=== PATIENT | male | born 1975 | race Caucasian/White ===

== ENCOUNTER 2016-08-09 12:15 | Emergency (ER) | payer SELFPAY ==
[2016-08-09 14:28] LABS: Hematocrit 45 % (42-52); Hemoglobin 15.1 g/dl (14.0-18.0); Mean Corpuscular HGB Conc 34 g/dl (31-36); Mean Corpuscular Hemoglobin 30 pg (27-31); Mean Corpuscular Volume 89 fL (80-94); Mean Platelet Volume 10 um3 (7.4-10.4); Red Blood Count 5.06 10^6/ul (4.0-5.4); Red Cell Distribution Width 14 % (10.5-15); White Blood Count 7.6 10^3/ul (3.5-10.8)
[2016-08-09 14:44] LABS: Albumin 4.2 g/dL (3.2-5.2); BUN/Creatinine Ratio 16.5 (8-20); C Reactive Protein 5.88 mg/L (< 5.00); Calcium 9.2 mg/dL (8.6-10.3); EGFR African American 117.5 (>60); EGFR Non-African American 91.4 (>60); Globulin 2.7 g/dL (2-4); Total Bilirubin 0.6 mg/dL (0.2-1.0); Total Protein 6.9 g/dL (6.4-8.9)
[2016-08-09] MEDS ORDERED: Ondansetron INJ* 2 MG/ML VIAL IV ONE (14:53)
[2016-08-09] MEDS ORDERED: HYDROmorphone* 1 MG/ML 1 ML SYR IV ONE (14:53)
[2016-08-09] MEDS ORDERED: NS 0.9% 1000 ML* 1,000 ML IV ONE (14:53)
[2016-08-09] MEDS ORDERED: Ondansetron INJ* 2 MG/ML VIAL ONE (14:56)
--- NOTE | 2016-08-09 15:05 | RAD ---
INDICATION: Left flank pain COMPARISON: None TECHNIQUE: Noncontrast axial source images were acquired from the level hemidiaphragms to the symphysis pubis as part of CT imaging for renal stone. Lung bases: There is mild gravity dependent atelectasis in the lung bases. Liver: The liver is normal in size. Noncontrast imaging shows no evidence of a hepatic mass or ductal dilatation. Gallbladder: There are no calcified gallstones. There is no evidence of wall thickening or pericholecystic fluid.. Spleen: The spleen is normal in size. The noncontrast CT appearance is normal. Pancreas: Noncontrast imaging shows no pancreatic mass or ductal dilitation. Adrenal glands: No masses are identified. Kidneys/Bladder: There is no evidence of nephrolithiasis or CT evidence of hydronephrosis. Noncontrast imaging shows no evidence of a renal mass. The bladder is unremarkable.. Adenopathy: There is no evidence of intraperitoneal or retroperitoneal adenopathy. Evaluation is limited without oral contrast. Fluid collections: There are no free or localized fluid collections. Vessels: The aorta and iliac vessels are normal in caliber. There are no significant atherosclerotic changes. The IVC appears normal Pelvic organs: The prostate and seminal vesicles appear normal GI tract: Evaluation of the bowel is limited without oral contrast. The stomach, small bowel, and lower GI tract appear grossly normal. There are no obstructive findings. The appendix is visualized and appears normal. Soft tissues: No soft tissue abnormalities of the extraperitoneal abdomen or pelvis are identified. Osseous structures: There are no acute osseous findings. IMPRESSION: NO ACUTE CT FINDINGS. NO CT EVIDENCE OF UROLITHIASIS.
[2016-08-09 15:51] LABS: Urine Bilirubin Negative (Negative); Urine Glucose Negative (Negative); Urine Nitrite Negative (Negative)
[2016-08-09 16:40] VITALS: BP 126/87
--- NOTE | 2016-08-09 18:15 | ED ---
Angy King Alfonso, scribed for Ajay Enriquez MD on 08/09/16 at 1348 . Abdominal Pain/Male - HPI Summary HPI Summary: This patient is a 41 year old male presenting to [facility] c/o sharp left-sided abdominal pain since 1000 today. The pain radiates to his back. He reports abdominal discomfort since one week ago. He rates the pain 6/10 in severity. Symptoms aggravated by deep breaths and alleviated by position. He reports diarrhea (2 days ago), constipation (1 day ago), and increased urinary frequency. Pt denies nausea. Last BM was yesterday. - History of Current Complaint Chief Complaint: EDAbdPain Stated Complaint: LT FLANK /ABD PAIN Time Seen by Provider: 08/09/16 13:36 Hx Obtained From: Patient Onset/Duration: Sudden Onset, Lasting Hours - since 1000 today, Still Present Timing: Constant Severity Initially: Moderate Severity Currently: Moderate Pain Intensity: 6 Pain Scale Used: 0-10 Numeric Location: Discrete At: LUQ, Discrete At: LLQ, Flank - Left flank Radiates: Yes Radiates to: Back Character: Sharp Aggravating Factor(s): Deep Breaths Alleviating Factor(s): Position Associated Signs And Symptoms: Positive: Constipation - 1 day ago, Urinary Symptoms - Increased frequency, Diarrhea - 2 days ago. Negative: Nausea - Allergies/Home Medications Allergies/Adverse Reactions: Allergies Allergy/AdvReac Type Severity Reaction Status Date / Time Acetaminophen Allergy Anaphylatic Verified 03/05/13 13:02 Shock Amoxicillin Allergy ANAPHYLAXIS, Verified 03/05/13 13:02 HIVES Erythromycin Allergy SEVERE GI Verified 03/05/13 13:02 UPSET, HEAT RASH Penicillins Allergy ANAPHYLAXIS, Verified 03/05/13 13:02 HIVES PMH/Surg Hx/FS Hx/Imm Hx Cardiovascular History: Reports: Hx Coronary Artery Disease - CARDIAC CATHERIZATION WITH STENT PLACEMENT Respiratory History: Reports: Other Respiratory Problems/Disorders - SMOKING HISTORY UNTIL 01/29/2013 Musculoskeletal History: Reports: Other Musculoskeletal History - RIGHT KNEE PIGMENTED VILLONODULAR SYNOVITIS Sensory History: Reports: Hx Contacts or Glasses - glasses Denies: Hx Hearing Aid Opthamlomology History: Reports: Hx Contacts or Glasses - glasses - Surgical History Surgery Procedure, Year, and Place: 06/2011 CARDIAC CATHERIZATION WITH CARDIAC STENT PLACEMENT, [facility]. 2011 RIGHT KNEE ARTHROSCOPY WITH BIOPSY, [facility]. 2012 PILIDIONAL CYSTECTOMY, [facility] Hx Anesthesia Reactions: No Infectious Disease History: No Infectious Disease History: Denies: Traveled Outside the [place] in Last 30 Days - Family History Known Family History: Positive: Unknown - Adopted - Social History Alcohol Use: Rare Substance Use Type: Reports: None Hx Tobacco Use: Yes Smoking Status (MU): Light Every Day Tobacco Smoker Type: Cigarettes Amount Used/How Often: 1 PPD Length of Time of Smoking/Using Tobacco: 20 YEARS Have You Smoked in the Last Year: Yes Review of Systems Negative: Fever Positive: Abdominal Pain - Sharp left-sided abdominal pain since 1000 today which radiates to his back., Diarrhea - 2 days ago, Other - Positive constipation 1 day ago. Negative: Nausea Positive: frequency - Increased urinary frequency All Other Systems Reviewed And Are Negative: Yes Physical Exam Triage Information Reviewed: Yes Vital Signs On Initial Exam: Initial Vitals Temp Pulse Resp BP Pulse Ox 97.8 F 86 16 153/96 99 08/09/16 12:21 08/09/16 12:21 08/09/16 12:21 08/09/16 12:21 08/09/16 12:21 Vital Signs Reviewed: Yes Appearance: Positive: Well-Appearing, No Pain Distress, Obese Skin: Positive: Warm, Skin Color Reflects Adequate Perfusion, Dry Head/Face: Positive: Normal Head/Face Inspection Eyes: Positive: Normal ENT: Positive: Normal ENT inspection Neck: Positive: Supple, Nontender Respiratory/Lung Sounds: Positive: Clear to Auscultation, Breath Sounds Present Cardiovascular: Positive: RRR Abdomen Description: Positive: Other: - Tender in LUQ and LLQ. Most tender in LUQ. Bowel Sounds: Positive: Present Musculoskeletal: Positive: Normal Neurological: Positive: Normal, Sensory/Motor Intact, Alert, Oriented to Person Place, Time, CN Intact II-III Psychiatric: Positive: Affect/Mood Appropriate - [place] Coma Scale Coma Scale Total: 15 Diagnostics - Vital Signs Vital Signs Temp Pulse Resp BP Pulse Ox 08/09/16 12:23 97.8 F 85 17 153/96 100 08/09/16 12:21 97.8 F 86 16 153/96 99 - Laboratory Lab Results: Lab Results 08/09/16 08/09/16 08/09/16 Range/Units 14:20 14:20 14:20 WBC 7.6 (3.5-10.8) 10^3/ul RBC 5.06 (4.0-5.4) 10^6/ul Hgb 15.1 (14.0-18.0) g/dl Hct 45 (42-52) % MCV 89 (80-94) fL MCH 30 (27-31) pg MCHC 34 (31-36) g/dl RDW 14 (10.5-15) % Plt Count 207 (150-450) 10^3/ul MPV 10 (7.4-10.4) um3 Neut % (Auto) 65.2 (38-83) % Lymph % (Auto) 23.3 L (25-47) % [place] % (Auto) 7.0 (1-9) % Eos % (Auto) 4.1 (0-6) % Baso % (Auto) 0.4 (0-2) % Absolute Neuts (auto) 5.0 (1.5-7.7) 10^3/ul Absolute Lymphs (auto) 1.8 (1.0-4.8) 10^3/ul Absolute Monos (auto) 0.5 (0-0.8) 10^3/ul Absolute Eos (auto) 0.3 (0-0.6) 10^3/ul Absolute Basos (auto) 0 (0-0.2) 10^3/ul Absolute Nucleated RBC 0.01 10^3/ul Nucleated RBC % 0.1 Sodium 134 (133-145) mmol/L Potassium 4.0 (3.5-5.0) mmol/L Chloride 106 (101-111) mmol/L Carbon Dioxide 25 (22-32) mmol/L Anion Gap 3 (2-11) mmol/L BUN 15 (6-24) mg/dL Creatinine 0.91 (0.67-1.17) mg/dL Est GFR ( Amer) 117.5 (>60) Est GFR (Non-Af Amer) 91.4 (>60) BUN/Creatinine Ratio 16.5 (8-20) Glucose 100 (70-100) mg/dL Lactic Acid 0.7 (0.5-2.0) mmol/L Calcium 9.2 (8.6-10.3) mg/dL Total Bilirubin 0.60 (0.2-1.0) mg/dL AST 19 (13-39) U/L ALT 23 (7-52) U/L Alkaline Phosphatase 76 (34-104) U/L C-Reactive Protein 5.88 H (< 5.00) mg/L Total Protein 6.9 (6.4-8.9) g/dL Albumin 4.2 (3.2-5.2) g/dL Globulin 2.7 (2-4) g/dL Albumin/Globulin Ratio 1.6 (1-3) Lipase 20 (11.0-82.0) U/L Urine Color Urine Appearance Urine pH (5-9) Ur Specific [place] (1.010-1.030) Urine Protein (Negative) Urine Ketones (Negative) Urine Blood (Negative) Urine Nitrate (Negative) Urine Bilirubin (Negative) Urine Urobilinogen (Negative) Ur Leukocyte Esterase (Negative) Urine Glucose (Negative) 08/09/16 Range/Units 15:35 WBC (3.5-10.8) 10^3/ul RBC (4.0-5.4) 10^6/ul Hgb (14.0-18.0) g/dl Hct (42-52) % MCV (80-94) fL MCH (27-31) pg MCHC (31-36) g/dl RDW (10.5-15) % Plt Count (150-450) 10^3/ul MPV (7.4-10.4) um3 Neut % (Auto) (38-83) % Lymph % (Auto) (25-47) % [place] % (Auto) (1-9) % Eos % (Auto) (0-6) % Baso % (Auto) (0-2) % Absolute Neuts (auto) (1.5-7.7) 10^3/ul Absolute Lymphs (auto) (1.0-4.8) 10^3/ul Absolute Monos (auto) (0-0.8) 10^3/ul Absolute Eos (auto) (0-0.6) 10^3/ul Absolute Basos (auto) (0-0.2) 10^3/ul Absolute Nucleated RBC 10^3/ul Nucleated RBC % Sodium (133-145) mmol/L Potassium (3.5-5.0) mmol/L Chloride (101-111) mmol/L Carbon Dioxide (22-32) mmol/L Anion Gap (2-11) mmol/L BUN (6-24) mg/dL Creatinine (0.67-1.17) mg/dL Est GFR ( Amer) (>60) Est GFR (Non-Af Amer) (>60) BUN/Creatinine Ratio (8-20) Glucose (70-100) mg/dL Lactic Acid (0.5-2.0) mmol/L Calcium (8.6-10.3) mg/dL Total Bilirubin (0.2-1.0) mg/dL AST (13-39) U/L ALT (7-52) U/L Alkaline Phosphatase (34-104) U/L C-Reactive Protein (< 5.00) mg/L Total Protein (6.4-8.9) g/dL Albumin (3.2-5.2) g/dL Globulin (2-4) g/dL Albumin/Globulin Ratio (1-3) Lipase (11.0-82.0) U/L Urine Color Yellow Urine Appearance Clear Urine pH 5.0 (5-9) Ur Specific [place] 1.023 (1.010-1.030) Urine Protein Negative (Negative) Urine Ketones Negative (Negative) Urine Blood Negative (Negative) Urine Nitrate Negative (Negative) Urine Bilirubin Negative (Negative) Urine Urobilinogen Negative (Negative) Ur Leukocyte Esterase Negative (Negative) Urine Glucose Negative (Negative) Result Diagrams: 08/09/16 14:20 08/09/16 14:20 Lab Statement: Any lab studies that have been ordered have been reviewed, and results considered in the medical decision making process. - CT CT A/P w/o contrast CT Interpretation Completed By: Radiologist - NO ACUTE CT FINDINGS. NO CT EVIDENCE OF UROLITHIASIS. Abdominal Pain Fem Course/Dx - Course Course Of Treatment: Mr. Munoz presented with several hours of left abdominal pain in the left upper quadrant. He has had some discomfort in the left lower quadrant for a couple of days and some changes in his stools. He has also had some frequency of urination without dysuria. He was tender on the left side of his abdomen upper more than lower. Labs and CT were normal here and the etiology of his pain remains unclear. I recommended some pain meds and close F/ U. - Diagnoses Provider Diagnoses: Abdominal pain Discharge - Discharge Plan Condition: Stable Disposition: HOME Prescriptions: Oxycodone-Ibuprofen [Oxycodone/Ibuprofen 5-400 mg] 1 tab PO Q6HR #15 tab MDD 4 Patient Education Materials: Abdominal Pain (ED) Referrals: Abeba Gamez MD [Primary Care Provider] - 3 Days Additional Instructions: Follow up with your primary care provider if symptoms do not improve. The documentation as recorded by the Angy lucas Alfonso accurately reflects the service I personally performed and the decisions made by me, Ajay Enriquez MD.
== END 2016-08-09 16:47 | disposition home or self-care (01) ==
LOC: ED 12:15
DX: K59.00 Constipation, unspecified (principal); R10.9 Unspecified abdominal pain; F17.210 Nicotine dependence, cigarettes, uncomplicated
CPT/HCPCS: 36415; 74176; 80053; 81003; 83605; 83690; 85025; 86140; 86703; 99284; J1170; J2405

== ENCOUNTER 2016-09-18 12:49 | Emergency (ER) | payer SELFPAY ==
[2016-09-18] MEDS ORDERED: Albuterol/Ipratropium NEB.SOL* Albuterol 2.5 MG/Ipratropium 0.5 MG 3 ML INH ONE ×2 (14:02→16:28)
[2016-09-18] MEDS ORDERED: methylPREDNISolone 125 MG* 2 ML VIAL IV ONE (14:02)
[2016-09-18] MEDS ORDERED: Ketorolac INJ* 30 MG/ML 1 ML VIAL IV PUSH ONE (14:05)
[2016-09-18 14:28] LABS: Hematocrit 42 % (42-52); Hemoglobin 14.3 g/dl (14.0-18.0); Mean Corpuscular HGB Conc 34 g/dl (31-36); Mean Corpuscular Hemoglobin 30 pg (27-31); Mean Corpuscular Volume 87 fL (80-94); Mean Platelet Volume 9 um3 (7.4-10.4); Red Blood Count 4.85 10^6/ul (4.0-5.4); Red Cell Distribution Width 14 % (10.5-15); White Blood Count 5.9 10^3/ul (3.5-10.8)
[2016-09-18 14:44] LABS: Albumin 3.9 g/dL (3.2-5.2); BUN/Creatinine Ratio 22.7 (8-20); Calcium 9.2 mg/dL (8.6-10.3); EGFR African American 146.9 (>60); EGFR Non-African American 114.2 (>60); Globulin 2.9 g/dL (2-4); Potassium 3.9 mmol/L (3.5-5.0); Total Bilirubin 0.6 mg/dL (0.2-1.0); Total Protein 6.8 g/dL (6.4-8.9)
--- NOTE | 2016-09-18 14:56 | RAD ---
HISTORY: Chest pain, wheezing COMPARISONS: March 05, 2013 VIEWS:1: Single frontal portable view of the chest at 2:07 PM FINDINGS: LINES AND TUBES: None. CARDIOMEDIASTINAL SILHOUETTE: The cardiomediastinal silhouette is normal for portable technique. PLEURA: The costophrenic angles are sharp. No pleural abnormalities are noted. LUNG PARENCHYMA: The lungs are clear. ABDOMEN: The upper abdomen is clear. There is no subphrenic gas. BONES AND SOFT TISSUES: No bone or soft tissue abnormalities are noted. IMPRESSION: NO ACTIVE CARDIOPULMONARY DISEASE.
[2016-09-18 18:33] VITALS: BP 162/78
--- NOTE | 2016-10-05 15:26 | ED ---
Katerin King Edward, scribed for Jai Andrew MD on 09/18/16 at 1359 . Respiratory - HPI Summary HPI Summary: 41 y/o male presents to the ED c/o gradual onset, intermittent SOB for the past 48 hours. Associated sx: wheezing, chronic cough for around 2 months, intermittent CP, diaphoresis at night for the past 2 weeks, chronic pain in legs , itchy throat with cold. No rhinorrhea. Pt had a cold lasting a week prior to these symptoms. No PMHx COPD, asthma, emphysema. No PMHx DM, HLD, HTN. Patient is adopted. Former smoker, use marijuana, EtOH. SHx stents 3-4 years ago. - History of Current Complaint Chief Complaint: EDUpperRespComplaint Stated Complaint: DIFF BREATHING/CHEST CONGESTION Time Seen by Provider: 09/18/16 13:56 Hx Obtained From: Patient Onset/Duration: Gradual Onset, Still Present Pain Intensity: 0 Character: Wheezing, Cough (Nonproductive) Associated Signs and Symptoms: SOB, Chest Pain, Diaphoresis, Hoarseness - Allergy/Home Medications Allergies/Adverse Reactions: Allergies Allergy/AdvReac Type Severity Reaction Status Date / Time Acetaminophen Allergy Anaphylatic Verified 09/18/16 13:02 Shock Amoxicillin Allergy ANAPHYLAXIS, Verified 09/18/16 13:02 HIVES Erythromycin Allergy SEVERE GI Verified 09/18/16 13:02 UPSET, HEAT RASH Penicillins Allergy ANAPHYLAXIS, Verified 09/18/16 13:02 HIVES PMH/Surg Hx/FS Hx/Imm Hx Previously Healthy: No Cardiovascular History: Reports: Hx Coronary Artery Disease - CARDIAC CATHERIZATION WITH STENT PLACEMENT Respiratory History: Reports: Other Respiratory Problems/Disorders - SMOKING HISTORY UNTIL 01/29/2013 Musculoskeletal History: Reports: Other Musculoskeletal History - RIGHT KNEE PIGMENTED VILLONODULAR SYNOVITIS Sensory History: Reports: Hx Contacts or Glasses - glasses Denies: Hx Hearing Aid Opthamlomology History: Reports: Hx Contacts or Glasses - glasses - Surgical History Surgery Procedure, Year, and Place: 06/2011 CARDIAC C[place]ER[place] WITH [place] [facility]ROS[place] WITH [place]OPSY, [facility]. 2011 P[place]ID[place]AL [place], [facility] Hx Anesthesia Reactions: No Infectious Disease History: Yes Infectious Disease History: Denies: Traveled Outside the [place] in Last 30 Days - Family History Known Family History: Positive: Unknown - Adopted - Social History Alcohol Use: Rare Substance Use Type: Reports: Marijuana Hx Tobacco Use: Yes Smoking Status (MU): Light Every Day Tobacco Smoker Type: Cigarettes Amount Used/How Often: 1 PPD Length of Time of Smoking/Using Tobacco: 20 YEARS Have You Smoked in the Last Year: Yes Review of Systems Positive: Skin Diaphoresis - At night. Negative: Fever, Chills Negative: Erythema Positive: Sore Throat - With cold Positive: Chest Pain Positive: Shortness Of Breath, Cough, Other - Wheezing Negative: Abdominal Pain, Vomiting, Nausea Negative: dysuria, hematuria Musculoskeletal: Other - Chronic pain Negative: Edema Negative: Rash Neurological: Other - No dizziness All Other Systems Reviewed And Are Negative: Yes Physical Exam - Summary Physical Exam Summary: Constitutional: Well-developed, Well-nourished, Alert. (-) Distressed Skin: Warm, Dry HENT: Normocephalic; Atraumatic Eyes: Conjunctiva normal Neck: Musculoskeletal ROM normal neck. (-) JVD, (-) Stridor, (-) Tracheal deviation Cardio: Rhythm regular, rate normal, Heart sounds normal; Intact distal pulses; The pedal pulses are 2+ and symmetric. Radial pulses are 2+ and symmetric. (-) Murmur Pulmonary/Chest wall: Effort normal. (-) Respiratory distress, (+) Wheezes in L lower lung [place], (-) Rales Abd: Soft, (-) Tenderness, (-) Distension, (-) Guarding, (-) Rebound Musculoskeletal: (-) Edema Lymph: (-) Cervical adenopathy Neuro: Alert, Oriented x3 Psych: Mood and affect Normal Triage Information Reviewed: Yes Vital Signs On Initial Exam: Initial Vitals Temp Pulse Resp BP Pulse Ox 98 F 83 20 126/84 97 09/18/16 13:02 09/18/16 13:02 09/18/16 13:02 09/18/16 13:02 09/18/16 13:02 Vital Signs Reviewed: Yes - [place] Coma Scale Coma Scale Total: 15 Diagnostics - Vital Signs Vital Signs Temp Pulse Resp BP Pulse Ox 09/18/16 13:47 22 09/18/16 13:36 98 F 80 20 137/92 97 09/18/16 13:34 78 96 09/18/16 13:33 137/92 09/18/16 13:02 98 F 83 20 126/84 97 - Laboratory Lab Results: Lab Results 09/18/16 09/18/16 Range/Units 14:15 14:15 WBC 5.9 (3.5-10.8) 10^3/ul RBC 4.85 (4.0-5.4) 10^6/ul Hgb 14.3 (14.0-18.0) g/dl Hct 42 (42-52) % MCV 87 (80-94) fL MCH 30 (27-31) pg MCHC 34 (31-36) g/dl RDW 14 (10.5-15) % Plt Count 187 (150-450) 10^3/ul MPV 9 (7.4-10.4) um3 Sodium 137 (133-145) mmol/L Potassium 3.9 (3.5-5.0) mmol/L Chloride 106 (101-111) mmol/L Carbon Dioxide 24 (22-32) mmol/L Anion Gap 7 (2-11) mmol/L BUN 17 (6-24) mg/dL Creatinine 0.75 (0.67-1.17) mg/dL Est GFR ( Amer) 146.9 (>60) Est GFR (Non-Af Amer) 114.2 (>60) BUN/Creatinine Ratio 22.7 H (8-20) Glucose 115 H (70-100) mg/dL Calcium 9.2 (8.6-10.3) mg/dL Total Bilirubin 0.60 (0.2-1.0) mg/dL AST 25 (13-39) U/L ALT 37 (7-52) U/L Alkaline Phosphatase 75 (34-104) U/L Troponin I 0.00 (<0.04) ng/mL Total Protein 6.8 (6.4-8.9) g/dL Albumin 3.9 (3.2-5.2) g/dL Globulin 2.9 (2-4) g/dL Albumin/Globulin Ratio 1.3 (1-3) Result Diagrams: 09/18/16 14:15 09/18/16 14:15 Lab Statement: Any lab studies that have been ordered have been reviewed, and results considered in the medical decision making process. - Radiology CXR Xray Interpretation: No Acute Changes - NO ACTIVE CARDIOPULMONARY DISEASE Radiology Interpretation Completed By: Radiologist - EKG 1 EKG Rhythm: Sinus Rhythm - @ 74 bpm EKG Interpretation: 14:21 - No STEMI EKG Comparison: No Significant Change - 03/05/13 Disposition - Course Assessment/Plan: 41 y/o male presents to the ED c/o gradual onset, intermittent SOB for the past 48 hours. Associated sx: wheezing, chronic cough for around 2 months, intermittent CP, diaphoresis at night for the past 2 weeks, chronic pain in legs, itchy throat with cold. No rhinorrhea. Pt had a cold lasting a week prior to these symptoms. No PMHx COPD, asthma, emphysema. No PMHx DM, HLD, HTN. Patient is adopted. Former smoker, use marijuana, EtOH. SHx stents 3-4 years ago. EKG @ 14:21 shows No STEMI and no change from 03/05/13. Sinus rhythm @ 74 bpm. CXR SHOWS NO ACTIVE CARDIOPULMONARY DISEASE. On re-eval, pt states that all of patient's CP is w/ coughing. Pt will be d/c home with [place] [facility] [place]. - Diagnoses Provider Diagnoses: Asthma exacerbation, Strain of chest wall Discharge - Discharge Plan Condition: Stable Disposition: HOME Prescriptions: traMADol TAB* [Ultram*] 25 mg PO Q6HR PRN #12 tab MDD 4 PRN Reason: Pain - Severe Patient Education Materials: Chest Wall Pain (ED), Asthma (ED) Referrals: Abeba Gamez MD [Primary Care Provider] - 3 Days (Please f/u in 2-3 days) The documentation as recorded by the Katerin lucas Edward accurately reflects the service I personally performed and the decisions made by , Jai Andrew MD.
== END 2016-09-18 18:31 | disposition home or self-care (01) ==
LOC: ED 12:49
DX: S29.011A Strain of muscle and tendon of front wall of thorax, initial encounter (principal); R06.02 Shortness of breath; R07.9 Chest pain, unspecified; F17.210 Nicotine dependence, cigarettes, uncomplicated; J45.901 Unspecified asthma with (acute) exacerbation; X58.XXXA Exposure to other specified factors, initial encounter; Y93.9 Activity, unspecified; Y92.9 Unspecified place or not applicable
CPT/HCPCS: 36415; 71010; 80053; 84484; 85027; 93005; 94640; 96374; 96375; 99284; A9270-GY; J1885; J2930

== ENCOUNTER 2016-12-26 10:22 | Emergency (ER) | payer SELFPAY ==
--- NOTE | 2016-12-26 11:20 | RAD ---
HISTORY: Right knee pain COMPARISONS: April 28, 2013 VIEWS: 4, Frontal, lateral, axial, and oblique views of the right knee FINDINGS: BONE DENSITY: Normal. BONES: The patient is status post right knee arthroplasty. There is no hardware failure or osteolysis. JOINTS: The patient is status post right knee arthroplasty. ALIGNMENT: There is no dislocation. SOFT TISSUES: Unremarkable. OTHER FINDINGS: None. IMPRESSION: STATUS POST RIGHT KNEE ARTHROPLASTY
[2016-12-26] MEDS ORDERED: Ketorolac INJ* 30 MG/ML 1 ML VIAL IM ONE (11:37)
[2016-12-26] MEDS ORDERED: Ketorolac INJ* 30 MG/ML 1 ML VIAL ONE (11:39)
--- NOTE | 2016-12-26 11:44 | ED ---
Lower Extremity - HPI Summary HPI Summary: 41 male presents to ED with complaints of right knee pain that occurred around 9am after sustaining an injury. 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 Admits to swelling and bruising. Is able to bear weight however causes pain. Pain is mainly medial. 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 No other complaints at this time. No other injuries. No PMHx. - History of Current Complaint Chief Complaint: EDExtremityLower Stated Complaint: FALL/RT KNEE PAIN Time Seen by Provider: 12/26/16 10:44 Hx Obtained From: Patient Mechanism Of Injury: Twisted Onset of Pain: Immediate Onset/Duration: Still Present Severity Initially: Moderate Severity Currently: Moderate Pain Intensity: 8 Pain Scale Used: 0-10 Numeric Location: Is Discrete @ - medial/anterior right knee Character Of Pain: Aching Associated Signs And Symptoms: Positive: Swelling, Bruising Aggravating Factor(s): Standing, Ambulation, Weight Bearing Alleviating Factor(s): Rest Able to Bear Weight: Yes - however painful - Allergies/Home Medications Allergies/Adverse Reactions: Allergies Allergy/AdvReac Type Severity Reaction Status Date / Time Acetaminophen Allergy Anaphylatic Verified 09/18/16 13:02 Shock Amoxicillin Allergy ANAPHYLAXIS, Verified 09/18/16 13:02 HIVES Erythromycin Allergy SEVERE GI Verified 09/18/16 13:02 UPSET, HEAT RASH Penicillins Allergy ANAPHYLAXIS, Verified 09/18/16 13:02 HIVES PMH/Surg Hx/FS Hx/Imm Hx Endocrine/Hematology History: Denies: Hx Anticoagulant Therapy Cardiovascular History: Reports: Hx Coronary Artery Disease - CARDIAC CATHERIZATION WITH STENT PLACEMENT, Hx Hypertension Respiratory History: Reports: Other Respiratory Problems/Disorders - SMOKING HISTORY UNTIL 01/29/2013 Denies: Hx Asthma Musculoskeletal History: Reports: Other Musculoskeletal History - RIGHT KNEE PIGMENTED VILLONODULAR SYNOVITIS Sensory History: Reports: Hx Contacts or Glasses - glasses Denies: Hx Hearing Aid Opthamlomology History: Reports: Hx Contacts or Glasses - glasses - Surgical History Surgery Procedure, Year, and Place: 06/2011 [place]ARDI[place] [facility] [place] RIGHT KNEE ARTHROSCOPY WITH BIOPSY, and partial replacement [facility]. 2012 [place] [facility] [place] Anesthesia Reactions: No - Immunization History Immunizations Up to Date: Yes Infectious Disease History: No Infectious Disease History: Denies: Traveled Outside the [place] in Last 30 Days - Family History Known Family History: Positive: Unknown - Adopted - Social History Alcohol Use: Weekly Substance Use Type: Reports: Marijuana Hx Tobacco Use: Yes Smoking Status (MU): Light Every Day Tobacco Smoker Type: Cigarettes Amount Used/How Often: 1 PPD Length of Time of Smoking/Using Tobacco: 20 YEARS Have You Smoked in the Last Year: Yes Review of Systems Constitutional: Negative Respiratory: Negative Gastrointestinal: Negative Positive: Arthralgia, Myalgia, Decreased ROM, Edema - right knee All Other Systems Reviewed And Are Negative: Yes Physical Exam Triage Information Reviewed: Yes Vital Signs On Initial Exam: Initial Vitals Temp Pulse Resp BP Pulse Ox 98.0 F 74 18 156/111 99 12/26/16 10:25 12/26/16 10:25 12/26/16 10:25 12/26/16 10:25 12/26/16 10:25 elevated BP noted, improved at d/c, patient in pain Vital Signs Reviewed: Yes Appearance: Positive: Well-Appearing, Well-Nourished, Pain Distress - moderate Skin: Positive: Warm, Skin Color Reflects Adequate Perfusion, Dry, Other - some edema/ecchymosis of right anterior/medial knee noted when compared to left. Negative: Cold, Cyanosis @, Erythema @ Head/Face: Positive: Normal Head/Face Inspection Eyes: Positive: Conjunctiva Clear ENT: Positive: Hearing grossly normal Neck: Positive: Supple, Nontender Respiratory/Lung Sounds: Positive: Clear to Auscultation, Breath Sounds Present. Negative: Rales, Rhonchi, Wheezes Cardiovascular: Positive: Normal, RRR, Pulses are Symmetrical in both Upper and Lower Extremities - 2+ pedal b/l. Negative: Murmur, Rub Musculoskeletal: Positive: Strength/ROM Intact - some limitation to right knee with flexion, Limited @ - with flexion due to pain of right knee, able, Pain @ - right anterior/medial knee on palpation, Edema Right - with noteable scar from previous knee partial replacement ~5 years ago. Negative: Interruption @, Abnormal @ Neurological: Positive: Normal, Sensory/Motor Intact, Alert, Oriented to Person Place, Time, NV Bundle Intact Distally, Unable to Assess Gait - due to injury/ pain - Tuyet Coma Scale Coma Scale Total: 15 Diagnostics - Vital Signs Vital Signs Temp Pulse Resp BP Pulse Ox 12/26/16 10:25 98.0 F 74 18 156/111 99 - Laboratory Lab Statement: Any lab studies that have been ordered have been reviewed, and results considered in the medical decision making process. - Radiology right knee Xray Interpretation: No Acute Changes - STATUS POST RIGHT KNEE ARTHROPLASTY Radiology Interpretation Completed By: Radiologist Lower Extremity Course/Dx - Course Course Of Treatment: xray obtained and negative. appears to have suffered from injury, possible ligamentious/muscular. knee immobilizer and crutches given. RICE and pain management. Aware of worsening signs and symptoms. Follow up with ortho. refrain from weight bearing until symptoms improve. no concern for other etiology at this time. - Diagnoses Differential Diagnosis/HQI/PQRI: Positive: Contusion, Dislocation, Fracture ( Closed), Sprain, Strain Provider Diagnoses: Pain of right knee after injury, Contusion Discharge - Discharge Plan Condition: Stable Disposition: HOME Prescriptions: oxyCODONE TAB* [Roxycodone TAB 5 mg*] 5 mg PO Q8H PRN #10 tab MDD 2 PRN Reason: Pain Patient Education Materials: Knee Pain (ED) Forms: *Work Release Referrals: Navarro Richardson MD [Medical Doctor] - [facility] [place] [Outside] Additional Instructions: Wear knee immobilizer and use crutches to help with extra support and keeping off knee. continue ibuprofen with food, stronger pain medication as needed. Follow up with ortho, call and make an appointment. Rest, ice and elevate. Any new or worsening symptoms please seek medical attention promptly.
[2016-12-26] MEDS ORDERED: oxyCODONE TAB* 5 MG TAB PO ONE (12:28)
[2016-12-26 13:08] VITALS: BP 155/89
== END 2016-12-26 13:08 | disposition home or self-care (01) ==
LOC: ED 10:22
DX: S89.91XA Unspecified injury of right lower leg, initial encounter (principal); T14.8XXA Other injury of unspecified body region, initial encounter; M25.561 Pain in right knee; W01.0XXA Fall on same level from slipping, tripping and stumbling without subsequent striking against object, initial encounter; Y93.9 Activity, unspecified; Y92.9 Unspecified place or not applicable
CPT/HCPCS: 96372; 99282; J1885

== ENCOUNTER → 2017-02-06 12:46 | Emergency (ER) | payer SELFPAY ==
--- NOTE | 2017-02-06 13:51 | RAD ---
Indication: Left shoulder pain. 4 views of left shoulder demonstrates no fracture. No other bone or joint abnormality is noted. IMPRESSION: Unremarkable left shoulder.
--- NOTE | 2017-02-06 13:53 | ED ---
Upper Extremity Pain - HPI Summary HPI Summary: Pt to Ed states woke this am with "dislocated shoulder" left side. pt states he "popped it back in putting a shirt on" but now feels it is out again. Patient states he awoke with pain in his scapula worse today although has been present for 2-3 weeks. He is right hand dominant, but uses his left often at work. Denies slurred speech, facial droop or other symptoms. He was seen by a chiropractor without improvement. He states he feels pain in the scapula which radiates to the left anterior shoulder and radiates up the neck just inferior to the ear. Never had this before. Takes ibuprofen daily and it is without relief. Has not tried ice or heat. Pain is 8/10, intermittent and worse with abduction. Denies temperature, color changes or numbness or tingling. - History of Current Complaint Chief Complaint: EDExtremityUpper Stated Complaint: SHOULDER INJURY Time Seen by Provider: 02/06/17 13:07 Hx Obtained From: Patient Mechanism Of Injury: Unknown Onset/Duration: Started Hours Ago Timing: Intermittent Severity Initially: Moderate Severity Currently: Moderate Pain Location: Shoulder Character: Aching Aggravating Factor(s): Movement, Lifting, Flexion, Extension, Internal/External Rotation, Abduction Alleviating Factor(s): Rest Associated Signs & Symptoms: Negative: Swelling, Redness, Bruising, Numbness/ Tingling, Chest Pain, SOB, Diaphoresis, Nausea - Risk Factors Non-Orthopedic Risk Factor: Negative DVT Risk Factors: Negative Septic Arthritis Risk Factor: Negative - Allergies/Home Medications Allergies/Adverse Reactions: Allergies Allergy/AdvReac Type Severity Reaction Status Date / Time Acetaminophen Allergy Anaphylatic Verified 09/18/16 13:02 Shock Amoxicillin Allergy ANAPHYLAXIS, Verified 09/18/16 13:02 HIVES Erythromycin Allergy SEVERE GI Verified 09/18/16 13:02 UPSET, HEAT RASH Penicillins Allergy ANAPHYLAXIS, Verified 09/18/16 13:02 HIVES PMH/Surg Hx/FS Hx/Imm Hx Previously Healthy: Yes Endocrine/Hematology History: Denies: Hx Anticoagulant Therapy Cardiovascular History: Reports: Hx Coronary Artery Disease - CARDIAC CATHERIZATION WITH STENT PLACEMENT, Hx Hypertension Respiratory History: Reports: Other Respiratory Problems/Disorders - SMOKING HISTORY UNTIL 01/29/2013 Denies: Hx Asthma Musculoskeletal History: Reports: Other Musculoskeletal History - RIGHT KNEE PIGMENTED VILLONODULAR SYNOVITIS Sensory History: Reports: Hx Contacts or Glasses - glasses Denies: Hx Hearing Aid Opthamlomology History: Reports: Hx Contacts or Glasses - glasses - Surgical History Surgery Procedure, Year, and Place: 06/2011 CARDIAC CATHERIZATION WITH CARDIAC STENT PLACEMENT, [facility] [place]. 2011 RIGHT KNEE ARTHROSCOPY WITH BIOPSY, and partial replacement [facility]. 2011 PILIDIONAL CYSTECTOMY, [facility] Hx Anesthesia Reactions: No - Immunization History Hx Pertussis Vaccination: No Immunizations Up to Date: Unable to Obtain/Confirm Infectious Disease History: No Infectious Disease History: Denies: Traveled Outside the [place] in Last 30 Days - Family History Known Family History: Positive: Unknown - Adopted - Social History Occupation: Employed Full-time Lives: With Family Alcohol Use: Weekly Hx Substance Use: No Substance Use Type: Reports: Marijuana Hx Tobacco Use: Yes Smoking Status (MU): Heavy Every Day Tobacco Smoker Type: Cigarettes Amount Used/How Often: 1 PPD Length of Time of Smoking/Using Tobacco: 20 YEARS Have You Smoked in the Last Year: Yes Review of Systems Constitutional: Negative Negative: Fever, Chills, Fatigue Eyes: Negative Cardiovascular: Negative Respiratory: Negative Genitourinary: Negative Positive: no symptoms reported, see HPI Positive: Arthralgia - left shoulder pain Skin: Negative Neurological: Negative All Other Systems Reviewed And Are Negative: Yes Physical Exam Triage Information Reviewed: Yes Vital Signs On Initial Exam: Initial Vitals Temp Pulse Resp BP Pulse Ox 97.1 F 81 18 142/95 97 02/06/17 12:49 02/06/17 12:49 02/06/17 12:49 02/06/17 12:49 02/06/17 12:49 Vital Signs Reviewed: Yes Appearance: Positive: Well-Appearing, Well-Nourished Skin: Positive: Warm, Skin Color Reflects Adequate Perfusion Head/Face: Positive: Normal Head/Face Inspection Eyes: Positive: EOMI, REBECCA, Conjunctiva Clear Neck: Positive: Supple, No Lymphadenopathy Respiratory/Lung Sounds: Positive: Clear to Auscultation, Breath Sounds Present Cardiovascular: Positive: RRR, Pulses are Symmetrical in both Upper and Lower Extremities Musculoskeletal: Positive: Pain @ - left shoulder with movement - worse with abduction Neurological: Positive: Speech Normal Psychiatric: Positive: Normal, Affect/Mood Appropriate - Tuyet Coma Scale Coma Scale Total: 15 Diagnostics - Vital Signs Vital Signs Temp Pulse Resp BP Pulse Ox 12/26/17 12:49 97.1 F 81 18 142/95 97 - Laboratory Lab Statement: Any lab studies that have been ordered have been reviewed, and results considered in the medical decision making process. Course/Dx - Course Course Of Treatment: He states he feels pain in the scapula which radiates to the left anterior shoulder and radiates up the neck just inferior to the ear. Never had this before. Takes ibuprofen daily and it is without relief. Has not tried ice or heat. Pain is 8/10, intermittent and worse with abduction. Denies temperature, color changes or numbness or tingling. On physical exam, full ROM is noted. Pain is worse with movement, although no signs of impingement or RTC injury is evident. Neer test negative. Clarke bryon negative. He is encouarged ibuprofen as this is likely tendinitis or calcific tendinitis for overuse at work. He is OK with plan and discharge and will follow up with Debra for worsening symptoms. Ice and heat intermittently encouraged. - Diagnoses Provider Diagnoses: Tendinitis Discharge - Discharge Plan Condition: Stable Disposition: HOME Patient Education Materials: Calcific Tendinitis (ED) Forms: *Work Release Referrals: Navarro Richardson MD [Medical Doctor] - No Primary Care Phys,NOPCP [Primary Care Provider] - Additional Instructions: If you develop numbness or weakness in the shoulder or arm - please return to the ED Ibuprofen 600mg three times daily for pain and inflammation for at least 5 days Ice and heat intermittently to the shoulder try not to repetitively move the shoulder to prevent further damage or pain
[2017-02-06 14:45] VITALS: BP 149/92
== END | disposition home or self-care (01) ==
LOC: ED 12:46
DX: M75.92 Shoulder lesion, unspecified, left shoulder (principal); F17.210 Nicotine dependence, cigarettes, uncomplicated; Z88.0 Allergy status to penicillin
CPT/HCPCS: 93005; 99281

== ENCOUNTER 2017-02-23 20:10 | Emergency (ER) | payer SELFPAY ==
[2017-02-23 20:15] VITALS: BP 156/103
[2017-02-23] MEDS ORDERED: Cyclobenzaprine TAB* 10 MG PO ONE (21:32)
[2017-02-23] MEDS ORDERED: Ketorolac INJ* 60 MG/2 ML VIAL IM ONE (21:32)
[2017-02-23] MEDS ORDERED: Lidocaine PATCH 5%* 1 PATCH TRANSDERM ONE (22:31)
[2017-02-23] MEDS ORDERED: Dexamethasone TAB* 4 MG PO ONE (22:32)
--- NOTE | 2017-02-23 22:35 | ED ---
Back Pain - HPI Summary HPI Summary: 41M presents with back pain for past two weeks. He states that around T12 he has constant pain but at T1 he has intermittent pain. He denies any injury. He states pain feels like muscle spasms. He has been using ibuprofen without relief. He denies any fever or IV drug use. He denies any numbness or tingling. He denies any loss of bowel or bladder or saddle anaesthesia. He denies any pain into his arms. He denies any weakness into his arms. He states pain is making it difficulty to sleep. He does not have a primary. - History of Current Complaint Chief Complaint: EDBackInjuryPain Stated Complaint: BACK PAIN Time Seen by Provider: 02/23/17 20:58 Pain Intensity: 10 - Allergies/Home Medications Allergies/Adverse Reactions: Allergies Allergy/AdvReac Type Severity Reaction Status Date / Time Acetaminophen Allergy Anaphylatic Verified 09/18/16 13:02 Shock Amoxicillin Allergy ANAPHYLAXIS, Verified 09/18/16 13:02 HIVES Erythromycin Allergy SEVERE GI Verified 09/18/16 13:02 UPSET, HEAT RASH Penicillins Allergy ANAPHYLAXIS, Verified 09/18/16 13:02 HIVES PMH/Surg Hx/FS Hx/Imm Hx Endocrine/Hematology History: Denies: Hx Anticoagulant Therapy Cardiovascular History: Reports: Hx Coronary Artery Disease - CARDIAC CATHERIZATION WITH STENT PLACEMENT, Hx Hypertension Respiratory History: Reports: Other Respiratory Problems/Disorders - SMOKING HISTORY UNTIL 01/29/2013 Denies: Hx Asthma Musculoskeletal History: Reports: Other Musculoskeletal History - RIGHT KNEE PIGMENTED VILLONODULAR SYNOVITIS Sensory History: Reports: Hx Contacts or Glasses - glasses Denies: Hx Hearing Aid Opthamlomology History: Reports: Hx Contacts or Glasses - glasses - Surgical History Surgery Procedure, Year, and Place: 06/2011 CARDIAC CATHERIZATION WITH CARDIAC STENT PLACEMENT, [facility] [place]. 2011 RIGHT KNEE ARTHROSCOPY WITH BIOPSY, and partial replacement [facility] [place]. 2012 PILIDIONAL CYSTECTOMY, [facility] [place] Hx Anesthesia Reactions: No Infectious Disease History: No Infectious Disease History: Denies: Traveled Outside the [place] in Last 30 Days - Family History Known Family History: Positive: Unknown - Adopted - Social History Alcohol Use: Weekly Hx Substance Use: No Substance Use Type: Reports: Marijuana Hx Tobacco Use: Yes Smoking Status (MU): Heavy Every Day Tobacco Smoker Type: Cigarettes Amount Used/How Often: 1 PPD Length of Time of Smoking/Using Tobacco: 20 YEARS Have You Smoked in the Last Year: Yes Review of Systems Negative: Fever Negative: Chest Pain Negative: Shortness Of Breath Positive: Myalgia - back pain All Other Systems Reviewed And Are Negative: Yes Physical Exam Triage Information Reviewed: Yes Vital Signs On Initial Exam: Initial Vitals Temp Pulse Resp BP Pulse Ox 97.8 F 86 16 156/103 99 02/23/17 20:13 02/23/17 20:13 02/23/17 20:13 02/23/17 20:13 02/23/17 20:13 Vital Signs Reviewed: Yes Appearance: Positive: Well-Appearing Skin: Positive: Warm, Dry Head/Face: Positive: Normal Head/Face Inspection Eyes: Positive: Normal, Conjunctiva Clear Respiratory/Lung Sounds: Positive: Clear to Auscultation, Breath Sounds Present Cardiovascular: Positive: Normal, RRR Musculoskeletal: Positive: Strength/ROM Intact - back, Other - tenderness T1 and T12, good pulses, neg SLR Neurological: Positive: Sensory/Motor Intact - biceps Psychiatric: Positive: Normal Diagnostics - Vital Signs Vital Signs Temp Pulse Resp BP Pulse Ox 02/23/17 20:13 97.8 F 86 16 156/103 99 - Laboratory Lab Statement: Any lab studies that have been ordered have been reviewed, and results considered in the medical decision making process. - Radiology thoracic Xray Interpretation: No Acute Changes Radiology Interpretation Completed By: ED Physician Back Pain Course/Dx - Course Course Of Treatment: 41M presents with back pain for past two weeks. He states that around T12 he has constant pain but at T1 he has intermittent pain. He denies any injury. He states pain feels like muscle spasms. He has been using ibuprofen without relief. He denies any fever or IV drug use. He denies any numbness or tingling. He denies any loss of bowel or bladder or saddle anaesthesia. He denies any pain into his arms. He denies any weakness into his arms. He states pain is making it difficulty to sleep. He does not have a primary. on exam tenderness T1 and T12. neurovascular intact. full ROM. xray read as normal by me. will treat with steriod and muscle relaxer. patient understand and agrees with plan. - Diagnoses Differential Diagnosis/HQI/PQRI: Positive: Herniated Disc, Strain, Sprain Provider Diagnoses: Back pain Discharge - Discharge Plan Condition: Good Disposition: HOME Prescriptions: Cyclobenzaprine TAB* [Flexeril 10 MG TAB*] 10 mg PO TID PRN #21 tab PRN Reason: Pain Ibuprofen TAB* [Motrin TAB* 800 MG] 800 mg PO Q6H #20 tab Methylprednisolone [Medrol Dosepak 4 MG*] 4 mg PO .SEE KENIA INSTRUCTION #1 packet Patient Education Materials: Back Pain (ED) Referrals: [facility] [place] [facility] [Outside] Additional Instructions: Follow directions on package for Medrol pack Take muscle relaxers three times a day Use ibuprofen or Tylenol for pain every 6 hours ice/heat area, move as much as possible Establish care with primary Return to ED if develop any new or worsening symptoms
--- NOTE | 2017-02-24 08:03 | RAD ---
Indication: Back pain. 2 views of the thoracic spine are reviewed. The vertebral bodies appear normal in height. Mild dextroscoliosis centered at T5 is noted. Mild degenerative disc disease is noted. IMPRESSION: No definite compression fracture is noted. Pedicles appear intact. Degenerative disc disease is noted in the mid thoracic spine.
== END 2017-02-23 22:53 | disposition home or self-care (01) ==
LOC: ED 20:10
DX: M54.9 Dorsalgia, unspecified (principal); F17.210 Nicotine dependence, cigarettes, uncomplicated
CPT/HCPCS: 72070; 96372; 99282; A9270-GY; J1885; J8540

== ENCOUNTER 2017-08-11 06:45 | Emergency (ER) | payer SELFPAY ==
[2017-08-11] MEDS ORDERED: Ketorolac INJ* 60 MG/2 ML VIAL IM ONE (07:13)
--- NOTE | 2017-08-11 07:44 | ED ---
Back Pain - HPI Summary HPI Summary: Patient is a 42-year-old male who presents to the ED with chief complaint of left-sided rib pain which radiates to the left upper back. He states he was helping a friend move a couch the other day when the couch slipped and fell directly onto his left side of his chest pinning him against the wall and hurting his back as well. Denies any pain directly over the spine. He is requesting pain medications on discharge. Occurrence happened 2 days ago. Denies any numbness or tingling or bruising to the area. Also endorses a lump to the left side of his chest wall just left of the nipple. History of these in the past more to the medial side of the chest with biopsies completed. He states this has been new since the last 2 days. Denies any difficulty breathing. Symptoms are aggravated with shoulder abduction and alleviated with complete rest. States ibuprofen has not been improving his symptoms. - History of Current Complaint Chief Complaint: EDGeneral Stated Complaint: LEFT SIDE PAIN Time Seen by Provider: 08/11/17 06:55 Hx Obtained From: Patient Onset/Duration: Sudden Onset Onset/Duration: Started Hours Ago Timing: Constant Back Pain Location: Is Discrete @ - left sided ribs and left sided back pain Severity Initially: Moderate Severity Currently: Moderate Pain Intensity: 7 Character: Aching Alleviating Symptom(s): Rest Associated Signs And Symptoms: Positive: Negative - Risk Factors AAA Risk Factors: Negative TAD Risk Factors: Negative Cauda Equina Risk Factors: Negative Epidural Abscess Risk Factors: Negative - Allergies/Home Medications Allergies/Adverse Reactions: Allergies Allergy/AdvReac Type Severity Reaction Status Date / Time erythromycin base Allergy Severe GI Upset Verified 08/11/17 08:02 acetaminophen Allergy Anaphylatic Verified 08/11/17 08:02 Shock amoxicillin Allergy Anaphylatic Verified 08/11/17 08:02 Shock Penicillins Allergy Anaphylatic Verified 08/11/17 08:02 Shock Home Medications: Home Medications Ibuprofen TAB* [Motrin TAB* 800 MG] 800 mg PO SEE INSTRUCTIONS 08/11/17 [ History Confirmed 08/11/17] PMH/Surg Hx/FS Hx/Imm Hx Previously Healthy: Yes Endocrine/Hematology History: Denies: Hx Anticoagulant Therapy Cardiovascular History: Reports: Hx Coronary Artery Disease - CARDIAC CATHERIZATION WITH STENT PLACEMENT, Hx Hypertension Respiratory History: Reports: Other Respiratory Problems/Disorders - SMOKING HISTORY UNTIL 01/29/2013 Denies: Hx Asthma Musculoskeletal History: Reports: Other Musculoskeletal History - RIGHT KNEE PIGMENTED VILLONODULAR SYNOVITIS Sensory History: Reports: Hx Contacts or Glasses - glasses Denies: Hx Hearing Aid Opthamlomology History: Reports: Hx Contacts or Glasses - glasses - Surgical History Surgery Procedure, Year, and Place: 06/2011 CARDIAC CATHERIZATION WITH CARDIAC STENT PLACEMENT, [facility]. 2011 RIGHT KNEE ARTHROSCOPY WITH BIOPSY, and partial replacement [facility]. 2011 PILIDIONAL CYSTECTOMY, [facility] Hx Anesthesia Reactions: No - Immunization History Hx Pertussis Vaccination: No Immunizations Up to Date: Unable to Obtain/Confirm Infectious Disease History: No Infectious Disease History: Denies: Traveled Outside the [place] in Last 30 Days - Family History Known Family History: Positive: Unknown - Adopted - Social History Occupation: Employed Full-time Lives: Alone Alcohol Use: Rare Hx Substance Use: No Substance Use Type: Reports: Marijuana Hx Tobacco Use: Yes Smoking Status (MU): Heavy Every Day Tobacco Smoker Type: Cigarettes Amount Used/How Often: 1 PPD Length of Time of Smoking/Using Tobacco: 20 YEARS Have You Smoked in the Last Year: Yes Review of Systems Constitutional: Negative Negative: Fever, Chills, Fatigue, Skin Diaphoresis Cardiovascular: Negative Respiratory: Negative Genitourinary: Negative Positive: no symptoms reported, see HPI Positive: Arthralgia - left sided rib and back pain Neurological: Negative All Other Systems Reviewed And Are Negative: Yes Physical Exam Triage Information Reviewed: Yes Vital Signs On Initial Exam: Initial Vitals Temp Pulse Resp BP Pulse Ox 97.9 F 90 18 133/80 98 08/11/17 06:48 08/11/17 06:48 08/11/17 06:48 08/11/17 06:48 08/11/17 06:48 Vital Signs Reviewed: Yes Appearance: Positive: Well-Appearing, Well-Nourished Skin: Positive: Skin Color Reflects Adequate Perfusion, Other - lump to the left sided of his left nipple Neck: Positive: Supple Respiratory/Lung Sounds: Positive: Clear to Auscultation, Breath Sounds Present Cardiovascular: Positive: RRR, Pulses are Symmetrical in both Upper and Lower Extremities Musculoskeletal: Positive: Other - pain with abduction of the left arm Neurological: Positive: Speech Normal Psychiatric: Positive: Normal Diagnostics - Vital Signs Vital Signs Temp Pulse Resp BP Pulse Ox 08/11/17 06:48 97.9 F 90 18 133/80 98 - Laboratory Lab Statement: Any lab studies that have been ordered have been reviewed, and results considered in the medical decision making process. Back Pain Course/Dx - Course Course Of Treatment: Patient is evaluated for possible left-sided rib injury. X -ray obtained which shows no acute abnormalities. Denies any shortness of breath. Patient is in no acute distress. Small 2 cm lump underlying the skin to the left of the left nipple possibly representing a cyst or a lipoma. This is likely not a result of his recent injury as there is no discoloration to the area. He will follow up with surgery. During the course of treatment, the patient is given 60 mg Toradol for pain. Continues to c/o pain and given 50mg tramadol. Xray shows no acute findings. He is given follow up with surgery. Note given for work. - Diagnoses Provider Diagnoses: Rib contusion Discharge - Sign-Out/Discharge Documenting (check all that apply): Discharge/Admit/Transfer - Discharge Plan Condition: Stable Disposition: HOME Patient Education Materials: Rib Contusion (ED) Forms: *Work Release Referrals: Mayito Cote MD [Medical Doctor] - No Primary Care Phys,NOPCP [Primary Care Provider] - Additional Instructions: Ibuprofen 600mg three times daily as needed - do not exceed 3 days Please follow up with surgery for lump to the left side - Billing Disposition and Condition Condition: STABLE Disposition: Home
[2017-08-11] MEDS ORDERED: traMADol TAB* 50 MG PO ONE (08:19)
--- NOTE | 2017-08-11 08:37 | RAD ---
Indication: Left rib injury. 3 views of left ribs demonstrate no fracture. No other bone or joint abnormality is identified. No pneumothorax is noted. Lung lima are otherwise clear. IMPRESSION: No fracture of the left RIBS. No pneumothorax is noted.
[2017-08-11 09:13] VITALS: BP 136/100
== END 2017-08-11 09:12 | disposition home or self-care (01) ==
LOC: ED 06:45
DX: S20.20XA Contusion of thorax, unspecified, initial encounter (principal); W08.XXXA Fall from other furniture, initial encounter; Y92.9 Unspecified place or not applicable; R22.2 Localized swelling, mass and lump, trunk; F17.210 Nicotine dependence, cigarettes, uncomplicated; Z95.5 Presence of coronary angioplasty implant and graft; Z88.3 Allergy status to other anti-infective agents; Z88.0 Allergy status to penicillin; Z88.6 Allergy status to analgesic agent
CPT/HCPCS: 96372; 99282; A9270-GY; J1885

== ENCOUNTER 2017-09-24 10:22 | Inpatient (IN) | payer MEDICAID ==
[2017-09-24] MEDS ORDERED: NS 0.9% 1000 ML* 1,000 ML IV ONE (12:54)
[2017-09-24] MEDS ORDERED: Vancomycin(*) 1,000 MG in NS 0.9% 250 ML* 250 ML IVPB ONE (12:56)
--- NOTE | 2017-09-24 13:15 | ED ---
Lower Extremity - HPI Summary HPI Summary: This is scribe Chuck Coon documenting for attending Derek Silva MD, MD. This patient is a 42 year old M presenting to [facility] with a chief complaint of R knee pain since 09/22/2017. He reports the pain felt like someone had a flame on my knee. The pain radiates up to his groin. The patient rates the pain 10/ 10 in severity. Patient reports a fever. He had a knee replacement 6 years. It took him 6 months to recuperate. He had no issues with his knee until now, but he reports that it was never fully back to what it was before. I, Dr. Silva, personally performed the services described in this documentation as scribed in my presence, and it is both accurate and complete. - History of Current Complaint Chief Complaint: EDExtremityLower Stated Complaint: RT KNEE PAIN & SWELLING Time Seen by Provider: 09/24/17 12:36 Hx Obtained From: Patient Mechanism Of Injury: Unknown Onset of Pain: Immediate Onset/Duration: Still Present Severity Initially: Severe Severity Currently: Severe Pain Intensity: 10 Pain Scale Used: 0-10 Numeric Timing: Constant, Lasting Days Location: Radiates To - R groin Associated Signs And Symptoms: Positive: Other - "felt like someone had a flame on my knee" - Allergies/Home Medications Allergies/Adverse Reactions: Allergies Allergy/AdvReac Type Severity Reaction Status Date / Time erythromycin base Allergy Severe GI Upset Verified 09/24/17 12:37 acetaminophen Allergy Anaphylatic Verified 09/24/17 12:37 Shock amoxicillin Allergy Anaphylatic Verified 09/24/17 12:37 Shock Penicillins Allergy Anaphylatic Verified 09/24/17 12:37 Shock PMH/Surg Hx/FS Hx/Imm Hx Endocrine/Hematology History: Denies: Hx Anticoagulant Therapy Cardiovascular History: Reports: Hx Coronary Artery Disease - CARDIAC CATHERIZATION WITH STENT PLACEMENT, Hx Hypertension Respiratory History: Reports: Other Respiratory Problems/Disorders - SMOKING HISTORY UNTIL 01/29/2013 Denies: Hx Asthma Musculoskeletal History: Reports: Other Musculoskeletal History - RIGHT KNEE PIGMENTED VILLONODULAR SYNOVITIS Sensory History: Reports: Hx Contacts or Glasses - glasses Denies: Hx Hearing Aid Opthamlomology History: Reports: Hx Contacts or Glasses - glasses - Surgical History Surgery Procedure, Year, and Place: 06/2011 [place] [facility] [place] WITH BIOPSY, [place] [facility] [place], [facility] Hx Anesthesia Reactions: No - Immunization History Immunizations Up to Date: Yes Infectious Disease History: No Infectious Disease History: Denies: Traveled Outside the [place] in Last 30 Days - Family History Known Family History: Positive: Unknown - Adopted - Social History Lives: Dormitory/Roommates - with friends Alcohol Use: Rare Hx Substance Use: No Substance Use Type: Reports: Marijuana Hx Tobacco Use: Yes Smoking Status (MU): Heavy Every Day Tobacco Smoker Type: Cigarettes Amount Used/How Often: 1 PPD Length of Time of Smoking/Using Tobacco: 20 YEARS Have You Smoked in the Last Year: Yes Review of Systems Positive: Fever Positive: Other - R knee pain that "felt like someone had a flame on my knee" and radiates to his groin All Other Systems Reviewed And Are Negative: Yes Physical Exam - Summary Physical Exam Summary: VITAL SIGNS: Reviewed. GENERAL: Patient is a well-developed and nourished MALE who is lying comfortable in the stretcher. Patient is not in any acute respiratory distress. Increase in temperature. HEAD AND FACE: No signs of trauma. No ecchymosis, hematomas or skull depressions. No sinus tenderness. EYES: PERRLA, EOMI x 2, No injected conjunctiva, no nystagmus. EARS: Hearing grossly intact. Ear canals and tympanic membranes are within normal limits. MOUTH: Oropharynx within normal limits. NECK: Supple, trachea is midline, no adenopathy, no JVD, no carotid bruit, no c- spine tenderness, neck with full ROM. CHEST: Symmetric, no tenderness at palpation LUNGS: Clear to auscultation bilaterally. No wheezing or crackles. CVS: Regular rate and rhythm, S1 and S2 present, no murmurs or gallops appreciated. ABDOMEN: Soft, non-tender. No signs of distention. No rebound no guarding, and no masses palpated. Bowel sounds are normal. EXTREMITIES: No cyanosis or clubbing. Right knee is swollen, decreased ROM secondary to pain. Good pulses and good capillary feel in lower extremities. NEURO: Alert and oriented x 3. No acute neurological deficits. Speech is normal and follows commands. SKIN: Dry and warm Triage Information Reviewed: Yes Vital Signs On Initial Exam: Initial Vitals Temp Pulse Resp BP Pulse Ox 101.4 F 108 20 142/40 99 09/24/17 10:25 09/24/17 10:25 09/24/17 10:25 09/24/17 10:25 09/24/17 10:25 Vital Signs Reviewed: Yes Procedures - Procedure Summary Procedure Summary: Arthoscentesis on the R knee. Administered 50 CC of fentanyl and an additional 25 CC of fentanyl through an IV. Administered lidocaine directly to the knee. Diagnostics - Vital Signs Vital Signs Temp Pulse Resp BP Pulse Ox 09/24/17 12:10 99.8 F 103 20 134/88 100 09/24/17 10:25 101.4 F 108 20 142/40 99 - Laboratory Result Diagrams: 09/26/17 06:31 09/25/17 11:20 Lab Statement: Any lab studies that have been ordered have been reviewed, and results considered in the medical decision making process. - Radiology Knee X-Ray Radiology Interpretation Completed By: Radiologist - 13:49. STATUS POST RIGHT KNEE ARTHROPLASTY WITH A VERY LARGE JOINT EFFUSION. ED Physician has reviewed this report. - Ultrasound No standard instances Ultrasound Interpretation Completed By: Radiologist - Venous Doppler US 14:41 found: 1. NO RIGHT LOWER EXTREMITY DEEP VEIN THROMBOSIS. 2. JOINT EFFUSION. ED Physician has reviewed this report. Lower Extremity Course/Dx - Course Assessment/Plan: This patient is a 42-year-old male who presents to the emergency department with a chief complaint of having fever of 102 at home and when he arrived to the emergency department he was 101.4. He also complains that she is having right knee pain, and swelling. He has been having the symptoms for approximately one week and today it worsened. He reports that he had a total knee replacement approximately [address] Richardson. Blood test results without any significant abnormality except for hemoglobin 13.9 and hematocrit is 40, ESR is 87, sodium 134, CRP is 195. Since the patient has the swelling, fevers I believe that the patient has a septic joint. Therefore I offered the patient to tap the knee to rule out a septic joint. The patient refuses. Patient reports that he had too many of those procedure and is too painful for him. Therefore, I started IV fluids, and vancomycin. After a few hours ago visited the patient and he accepted and I was able to tap the knee. The fluid color is darnell. His is cloudy WBC is 12,339, rbcs of 100 total cell count still pending and the treatment. Pending. This a culture is pending. At this point I discussed the case with and Dr. Smith and she will admit the patient for further workup and management. The patient is hemodynamically stable alert oriented 3. - Diagnoses Differential Diagnosis/HQI/PQRI: Positive: Bursitis, Cellulitis, Infection, Osteomyelitis, Septic Arthritis Provider Diagnoses: Septic joint - Physician Notifications Discussed Care Of Patient With: Karla Smith - Orthopedics Time Discussed With Above Provider: 14:22 Instructed by Provider To: Other - She will come see the patient and aspirate. Discharge - Sign-Out/Discharge Documenting (check all that apply): Patient Departure - Discharge Plan Condition: Stable Disposition: ADMITTED TO [facility] - Billing Disposition and Condition Condition: STABLE Disposition: Admitted to [facility] Consult Consult: 15:30 Spoke with Karla Smith MD about the arthocentesis on patient's R knee. Keep the patient NPO. She will admit the patient.
[2017-09-24 13:27] LABS: ABS Basophils 0 10^3/ul (0-0.2); ABS Eosinophils 0.1 10^3/ul (0-0.6); ABS Lymphocytes 2.4 10^3/ul (1.0-4.8); ABS Neutrophils 6.1 10^3/ul (1.5-7.7); ABS Nucleated RBC 0 10^3/ul; Eosinophil % 1.2 % (0-6); Hematocrit 40 % (42-52); Hemoglobin 13.7 g/dl (14.0-18.0); Lymphocyte % 24.7 % (25-47); Mean Corpuscular HGB Conc 34 g/dl (31-36); Mean Corpuscular Hemoglobin 28 pg (27-31); Mean Corpuscular Volume 83 fL (80-94); Mean Platelet Volume 8.7 um3 (7.4-10.4); Nucleated Red Blood Cells % 0.4; Platelet Count 226 10^3/ul (150-450); Red Blood Count 4.81 10^6/ul (4.00-5.40); Red Cell Distribution Width 15 % (10.5-15); White Blood Count 9.6 10^3/ul (3.5-10.8)
[2017-09-24 13:41] LABS: Uric Acid 4.6 mg/dL (4.4-7.6)
[2017-09-24] MEDS ORDERED: NS 0.9% 250 ML* 250 ML ONE (13:44)
[2017-09-24] MEDS ORDERED: Vancomycin(*) 1,000 MG BAG/ADDV IVPB ONE (13:46)
--- NOTE | 2017-09-24 13:53 | RAD ---
HISTORY: Knee pain COMPARISONS: None VIEWS: 2, Frontal and lateral views of the right knee FINDINGS: BONE DENSITY: Normal. BONES: The patient is status post right knee arthroplasty. There is no hardware failure or osteolysis. JOINTS: The patient is status post right knee arthroplasty. There is a very large joint effusion. ALIGNMENT: There is no dislocation. SOFT TISSUES: Unremarkable. OTHER FINDINGS: None. IMPRESSION: STATUS POST RIGHT KNEE ARTHROPLASTY WITH A VERY LARGE JOINT EFFUSION.
--- NOTE | 2017-09-24 14:45 | RAD ---
HISTORY: LE pain and swelling COMPARISONS: Right knee radiograph dated September 24, 2017 TECHNIQUE: Multiple transverse and longitudinal ultrasound images were obtained of the right lower extremity from the level of the common femoral vein inferiorly through to the infrapopliteal veins using grayscale, color Doppler, and spectral Doppler imaging with and without compression and with augmentation. Comparison images were obtained of the contralateral common femoral vein. FINDINGS: VEINS: The venous system of the right lower extremity is compressible throughout its course, with normal flow on color Doppler imaging and normal response to augmentation on spectral Doppler imaging. SOFT TISSUES: Unremarkable. OTHER FINDINGS: There is large right joint effusion IMPRESSION: 1. NO RIGHT LOWER EXTREMITY DEEP VEIN THROMBOSIS. 2. JOINT EFFUSION
[2017-09-24] MEDS ORDERED: Lidocaine 1% INJ* 10 MG/ML 30 ML SDV ONE (14:52)
[2017-09-24 14:53] LABS: EGFR Non-African American 88.7 (>60)
[2017-09-24] MEDS ORDERED: fentaNYL* 50 MCG/ML 2 ML VIAL (100 MCG VIAL) ONE (15:02)
[2017-09-24] MEDS ORDERED: Midazolam* 1 MG/ML 5 ML VIAL (5 MG) ONE (15:02)
[2017-09-24] MEDS ORDERED: Midazolam* 1 MG/ML 2 ML VIAL (2 MG) IV SLOW PU ONE (15:26)
[2017-09-24] MEDS ORDERED: fentaNYL* 50 MCG/ML 2 ML VIAL (100 MCG VIAL) IV SLOW PU ONE (15:26)
[2017-09-24] MEDS ORDERED: diPHENhydraMINE PO* 25 MG PO PRN (16:11)
[2017-09-24] MEDS ORDERED: Ondansetron INJ* 2 MG/ML VIAL IV PRN (16:11)
[2017-09-24] MEDS: Morphine INJ* 2 MG/ML 1 ML SYRINGE (TWO MG - NEW SYRINGE VERSION) IV PRN ×2 (17:38→23:37)
[2017-09-24] MEDS: oxyCODONE TAB* 5 MG TAB PO PRN (19:55)
[2017-09-24 20:33] LABS: ABS Basophils 0 10^3/ul (0-0.2); ABS Eosinophils 0.1 10^3/ul (0-0.6); ABS Lymphocytes 2.2 10^3/ul (1.0-4.8); ABS Neutrophils 5.3 10^3/ul (1.5-7.7); ABS Nucleated RBC 0 10^3/ul; Eosinophil % 1.3 % (0-6); Hematocrit 36 % (42-52); Hemoglobin 12.7 g/dl (14.0-18.0); Lymphocyte % 25.4 % (25-47); Mean Corpuscular HGB Conc 35 g/dl (31-36); Mean Corpuscular Hemoglobin 29 pg (27-31); Mean Corpuscular Volume 82 fL (80-94); Mean Platelet Volume 8.6 um3 (7.4-10.4); Nucleated Red Blood Cells % 0; Platelet Count 200 10^3/ul (150-450); Red Blood Count 4.43 10^6/ul (4.00-5.40); Red Cell Distribution Width 15 % (10.5-15); White Blood Count 8.6 10^3/ul (3.5-10.8)
[2017-09-24 20:58] LABS: EGFR Non-African American 94.5 (>60); INR 0.99 (0.77-1.02)
[2017-09-24] MEDS ORDERED: Heparin VIAL(*) 5000 UNITS/ML VIAL (FIVE THOUSAND) SUBCUT SCH (21:00)
--- NOTE | 2017-09-24 21:09 | HP ---
ADMISSION HISTORY AND PHYSICAL: DATE OF ADMISSION: 09/24/17 ATTENDING PROVIDER: Karla Smith MD* (dictated by NEAL Laird). CHIEF COMPLAINT: Right knee pain. HISTORY OF PRESENT ILLNESS: The patient is a 42-year-old male with past medical history of cardiac stent, who presents with a 2-day history of right swollen and painful knee. 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 The patient states that his knee has been functioning well since his knee replacement and he has had no knee dislocations since knee replacement as well. Few days ago, his knee suddenly became painful , swollen, and red. He states that within 6 hours it went from a mild ache to severe pain, inability to bend the knee and inability to walk. His knee became splotchy, but not globally red. He did take a hydromorphone, which did relieve some of the pain but the patient states that with activity his pain remained 10/ 10. Since onset of pain, he has also had fever and chills. The pain is much worse with activity. The pain currently is 6/10 at rest and 10/10 with activity. The patient states that he has no other joint pain. He has no known history of tick bites and he has no known recent infections. The patient denies any chest pain, shortness of breath, or dizziness. He has no history of heart attack, though he does have a history of cardiac stent placement. He has no history of asthma or COPD. He has no known history of HIV. 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 He has no history of blood clots. He does not have a primary care physician and he does not take any medications at home. The patient's last meal was 1 o'clock, though he states that he has been eating candy. PAST MEDICAL HISTORY: 1. PVNS. 2. 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 3. History of cardiac stent. MEDICATIONS: The patient does not take any medications at home. ALLERGIES: ERYTHROMYCIN, AMOXICILLIN, PENICILLIN, ACETAMINOPHEN. He has anaphylaxis to ACETAMINOPHEN. FAMILY HISTORY: The patient was adopted, he is unaware of his family history. 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 He does not smoke or drink. He uses cocaine occasionally, last 5 days ago. He has not used any IV drugs in at least 5 years. He does have several tattoos, last tattoo on his right arm 8 months ago. REVIEW OF SYSTEMS: General: Confirms fever and chills, denies recent illness. HEENT: No headache. No changes in vision. Cardiac: Denies any chest pain or irregular beats. Denies history of heart attack. Confirms history of cardiac stent. Respiratory: Denies shortness of breath or cough. Denies any history of asthma or COPD. GI: Denies any abdominal pain, nausea, vomiting, or diarrhea. Lymph Nodes: No known lymphadenopathy. Musculoskeletal: Right knee pain. No other muscle or joint pain. Neuro: No tingling or numbness of extremities. Skin: The patient states that he had red splotchy lesions over his right knee. Hematology: No history of blood clot. PHYSICAL EXAM: GENERAL: Well appearing, in no acute distress. VITAL SIGNS: Temperature T-max 101.4 in the emergency room; max pulse was 108, now at 93; oxygen saturation 100% on room air; blood pressure 121/76. HEENT: Head is normocephalic, atraumatic. Pupils EOMI. RESPIRATORY: Clear to auscultation bilaterally. CARDIAC: S1 and S2. Regular rate and rhythm. ABDOMEN: Bowel sounds normoactive. Abdomen is soft and nontender. No notable hepatosplenomegaly. MUSCULOSKELETAL: The patient moves his bilateral upper extremities well. He is nontender throughout the bilateral upper extremities. Left lower extremity, he moves well, nontender throughout the left lower extremity. Right lower extremity, he moves his ankle as well as his hip without any difficulty. He had no tenderness over the AC joint. Knee, he is able to produce both active and passive range of motion from roughly 5 degrees to 90 degrees endpoint limited by pain. His knee does not appear erythematous, though it is edematous. Sensation is intact to light touch throughout the right lower extremity. DP pulse is 2+. ASSESSMENT: Right knee effusion and possible infection of prosthetic joint. PLAN: The patient will be admitted. He will be n.p.o. We will await his synovial fluid analysis. Dr. Smith will potentially wash him out tonight. The patient needs to remain n.p.o. He understands he is not to eat or drink and that this includes his candy bars. He can be weightbearing as tolerated. KATERINA DUMAS, NEAL [id number]/[facility] #: [id number] [facility]ERN[facility]da
--- NOTE | 2017-09-24 21:17 | HP ---
ADMISSION HISTORY AND PHYSICAL: DATE OF ADMISSION: 09/24/17 ADMITTING DIAGNOSIS: Painful right total knee arthroplasty, suspected septic joint. HISTORY OF PRESENT ILLNESS: Mr. Munoz is a 42-year-old gentleman who had right total knee arthroplasty with Dr. Richardson on 03/17/13. The patient reports he recovered without difficulty. Over the last 48 hours, he began to have the acute onset of pain, swelling, and erythema in the right knee. He felt like someone had a flame and the knee was on fire. He has had fevers which he states were up to 102. He denies any recent chills. He reports the pain in his right knee at 10/10. He has difficulty bend the knee and walking. No recent traumatic injury. Patient has a significant past medical history of IV drug abuse, denies use recently. Admits to recent cocaine use. During exam he exhibits abnormal behavior. PAST MEDICAL HISTORY: Coronary artery disease, osteoarthritis, pigmented villonodular synovitis, tobacco use. PAST SURGICAL HISTORY: In 2013 right total knee arthroplasty, cardiac stent placement, right knee arthroscopy, pilonidal cystectomy. CURRENT MEDICATIONS: None. ALLERGIES: ERYTHROMYCIN, ACETAMINOPHEN, AMOXICILLIN, and PENICILLIN. FAMILY HISTORY: Unknown due to adoption. SOCIAL HISTORY: The patient lives with friends. He smokes marijuana and tobacco 1 pack of cigarettes per day. Recent history cocaine use, remote history IV drug use. Normally ambulates independently. REVIEW OF SYSTEMS: Fourteen systems reviewed with the patient today positive for recent fever, right knee pain, swelling, and warmth. Negative for fevers, chills, chest pain, shortness of breath. PHYSICAL EXAM: GENERAL: The patient is a well-nourished male in no apparent distress. Alert and oriented x3. Pleasant mood and appropriate affect. VITAL SIGNS: Temperature 98.7, pulse 91, blood pressure 140/81. HEENT: Atraumatic, normocephalic. Pupils are equal and reactive to light. NECK: Trachea midline. Neck is supple. CHEST: No wheezes, rales, or rhonchi. HEART: S1 and S2. ABDOMEN: Soft, nontender, and nondistended. EXTREMITIES: Right lower extremity: The patient's skin is intact. No abrasions or open wounds. He has moderate effusion at the knee joint with warmth and some erythema. Knee range of motion 10 to 90 degrees of flexion with pain. Distally, no significant swelling or edema. No hyperreflexia. 5/5 ankle dorsiflexion and plantar flexion strength. Full sensation to light touch in all nerve distributions and 2+ palpable DP pulse. GAIT: The patient's gait is antalgic favoring the right knee. Balance normal. Coordination normal. LABORATORY DATA: On 09/24/17, labs show white blood cell of 9.6, hematocrit 40 , platelets 226,000. ESR 37, CRP 195.6. Sodium 134, potassium 3.9, chloride 99 , BUN and creatinine 11 and 0.93. Normal liver enzymes. Synovial fluid from the right knee joint shows white blood cells 12,000. Gram stain is negative. Cultures are pending. MRSA and Staph aureus tests are negative on the joint fluid. RADIOGRAPHS: Venous Doppler from 09/24/17 shows no obvious blood clot. Knee x- ray shows no periprosthetic fracture, shows a large joint effusion. ASSESSMENT AND PLAN: Mr. Munoz is a 42-year-old gentleman with 48 hours of acute onset of right knee pain and swelling with fevers. He has a suspected septic right total knee arthroplasty. The patient was seen at the emergency room and his knee joint was aspirated. This was cloudy yellow fluid. Based on the patient's labs and the white blood cell count differential on the knee joint fluid, I have admitted him for painful right total knee arthroplasty. Today, the patient and I discussed at his bedside that his elevated ESR, CRP, recent fevers, right knee pain with effusion as well as the white blood cell count of 12,000 in the joint fluid indicates that his right knee is infected. We discussed that his Gram stain is negative. The preliminary Staphylococcus and methicillin-resistant Staphylococcus aureus are negative. I offered the patient an open washout of the knee joint tonight. He would like to wait another day and see if cultures do indeed grow bacteria. The patient and I discussed the risks and benefits of waiting another day until we wash out the knee. The patient is currently on vancomycin. We will follow the cultures overnight. We will discuss an open washout of the knee joint with polyethylene exchange again in the a.m. I highly recommend we proceed with this within the next 24 hours. The patient and I discussed briefly the risks and benefits of open washout of the right total knee arthroplasty with polyethylene exchange versus an explant of the hardware. He would like to proceed with the open washout and polyethylene exchange. The patient understands the risks of surgery include but are not limited to bleeding, infection, damage to nearby structures, continued pain, need for further surgery, continued infection, knee stiffness, loss of motion, stroke, heart attack, blood clot and . He wishes to proceed. For now, the patient can have a regular diet. I will see him in the morning to discuss the open washout once again. I will be checking the cultures and sensitivities. The patient will be weightbearing as tolerated on that side. [id number]/[facility] #: [id number] [facility]
[2017-09-25] MEDS: Morphine INJ* 2 MG/ML 1 ML SYRINGE (TWO MG - NEW SYRINGE VERSION) IV PRN ×4 (02:10→10:08)
[2017-09-25] MEDS: Mouth Piece, Nicotine* 1 EACH CARTRIDGE INH PRN (08:46)
[2017-09-25] MEDS: Nicotine Inhaler* 10 MG AMP INH PRN ×3 (08:46→22:00)
[2017-09-25 11:30] LABS: ABS Basophils 0 10^3/ul (0-0.2); ABS Eosinophils 0.2 10^3/ul (0-0.6); ABS Lymphocytes 2.5 10^3/ul (1.0-4.8); ABS Monocytes 0.9 10^3/ul (0-0.8); ABS Neutrophils 4.5 10^3/ul (1.5-7.7); ABS Nucleated RBC 0 10^3/ul; Eosinophil % 2.2 % (0-6); Hematocrit 39 % (42-52); Hemoglobin 13.2 g/dl (14.0-18.0); Lymphocyte % 30.6 % (25-47); Mean Corpuscular HGB Conc 34 g/dl (31-36); Mean Corpuscular Hemoglobin 28 pg (27-31); Mean Corpuscular Volume 83 fL (80-94); Mean Platelet Volume 8.7 um3 (7.4-10.4); Nucleated Red Blood Cells % 0.1; Platelet Count 214 10^3/ul (150-450); Red Blood Count 4.67 10^6/ul (4.00-5.40); Red Cell Distribution Width 15 % (10.5-15); White Blood Count 8.1 10^3/ul (3.5-10.8)
[2017-09-25 11:43] LABS: INR 1.03 (0.77-1.02)
[2017-09-25 11:47] LABS: EGFR Non-African American 102.5 (>60)
[2017-09-25] MEDS: Morphine VIAL* 4 MG/ML VIAL (1 ml vial) IV PRN ×3 (12:04→21:52)
--- NOTE | 2017-09-25 12:12 | CONSULT ---
Subjective Date of Service: 09/25/17 Interval History: Chief Complaint: Right Knee Pain, swelling and fever HPI: This is a 42 year old male patient with history of RTKA 6 years ago and cardiac stent at age 37 that presented to ED with c/o knee pain, heat, fever and edema. Patient had tap for effusion in the ED which appears cloudy. Patient received vancomycin and IVF and pain control. Plan is for orthopedics to take the patient to the OR for a knee washout this afternoon. We are being asked to evaluate the patient for pre-operative medical optimization. Family History: Unchanged from Admission - unknow, patient adopted Social History: Unchanged from Admission - daily smoker 1/2 PPDx 30 years, no ETOH, for IV drug use, last cocaine use 5 days ago Past Medical History: Unchanged from Admission - CAD with stent Review of Systems - Measurements Intake and Output: Intake and Output Last 24 Hours 09/23/17 09/24/17 09/25/17 09/26/17 06:59 06:59 06:59 06:59 Intake Total 2050 990 Output Total 1350 400 Balance 700 590 Weight 270 lb Intake: IV Fluids 1250 990 LR 990 Oral 800 0 Output: Urine 1350 400 Other: Estimated Void Large # Voids 1 - Review of Systems Dermatology: Negative: Normal, Rash, Skin Lesions, Cancer, Skin Lumps, Other HEENT: Negative: Normal, Change in Hearing, Vertigo, Dental Problems, Tinnitus, Sinus Problem, Other Eyes: Negative: Normal, Change in Vision, Double Vision, Eye Pain, Glaucoma, Cataract, Contacts or Glasses, Other Thyroid: Negative: Normal, Goiter, Thyroid Nodule, Cold Intolerance, Heat Intolerance , Sweatiness, Tremor, Frequent Defecation, Constipation, Palpitations, Primary Hypothyroidism, Primary Hyperthyroidism, Weight Loss, Weight Gain, Change in Skin/Hair, Change in Menstruation, Radiation Exposure, Other Cardiology: Negative: Normal, Chest Pain, Shortness of Breath, Palpitations, Swelling of Ankles, Peripheral Vascular Dis, Edema, Faintness, Syncope, Claudication, Proximal NocturnalDyspnea, Orthopnoea, Other Genital - Urinary: Negative: Normal, Dysuria, Hematuria, Polyuria, Nocturia, Other Genitourinary - Male: Negative: Prostatism, Erectile Dysfunction, Family Hx of Prostate Cancer, Other Musculoskeletal: Positive: Joint Stiffness, Joint Deformities Endocrinology: Negative: Normal, Thyroid Problems, Adrenal Problems, Gonadal Problems, Family Hx Endocrine Disorders, Obesity, Diabetes Mellitus, Hyperglycemia, Hx Hypoglycemia, Diabetic Foot Ulcers, Calluses, Hirsutism, Menstral Abnormalities , Polydipsia, Polyuria, Gonadal Problems, Gynecomastia, Pituitary disease, Other Hematologic/Lymphatic: Negative: Anemia, Easy Brusing, Hx Leukemia, Hx Lymphoma, Use of Anticoagulant, Use of Antiplatelet Drugs, Other Neurology: Negative: Normal, Headache, Migraines, Change in Vision, Diplopia, Dizziness , Change in Balancing, Change in Coordination, Change in Memory, Change in Speech, Change in Sphincter Function, Change in Walking, Numbness\Paresthesiae, Unexplained Weakness, Hx of Stroke\TIA, Hx of Seizures, Other Allergic/Immunologic: Positive: Hx Anaphylaxis Objective Active Medications: Device (Nicotine Mouth Piece*) 1 each INH .USE WITH NICOTROL PRN PRN Reason: CRAVING Last Admin: 09/25/17 08:46 Dose: 1 each Diphenhydramine HCl (Benadryl Po*) 25 mg PO Q6H PRN PRN Reason: itching Docusate Sodium (Colace Cap*) 100 mg PO BID PRN PRN Reason: CONSTIPATION Lactated Ringer's (Lactated Ringers 1000 Ml Bag*) 1,000 mls @ 50 mls/hr IV PER RATE NADINE Magnesium Hydroxide (Milk Of Magnesia Liq*) 30 ml PO Q6H PRN PRN Reason: constipation Morphine Sulfate (Morphine Inj ((Syringe))*) 2 mg IV Q2H PRN PRN Reason: PAIN - BREAKTHROUGH Last Admin: 09/25/17 10:08 Dose: 2 mg Morphine Sulfate (Morphine Vial*) 4 mg IV Q2H PRN PRN Reason: PAIN - SEVERE Last Admin: 09/25/17 12:04 Dose: 4 mg Nicotine (Nicotine Inhaler*) 10 mg INH Q2H PRN PRN Reason: CRAVING Last Admin: 09/25/17 08:46 Dose: 10 mg Ondansetron HCl (Zofran Inj*) 4 mg IV Q6H PRN PRN Reason: nausea Ondansetron HCl (Zofran Odt Tab*) 4 mg PO Q6H PRN PRN Reason: NAUSEA Oxycodone HCl (Roxycodone Tab*) 5 mg PO Q4H PRN PRN Reason: PAIN - SEVERE Last Admin: 09/24/17 19:55 Dose: 5 mg Tramadol HCl (Ultram*) 50 mg PO Q6H PRN PRN Reason: PAIN - MODERATE Vital Signs - 8 hr 09/25/17 09/25/17 09/25/17 04:29 05:05 06:17 Temperature Pulse Rate 82 Respiratory 16 16 17 Rate Blood Pressure 124/75 (mmHg) O2 Sat by Pulse 99 Oximetry 09/25/17 09/25/17 09/25/17 06:21 07:32 07:36 Temperature 99.8 F 99.5 F Pulse Rate 86 Respiratory 18 16 Rate Blood Pressure 155/101 (mmHg) O2 Sat by Pulse 99 Oximetry 09/25/17 09/25/17 09/25/17 08:00 08:49 10:08 Temperature Pulse Rate Respiratory 16 16 16 Rate Blood Pressure (mmHg) O2 Sat by Pulse Oximetry 09/25/17 09/25/17 09/25/17 11:23 11:24 12:04 Temperature Pulse Rate Respiratory 16 18 Rate Blood Pressure 146/72 (mmHg) O2 Sat by Pulse Oximetry Oxygen Devices in Use Now: None Appearance: Alert, appears older than stated age, NAD Eyes: No Scleral Icterus, PERRLA Ears/Nose/Mouth/Throat: NL Teeth, Lips, Gums, Mucous Membranes Moist Neck: NL Appearance and Movements; NL JVP, Trachea Midline Respiratory: Symmetrical Chest Expansion and Respiratory Effort, Clear to Auscultation Cardiovascular: NL Sounds; No Murmurs; No JVD, RRR, No Edema Abdominal: NL Sounds; No Tenderness; No Distention Extremities: - - right knee with warmth, edema and pain to light palpation Skin: No Rash or Ulcers Neurological: Alert and Oriented x 3, NL Muscle Strength and Tone, - - decreased sensation right foot Lines/Tubes/Other Access: Clean, Dry and Intact Peripheral IV - CDI Nutrition: - - NPO Result Diagrams: 09/25/17 11:20 09/25/17 11:20 Microbiology and Other Data: Microbiology 09/24/17 15:15 Gram Stain - Final Joint Fluid(Synovial) Skin and Soft Tissue MRSA/MSSA (PCR - Final Mrsa Negative S.aureus Negative Diagnostic Imaging: Patient Name: ESTEVAN MORRIS Medical Record#: [id number] Ordering Physician: Derek Silva MD Acct.#: [id number] : 1975 Age: 42 Sex: M Location: EMERGENCY DEPARTMENT Exam Date: 09/24/17 1254 ADM Status: REG ER Order Information: KNEE RIGHT 1-2 VWS Accession Number: [id number] CPT: 17428 HISTORY: Knee pain COMPARISONS: None VIEWS: 2, Frontal and lateral views of the right knee FINDINGS: BONE DENSITY: Normal. BONES: The patient is status post right knee arthroplasty. There is no hardware failure or osteolysis. JOINTS: The patient is status post right knee arthroplasty. There is a very large joint effusion. ALIGNMENT: There is no dislocation. SOFT TISSUES: Unremarkable. OTHER FINDINGS: None. IMPRESSION: STATUS POST RIGHT KNEE ARTHROPLASTY WITH A VERY LARGE JOINT EFFUSION. <Electronically signed by Robson Roberts MD in OV> 09/24/17 134 Dictated By: Robson Roberts MD Dictated Date/Time: 09/24/17 134 Transcribed Date/Time: 09/24/171348 Copy to: Assessment/Plan - Billing Assessment: 1. Right Knee r/o Septic Prosthesis 2. History of CAD and Stent, no recent Follow up 3. History of Illicit Drug Use 4. Current Tobacco Use Plan: Preoperative Risk has been evaluated and t per RCRI Calculation, patient is 0.9 % Risk for Major Cardiac event. However, given that patient has had no cardiac/ medical follow up since his stent, and there is cardiomegaly on CXR, and history of drug use, I feel it prudent to complete a cardiac echo to evaluate LV function and valves. His EKG shows no acute ST segment changes and no arrhythmias. Patient has had no chest pain, no exertional dypnea, no PND and no edema or SOB. Repeat BP was within normal range manually. Fever is controlled. If there are no additional acute findings on ECHO, patient will be optimized for surgery this afternoon, as the benefit of preventing sepsis likely outweighs the CV risk. Will decrease IVF to 50ml/hr pending ECHO, continue vancomycin emprically, pain control, follow cultures, urinalysis and urine tox screen. Nicotine inhaler PRN. Continue NPO. Will update note after ECHO is read and communicate with ortho team and anesthesia thereafter. VTE PPX: - SCDs pre-op, DVT per ortho post-operatively Diet: - NPO Code Status: - Full Code Admission Status and Rationale: Inatient, as per orthopedics.
[2017-09-25] MEDS ORDERED: Perflutren Lipid Microsphere* 3 ML VIAL ONE (12:31)
--- NOTE | 2017-09-25 12:52 | RAD ---
HISTORY: tobacco use COMPARISONS: September 18, 2016 VIEWS: 1: frontal portable view of the chest at 11:30 AM FINDINGS: LINES AND TUBES: None. CARDIOMEDIASTINAL SILHOUETTE: The cardiomediastinal silhouette is normal for portable technique. PLEURA: The costophrenic angles are sharp. No pleural abnormalities are noted. LUNG PARENCHYMA: The lungs are clear. ABDOMEN: The upper abdomen is clear. There is no subphrenic gas. BONES AND SOFT TISSUES: No bone or soft tissue abnormalities are noted. IMPRESSION: NO ACTIVE CARDIOPULMONARY DISEASE.
[2017-09-25] MEDS ORDERED: Sodium Citrate/Citric Acid* 15 ML UDC ONE (14:52)
[2017-09-25 15:02] LABS: Urine Appearance Clear; Urine Blood Negative (Negative); Urine Color Yellow; Urine Ketones Negative (Negative); Urine Protein Negative (Negative); Urine Specific Gravity 1.015 (1.010-1.030); Urine Urobilinogen Negative (Negative)
--- NOTE | 2017-09-25 15:30 | ECHO ---
Patient: ESTEVAN MORRIS [facility] Rec#: [id number] : 1975 Date: 09/25/2017 Age: 42y Height: 183 cm / 72.0 in Weight: 122.5 kg / 270.0 lbs Sex: M BSA: 2.42 Room#: 340 Admit Date#: 09/24/2017 Type: Inpatient Referring: Marie Galeana Reading: Jose Alejandro Pastrana MD Mercerizing Range Feeder: [facility] Transthoracic Echocardiogram Indication: Bacteremia BP: 146/72 HR: 86 Rhythm: NSR Findings History: Septic right knee, CAD, PCI, HTN, murmur, smoker, palpitations Technical Comments: The study is technically limited due to the patient's smoking history. The study was technically limited due to the patient's inability to lay in the left lateral decubitus position. Left Ventricle: The left ventricular chamber size is normal. Mild concentric left ventricular hypertrophy is observed. Left ventricular systolic function is at the lower limits of normal. The estimated ejection fraction is 50-55%. Normal left ventricular diastolic filling is observed. Left Atrium: The left atrium is mildly dilated. Right Ventricle: The right ventricle is slightly dilated. The right ventricular global systolic function is normal. Right Atrium: The right atrium is mild to moderately dilated. Aortic Valve: The aortic valve is trileaflet. Systolic excursion of the aortic valve is normal. Mitral Valve: The mitral valve leaflets do not appear thickened. There is no evidence of mitral regurgitation. There is no evidence of mitral stenosis. Tricuspid Valve: The tricuspid valve leaflets are normal. There is no evidence of tricuspid valve regurgitation. Unable to estimate the right ventricular systolic pressure. Pulmonic Valve: The pulmonic valve structure is not well visualized. Pericardium: There is no significant pericardial effusion. Aorta: The ascending aorta is not well visualized. There is no dilatation of the aortic arch. The aortic root is normal in size. Pulmonary Artery: The main pulmonary artery is not well visualized. Venous: The inferior vena cava appears normal in size. There is an approximate 50% respiratory change in the inferior vena cava dimension. Contrast: Definity was used to optimize study. A total of 2 ml was used Summary: There was not any prior study for comparison. Conclusions Mild concentric left ventricular hypertrophy is observed. Left ventricular systolic function is at the lower limits of normal. The estimated ejection fraction is 50-55%. The right ventricular global systolic function is normal. The right ventricle is slightly dilated. Systolic excursion of the aortic valve is normal. There is no evidence of mitral regurgitation. There is no evidence of tricuspid valve regurgitation. There is no significant pericardial effusion. Measurements Name Value Normal Range RVIDd (AP) 2D 3 cm (0.9 - 2.6) RVDdMajor (2D) 3.1 cm (2.2 - 4.4) RAd ISD 4CH 5.7 cm (3.4 - 4.9) RA (A4C)W 5.1 cm (2.9 - 4.6) IVSd (2D) 1.2 cm (0.6 - 1) LVPWd (2D) 1.1 cm (0.6 - 1) LVIDd (2D) 4.9 cm (3.6 - 5.4) LVIDs (2D) 3.7 cm - LV FS (2D) 24 % (25 - 45) Aortic Annulus 2.1 cm (1.4 - 2.6) Ao root diameter (2D) 3.3 cm (2.1 - 3.5) Aortic arch 3.1 cm (1.8 - 3.4) LA dimension (AP) 2D 3.5 cm (2.3 - 3.8) LAd ISD 4CH 5.9 cm (2.9 - 5.3) LA ISD 4CH W 3.9 cm (2.5 - 4.5) Name Value Normal Range MV E-wave Vmax 0.7 m/sec - MV deceleration time 190 msec - MV A-wave Vmax 0.5 m/sec - MV E:A ratio 1.4 ratio - LV septal e' Vmax 0.09 m/sec - LV lateral e' Vmax 0.09 m/sec - LV E:e' septal ratio 8 ratio - LV E:e' lateral ratio 8 ratio - Name Value Normal Range AV Vmax 1.5 m/sec - AV VTI 22 cm - AV peak gradient 9 mmHg - AV mean gradient 5 mmHg - LVOT Vmax 1.2 m/sec - LVOT VTI 18 cm - LVOT peak gradient 6 mmHg - LVOT mean gradient 3 mmHg - BHAVANI Vmax 1 m/sec - Name Value Normal Range RAP 8 mmHg - IVC diameter 1.8 cm - Name Value Normal Range PV Vmax 0.9 m/sec - PV peak gradient 3.2 mmHg -
[2017-09-25] MEDS ORDERED: Morphine VIAL* 10 MG/ML 1 ML VIAL ONE (15:32)
[2017-09-25] MEDS ORDERED: Vancomycin 2000 MG X 1 dose, then per Pharmacy PROTOCOL IVPB ONE ×2 (16:00)
[2017-09-25] MEDS ORDERED: Naloxone* 0.4 MG/ML 1 ML VIAL IV PRN (17:24)
[2017-09-25] MEDS ORDERED: Lidocaine 2% PF * 5 ML VIAL ONE (17:29)
[2017-09-25] MEDS ORDERED: Propofol* 10 MG/ML 20 ML BTL IV PUSH ONE (17:29)
[2017-09-25] MEDS ORDERED: fentaNYL* 50 MCG/ML 2 ML VIAL (100 MCG VIAL) ONE ×4 (17:30→20:43)
[2017-09-25] MEDS ORDERED: Midazolam* 1 MG/ML 2 ML VIAL (2 MG) ONE (17:30)
[2017-09-25] MEDS ORDERED: Bacitracin IV* 50,000 UNITS INJ ONE (18:06)
[2017-09-25] MEDS ORDERED: ROPIVACAINE 5 MG/ML 30 ML BTL (0.5%) ONE (19:07)
[2017-09-25] MEDS: fentaNYL* 50 MCG/ML 2 ML VIAL (100 MCG VIAL) IV PRN ×4 (19:43→20:34)
[2017-09-25] MEDS ORDERED: Warfarin TAB(*) 6 MG PO ONE (20:00)
[2017-09-25] MEDS: oxyCODONE TAB* 5 MG TAB PO PRN (20:02)
[2017-09-25] MEDS ORDERED: hydrALAZINE IV* 20 MG/ML VIAL ONE (20:03)
[2017-09-25] MEDS ORDERED: oxyCODONE TAB* 5 MG TAB ONE (20:03)
[2017-09-25] MEDS ORDERED: HYDROmorphone INJ* 0.5 MG/0.5 ML SYRINGE IV ONE (23:06)
[2017-09-25] MEDS ORDERED: HYDROmorphone INJ* 0.5 MG/0.5 ML SYRINGE ONE (23:08)
[2017-09-25] MEDS: Morphine TAB Extended Release (*) 30 MG TAB.ER PO SCH (23:21)
[2017-09-26] MEDS: Morphine VIAL* 4 MG/ML VIAL (1 ml vial) IV PRN ×2 (00:33→02:33)
[2017-09-26] MEDS: oxyCODONE TAB* 5 MG TAB PO PRN ×4 (00:40→16:35)
--- NOTE | 2017-09-26 02:42 | OP ---
OPERATIVE REPORT: DATE OF OPERATION: 09/25/17 - Inpatient, SSU 340-01 DATE OF : 73 ATTENDING SURGEON: Karla Smith MD [place]: NEAL Damon Ms. did help throughout the procedure with preparation of the leg, wound retraction, manipulation of the knee, and wound closure. ANESTHESIOLOGIST: Dr. Anderson. ANESTHESIA: General. PRE-OP DIAGNOSIS: Septic right total knee arthroplasty. POST-OP DIAGNOSIS: Septic right total knee arthroplasty. OPERATIVE PROCEDURE: Open irrigation and debridement of infected right total knee arthroplasty with polyethylene liner exchange. TOURNIQUET TIME: 31 minutes. ESTIMATED BLOOD LOSS: 100 cc. COMPLICATIONS: None. SPECIMEN: Multiple culture swabs, 30 cc of purulent fluid, and knee joint capsule were all sent for cultures and sensitivities. BRIEF HISTORY/INDICATION: Mr. Munoz is a 42-year-old gentleman with approximately 72 hours of the acute onset of pain, swelling, warmth, and erythema in his right total knee arthroplasty. He had total knee arthroplasty in [address] Richardson. The patient presented to [facility] Emergency Room on 09/24/17 and aspiration showed cloudy purulent fluid. White blood cell count from the joint fluid was 12,000 indicating infection. The patient had fevers as well as elevated ESR and CRP. Although, at first, the patient wished to postpone surgery until his cultures grew bacteria to confirm infection, his pain worsened overnight. I explained to the patient that my best medical recommendation was to proceed with an open irrigation and debridement of the joint and polyethylene exchange. He did agree to this. Informed consent was obtained from the patient. He understood the risks of surgery included, but were not limited to, bleeding, infection, damage to nearby structures, need for further surgery, continued infection, need for explant of the hardware, hardware loosening or failure, knee stiffness , loss of motion, stroke, heart attack, blood clot, and . The patient wished to proceed. INTRAOPERATIVE FINDINGS: Intraoperatively, the patient was noted to have copious amounts of purulence. This was thick yellow cloudy fluid consistent with infection. He had infected-appearing joint capsule, which was thoroughly debrided as well. His polyethylene liner showed no significant wear. This was exchanged for the exact same size liner. The knee was irrigated with 9 L of sterile saline. DESCRIPTION OF PROCEDURE: Mr. Munoz was identified in the preanesthesia unit. His right lower extremity was marked as the correct operative side. Informed consent was signed and placed in the chart. The patient was taken to the operating room and placed under general anesthesia. A Bowman catheter was placed. A tourniquet was placed on the right thigh. The right lower extremity was prepped and draped in the usual sterile fashion. Preop time-out was made to correctly identify the patient, side, and site. Appropriate perioperative antibiotics had already been given as the patient was on IV vanco. Tourniquet was inflated. Total tourniquet time for this procedure was 31 minutes. His prior midline incision was opened with a 10-blade with sharp dissection down to extensor mechanism. A new 10-blade was used to make a standard medial parapatellar arthrotomy. Patella was subluxed laterally. Immediately, upon making the arthrotomy, there was copious amounts of purulence. There was greater than a 100 cc of cloudy yellow purulent fluid. This was collected in a syringe as well as with multiple culture swabs. A 3 L of sterile saline was used to perform an initial irrigation of the knee joint. Next, a rongeur and electrocautery were used to perform a capsulectomy of any infected- appearing joint capsule. Some soft tissue was sent for cultures and sensitivities as well. The knee was flexed up. Osteotome was used to remove the prior polyethylene. Size noted was a 6F. Another 3 L of sterile saline were used to copiously irrigate the joint, especially the posterior capsule and tibial tray. The implants were carefully evaluated and there was no obvious loosening. Any necrotic or fibrotic tissue was debrided from the posterior joint capsule. Another 3 L of sterile saline were used to copiously irrigate the knee joint. No further purulence was noted. No further necrotic tissue was noted. The [employer] posterior stabilized highly polyethylene size EF 10 mm was locked into position on the tibial tray. Stability of the insert was checked and rechecked and noted to be stable. The knee was taken through range of motion and was stable in all positions. The tourniquet was turned down at 31 minutes. Electrocautery was used to obtain meticulous hemostasis. The extensor mechanism was closed using interrupted #1 Vicryl and #5 Ethibond. The rest of the incision was closed in a layered fashion using 0 and 2-0 Vicryl. Skin was closed using running 3-0 nylon suture. The patient's anesthesia was reversed without difficulty. He was taken to the PACU in stable condition. Intended weightbearing will be weightbearing as tolerated. Intended DVT prophylaxis will be Coumadin with the Lovenox bridge. He will be continued on the IV vancomycin and cultures will be followed. We will obtain an Infectious Disease consult. [id number]/[facility] #: [id number] [facility]
[2017-09-26] MEDS: Diazepam TAB(*) 5 MG PO PRN ×3 (02:57→19:36)
[2017-09-26] MEDS ORDERED: HYDROmorphone INJ* 1 MG/ML CARPUJECT SYRINGE IV SLOW PU PRN (03:56)
[2017-09-26] MEDS: HYDROmorphone INJ* 0.5 MG/0.5 ML SYRINGE IV SLOW PU PRN ×4 (04:25→20:26)
[2017-09-26 06:49] LABS: Hematocrit 38 % (42-52); Hemoglobin 13.1 g/dl (14.0-18.0); Mean Platelet Volume 8.9 um3 (7.4-10.4); Platelet Count 225 10^3/ul (150-450)
[2017-09-26] MEDS: traMADol TAB* 50 MG PO PRN ×3 (06:58→22:34)
[2017-09-26] MEDS: Morphine INJ* 2 MG/ML 1 ML SYRINGE (TWO MG - NEW SYRINGE VERSION) IV PRN ×3 (06:59→19:29)
--- NOTE | 2017-09-26 07:05 | RAD ---
INDICATION: Right total knee replacement surgery. COMPARISON: Comparison is made with a prior study from September 24, 2017. TECHNIQUE: 2 views of the right knee were obtained. FINDINGS: There is soft tissue swelling and air in the soft tissues consistent with the patient's recent surgery. The patient is status post total right knee replacement surgery. The bones and prostheses are in normal alignment. IMPRESSION: POSTSURGICAL CHANGES.
[2017-09-26] MEDS: Morphine TAB Extended Release (*) 30 MG TAB.ER PO SCH ×2 (08:03→21:33)
[2017-09-26] MEDS: Nicotine Inhaler* 10 MG AMP INH PRN ×3 (08:03→21:44)
[2017-09-26] MEDS: Enoxaparin(*) 30 MG/0.3 ML SYR SUBCUT SCH (11:31)
--- NOTE | 2017-09-26 12:39 | PN ---
Progress Note - Progress Note Date of Service: 09/26/17 SOAP: Subjective: [] Patient seen at bedside. He participate with physical therapy and reports feeling sore but pain is tolerable. Denies chest pain, shortness of breath, dizziness, nausea or chills. Objective: []General: Well appearing, NAD RLE: Right knee dressing CDI no erythema surrounding. Thigh is soft. DF/PF intact. DP 2+. sensation intact distally BL LE calves supple and nontender without erythema, edema or palpable cords Assessment: []R knee I&D, poly exchange 09/25 Plan: []WBAT PT/OT lovenox, coumadin 8 mg today continue vancomycin, cultures with no growth to date Vital Signs Temp 99.1 F 09/26/17 11:18 Pulse 95 09/26/17 11:18 Resp 16 09/26/17 12:32 BP 144/83 09/26/17 11:18 Pulse Ox 93 09/26/17 11:18 Intake & Output 09/25/17 09/26/17 09/26/17 18:59 06:59 18:59 Intake Total 990 3300 200 Output Total 400 1550 2150 Balance 590 1750 -1950 Intake: IV Fluids 990 1500 LR 990 1500 Oral 0 1800 200 Output: Urine 400 Bowman 1450 2150 Estimated Blood Loss 100 Laboratory Last Values WBC 8.1 10^3/ul (3.5-10.8) 09/25/17 11:20 RBC 4.67 10^6/ul (4.00-5.40) 09/25/17 11:20 Hgb 13.1 g/dl (14.0-18.0) L 09/26/17 06:31 Hct 38 % (42-52) L 09/26/17 06:31 MCV 83 fL (80-94) 09/25/17 11:20 MCH 28 pg (27-31) 09/25/17 11:20 MCHC 34 g/dl (31-36) 09/25/17 11:20 RDW 15 % (10.5-15) 09/25/17 11:20 Plt Count 225 10^3/ul (150-450) 09/26/17 06:31 MPV 8.9 um3 (7.4-10.4) 09/26/17 06:31 Neut % (Auto) 56.1 % (38-83) 09/25/17 11:20 Lymph % (Auto) 30.6 % (25-47) 09/25/17 11:20 [place] % (Auto) 10.7 % (0-7) H 09/25/17 11:20 Eos % (Auto) 2.2 % (0-6) 09/25/17 11:20 Baso % (Auto) 0.4 % (0-2) 09/25/17 11:20 Absolute Neuts (auto) 4.5 10^3/ul (1.5-7.7) 09/25/17 11:20 Absolute Lymphs (auto) 2.5 10^3/ul (1.0-4.8) 09/25/17 11:20 Absolute Monos (auto) 0.9 10^3/ul (0-0.8) H 09/25/17 11:20 Absolute Eos (auto) 0.2 10^3/ul (0-0.6) 09/25/17 11:20 Absolute Basos (auto) 0 10^3/ul (0-0.2) 09/25/17 11:20 Absolute Nucleated RBC 0 10^3/ul 09/25/17 11:20 Nucleated RBC % 0.1 09/25/17 11:20 ESR 37 mm/Hr (0-14) H 09/24/17 13:11 INR (Anticoag Therapy) 1.03 (0.77-1.02) H 09/25/17 11:20 APTT 25.6 seconds (26.0-36.3) L 09/24/17 20:24 Sodium 136 mmol/L (135-145) 09/25/17 11:20 Potassium 4.3 mmol/L (3.5-5.0) 09/25/17 11:20 Chloride 103 mmol/L (101-111) 09/25/17 11:20 Carbon Dioxide 27 mmol/L (22-32) 09/25/17 11:20 Anion Gap 6 mmol/L (2-11) 09/25/17 11:20 BUN 11 mg/dL (6-24) 09/25/17 11:20 Creatinine 0.82 mg/dL (0.67-1.17) 09/25/17 11:20 Est GFR ( Amer) 124.1 (>60) 09/25/17 11:20 Est GFR (Non-Af Amer) 102.5 (>60) 09/25/17 11:20 BUN/Creatinine Ratio 13.4 (8-20) 09/25/17 11:20 Glucose 95 mg/dL (70-100) 09/25/17 11:20 Lactic Acid 1.3 mmol/L (0.5-2.0) 09/24/17 13:11 Uric Acid 4.6 mg/dL (4.4-7.6) 09/24/17 13:11 Calcium 9.0 mg/dL (8.6-10.3) 09/25/17 11:20 Total Bilirubin 0.70 mg/dL (0.2-1.0) 09/24/17 13:11 AST 15 U/L (13-39) 09/24/17 13:11 ALT 20 U/L (7-52) 09/24/17 13:11 Alkaline Phosphatase 82 U/L (34-104) 09/24/17 13:11 C-Reactive Protein 195.63 mg/L (<8.01) H 09/24/17 13:11 Total Protein 7.8 g/dL (6.4-8.9) 09/24/17 13:11 Albumin 4.3 g/dL (3.2-5.2) 09/24/17 13:11 Globulin 3.5 g/dL (2-4) 09/24/17 13:11 Albumin/Globulin Ratio 1.2 (1-3) 09/24/17 13:11 Urine Color Yellow 09/25/17 14:50 Urine Appearance Clear 09/25/17 14:50 Urine pH 7.0 (5-9) 09/25/17 14:50 Ur Specific [place] 1.015 (1.010-1.030) 09/25/17 14:50 Urine Protein Negative (Negative) 09/25/17 14:50 Urine Ketones Negative (Negative) 09/25/17 14:50 Urine Blood Negative (Negative) 09/25/17 14:50 Urine Nitrate Negative (Negative) 09/25/17 14:50 Urine Bilirubin Negative (Negative) 09/25/17 14:50 Urine Urobilinogen Negative (Negative) 09/25/17 14:50 Ur Leukocyte Esterase Negative (Negative) 09/25/17 14:50 Urine Glucose Negative (Negative) 09/25/17 14:50 Fluid Source Synovial fluid 09/24/17 15:15 Fluid Volume 20 mL 09/24/17 15:15 Fluid Color Sadaf 09/24/17 15:15 Fluid Appearance Cloudy 09/24/17 15:15 Fluid WBC 66414 /mcL (0-570918) 09/24/17 15:15 Fluid RBC 100 /mcL 09/24/17 15:15 Fluid Tot Cell Count 100 09/24/17 15:15 Fluid Neutrophils 88 % 09/24/17 15:15 Fluid Lymphocytes 9 % 09/24/17 15:15 Fluid Monocytes 3 % 09/24/17 15:15 Fluid Cell Count Rvw By 09/24/17 15:15 Fluid Crystals None seen (None Seen) 09/24/17 15:15
[2017-09-26] MEDS ORDERED: Vancomycin per Pharmacy* NOTE FOLLOW UP SCH (13:00)
[2017-09-26] MEDS ORDERED: Vancomycin(*) 1,750 MG in NS 0.9% 500 ML* 500 ML IVPB ONE (13:15)
[2017-09-26 13:30] LABS: White Blood Count 13.7 10^3/ul (3.5-10.8)
[2017-09-26] MEDS: Nicotine PATCH 14 MG/24 HR* PATCH TRANSDERM SCH (15:32)
[2017-09-26] MEDS: Cyclobenzaprine TAB* 10 MG PO PRN (15:33)
[2017-09-26] MEDS ORDERED: Warfarin TAB(*) 4 MG PO ONE (17:00)
--- NOTE | 2017-09-26 17:04 | PN ---
Subjective Date of Service: 09/26/17 Interval History: Patient was seen and examined earlier today. Reports feeling better overall. Right knee pain still there, but improving. Low grade fever overnight. Denies nausea or vomiting. Seen earlier by orthopedics, cultures still pending. No new complaints. Family History: Unchanged from Admission Social History: Unchanged from Admission - daily smoker 1/2 PPDx 30 years, no ETOH, for IV drug use, last cocaine use 5 days ago Past Medical History: Unchanged from Admission - CAD with stent Objective Active Medications: Cyclobenzaprine HCl (Flexeril Tab*) 10 mg PO TID PRN PRN Reason: SPASMS Last Admin: 09/26/17 15:33 Dose: 10 mg Device (Nicotine Mouth Piece*) 1 each INH .USE WITH NICOTROL PRN PRN Reason: CRAVING Last Admin: 09/25/17 08:46 Dose: 1 each Diazepam (Valium Tab(*)) 5 mg PO Q8H PRN PRN Reason: spasms Last Admin: 09/26/17 11:31 Dose: 5 mg Diphenhydramine HCl (Benadryl Po*) 25 mg PO Q6H PRN PRN Reason: itching Docusate Sodium (Colace Cap*) 100 mg PO BID PRN PRN Reason: CONSTIPATION Enoxaparin Sodium (Lovenox(*)) 30 mg SUBCUT Q24H [facility] Last Admin: 09/26/17 11:31 Dose: 30 mg Hydromorphone HCl (Dilaudid Inj*) 1 mg IV SLOW PU Q4H PRN PRN Reason: PAIN Last Admin: 09/26/17 13:49 Dose: 1 mg Lactated Ringer's (Lactated Ringers 1000 Ml Bag*) 1,000 mls @ 50 mls/hr IV PER RATE [facility] Vancomycin HCl 1,250 mg/ (Sodium Chloride) 250 mls @ 166.667 mls/hr IVPB Q8H [facility] Magnesium Hydroxide (Milk Of Magnesia Liq*) 30 ml PO Q6H PRN PRN Reason: constipation Morphine Sulfate (Morphine Inj ((Syringe))*) 2 mg IV Q2H PRN PRN Reason: PAIN - BREAKTHROUGH Last Admin: 09/26/17 12:32 Dose: 2 mg Morphine Sulfate (Ms Contin(*)) 30 mg PO BID [facility] Last Admin: 09/26/17 08:03 Dose: 30 mg Nicotine (Nicotine Inhaler*) 10 mg INH Q2H PRN PRN Reason: CRAVING Last Admin: 09/26/17 14:07 Dose: 10 mg Nicotine (Nicotine Patch 14 Mg/24 Hr*) 1 patch TRANSDERM DAILY [facility] Last Admin: 09/26/17 15:32 Dose: 1 patch Ondansetron HCl (Zofran Inj*) 4 mg IV Q6H PRN PRN Reason: nausea Last Admin: 09/26/17 03:41 Dose: 4 mg Ondansetron HCl (Zofran Odt Tab*) 4 mg PO Q6H PRN PRN Reason: NAUSEA Oxycodone HCl (Roxycodone Tab*) 5 mg PO Q4H PRN PRN Reason: PAIN - SEVERE Last Admin: 09/26/17 16:35 Dose: 5 mg Pharmacy Consult (Vancomycin Per Pharmacy*) 1 note FOLLOW UP .VANC PER PHARMACY [facility] Pharmacy Profile Note (Coumadin Daily Reminder*) 1 note FOLLOW UP 1700 [facility] Last Admin: 09/26/17 16:35 Dose: 1 note Pharmacy Profile Note (Vancomycin Trough Check) 1 note FOLLOW UP 1330 ONE Stop: 09/27/17 13:31 Pharmacy Profile Note (Nicotine Patch Removal Note*) 1 note PATCH OFF 2100 [facility] Tramadol HCl (Ultram*) 50 mg PO Q6H PRN PRN Reason: PAIN - MODERATE Last Admin: 09/26/17 16:35 Dose: 50 mg Warfarin Sodium (Coumadin Tab(*)) 8 mg PO ONCE@1700 ONE; Protocol Stop: 09/26/17 17:01 Last Admin: 09/26/17 16:35 Dose: 8 mg Vital Signs - 8 hr 09/26/17 09/26/17 09/26/17 09:07 09:11 10:15 Temperature Pulse Rate Respiratory 18 16 16 Rate Blood Pressure (mmHg) O2 Sat by Pulse Oximetry 09/26/17 09/26/17 09/26/17 11:18 11:31 12:32 Temperature 99.1 F Pulse Rate 95 Respiratory 16 16 16 Rate Blood Pressure 144/83 (mmHg) O2 Sat by Pulse 93 Oximetry 09/26/17 09/26/17 09/26/17 13:31 13:49 14:41 Temperature Pulse Rate Respiratory 16 16 16 Rate Blood Pressure (mmHg) O2 Sat by Pulse Oximetry 09/26/17 09/26/17 15:33 16:35 Temperature Pulse Rate Respiratory 16 15 Rate Blood Pressure (mmHg) O2 Sat by Pulse Oximetry Oxygen Devices in Use Now: None Appearance: Appears comfortable and in NAD. Eyes: No Scleral Icterus, PERRLA Ears/Nose/Mouth/Throat: Clear Oropharnyx, Mucous Membranes Moist Neck: NL Appearance and Movements; NL JVP, Trachea Midline Respiratory: Symmetrical Chest Expansion and Respiratory Effort, Clear to Auscultation Cardiovascular: NL Sounds; No Murmurs; No JVD, RRR Abdominal: NL Sounds; No Tenderness; No Distention Extremities: No Edema, - - Right knee with intact JAYCOB wrap, no distal erythema or swelling. Skin: No Rash or Ulcers Neurological: Alert and Oriented x 3 Nutrition: Taking PO's Result Diagrams: 09/26/17 13:17 09/25/17 11:20 Additional Lab and Data: . Microbiology and Other Data: Microbiology 09/24/17 15:15 Gram Stain - Final Joint Fluid(Synovial) Skin and Soft Tissue MRSA/MSSA (PCR - Final Mrsa Negative S.aureus Negative Diagnostic Imaging: Patient Name: ESTEVAN MORRIS Medical Record#: [id number] Ordering Physician: Derek Silva MD Acct.#: [id number] : 1975 Age: 42 Sex: M Location: EMERGENCY DEPARTMENT Exam Date: 09/24/171253 ADM Status: REG ER Order Information: KNEE RIGHT 1-2 VWS Accession Number: [id number] CPT: 31030 HISTORY: Knee pain COMPARISONS: None VIEWS: 2, Frontal and lateral views of the right knee FINDINGS: BONE DENSITY: Normal. BONES: The patient is status post right knee arthroplasty. There is no hardware failure or osteolysis. JOINTS: The patient is status post right knee arthroplasty. There is a very large joint effusion. ALIGNMENT: There is no dislocation. SOFT TISSUES: Unremarkable. OTHER FINDINGS: None. IMPRESSION: STATUS POST RIGHT KNEE ARTHROPLASTY WITH A VERY LARGE JOINT EFFUSION. <Electronically signed by Robson Roberts MD in OV> 09/24/17 1349 EKG Data: . Assess/Plan/Problems-Billing Assessment: 1. Right Knee r/o Septic Prosthesis 2. History of CAD and Stent, no recent Follow up 3. History of Illicit Drug Use 4. Current Tobacco Use - Patient Problems (1) Status post right knee surgery Current Visit: Yes Status: Acute Comment: - PT/OT per ortho - Continue IV antibiotics, may consider adding Ceftrixone for gram negative coverage - Pain controlled - No growth on wound culture after open irrigation and debridement of R knee with liner change. Await C&S - May consider ID consult (2) CAD (coronary artery disease) Current Visit: Yes Status: Acute Comment: - Stable - No outpatient F/U - Plans for outpatient F/U upon discharge (3) Hx of drug abuse Current Visit: Yes Status: Acute Comment: - No signs of withdrawl - Pt denies any illicit drug use past year (4) Tobacco abuse Current Visit: Yes Status: Acute Comment: - Supportive care - Smoking cessation info - Nicotine supplements for cravings (5) DVT prophylaxis Current Visit: Yes Status: Acute Comment: - SQ Lovenox per ortho (6) Full code status Current Visit: Yes Status: Acute Status and Disposition: Inpatient for IV antibiotics due to septic R knee, s/p open irrigation and debridement. Anticipate discharge to home when medically stable. Likely to proceed with PICC line for intermediate IV Abx prior to d/c.
[2017-09-26] MEDS: Vancomycin(*) 1,250 MG in NS 0.9% 250 ML* 250 ML IVPB SCH (21:34)
[2017-09-26] MEDS: Nicotine Patch Removal NOTE PATCH OFF SCH (21:39)
[2017-09-26] MEDS: Mouth Piece, Nicotine* 1 EACH CARTRIDGE INH PRN (21:43)
[2017-09-27] MEDS: oxyCODONE TAB* 5 MG TAB PO PRN ×5 (00:03→20:10)
[2017-09-27] MEDS: HYDROmorphone INJ* 0.5 MG/0.5 ML SYRINGE IV SLOW PU PRN ×3 (01:01→23:13)
[2017-09-27] MEDS: Nicotine Inhaler* 10 MG AMP INH PRN ×3 (02:04→21:23)
[2017-09-27] MEDS: Docusate CAP* 100 MG PO PRN (04:26)
[2017-09-27] MEDS: Morphine INJ* 2 MG/ML 1 ML SYRINGE (TWO MG - NEW SYRINGE VERSION) IV PRN ×2 (04:31→06:58)
[2017-09-27 06:08] LABS: Hematocrit 38 % (42-52); Hemoglobin 12.8 g/dl (14.0-18.0); Mean Platelet Volume 8.5 um3 (7.4-10.4); Platelet Count 247 10^3/ul (150-450); White Blood Count 9.6 10^3/ul (3.5-10.8)
[2017-09-27 06:09] LABS: ABS Basophils 0 10^3/ul (0-0.2); ABS Eosinophils 0.1 10^3/ul (0-0.6); ABS Lymphocytes 2.1 10^3/ul (1.0-4.8); ABS Monocytes 1.1 10^3/ul (0-0.8); ABS Neutrophils 6.3 10^3/ul (1.5-7.7); ABS Nucleated RBC 0 10^3/ul; Eosinophil % 0.8 % (0-6); Hematocrit 38 % (42-52); Hemoglobin 12.8 g/dl (14.0-18.0); Lymphocyte % 22.2 % (25-47); Mean Corpuscular HGB Conc 34 g/dl (31-36); Mean Corpuscular Hemoglobin 28 pg (27-31); Mean Corpuscular Volume 82 fL (80-94); Mean Platelet Volume 8.5 um3 (7.4-10.4); Nucleated Red Blood Cells % 0.1; Platelet Count 248 10^3/ul (150-450); Red Blood Count 4.59 10^6/ul (4.00-5.40); Red Cell Distribution Width 15 % (10.5-15); White Blood Count 9.6 10^3/ul (3.5-10.8)
[2017-09-27] MEDS: traMADol TAB* 50 MG PO PRN (06:09)
[2017-09-27] MEDS: Vancomycin(*) 1,250 MG in NS 0.9% 250 ML* 250 ML IVPB SCH ×2 (06:09→15:05)
[2017-09-27] MEDS: Cyclobenzaprine TAB* 10 MG PO PRN ×2 (07:56→15:26)
[2017-09-27] MEDS: Nicotine PATCH 14 MG/24 HR* PATCH TRANSDERM SCH (07:56)
[2017-09-27] MEDS: Morphine TAB Extended Release (*) 30 MG TAB.ER PO SCH ×2 (07:57→21:24)
[2017-09-27] MEDS: Diazepam TAB(*) 5 MG PO PRN (10:43)
--- NOTE | 2017-09-27 10:55 | PN ---
Progress Note - Progress Note Date of Service: 09/27/17 SOAP: Subjective: []Patient seen at bedside. Knee pain remains though is improved from previous. He feels well aside form subjective fever. Denies chills, new rash, CP, SOB, dizziness, nausea, diarrhea. He has had a decrease in WBC, and an increase in sed rate as well as CRP. Objective: []General: Well appearing, NAD RLE: Right knee dressing changed. Incision CDI mild erythema overlying patella, no warmth or fluctuance. No erythema tracking proximally. Knee remains globally tender to palpation. Thigh is soft. DF/PF intact. DP 2+. sensation intact distally BL LE calves supple and nontender without erythema, edema or palpable cords Assessment: []R knee I&D, poly exchange 09/25 Plan: []WBAT PT/OT lovenox, coumadin 6 mg today continue vancomycin, cultures with no growth to date, discussed with lab this morning to confirm. Will keep patient on vancomycin, watch cultures and consult with ID sunday when they are available Vital Signs Temp 98.5 F 09/27/17 03:18 Pulse 90 09/27/17 03:18 Resp 16 09/27/17 10:44 BP 140/79 09/27/17 03:18 Pulse Ox 96 09/27/17 03:18 Intake & Output 09/26/17 09/27/17 09/27/17 18:59 06:59 18:59 Intake Total 850 1080 Output Total 3900 1425 Balance -3050 -345 Intake: Oral 850 1080 Output: Urine 1750 1425 Bowman 2150 Other: Estimated Void Medium Date of Last Bowel 09/27/17 Movement # Bowel Movements 1 Estimated Stool Amount Small # Voids 1 Laboratory Last Values WBC 9.6 10^3/ul (3.5-10.8) 09/27/17 05:41 RBC 4.59 10^6/ul (4.00-5.40) 09/27/17 05:41 Hgb 12.8 g/dl (14.0-18.0) L 09/27/17 05:41 Hct 38 % (42-52) L 09/27/17 05:41 MCV 82 fL (80-94) 09/27/17 05:41 MCH 28 pg (27-31) 09/27/17 05:41 MCHC 34 g/dl (31-36) 09/27/17 05:41 RDW 15 % (10.5-15) 09/27/17 05:41 Plt Count 248 10^3/ul (150-450) 09/27/17 05:41 MPV 8.5 um3 (7.4-10.4) 09/27/17 05:41 Neut % (Auto) 65.1 % (38-83) 09/27/17 05:41 Lymph % (Auto) 22.2 % (25-47) L 09/27/17 05:41 [place] % (Auto) 11.7 % (0-7) H 09/27/17 05:41 Eos % (Auto) 0.8 % (0-6) 09/27/17 05:41 Baso % (Auto) 0.2 % (0-2) 09/27/17 05:41 Absolute Neuts (auto) 6.3 10^3/ul (1.5-7.7) 09/27/17 05:41 Absolute Lymphs (auto) 2.1 10^3/ul (1.0-4.8) 09/27/17 05:41 Absolute Monos (auto) 1.1 10^3/ul (0-0.8) H 09/27/17 05:41 Absolute Eos (auto) 0.1 10^3/ul (0-0.6) 09/27/17 05:41 Absolute Basos (auto) 0 10^3/ul (0-0.2) 09/27/17 05:41 Absolute Nucleated RBC 0 10^3/ul 09/27/17 05:41 Nucleated RBC % 0.1 09/27/17 05:41 ESR 85 mm/Hr (0-14) H 09/27/17 05:41 INR (Anticoag Therapy) 1.03 (0.77-1.02) H 09/25/17 11:20 APTT 25.6 seconds (26.0-36.3) L 09/24/17 20:24 Sodium 136 mmol/L (135-145) 09/25/17 11:20 Potassium 4.3 mmol/L (3.5-5.0) 09/25/17 11:20 Chloride 103 mmol/L (101-111) 09/25/17 11:20 Carbon Dioxide 27 mmol/L (22-32) 09/25/17 11:20 Anion Gap 6 mmol/L (2-11) 09/25/17 11:20 BUN 11 mg/dL (6-24) 09/25/17 11:20 Creatinine 0.82 mg/dL (0.67-1.17) 09/25/17 11:20 Est GFR ( Amer) 124.1 (>60) 09/25/17 11:20 Est GFR (Non-Af Amer) 102.5 (>60) 09/25/17 11:20 BUN/Creatinine Ratio 13.4 (8-20) 09/25/17 11:20 Glucose 95 mg/dL (70-100) 09/25/17 11:20 Lactic Acid 1.3 mmol/L (0.5-2.0) 09/24/17 13:11 Uric Acid 4.6 mg/dL (4.4-7.6) 09/24/17 13:11 Calcium 9.0 mg/dL (8.6-10.3) 09/25/17 11:20 Total Bilirubin 0.70 mg/dL (0.2-1.0) 09/24/17 13:11 AST 15 U/L (13-39) 09/24/17 13:11 ALT 20 U/L (7-52) 09/24/17 13:11 Alkaline Phosphatase 82 U/L (34-104) 09/24/17 13:11 C-Reactive Protein 204.68 mg/L (<8.01) H 09/27/17 05:41 Total Protein 7.8 g/dL (6.4-8.9) 09/24/17 13:11 Albumin 4.3 g/dL (3.2-5.2) 09/24/17 13:11 Globulin 3.5 g/dL (2-4) 09/24/17 13:11 Albumin/Globulin Ratio 1.2 (1-3) 09/24/17 13:11 Urine Color Yellow 09/25/17 14:50 Urine Appearance Clear 09/25/17 14:50 Urine pH 7.0 (5-9) 09/25/17 14:50 Ur Specific [place] 1.015 (1.010-1.030) 09/25/17 14:50 Urine Protein Negative (Negative) 09/25/17 14:50 Urine Ketones Negative (Negative) 09/25/17 14:50 Urine Blood Negative (Negative) 09/25/17 14:50 Urine Nitrate Negative (Negative) 09/25/17 14:50 Urine Bilirubin Negative (Negative) 09/25/17 14:50 Urine Urobilinogen Negative (Negative) 09/25/17 14:50 Ur Leukocyte Esterase Negative (Negative) 09/25/17 14:50 Urine Glucose Negative (Negative) 09/25/17 14:50 Fluid Source Synovial 09/24/17 15:15 Fluid Volume 20 mL 09/24/17 15:15 Fluid Color Sadaf 09/24/17 15:15 Fluid Appearance Cloudy 09/24/17 15:15 Fluid WBC 55746 /mcL (0-515303) 09/24/17 15:15 Fluid RBC 100 /mcL 09/24/17 15:15 Fluid Tot Cell Count 100 09/24/17 15:15 Fluid Neutrophils 88 % 09/24/17 15:15 Fluid Lymphocytes 9 % 09/24/17 15:15 Fluid Monocytes 3 % 09/24/17 15:15 Fluid Cell Count Rvw By 09/24/17 15:15 Fluid Crystals None seen (None Seen) 09/24/17 15:15 Fluid Glucose 4 mg/dL 09/24/17 15:15 Fluid Total Protein 5.3 g/dL 09/24/17 15:15 Fluid LDH 5075 U/L 09/24/17 15:15 B. burgdorferi (PCR) Negative (Negative) 09/24/17 15:15 B. mayonii (PCR) Negative (Negative) 09/24/17 15:15 B.garinii/B.afzelii PCR Negative (Negative) 09/24/17 15:15 Lyme Specimen Source synovial fluid 09/24/17 15:15
[2017-09-27] MEDS: Enoxaparin(*) 30 MG/0.3 ML SYR SUBCUT SCH (11:38)
[2017-09-27] MEDS ORDERED: Vancomycin Trough Check NOTE FOLLOW UP ONE (13:30)
[2017-09-27 13:46] LABS: INR 1.14 (0.77-1.02)
[2017-09-27] MEDS: Vancomycin(*) 1,000 MG in NS 0.9% 250 ML* 250 ML IVPB SCH ×2 (14:38→20:12)
--- NOTE | 2017-09-27 15:59 | PN ---
Subjective Date of Service: 09/27/17 Interval History: Patient seen ad examined at bedside. Reports feeling better today. Some right knee pain after PT, tolerated with Dilaudid. Denies chest pain, palpitations, or SOB. Appetite good, no nausea or vomiting, had a bowel movement last night. He has no new complaints today. Knee fluid culture with no growth after day 2. Family History: Unchanged from Admission Social History: Unchanged from Admission Past Medical History: Unchanged from Admission - CAD with stent Objective Active Medications: Cyclobenzaprine HCl (Flexeril Tab*) 10 mg PO TID PRN PRN Reason: SPASMS Last Admin: 09/27/17 15:26 Dose: 10 mg Device (Nicotine Mouth Piece*) 1 each INH .USE WITH NICOTROL PRN PRN Reason: CRAVING Last Admin: 09/26/17 21:43 Dose: 1 each Diazepam (Valium Tab(*)) 5 mg PO Q8H PRN PRN Reason: spasms Last Admin: 09/27/17 10:43 Dose: 5 mg Diphenhydramine HCl (Benadryl Po*) 25 mg PO Q6H PRN PRN Reason: itching Docusate Sodium (Colace Cap*) 100 mg PO BID PRN PRN Reason: CONSTIPATION Last Admin: 09/27/17 04:26 Dose: 100 mg Enoxaparin Sodium (Lovenox(*)) 30 mg SUBCUT Q24H [facility] Last Admin: 09/27/17 11:38 Dose: 30 mg Hydromorphone HCl (Dilaudid Inj*) 1 mg IV SLOW PU Q4H PRN PRN Reason: PAIN Last Admin: 09/27/17 01:01 Dose: 1 mg Lactated Ringer's (Lactated Ringers 1000 Ml Bag*) 1,000 mls @ 50 mls/hr IV PER RATE [facility] Vancomycin HCl 1,000 mg/ (Sodium Chloride) 250 mls @ 166.667 mls/hr IVPB Q6H [facility] Last Admin: 09/27/17 14:38 Dose: 166.667 mls/hr Magnesium Hydroxide (Milk Of Magnesia Liq*) 30 ml PO Q6H PRN PRN Reason: constipation Morphine Sulfate (Morphine Inj ((Syringe))*) 2 mg IV Q2H PRN PRN Reason: PAIN - BREAKTHROUGH Last Admin: 09/27/17 06:58 Dose: 2 mg Morphine Sulfate (Ms Contin(*)) 30 mg PO BID [facility] Last Admin: 09/27/17 07:57 Dose: 30 mg Nicotine (Nicotine Inhaler*) 10 mg INH Q2H PRN PRN Reason: CRAVING Last Admin: 09/27/17 06:17 Dose: 10 mg Nicotine (Nicotine Patch 14 Mg/24 Hr*) 1 patch TRANSDERM DAILY [facility] Last Admin: 09/27/17 07:56 Dose: 1 patch Ondansetron HCl (Zofran Inj*) 4 mg IV Q6H PRN PRN Reason: nausea Last Admin: 09/26/17 03:41 Dose: 4 mg Ondansetron HCl (Zofran Odt Tab*) 4 mg PO Q6H PRN PRN Reason: NAUSEA Oxycodone HCl (Roxycodone Tab*) 5 mg PO Q4H PRN PRN Reason: PAIN - SEVERE Last Admin: 09/27/17 15:25 Dose: 5 mg Pharmacy Consult (Vancomycin Per Pharmacy*) 1 note FOLLOW UP .VANC PER PHARMACY [facility] Pharmacy Profile Note (Coumadin Daily Reminder*) 1 note FOLLOW UP 1700 [facility] Last Admin: 09/26/17 16:35 Dose: 1 note Pharmacy Profile Note (Nicotine Patch Removal Note*) 1 note PATCH OFF 2100 [facility] Last Admin: 09/26/17 21:39 Dose: 1 note Pharmacy Profile Note (Vancomycin Trough Check) 1 note FOLLOW UP 0800 ONE Stop: 09/30/17 08:01 Tramadol HCl (Ultram*) 50 mg PO Q6H PRN PRN Reason: PAIN - MODERATE Last Admin: 09/27/17 06:09 Dose: 50 mg Vital Signs - 8 hr 09/27/17 09/27/17 09/27/17 07:56 07:57 10:43 Temperature Pulse Rate Respiratory 16 15 16 Rate Blood Pressure (mmHg) O2 Sat by Pulse 95 Oximetry 09/27/17 09/27/17 09/27/17 10:44 11:35 13:17 Temperature 98.6 F Pulse Rate 90 Respiratory 16 16 15 Rate Blood Pressure 136/77 (mmHg) O2 Sat by Pulse 95 Oximetry 09/27/17 09/27/17 15:25 15:26 Temperature Pulse Rate Respiratory 18 17 Rate Blood Pressure (mmHg) O2 Sat by Pulse Oximetry Oxygen Devices in Use Now: None Appearance: Appears comfortable and in NAD Eyes: No Scleral Icterus, PERRLA Ears/Nose/Mouth/Throat: Clear Oropharnyx, Mucous Membranes Moist Neck: NL Appearance and Movements; NL JVP, Trachea Midline Respiratory: Symmetrical Chest Expansion and Respiratory Effort, Clear to Auscultation Cardiovascular: NL Sounds; No Murmurs; No JVD, RRR Abdominal: NL Sounds; No Tenderness; No Distention Extremities: No Edema Neurological: Alert and Oriented x 3 Nutrition: Taking PO's Result Diagrams: 09/27/17 05:41 09/25/17 11:20 Additional Lab and Data: . Microbiology and Other Data: Microbiology 09/24/17 15:15 Gram Stain - Final Joint Fluid(Synovial) Skin and Soft Tissue MRSA/MSSA (PCR - Final Mrsa Negative S.aureus Negative Diagnostic Imaging: . EKG Data: . Assess/Plan/Problems-Billing Assessment: 1. Right Knee large effusion, r/o Septic Prosthesis 2. History of CAD with stent placement, no recent Follow up 3. History of Illicit Drug Use 4. Current Tobacco Use - Patient Problems (1) Status post right knee surgery Current Visit: Yes Status: Acute Comment: - PT/OT per ortho - Continue IV antibiotics, may consider adding Ceftrixone for gram negative coverage - Pain controlled - No growth on wound culture after open irrigation and debridement of R knee with liner change. Await C&S - May consider ID consult before d/c for recommendation regrding outpatient Abx therapy (2) CAD (coronary artery disease) Current Visit: Yes Status: Acute Comment: - Stable - No outpatient F/U - Plans for outpatient F/U upon discharge (3) Hx of drug abuse Current Visit: Yes Status: Acute Comment: - No signs of withdrawl - Pt denies any illicit drug use past year (4) Tobacco abuse Current Visit: Yes Status: Acute Comment: - Supportive care - Smoking cessation info - Nicotine supplements for cravings (5) DVT prophylaxis Current Visit: Yes Status: Acute Comment: - SQ Lovenox per ortho (6) Full code status Current Visit: Yes Status: Acute Status and Disposition: Inpatient for IV antibiotics due to septic R knee, s/p open irrigation and debridement. Anticipate discharge to home when medically stable.
[2017-09-27] MEDS ORDERED: Warfarin TAB(*) 6 MG PO ONE (20:00)
[2017-09-27] MEDS: Nicotine Patch Removal NOTE PATCH OFF SCH (21:25)
[2017-09-28] MEDS: oxyCODONE TAB* 5 MG TAB PO PRN ×3 (01:44→23:39)
[2017-09-28] MEDS: Vancomycin(*) 1,000 MG in NS 0.9% 250 ML* 250 ML IVPB SCH ×4 (03:24→21:11)
[2017-09-28] MEDS: HYDROmorphone INJ* 0.5 MG/0.5 ML SYRINGE IV SLOW PU PRN ×4 (03:25→21:12)
[2017-09-28] MEDS: Nicotine Inhaler* 10 MG AMP INH PRN ×4 (03:33→23:58)
[2017-09-28 06:23] LABS: Hematocrit 39 % (42-52); Hemoglobin 13.4 g/dl (14.0-18.0); Mean Platelet Volume 8.8 um3 (7.4-10.4); Platelet Count 272 10^3/ul (150-450); White Blood Count 8.7 10^3/ul (3.5-10.8)
[2017-09-28 06:27] LABS: INR 1.03 (0.77-1.02)
[2017-09-28 06:41] LABS: EGFR Non-African American 86.5 (>60)
[2017-09-28] MEDS: Nicotine PATCH 14 MG/24 HR* PATCH TRANSDERM SCH (09:00)
[2017-09-28] MEDS: Morphine TAB Extended Release (*) 30 MG TAB.ER PO SCH ×2 (09:00→21:12)
--- NOTE | 2017-09-28 11:32 | PN ---
Progress Note - Progress Note Date of Service: 09/28/17 SOAP: Subjective: POD #3 Right knee I&D with poly exchange. Pt doing well, c/o minimal pain at this point. Denies CP/SOB, f/c or calf pain. Objective: Vitals: Temp Pulse Resp BP Pulse Ox 99.5 F 85 18 108/60 97 09/28/17 07:25 09/28/17 07:25 09/28/17 11:17 09/28/17 07:25 09/28/17 08:00 Gen: A&O x3, NAD at rest sitting in bed RLE: Dressing C/D/I, calf soft/NT. +f/e at ankle and MTPs, N/V intact Labs: Laboratory Results - last 24 hr 09/27/17 09/27/17 09/28/17 13:17 13:17 05:54 WBC 8.7 Hgb 13.4 L Hct 39 L Plt Count 272 MPV 8.8 ESR 100 H INR (Anticoag Therapy) 1.14 H BUN Creatinine Est GFR ( Amer) Est GFR (Non-Af Amer) C-Reactive Protein Vancomycin Trough 9.1 09/28/17 09/28/17 05:54 05:54 WBC Hgb Hct Plt Count MPV ESR INR (Anticoag Therapy) 1.03 H BUN 13 Creatinine 0.95 Est GFR ( Amer) 104.7 Est GFR (Non-Af Amer) 86.5 C-Reactive Protein 201.13 H Vancomycin Trough Microbiology 09/25/17 18:30 Gram Stain - Final Joint Fluid(Synovial) - Knee Right Body Fluid Culture - Preliminary No Growth Day 3 Skin and Soft Tissue MRSA/MSSA (PCR - Final Mrsa Negative S.aureus Negative 09/25/17 18:30 Anaerobic Culture - Preliminary Tissue - Knee Right No Growth Day 3 09/25/17 18:30 Wound Gram Stain - Final Tissue - Knee Right Tissue Culture - Preliminary No Growth Day 3 09/25/17 18:30 Anaerobic Culture - Preliminary Wound - Knee Right No Growth Day 3 09/24/17 15:15 Gram Stain - Final Joint Fluid(Synovial) Body Fluid Culture - Final No Growth Day 4 Skin and Soft Tissue MRSA/MSSA (PCR - Final Mrsa Negative S.aureus Negative 09/24/17 13:40 Aerobic Blood Culture - Preliminary Blood Venous No Growth Day 3 Anaerobic Blood Culture - Preliminary No Growth Day 3 09/24/17 13:11 Aerobic Blood Culture - Preliminary Blood Venous No Growth Day 3 Anaerobic Blood Culture - Preliminary No Growth Day 3 09/25/17 18:30 Gram Stain - Final Knee Right Wound Culture - Final No Growth Day 2 Assessment: POD #3 Right knee I&D with poly exchange Plan: Cont Vancomycin through , ID consult on Sunday PT/OT No growth to date on cultures
[2017-09-28] MEDS: Cyclobenzaprine TAB* 10 MG PO PRN ×2 (12:09→21:12)
[2017-09-28] MEDS: Enoxaparin(*) 30 MG/0.3 ML SYR SUBCUT SCH (12:09)
--- NOTE | 2017-09-28 13:39 | PN ---
Subjective Date of Service: 09/28/17 Interval History: Patient was seen and examined at bedside. Reports doing well, has no complaints today. Denies chest pain or SOB. Tolerating PT daily, dressing on right knee changed per ortho. Wound cultures still with no growth. Family History: Unchanged from Admission Social History: Unchanged from Admission Past Medical History: Unchanged from Admission - CAD with stent Objective Active Medications: Cyclobenzaprine HCl (Flexeril Tab*) 10 mg PO TID PRN PRN Reason: SPASMS Last Admin: 09/28/17 12:09 Dose: 10 mg Device (Nicotine Mouth Piece*) 1 each INH .USE WITH NICOTROL PRN PRN Reason: CRAVING Last Admin: 09/26/17 21:43 Dose: 1 each Diazepam (Valium Tab(*)) 5 mg PO Q8H PRN PRN Reason: spasms Last Admin: 09/27/17 10:43 Dose: 5 mg Diphenhydramine HCl (Benadryl Po*) 25 mg PO Q6H PRN PRN Reason: itching Docusate Sodium (Colace Cap*) 100 mg PO BID PRN PRN Reason: CONSTIPATION Last Admin: 09/27/17 04:26 Dose: 100 mg Enoxaparin Sodium (Lovenox(*)) 30 mg SUBCUT Q24H [facility] Last Admin: 09/28/17 12:09 Dose: 30 mg Hydromorphone HCl (Dilaudid Inj*) 1 mg IV SLOW PU Q4H PRN PRN Reason: PAIN Last Admin: 09/28/17 09:49 Dose: 1 mg Lactated Ringer's (Lactated Ringers 1000 Ml Bag*) 1,000 mls @ 50 mls/hr IV PER RATE [facility] Vancomycin HCl 1,000 mg/ (Sodium Chloride) 250 mls @ 166.667 mls/hr IVPB Q6H [facility] Last Admin: 09/28/17 09:00 Dose: 166.667 mls/hr Magnesium Hydroxide (Milk Of Magnesia Liq*) 30 ml PO Q6H PRN PRN Reason: constipation Morphine Sulfate (Morphine Inj ((Syringe))*) 2 mg IV Q2H PRN PRN Reason: PAIN - BREAKTHROUGH Last Admin: 09/27/17 06:58 Dose: 2 mg Morphine Sulfate (Ms Contin(*)) 30 mg PO BID [facility] Last Admin: 09/28/17 09:00 Dose: 30 mg Nicotine (Nicotine Inhaler*) 10 mg INH Q2H PRN PRN Reason: CRAVING Last Admin: 09/28/17 09:49 Dose: 10 mg Nicotine (Nicotine Patch 14 Mg/24 Hr*) 1 patch TRANSDERM DAILY [facility] Last Admin: 09/28/17 09:00 Dose: 1 patch Ondansetron HCl (Zofran Inj*) 4 mg IV Q6H PRN PRN Reason: nausea Last Admin: 09/26/17 03:41 Dose: 4 mg Ondansetron HCl (Zofran Odt Tab*) 4 mg PO Q6H PRN PRN Reason: NAUSEA Oxycodone HCl (Roxycodone Tab*) 5 mg PO Q4H PRN PRN Reason: PAIN - SEVERE Last Admin: 09/28/17 12:09 Dose: 5 mg Pharmacy Consult (Vancomycin Per Pharmacy*) 1 note FOLLOW UP .VANC PER PHARMACY [facility] Pharmacy Profile Note (Coumadin Daily Reminder*) 1 note FOLLOW UP 1700 [facility] Last Admin: 09/27/17 16:42 Dose: 1 note Pharmacy Profile Note (Nicotine Patch Removal Note*) 1 note PATCH OFF 2100 [facility] Last Admin: 09/27/17 21:25 Dose: 1 note Pharmacy Profile Note (Vancomycin Trough Check) 1 note FOLLOW UP 0800 ONE Stop: 09/30/17 08:01 Tramadol HCl (Ultram*) 50 mg PO Q6H PRN PRN Reason: PAIN - MODERATE Last Admin: 09/27/17 06:09 Dose: 50 mg Vital Signs - 8 hr 09/28/17 09/28/17 09/28/17 07:25 08:00 09:00 Temperature 99.5 F Pulse Rate 85 Respiratory 12 18 18 Rate Blood Pressure 108/60 (mmHg) O2 Sat by Pulse 97 97 Oximetry 09/28/17 09/28/17 09/28/17 09:49 11:17 12:09 Temperature Pulse Rate Respiratory 18 18 18 Rate Blood Pressure (mmHg) O2 Sat by Pulse Oximetry Oxygen Devices in Use Now: None Appearance: Appears comfortable and in NAD. Eyes: No Scleral Icterus, PERRLA Ears/Nose/Mouth/Throat: Clear Oropharnyx, Mucous Membranes Moist Neck: NL Appearance and Movements; NL JVP, Trachea Midline Respiratory: Symmetrical Chest Expansion and Respiratory Effort, Clear to Auscultation Cardiovascular: NL Sounds; No Murmurs; No JVD, RRR Abdominal: NL Sounds; No Tenderness; No Distention Extremities: No Edema Neurological: Alert and Oriented x 3 Result Diagrams: 09/28/17 05:54 09/28/17 05:54 Additional Lab and Data: . Microbiology and Other Data: Microbiology 09/24/17 15:15 Gram Stain - Final Joint Fluid(Synovial) Skin and Soft Tissue MRSA/MSSA (PCR - Final Mrsa Negative S.aureus Negative Diagnostic Imaging: . EKG Data: . Assess/Plan/Problems-Billing Assessment: 1. Right Knee large effusion, r/o Septic Prosthesis 2. History of CAD with stent placement, no recent Follow up 3. History of Illicit Drug Use 4. Current Tobacco Use - Patient Problems (1) Status post right knee surgery Current Visit: Yes Status: Acute Comment: - PT/OT per ortho - Continue IV antibiotics, may consider adding Ceftrixone for gram negative coverage - Pain controlled - No growth on wound culture after open irrigation and debridement of R knee with liner change. - May consider ID consult before d/c for recommendation regrding outpatient Abx therapy (2) CAD (coronary artery disease) Current Visit: Yes Status: Acute Comment: - Stable - No outpatient F/U - Plans for outpatient F/U upon discharge (3) Hx of drug abuse Current Visit: Yes Status: Acute Comment: - No signs of withdrawl - Pt denies any illicit drug use past year (4) Tobacco abuse Current Visit: Yes Status: Acute Comment: - Supportive care - Smoking cessation info - Nicotine supplements for cravings (5) DVT prophylaxis Current Visit: Yes Status: Acute Comment: - SQ Lovenox per ortho (6) Full code status Current Visit: Yes Status: Acute Status and Disposition: Inpatient for IV antibiotics due to septic R knee, s/p open irrigation and debridement. Anticipate discharge to home when medically stable.
[2017-09-28] MEDS ORDERED: Warfarin TAB(*) 4 MG PO ONE (17:00)
[2017-09-28] MEDS: Nicotine Patch Removal NOTE PATCH OFF SCH (21:11)
[2017-09-29] MEDS: HYDROmorphone INJ* 0.5 MG/0.5 ML SYRINGE IV SLOW PU PRN ×3 (01:25→14:43)
[2017-09-29] MEDS: Diazepam TAB(*) 5 MG PO PRN ×2 (01:35→09:33)
[2017-09-29] MEDS: Vancomycin(*) 1,000 MG in NS 0.9% 250 ML* 250 ML IVPB SCH ×4 (02:54→21:34)
[2017-09-29] MEDS: traMADol TAB* 50 MG PO PRN (03:01)
[2017-09-29 06:14] LABS: INR 1.03 (0.77-1.02)
[2017-09-29 06:16] LABS: Hematocrit 37 % (42-52); Hemoglobin 12.3 g/dl (14.0-18.0); Mean Platelet Volume 8.2 um3 (7.4-10.4); Platelet Count 274 10^3/ul (150-450); White Blood Count 6.9 10^3/ul (3.5-10.8)
[2017-09-29] MEDS: Morphine TAB Extended Release (*) 30 MG TAB.ER PO SCH ×2 (08:57→21:57)
[2017-09-29] MEDS: Nicotine PATCH 14 MG/24 HR* PATCH TRANSDERM SCH (08:58)
--- NOTE | 2017-09-29 09:28 | PN ---
Progress Note - Progress Note Date of Service: 09/29/17 SOAP: Subjective: POD #4 Right knee I&D with poly exchange. Pt doing well, slipped while trying to stand earlier today. Did not fall but states that he had some increase in knee pain since. Denies CP/SOB, f/c, paresthesias or numbness Objective: Vitals: Temp Pulse Resp BP Pulse Ox 98.3 F 92 16 118/66 94 09/29/17 05:50 09/29/17 05:50 09/29/17 08:57 09/29/17 05:50 09/29/17 05:50 Gen: A&O x3, NAD at rest RLE: Incision C/D/I, minimal erythema, no warmth or drainage. +f/e at ankle and MTPs. N/V intact Labs: Laboratory Results - last 24 hr 18/18 09/29/17 09/29/17 05:49 05:49 05:49 WBC 6.9 Hgb 12.3 L Hct 37 L Plt Count 274 MPV 8.2 ESR Cancelled INR (Anticoag Therapy) 1.03 H C-Reactive Protein 135.38 H 09/29/17 06:52 WBC Hgb Hct Plt Count MPV ESR 94 H INR (Anticoag Therapy) C-Reactive Protein Assessment: POD #4 Right knee I&D Plan: WBAT RLE with PT/OT Cont IV abx, awaiting ID consult Sunday Coumadin for DVT ppx
[2017-09-29] MEDS: Docusate CAP* 100 MG PO PRN (09:37)
[2017-09-29] MEDS ORDERED: oxyCODONE TAB* 5 MG TAB ONE (12:01)
[2017-09-29] MEDS: Enoxaparin(*) 30 MG/0.3 ML SYR SUBCUT SCH (12:02)
--- NOTE | 2017-09-29 14:49 | PN ---
Subjective Date of Service: 09/29/17 Interval History: Patient was seen and examined at bedside. Reports no changes and denies any complaints. Ambulating, pain well controlled, no fever or chills. Family History: Unchanged from Admission Social History: Unchanged from Admission Past Medical History: Unchanged from Admission - CAD with stent Objective Active Medications: Cyclobenzaprine HCl (Flexeril Tab*) 10 mg PO TID PRN PRN Reason: SPASMS Last Admin: 09/28/17 21:12 Dose: 10 mg Device (Nicotine Mouth Piece*) 1 each INH .USE WITH NICOTROL PRN PRN Reason: CRAVING Last Admin: 09/26/17 21:43 Dose: 1 each Diazepam (Valium Tab(*)) 5 mg PO Q8H PRN PRN Reason: spasms Last Admin: 09/29/17 09:33 Dose: 5 mg Diphenhydramine HCl (Benadryl Po*) 25 mg PO Q6H PRN PRN Reason: itching Docusate Sodium (Colace Cap*) 100 mg PO BID PRN PRN Reason: CONSTIPATION Last Admin: 09/29/17 09:37 Dose: 100 mg Enoxaparin Sodium (Lovenox(*)) 30 mg SUBCUT Q24H [facility] Last Admin: 09/29/17 12:02 Dose: 30 mg Hydromorphone HCl (Dilaudid Inj*) 1 mg IV SLOW PU Q4H PRN PRN Reason: PAIN Last Admin: 09/29/17 05:52 Dose: 1 mg Vancomycin HCl 1,000 mg/ (Sodium Chloride) 250 mls @ 166.667 mls/hr IVPB Q6H [facility] Last Admin: 09/29/17 10:05 Dose: 166.667 mls/hr Magnesium Hydroxide (Milk Of Magnesia Liq*) 30 ml PO Q6H PRN PRN Reason: constipation Morphine Sulfate (Morphine Inj ((Syringe))*) 2 mg IV Q2H PRN PRN Reason: PAIN - BREAKTHROUGH Last Admin: 09/27/17 06:58 Dose: 2 mg Morphine Sulfate (Ms Contin(*)) 30 mg PO BID [facility] Last Admin: 09/29/17 08:57 Dose: 30 mg Nicotine (Nicotine Inhaler*) 10 mg INH Q2H PRN PRN Reason: CRAVING Last Admin: 08/17/18 23:58 Dose: 10 mg Nicotine (Nicotine Patch 14 Mg/24 Hr*) 1 patch TRANSDERM DAILY [facility] Last Admin: 09/29/17 08:58 Dose: 1 patch Ondansetron HCl (Zofran Inj*) 4 mg IV Q6H PRN PRN Reason: nausea Last Admin: 09/26/17 03:41 Dose: 4 mg Ondansetron HCl (Zofran Odt Tab*) 4 mg PO Q6H PRN PRN Reason: NAUSEA Oxycodone HCl (Roxycodone Tab*) 10 mg PO Q6H PRN PRN Reason: PAIN - SEVERE Pharmacy Consult (Vancomycin Per Pharmacy*) 1 note FOLLOW UP .VANC PER PHARMACY [facility] Pharmacy Profile Note (Coumadin Daily Reminder*) 1 note FOLLOW UP 1700 [facility] Last Admin: 09/28/17 16:35 Dose: 1 note Pharmacy Profile Note (Nicotine Patch Removal Note*) 1 note PATCH OFF 2100 [facility] Last Admin: 09/28/17 21:11 Dose: 1 note Pharmacy Profile Note (Vancomycin Trough Check) 1 note FOLLOW UP 0800 ONE Stop: 09/30/17 08:01 Tramadol HCl (Ultram*) 50 mg PO Q6H PRN PRN Reason: PAIN - MODERATE Last Admin: 09/29/17 03:01 Dose: 50 mg Warfarin Sodium (Coumadin Tab(*)) 8 mg PO ONCE@1700 ONE; Protocol Stop: 09/29/17 17:01 Vital Signs - 8 hr 09/29/17 09/29/17 09/29/17 07:04 07:29 08:57 Temperature 98.0 F Pulse Rate 92 Respiratory 18 18 16 Rate Blood Pressure 127/75 (mmHg) O2 Sat by Pulse 98 Oximetry 09/29/17 09/29/17 09/29/17 09:13 09:33 11:48 Temperature Pulse Rate Respiratory 16 16 16 Rate Blood Pressure (mmHg) O2 Sat by Pulse 98 Oximetry 09/29/17 09/29/17 11:59 12:05 Temperature 97.6 F Pulse Rate 83 Respiratory 18 16 Rate Blood Pressure 126/86 (mmHg) O2 Sat by Pulse 98 Oximetry Oxygen Devices in Use Now: None Appearance: Appears comfortable and in NAD Eyes: No Scleral Icterus, PERRLA Ears/Nose/Mouth/Throat: Clear Oropharnyx, Mucous Membranes Moist Neck: NL Appearance and Movements; NL JVP, Trachea Midline Respiratory: Symmetrical Chest Expansion and Respiratory Effort, Clear to Auscultation Cardiovascular: NL Sounds; No Murmurs; No JVD, RRR Abdominal: NL Sounds; No Tenderness; No Distention Extremities: No Edema Skin: No Rash or Ulcers Neurological: Alert and Oriented x 3 Nutrition: Taking PO's Result Diagrams: 09/29/17 05:49 09/28/17 05:54 Additional Lab and Data: . Microbiology and Other Data: Microbiology 09/24/17 15:15 Gram Stain - Final Joint Fluid(Synovial) Skin and Soft Tissue MRSA/MSSA (PCR - Final Mrsa Negative S.aureus Negative Diagnostic Imaging: . EKG Data: . Assess/Plan/Problems-Billing Assessment: 1. Right Knee large effusion, r/o Septic Prosthesis 2. History of CAD with stent placement, no recent Follow up 3. History of Illicit Drug Use 4. Current Tobacco Use - Patient Problems (1) Status post right knee surgery Current Visit: Yes Status: Acute Comment: - PT/OT per ortho - Continue IV antibiotics, may consider adding Ceftrixone for gram negative coverage - Pain controlled - No growth on wound culture after open irrigation and debridement of R knee with liner change. - May consider ID consult before d/c for recommendation regrding outpatient Abx therapy (2) CAD (coronary artery disease) Current Visit: Yes Status: Acute Comment: - Stable - No outpatient F/U - Plans for outpatient F/U upon discharge (3) Hx of drug abuse Current Visit: Yes Status: Acute Comment: - No signs of withdrawl - Pt denies any illicit drug use past year (4) Tobacco abuse Current Visit: Yes Status: Acute Comment: - Supportive care - Smoking cessation info - Nicotine supplements for cravings (5) DVT prophylaxis Current Visit: Yes Status: Acute Comment: - SQ Lovenox bridgingto Warfarin per ortho (6) Full code status Current Visit: Yes Status: Acute Status and Disposition: Inpatient for IV antibiotics due to septic R knee, s/p open irrigation and debridement. Anticipate discharge to home when medically stable.
[2017-09-29] MEDS: Magnesium Hydroxide LIQ* 30 ML UDC PO PRN (16:00)
[2017-09-29] MEDS ORDERED: Warfarin TAB(*) 4 MG PO ONE (17:00)
[2017-09-29] MEDS: oxyCODONE TAB* 5 MG TAB PO PRN (18:29)
[2017-09-29] MEDS: HYDROmorphone INJ1* 1 MG/ML SYRINGE IV SLOW PU PRN (20:49)
[2017-09-29] MEDS: Nicotine Patch Removal NOTE PATCH OFF SCH (21:44)
[2017-09-29] MEDS: Nicotine Inhaler* 10 MG AMP INH PRN (21:56)
[2017-09-30] MEDS: oxyCODONE TAB* 5 MG TAB PO PRN ×3 (00:36→12:46)
[2017-09-30] MEDS: Vancomycin(*) 1,000 MG in NS 0.9% 250 ML* 250 ML IVPB SCH ×4 (03:16→20:45)
[2017-09-30] MEDS: Diazepam TAB(*) 5 MG PO PRN (03:25)
[2017-09-30] MEDS: Nicotine Inhaler* 10 MG AMP INH PRN ×2 (03:55→09:09)
[2017-09-30 06:03] LABS: INR 1.09 (0.77-1.02)
[2017-09-30] MEDS ORDERED: Vancomycin Trough Check NOTE FOLLOW UP ONE (08:00)
--- NOTE | 2017-09-30 08:20 | PN ---
Progress Note - Progress Note Date of Service: 09/30/17 SOAP: Subjective: POD #5 Right knee I&D with poly exchange. Pt better today, pain controlled. Denies f/c, CP/SOB Objective: Vitals: Temp Pulse Resp BP Pulse Ox 98.5 F 84 18 112/64 95 18 07:33 18 07:33 09/30/17 07:36 09/30/17 07:33 09/30/17 07:33 Gen: A&Ox3, NAD at rest laying in bed RLE: Dressing C/D/I, thigh and calf soft/NT. +f/e at ankle and MTPs. N/V intact Labs: Laboratory Results - last 24 hr 0819/18 /18 05:23 05:23 INR (Anticoag Therapy) 1.09 H BUN 14 Creatinine 0.79 Est GFR ( Amer) 129.5 Est GFR (Non-Af Amer) 107.0 Assessment: POD #5 Right knee I&D with poly exchange Plan: Cont IV abx WBAT RLE INR 1.09 - Coumadin 10mg tonight Awaiting ID consult 10/01
[2017-09-30] MEDS: Morphine TAB Extended Release (*) 30 MG TAB.ER PO SCH ×2 (08:59→20:44)
[2017-09-30] MEDS: Nicotine PATCH 14 MG/24 HR* PATCH TRANSDERM SCH (09:09)
[2017-09-30] MEDS: HYDROmorphone INJ1* 1 MG/ML SYRINGE IV SLOW PU PRN ×4 (10:36→22:48)
[2017-09-30] MEDS: Enoxaparin(*) 30 MG/0.3 ML SYR SUBCUT SCH (12:45)
[2017-09-30] MEDS: Docusate CAP* 100 MG PO PRN (13:49)
[2017-09-30] MEDS: Magnesium Hydroxide LIQ* 30 ML UDC PO PRN (13:49)
--- NOTE | 2017-09-30 14:08 | PN ---
Subjective Date of Service: 09/30/17 Interval History: Patient was seen and examined at bedside. Just took a shower, feels very well, has no complaints. Looking forward for discharge possibly tomorrow. Denies chest pain, palpitations, SOB, fever or chills. Family History: Unchanged from Admission Social History: Unchanged from Admission Past Medical History: Unchanged from Admission - CAD with stent Objective Active Medications: Cyclobenzaprine HCl (Flexeril Tab*) 10 mg PO TID PRN PRN Reason: SPASMS Last Admin: 09/28/17 21:12 Dose: 10 mg Device (Nicotine Mouth Piece*) 1 each INH .USE WITH NICOTROL PRN PRN Reason: CRAVING Last Admin: 09/26/17 21:43 Dose: 1 each Diazepam (Valium Tab(*)) 5 mg PO Q8H PRN PRN Reason: spasms Last Admin: 09/30/17 03:25 Dose: 5 mg Diphenhydramine HCl (Benadryl Po*) 25 mg PO Q6H PRN PRN Reason: itching Docusate Sodium (Colace Cap*) 100 mg PO BID PRN PRN Reason: CONSTIPATION Last Admin: 09/30/17 13:49 Dose: 100 mg Enoxaparin Sodium (Lovenox(*)) 30 mg SUBCUT Q24H [facility] Last Admin: 09/30/17 12:45 Dose: 30 mg Hydromorphone HCl (Dilaudid Inj1s*) 1 mg IV SLOW PU Q4H PRN PRN Reason: PAIN Last Admin: 09/30/17 10:36 Dose: 1 mg Vancomycin HCl 1,000 mg/ (Sodium Chloride) 250 mls @ 166.667 mls/hr IVPB 0200, 0800,1400,2000 [facility] Magnesium Hydroxide (Milk Of Magnesia Liq*) 30 ml PO Q6H PRN PRN Reason: constipation Last Admin: 09/30/17 13:49 Dose: 30 ml Morphine Sulfate (Morphine Inj ((Syringe))*) 2 mg IV Q2H PRN PRN Reason: PAIN - BREAKTHROUGH Last Admin: 09/27/17 06:58 Dose: 2 mg Morphine Sulfate (Ms Contin(*)) 30 mg PO BID [facility] Last Admin: 09/30/17 08:59 Dose: 30 mg Nicotine (Nicotine Inhaler*) 10 mg INH Q2H PRN PRN Reason: CRAVING Last Admin: 09/30/17 09:09 Dose: 10 mg Nicotine (Nicotine Patch 14 Mg/24 Hr*) 1 patch TRANSDERM DAILY [facility] Last Admin: 09/30/17 09:09 Dose: 1 patch Ondansetron HCl (Zofran Inj*) 4 mg IV Q6H PRN PRN Reason: nausea Last Admin: 09/26/17 03:41 Dose: 4 mg Ondansetron HCl (Zofran Odt Tab*) 4 mg PO Q6H PRN PRN Reason: NAUSEA Oxycodone HCl (Roxycodone Tab*) 10 mg PO Q6H PRN PRN Reason: PAIN - SEVERE Last Admin: 09/30/17 12:46 Dose: 10 mg Pharmacy Consult (Vancomycin Per Pharmacy*) 1 note FOLLOW UP .VANC PER PHARMACY [facility] Pharmacy Profile Note (Coumadin Daily Reminder*) 1 note FOLLOW UP 1700 [facility] Last Admin: 09/29/17 17:23 Dose: 1 note Pharmacy Profile Note (Nicotine Patch Removal Note*) 1 note PATCH OFF 2100 [facility] Last Admin: 09/29/17 21:44 Dose: 1 note Pharmacy Profile Note (Vancomycin Trough Check) 1 note FOLLOW UP .ENTER TIME ONE Stop: 10/01/17 19:31 Tramadol HCl (Ultram*) 50 mg PO Q6H PRN PRN Reason: PAIN - MODERATE Last Admin: 09/29/17 03:01 Dose: 50 mg Warfarin Sodium (Coumadin Tab(*)) 10 mg PO ONCE@1700 [facility]; Protocol Stop: 09/30/17 17:01 Vital Signs - 8 hr 09/30/17 09/30/17 09/30/17 07:10 07:33 07:36 Temperature 98.5 F Pulse Rate 84 Respiratory 16 12 18 Rate Blood Pressure 112/64 (mmHg) O2 Sat by Pulse 95 Oximetry 09/30/17 09/30/17 09/30/17 08:59 10:36 11:01 Temperature Pulse Rate Respiratory 18 18 18 Rate Blood Pressure (mmHg) O2 Sat by Pulse Oximetry 09/30/17 09/30/17 09/30/17 11:02 12:14 12:46 Temperature Pulse Rate Respiratory 18 18 18 Rate Blood Pressure (mmHg) O2 Sat by Pulse Oximetry Oxygen Devices in Use Now: None Appearance: Comfortable and in NAD Eyes: No Scleral Icterus, PERRLA Ears/Nose/Mouth/Throat: Clear Oropharnyx, Mucous Membranes Moist Neck: NL Appearance and Movements; NL JVP, Trachea Midline Respiratory: Symmetrical Chest Expansion and Respiratory Effort, Clear to Auscultation Cardiovascular: NL Sounds; No Murmurs; No JVD, RRR Abdominal: NL Sounds; No Tenderness; No Distention Extremities: No Edema Neurological: Alert and Oriented x 3 Result Diagrams: 09/29/17 05:49 09/30/17 05:23 Additional Lab and Data: . Microbiology and Other Data: Microbiology 09/24/17 15:15 Gram Stain - Final Joint Fluid(Synovial) Skin and Soft Tissue MRSA/MSSA (PCR - Final Mrsa Negative S.aureus Negative Diagnostic Imaging: . EKG Data: . Assess/Plan/Problems-Billing Assessment: 1. Right Knee large effusion, r/o Septic Prosthesis 2. History of CAD with stent placement, no recent Follow up 3. History of Illicit Drug Use 4. Current Tobacco Use - Patient Problems (1) Status post right knee surgery Current Visit: Yes Status: Acute Comment: - PT/OT per ortho - Continue IV antibiotics, may consider adding Ceftrixone for gram negative coverage - Pain controlled - No growth on wound culture after open irrigation and debridement of R knee with liner change. - May consider ID consult before d/c for recommendation regrding outpatient Abx therapy (2) CAD (coronary artery disease) Current Visit: Yes Status: Acute Comment: - Stable - No outpatient F/U - Plans for outpatient F/U upon discharge (3) Hx of drug abuse Current Visit: Yes Status: Acute Comment: - No signs of withdrawl - Pt denies any illicit drug use past year (4) Tobacco abuse Current Visit: Yes Status: Acute Comment: - Supportive care - Smoking cessation info - Nicotine supplements for cravings (5) DVT prophylaxis Current Visit: Yes Status: Acute Comment: - SQ Lovenox bridgingto Warfarin per ortho (6) Full code status Current Visit: Yes Status: Acute Status and Disposition: Inpatient for IV antibiotics due to septic R knee, s/p open irrigation and debridement. Anticipate discharge to home when medically stable.
[2017-09-30] MEDS ORDERED: Warfarin TAB(*) 10 MG PO ONE (17:00)
[2017-09-30] MEDS: Nicotine Patch Removal NOTE PATCH OFF SCH (21:27)
[2017-10-01] MEDS: oxyCODONE TAB* 5 MG TAB PO PRN ×3 (00:57→15:12)
[2017-10-01] MEDS: Vancomycin(*) 1,000 MG in NS 0.9% 250 ML* 250 ML IVPB SCH ×4 (02:44→20:49)
[2017-10-01] MEDS: Morphine TAB Extended Release (*) 30 MG TAB.ER PO SCH ×2 (08:54→20:57)
[2017-10-01] MEDS: Nicotine PATCH 14 MG/24 HR* PATCH TRANSDERM SCH (08:55)
[2017-10-01] MEDS: Nicotine Inhaler* 10 MG AMP INH PRN (09:05)
--- NOTE | 2017-10-01 10:24 | PN ---
Subjective Date of Service: 10/01/17 Interval History: Patient seen and examined at bedside. Denies fever, chills, shortness of breath , N/V/D. Pt states that he has a left lateral chest discomfort, that has started since he has been using a trapeze. This pain is reproducible with palpation. Suspect this discomfort is muscular in nature. Pt states that his right knee pain is mostly controlled. Family History: Unchanged from Admission Social History: Unchanged from Admission Past Medical History: Unchanged from Admission - CAD with stent Objective Active Medications: Cyclobenzaprine HCl (Flexeril Tab*) 10 mg PO TID PRN Reason: SPASMS Device (Nicotine Mouth Piece*) 1 each INH .USE WITH NICOTROL PRN Reason: CRAVING Diazepam (Valium Tab(*)) 5 mg PO Q8H PRN Reason: spasms Diphenhydramine HCl (Benadryl Po*) 25 mg PO Q6H PRN Reason: itching Docusate Sodium (Colace Cap*) 100 mg PO BID PRN Reason: CONSTIPATION Enoxaparin Sodium (Lovenox(*)) 30 mg SUBCUT Q24H [facility] Hydromorphone HCl (Dilaudid Inj1s*) 1 mg IV SLOW PU Q4H PRN Reason: PAIN Vancomycin HCl 1,000 mg/ (Sodium Chloride) 250 mls @ 166.667 mls/hr IVPB 0200, 0800,1400,2000 [facility] Magnesium Hydroxide (Milk Of Magnesia Liq*) 30 ml PO Q6H PRN Reason: constipation Morphine Sulfate (Morphine Inj ((Syringe))*) 2 mg IV Q2H PRN Reason: PAIN - BREAKTHROUGH Morphine Sulfate (Ms Contin(*)) 30 mg PO BID [facility] Nicotine (Nicotine Inhaler*) 10 mg INH Q2H PRN Reason: CRAVING Nicotine (Nicotine Patch 14 Mg/24 Hr*) 1 patch TRANSDERM DAILY [facility] Ondansetron HCl (Zofran Inj*) 4 mg IV Q6H PRN Reason: nausea Ondansetron HCl (Zofran Odt Tab*) 4 mg PO Q6H PRN Reason: NAUSEA Oxycodone HCl (Roxycodone Tab*) 10 mg PO Q6H PRN Reason: PAIN - SEVERE Pharmacy Consult (Vancomycin Per Pharmacy*) 1 note FOLLOW UP .VANC PER PHARMACY [facility] Pharmacy Profile Note (Coumadin Daily Reminder*) 1 note FOLLOW UP 1700 [facility] Pharmacy Profile Note (Nicotine Patch Removal Note*) 1 note PATCH OFF 2100 [facility] Pharmacy Profile Note (Vancomycin Trough Check) 1 note FOLLOW UP .ENTER TIME ONE Stop: 10/01/17 19:31 Tramadol HCl (Ultram*) 50 mg PO Q6H PRN Reason: PAIN - MODERATE Vital Signs - 8 hr 10/01/17 10/01/17 10/01/17 03:33 07:15 07:28 Temperature 98.5 F 98.4 F Pulse Rate 91 88 Respiratory 18 16 16 Rate Blood Pressure 126/65 152/90 (mmHg) O2 Sat by Pulse 100 98 Oximetry 10/01/17 10/01/17 07:30 08:54 Temperature Pulse Rate Respiratory 16 18 Rate Blood Pressure (mmHg) O2 Sat by Pulse 98 Oximetry Oxygen Devices in Use Now: None Appearance: NAD, laying in bed Ears/Nose/Mouth/Throat: Mucous Membranes Moist Respiratory: Symmetrical Chest Expansion and Respiratory Effort, Clear to Auscultation Cardiovascular: NL Sounds; No Murmurs; No JVD, RRR Abdominal: NL Sounds; No Tenderness; No Distention Extremities: No Edema Skin: - - Dressing to right knee clean, dry and intact Neurological: Alert and Oriented x 3, NL Muscle Strength and Tone Lines/Tubes/Other Access: Clean, Dry and Intact Peripheral IV - site benign Nutrition: Taking PO's Result Diagrams: 09/29/17 05:49 09/30/17 05:23 Additional Lab and Data: . Microbiology and Other Data: Microbiology 09/24/17 15:15 Gram Stain - Final Joint Fluid(Synovial) Skin and Soft Tissue MRSA/MSSA (PCR - Final Mrsa Negative S.aureus Negative Diagnostic Imaging: . EKG Data: . Assess/Plan/Problems-Billing Assessment: Mr. Munzo is a 42 yo male with H significant for - Patient Problems (1) Infection of prosthetic right knee joint Code(s): T84.53XA - INFECT/INFLM REACTION DUE TO INTERNAL R KNEE PROSTH, INIT SNOMED Code(s): 216944933 Comment: - Afebrile, leukocytosis resolved, CRP continues to be elevated - S/P I+D and polyethylene liner exchange, POD 6 - Pt with large right knee effusion on admission, consistant with Septic prosthesis - ID consult, input appreciated - Continue Vancomycin (will need 6 weeks of ABX) (2) CAD (coronary artery disease) Code(s): I25.10 - ATHSCL HEART DISEASE OF [place] CORONARY ARTERY W/O ANG PCTRS SNOMED Code(s): 78616242 Comment: - Asymptomatic at this time - No outpatient F/U - Plans for outpatient F/U upon discharge (3) Hx of drug abuse Code(s): Z87.898 - PERSONAL HISTORY OF OTHER SPECIFIED CONDITIONS SNOMED Code( s): 740340388 Comment: - No signs of withdrawl - Pt denies any illicit drug use past year (4) Tobacco abuse Code(s): Z72.0 - TOBACCO USE SNOMED Code(s): 732446393 Comment: - Provided with smoking cessation info - Continue supportive care and nicotine supplements for cravings (5) DVT prophylaxis Code(s): XUA7293 - SNOMED Code(s): 738941852 Comment: - SQ Lovenox bridge to Warfarin per ortho (6) Full code status Code(s): Z78.9 - OTHER SPECIFIED HEALTH STATUS SNOMED Code(s): 838676565 Status and Disposition: Inpatient for IV antibiotics due to septic R knee, s/p open irrigation and debridement. Anticipate discharge to home when medically stable.
[2017-10-01] MEDS: HYDROmorphone INJ1* 1 MG/ML SYRINGE IV SLOW PU PRN (11:32)
[2017-10-01] MEDS: Enoxaparin(*) 30 MG/0.3 ML SYR SUBCUT SCH (11:36)
--- NOTE | 2017-10-01 12:20 | CONS ---
CONSULTATION REPORT: DATE OF CONSULT: 10/01/17 REQUESTING PHYSICIAN: Dr. Smith CONSULTING SERVICE: Infectious Disease. REASON FOR CONSULTATION: Prosthetic knee infection. IMPRESSION: 1. Sudden onset right knee pain, swelling, stiffness with about a week of fever and drenching night sweats. The synovial fluid showed 12,000 white blood cells, 90% neutrophils, no crystals. Gram stain showed polys, no organisms. The PCR is negative for Staph aureus and culture negative. The operative cultures are also negative without organisms on the Gram stain. 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 He does not seem to have had antibiotics preceding the aspiration of the knee, which have affected the fluid results. Still most likely a Staph or Strep. He does have poor dentition with multiple large caries, so Strep rises higher on the list. His blood cultures were negative. He has no other prosthetic material present. 2. PENICILLIN allergy caused rash and mouth sores. 3. Cocaine use and brief remission. 4. PCI. RECOMMENDATIONS: Continue vancomycin goal trough 15 to 20, we will plan on 6 weeks. He is on Coumadin, currently he is to hold off on rifampin (though we are not certain that it is Staphylococcal organism) until he has done with Coumadin to avoid the drug-drug interaction, potential for severe life- threatening side effects. Subsequently, I will plan on a long course of oral antibiotics plus rifampin to be sure that he has had a good chance of cure. HISTORY OF PRESENT ILLNESS: This is a 42-year-old male with a prosthetic right knee arthroplasty in 2013, which did well until last week he developed pain, swelling, stiffness, came on suddenly, no preceding injury, no bleeding that he knew of. He had fever and mostly drenching sweats and then we are proceeding that issue. His appetite had been okay. Because of the symptoms, he came to the hospital. He had fluid aspirated with the result as above. He was taken to the operating room on the by Dr. Smith for liner exchange, incision debridement. He tolerated that well. His pain and stiffness are improving. His range of motion is getting better. He has no fevers since the first day of his admission. His white blood cell count was initially up at 37 as of the . His CRP was 195, peaked at 204, was down to 135 on 18th. He has no other prosthetic material present. He has no spine pain. He does have some left chest pain, which he knows he can reproduce by palpating that area and came on since he has been using the traction device over his head. He has had never infection, requiring hospitalization in the past. PAST MEDICAL HISTORY: 1. History of PCI. 2. PVNS. 3. Status post right knee arthroplasty. 4. Tobacco use. ALLERGIES: ERYTHROMYCIN, TYLENOL, AMOXICILLIN, PENICILLIN, both caused rash. MEDICATIONS: 1. Flexeril. 2. Diazepam. 3. Docusate. 4. Enoxaparin. 5. Dilaudid as needed. 6. Magnesium hydroxide. 7. Nicotine inhaler and patch. 8. Zofran. 9. Oxycodone. 10. Vancomycin 1 g every 6 hours. 11. Warfarin 10 mg a day. SOCIAL HISTORY: He lives in [place]. He is currently not working. 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 Past injection use. Recent cocaine use. FAMILY HISTORY: As far as he knows, no tuberculosis. He was adopted. REVIEW OF SYSTEMS: All negative to the 14-point review of systems except as noted in the history of present illness. PHYSICAL EXAMINATION: Vital Signs: Temperature 37, heart rate 80, respiratory rate 18, blood pressure 150/90, oxygen saturation 98% on room air. In general, he is awake, not in distress. Neurologic: He is oriented x3. Follows all commands. HEENT: There is no conjunctival hemorrhage. Oropharynx: There is no thrush. He has in his maxillary teeth, couple of large caries. He has number of teeth missing. Neck: Neck is supple without mass. There is no cervical, supraclavicular, inguinal, axillary, or epitrochlear lymphadenopathy. Heart: Regular rate and rhythm without murmurs, rubs, or gallops. Lungs: Clear to auscultation bilaterally. Abdomen: Soft, nontender, nondistended. There are bowel sounds present. Skin: There is no rash or splinter hemorrhage. Musculoskeletal: Distal quad tenderness to palpation. Knee has CryoCuff. Incisions intact. LABORATORY DATA: Creatinine 0.8, CRP 135. Urinalysis negative. Vancomycin trough yesterday was 12. Please see impressions and recommendations as outlined above. Thanks for asking to me see Mr. Munoz in consultation. [id number]/CPS #: [id number] VIVEK
--- NOTE | 2017-10-01 15:14 | PN ---
Progress Note - Progress Note Date of Service: 10/01/17 SOAP: Subjective: []Patient seen and examined at bedside. He is feeling well without fever, chills , CP, SOB. He has been having 4/10 knee pain relieved by oxycodone along with long acting PO morphine. He still at times is requesting IV dilaudid for pain control. Flexeril, valium and tramadol are not helpful to control his pain. Objective: []General: Well appearing, NAD RLE: Incision CDI. No warmth or erythema of the knee. ROM 5-30 degrees passively without pain. Calves supple and nontender without erythema, edema or palpable cords. Assessment: []POD #6 Right knee I&D with poly exchange Plan: Continue IV abx, appreciate ID consultation. Patient will require 6 weeks IV antibiotics. Determination of swing bed vs outpatient infusions is underway WBAT RLE PT/OT Pain control: Goal to transition to non-opioid pain medications as primary pain control method. Have added gabapentin, bengay topical and soma. Vital Signs Temp 98.1 F 10/01/17 11:32 Pulse 99 10/01/17 11:32 Resp 16 10/01/17 15:12 BP 141/92 10/01/17 11:32 Pulse Ox 97 10/01/17 11:32 Intake & Output 09/30/17 10/01/17 10/01/17 18:59 06:59 18:59 Intake Total 1800 1250 1700 Output Total 975 0 Balance 2120 642 4486 Intake: IV Fluids 30 NS (0.9%) 30 IVPB 250 vanco 250 Oral 1520 1250 1700 Output: Urine 975 0 Laboratory Last Values WBC 6.9 10^3/ul (3.5-10.8) 09/29/17 05:49 RBC 4.59 10^6/ul (4.00-5.40) 09/27/17 05:41 Hgb 12.3 g/dl (14.0-18.0) L 09/29/17 05:49 Hct 37 % (42-52) L 09/29/17 05:49 MCV 82 fL (80-94) 09/27/17 05:41 MCH 28 pg (27-31) 09/27/17 05:41 MCHC 34 g/dl (31-36) 09/27/17 05:41 RDW 15 % (10.5-15) 09/27/17 05:41 Plt Count 274 10^3/ul (150-450) 09/29/17 05:49 MPV 8.2 um3 (7.4-10.4) 09/29/17 05:49 Neut % (Auto) 65.1 % (38-83) 09/27/17 05:41 Lymph % (Auto) 22.2 % (25-47) L 09/27/17 05:41 [place] % (Auto) 11.7 % (0-7) H 09/27/17 05:41 Eos % (Auto) 0.8 % (0-6) 09/27/17 05:41 Baso % (Auto) 0.2 % (0-2) 09/27/17 05:41 Absolute Neuts (auto) 6.3 10^3/ul (1.5-7.7) 09/27/17 05:41 Absolute Lymphs (auto) 2.1 10^3/ul (1.0-4.8) 09/27/17 05:41 Absolute Monos (auto) 1.1 10^3/ul (0-0.8) H 09/27/17 05:41 Absolute Eos (auto) 0.1 10^3/ul (0-0.6) 09/27/17 05:41 Absolute Basos (auto) 0 10^3/ul (0-0.2) 09/27/17 05:41 Absolute Nucleated RBC 0 10^3/ul 09/27/17 05:41 Nucleated RBC % 0.1 09/27/17 05:41 ESR 94 mm/Hr (0-14) H 09/29/17 06:52 INR (Anticoag Therapy) 1.09 (0.77-1.02) H 09/30/17 05:23 APTT 25.6 seconds (26.0-36.3) L 09/24/17 20:24 Sodium 136 mmol/L (135-145) 09/25/17 11:20 Potassium 4.3 mmol/L (3.5-5.0) 09/25/17 11:20 Chloride 103 mmol/L (101-111) 09/25/17 11:20 Carbon Dioxide 27 mmol/L (22-32) 09/25/17 11:20 Anion Gap 6 mmol/L (2-11) 09/25/17 11:20 BUN 14 mg/dL (6-24) 09/30/17 05:23 Creatinine 0.79 mg/dL (0.67-1.17) 09/30/17 05:23 Est GFR ( Amer) 129.5 (>60) 09/30/17 05:23 Est GFR (Non-Af Amer) 107.0 (>60) 09/30/17 05:23 BUN/Creatinine Ratio 13.4 (8-20) 09/25/17 11:20 Glucose 95 mg/dL (70-100) 09/25/17 11:20 Lactic Acid 1.3 mmol/L (0.5-2.0) 09/24/17 13:11 Uric Acid 4.6 mg/dL (4.4-7.6) 09/24/17 13:11 Calcium 9.0 mg/dL (8.6-10.3) 09/25/17 11:20 Total Bilirubin 0.70 mg/dL (0.2-1.0) 09/24/17 13:11 AST 15 U/L (13-39) 09/24/17 13:11 ALT 20 U/L (7-52) 09/24/17 13:11 Alkaline Phosphatase 82 U/L (34-104) 09/24/17 13:11 C-Reactive Protein 135.38 mg/L (<8.01) H 09/29/17 05:49 Total Protein 7.8 g/dL (6.4-8.9) 09/24/17 13:11 Albumin 4.3 g/dL (3.2-5.2) 09/24/17 13:11 Globulin 3.5 g/dL (2-4) 09/24/17 13:11 Albumin/Globulin Ratio 1.2 (1-3) 09/24/17 13:11 Urine Color Yellow 09/25/17 14:50 Urine Appearance Clear 09/25/17 14:50 Urine pH 7.0 (5-9) 09/25/17 14:50 Ur Specific [place] 1.015 (1.010-1.030) 09/25/17 14:50 Urine Protein Negative (Negative) 09/25/17 14:50 Urine Ketones Negative (Negative) 09/25/17 14:50 Urine Blood Negative (Negative) 09/25/17 14:50 Urine Nitrate Negative (Negative) 09/25/17 14:50 Urine Bilirubin Negative (Negative) 09/25/17 14:50 Urine Urobilinogen Negative (Negative) 09/25/17 14:50 Ur Leukocyte Esterase Negative (Negative) 09/25/17 14:50 Urine Glucose Negative (Negative) 09/25/17 14:50 Fluid Source Synovial 09/24/17 15:15 Fluid Volume 20 mL 09/24/17 15:15 Fluid Color Sadaf 09/24/17 15:15 Fluid Appearance Cloudy 09/24/17 15:15 Fluid WBC 75991 /mcL (0-432707) 09/24/17 15:15 Fluid RBC 100 /mcL 09/24/17 15:15 Fluid Tot Cell Count 100 09/24/17 15:15 Fluid Neutrophils 88 % 09/24/17 15:15 Fluid Lymphocytes 9 % 09/24/17 15:15 Fluid Monocytes 3 % 09/24/17 15:15 Fluid Cell Count Rvw By 09/24/17 15:15 Fluid Crystals None seen (None Seen) 09/24/17 15:15 Fluid Glucose 4 mg/dL 09/24/17 15:15 Fluid Total Protein 5.3 g/dL 09/24/17 15:15 Fluid LDH 5075 U/L 09/24/17 15:15 B. burgdorferi (PCR) Negative (Negative) 09/24/17 15:15 B. mayonii (PCR) Negative (Negative) 09/24/17 15:15 B.garinii/B.afzelii PCR Negative (Negative) 09/24/17 15:15 Vancomycin Trough 12.1 mcg/mL 09/30/17 10:37 Lyme Specimen Source synovial fluid 09/24/17 15:15
[2017-10-01] MEDS ORDERED: Carisoprodol TAB* 350 MG PO PRN (15:16)
[2017-10-01] MEDS ORDERED: Gabapentin CAP(*) 300 MG PO PRN (15:22)
[2017-10-01] MEDS ORDERED: Warfarin TAB(*) 10 MG PO ONE (17:00)
[2017-10-01] MEDS: Analgesic BALM* 114 GM TOPICAL PRN (17:32)
[2017-10-01] MEDS ORDERED: Vancomycin Trough Check NOTE FOLLOW UP ONE (19:30)
[2017-10-01] MEDS: Nicotine Patch Removal NOTE PATCH OFF SCH (20:58)
[2017-10-02] MEDS: Analgesic BALM* 114 GM TOPICAL PRN ×2 (00:15→07:53)
[2017-10-02] MEDS: Vancomycin(*) 1,000 MG in NS 0.9% 250 ML* 250 ML IVPB SCH ×4 (02:26→19:31)
[2017-10-02] MEDS: oxyCODONE TAB* 5 MG TAB PO PRN ×4 (06:00→23:01)
[2017-10-02 06:14] LABS: INR 1.34 (0.77-1.02)
[2017-10-02] MEDS: Morphine TAB Extended Release (*) 30 MG TAB.ER PO SCH ×2 (07:52→21:30)
[2017-10-02] MEDS: Nicotine PATCH 14 MG/24 HR* PATCH TRANSDERM SCH (07:54)
[2017-10-02] MEDS: Enoxaparin(*) 30 MG/0.3 ML SYR SUBCUT SCH (12:02)
--- NOTE | 2017-10-02 13:15 | PN ---
Progress Note - Progress Note Date of Service: 10/02/17 SOAP: Subjective: []Patient seen and examined at bedside. His pain still ranges as high as 6/10 at rest and up to 9/10 with a muscle spasm/ spike of pain. He has found bengay to offer the most relief. He is agreeable to discontinuing IV pain medication and all muscle relaxants as he dislikes that the muscle relaxants make him very drowsy. Denies fever, chills, CP, SOB. Objective: []General: Well appearing, NAD RLE: Dressing changed, Incision CDI. No warmth or erythema of the knee. Bengay applied to thigh Calves supple and nontender without erythema, edema or palpable cords. Assessment: []SP Right knee I&D with poly exchange Plan: Continue IV abx, appreciate ID consultation. Patient will require 6 weeks IV antibiotics. Determination of swing bed vs outpatient infusions is underway. First step is getting medicaid. Once insurance in place will be able to better determine if inpatient or outpatient. WBAT RLE PT/OT Vital Signs Temp 98.0 F 10/02/17 07:37 Pulse 90 10/02/17 07:37 Resp 16 10/02/17 12:01 BP 127/74 10/02/17 07:37 Pulse Ox 99 10/02/17 07:37 Intake & Output 10/01/17 10/02/17 10/02/17 18:59 06:59 18:59 Intake Total 1700 1351 600 Output Total 0 1450 Balance 1700 -99 600 Intake: IV Fluids 551 vanco 551 Oral 1700 800 600 Output: Urine 0 1450 Other: # Bowel Movements 0 Laboratory Last Values WBC 6.9 10^3/ul (3.5-10.8) 09/29/17 05:49 RBC 4.59 10^6/ul (4.00-5.40) 09/27/17 05:41 Hgb 12.3 g/dl (14.0-18.0) L 09/29/17 05:49 Hct 37 % (42-52) L 09/29/17 05:49 MCV 82 fL (80-94) 09/27/17 05:41 MCH 28 pg (27-31) 09/27/17 05:41 MCHC 34 g/dl (31-36) 09/27/17 05:41 RDW 15 % (10.5-15) 09/27/17 05:41 Plt Count 274 10^3/ul (150-450) 09/29/17 05:49 MPV 8.2 um3 (7.4-10.4) 09/29/17 05:49 Neut % (Auto) 65.1 % (38-83) 09/27/17 05:41 Lymph % (Auto) 22.2 % (25-47) L 09/27/17 05:41 [place] % (Auto) 11.7 % (0-7) H 09/27/17 05:41 Eos % (Auto) 0.8 % (0-6) 09/27/17 05:41 Baso % (Auto) 0.2 % (0-2) 09/27/17 05:41 Absolute Neuts (auto) 6.3 10^3/ul (1.5-7.7) 09/27/17 05:41 Absolute Lymphs (auto) 2.1 10^3/ul (1.0-4.8) 09/27/17 05:41 Absolute Monos (auto) 1.1 10^3/ul (0-0.8) H 09/27/17 05:41 Absolute Eos (auto) 0.1 10^3/ul (0-0.6) 09/27/17 05:41 Absolute Basos (auto) 0 10^3/ul (0-0.2) 09/27/17 05:41 Absolute Nucleated RBC 0 10^3/ul 09/27/17 05:41 Nucleated RBC % 0.1 09/27/17 05:41 ESR 94 mm/Hr (0-14) H 09/29/17 06:52 INR (Anticoag Therapy) 1.34 (0.77-1.02) H 10/02/17 05:50 APTT 25.6 seconds (26.0-36.3) L 09/24/17 20:24 Sodium 136 mmol/L (135-145) 09/25/17 11:20 Potassium 4.3 mmol/L (3.5-5.0) 09/25/17 11:20 Chloride 103 mmol/L (101-111) 09/25/17 11:20 Carbon Dioxide 27 mmol/L (22-32) 09/25/17 11:20 Anion Gap 6 mmol/L (2-11) 09/25/17 11:20 BUN 14 mg/dL (6-24) 09/30/17 05:23 Creatinine 0.79 mg/dL (0.67-1.17) 09/30/17 05:23 Est GFR ( Amer) 129.5 (>60) 09/30/17 05:23 Est GFR (Non-Af Amer) 107.0 (>60) 09/30/17 05:23 BUN/Creatinine Ratio 13.4 (8-20) 09/25/17 11:20 Glucose 95 mg/dL (70-100) 09/25/17 11:20 Lactic Acid 1.3 mmol/L (0.5-2.0) 09/24/17 13:11 Uric Acid 4.6 mg/dL (4.4-7.6) 09/24/17 13:11 Calcium 9.0 mg/dL (8.6-10.3) 09/25/17 11:20 Total Bilirubin 0.70 mg/dL (0.2-1.0) 09/24/17 13:11 AST 15 U/L (13-39) 09/24/17 13:11 ALT 20 U/L (7-52) 09/24/17 13:11 Alkaline Phosphatase 82 U/L (34-104) 09/24/17 13:11 C-Reactive Protein 135.38 mg/L (<8.01) H 09/29/17 05:49 Total Protein 7.8 g/dL (6.4-8.9) 09/24/17 13:11 Albumin 4.3 g/dL (3.2-5.2) 09/24/17 13:11 Globulin 3.5 g/dL (2-4) 09/24/17 13:11 Albumin/Globulin Ratio 1.2 (1-3) 09/24/17 13:11 Urine Color Yellow 09/25/17 14:50 Urine Appearance Clear 09/25/17 14:50 Urine pH 7.0 (5-9) 09/25/17 14:50 Ur Specific [place] 1.015 (1.010-1.030) 09/25/17 14:50 Urine Protein Negative (Negative) 09/25/17 14:50 Urine Ketones Negative (Negative) 09/25/17 14:50 Urine Blood Negative (Negative) 09/25/17 14:50 Urine Nitrate Negative (Negative) 09/25/17 14:50 Urine Bilirubin Negative (Negative) 09/25/17 14:50 Urine Urobilinogen Negative (Negative) 09/25/17 14:50 Ur Leukocyte Esterase Negative (Negative) 09/25/17 14:50 Urine Glucose Negative (Negative) 09/25/17 14:50 Fluid Source Synovial 09/24/17 15:15 Fluid Volume 20 mL 09/24/17 15:15 Fluid Color Sadaf 09/24/17 15:15 Fluid Appearance Cloudy 09/24/17 15:15 Fluid WBC 27708 /mcL (0-620941) 09/24/17 15:15 Fluid RBC 100 /mcL 09/24/17 15:15 Fluid Tot Cell Count 100 09/24/17 15:15 Fluid Neutrophils 88 % 09/24/17 15:15 Fluid Lymphocytes 9 % 09/24/17 15:15 Fluid Monocytes 3 % 09/24/17 15:15 Fluid Cell Count Rvw By 09/24/17 15:15 Fluid Crystals None seen (None Seen) 09/24/17 15:15 Fluid Glucose 4 mg/dL 09/24/17 15:15 Fluid Total Protein 5.3 g/dL 09/24/17 15:15 Fluid LDH 5075 U/L 09/24/17 15:15 B. burgdorferi (PCR) Negative (Negative) 09/24/17 15:15 B. mayonii (PCR) Negative (Negative) 09/24/17 15:15 B.garinii/B.afzelii PCR Negative (Negative) 09/24/17 15:15 Vancomycin Trough 14.9 mcg/mL 10/01/17 19:40 Lyme Specimen Source synovial fluid 09/24/17 15:15
[2017-10-02] MEDS: Docusate CAP* 100 MG PO PRN (14:49)
[2017-10-02] MEDS: Magnesium Hydroxide LIQ* 30 ML UDC PO PRN (14:49)
--- NOTE | 2017-10-02 16:55 | PN ---
Subjective Date of Service: 10/02/17 Interval History: Patient seen and examined at bedside. Denies fever, chills, shortness of breath , chest discomfort, N/V/D. Pt states that he needs pain medication for "in between" and he feels like the current medications are not holding him. He states that Bengay is helping with his right thigh pain. He doesn't feel like the gabapentin is helping much with his pain. He states the the person regarding his insurance didn't come today and will be here in the morning. Family History: Unchanged from Admission Social History: Unchanged from Admission Past Medical History: Unchanged from Admission - CAD with stent Objective Active Medications: Device (Nicotine Mouth Piece*) 1 each INH .USE WITH NICOTROL PRN Reason: CRAVING Diazepam (Valium Tab(*)) 5 mg PO Q8H PRN Reason: spasms Diphenhydramine HCl (Benadryl Po*) 25 mg PO Q6H PRN Reason: itching Docusate Sodium (Colace Cap*) 100 mg PO BID PRN Reason: CONSTIPATION Enoxaparin Sodium (Lovenox(*)) 30 mg SUBCUT Q24H NADINE Gabapentin (Neurontin Cap(*)) 300 mg PO BID PRN Reason: PAIN - MODERATE Heparin Sodium (Porcine) (Heparin Flush Picc/Ml/Cvc(*)) 1 ml FLUSH 0600,1800 NADINE; Protocol Hydromorphone HCl (Dilaudid Inj1s*) 1 mg IV SLOW PU Q4H PRN Reason: PAIN Vancomycin HCl 1,000 mg/ (Sodium Chloride) 250 mls @ 166.667 mls/hr IVPB 0200, 0800,1400,2000 [facility] Magnesium Hydroxide (Milk Of Magnesia Liq*) 30 ml PO Q6H PRN Reason: constipation Morphine Sulfate (Ms Contin(*)) 30 mg PO BID [facility] Multi-Ingredient Liniment/Rub (Yong Mix*) 1 applic TOPICAL BID PRN Reason: SPASMS Nicotine (Nicotine Inhaler*) 10 mg INH Q2H PRN Reason: CRAVING Nicotine (Nicotine Patch 14 Mg/24 Hr*) 1 patch TRANSDERM DAILY NADINE Ondansetron HCl (Zofran Inj*) 4 mg IV Q6H PRN Reason: nausea Ondansetron HCl (Zofran Odt Tab*) 4 mg PO Q6H PRN Reason: NAUSEA Oxycodone HCl (Roxycodone Tab*) 10 mg PO QID ACHS PRN Reason: PAIN - SEVERE Pharmacy Consult (Vancomycin Per Pharmacy*) 1 note FOLLOW UP .VANC PER PHARMACY [facility] Pharmacy Profile Note (Coumadin Daily Reminder*) 1 note FOLLOW UP 1700 [facility] Pharmacy Profile Note (Nicotine Patch Removal Note*) 1 note PATCH OFF 2100 [facility] Pharmacy Profile Note (Vancomycin Trough Check) 1 note FOLLOW UP 0800 [facility] Stop: 10/03/17 08:01 Warfarin Sodium (Coumadin Tab(*)) 8 mg PO ONCE@1700 [facility]; Protocol Stop: 10/02/17 17:01 Vital Signs - 8 hr 10/02/17 10/02/17 10/02/17 11:14 12:01 14:42 Temperature 98.6 F Pulse Rate 93 Respiratory 18 16 16 Rate Blood Pressure 129/66 (mmHg) O2 Sat by Pulse 98 Oximetry Oxygen Devices in Use Now: None Appearance: NAD, laying in bed Ears/Nose/Mouth/Throat: Mucous Membranes Moist Respiratory: Symmetrical Chest Expansion and Respiratory Effort, Clear to Auscultation Cardiovascular: NL Sounds; No Murmurs; No JVD, RRR Abdominal: NL Sounds; No Tenderness; No Distention Skin: - - Dressing to right knee clean and intact Neurological: Alert and Oriented x 3, NL Muscle Strength and Tone Lines/Tubes/Other Access: Clean, Dry and Intact PICC Line - site benign Nutrition: Taking PO's Result Diagrams: 09/29/17 05:49 09/30/17 05:23 Additional Lab and Data: . Microbiology and Other Data: Microbiology 09/24/17 15:15 Gram Stain - Final Joint Fluid(Synovial) Skin and Soft Tissue MRSA/MSSA (PCR - Final Mrsa Negative S.aureus Negative Diagnostic Imaging: . EKG Data: . Assess/Plan/Problems-Billing Assessment: Mr. Munoz is a 42 yo male with PMH significant for CAD s/p stent, osteoarthritis , tobacco abuse, pigmented villonodular synovitis who presented to the hospital with right knee pain. - Patient Problems (1) Infection of prosthetic right knee joint Code(s): T84.53XA - INFECT/INFLM REACTION DUE TO INTERNAL R KNEE PROSTH, INIT SNOMED Code(s): 445414995 Comment: - Afebrile, leukocytosis resolved, CRP continues to be elevated - S/P I+D and polyethylene liner exchange, POD 7 - Pt with large right knee effusion on admission, consistant with Septic prosthesis - ID consult, input appreciated - Continue Vancomycin (will need 6 weeks of ABX) (2) CAD (coronary artery disease) Code(s): I25.10 - ATHSCL HEART DISEASE OF [place] CORONARY ARTERY W/O ANG PCTRS SNOMED Code(s): 11701256 Comment: - Asymptomatic at this time - No outpatient F/U - Plans for outpatient F/U upon discharge (3) Hx of drug abuse Code(s): Z87.898 - PERSONAL HISTORY OF OTHER SPECIFIED CONDITIONS SNOMED Code( s): 561739348 Comment: - No signs of withdrawl - Pt denies any illicit drug use past year (4) Tobacco abuse Code(s): Z72.0 - TOBACCO USE SNOMED Code(s): 372314125 Comment: - Provided with smoking cessation info - Continue supportive care and nicotine supplements for cravings (5) DVT prophylaxis Code(s): AEF4288 - SNOMED Code(s): 232646097 Comment: - SQ Lovenox bridge to Warfarin per ortho (6) Full code status Code(s): Z78.9 - OTHER SPECIFIED HEALTH STATUS SNOMED Code(s): 797346429 Status and Disposition: Inpatient for IV antibiotics due to septic R knee, s/p open irrigation and debridement. Anticipate discharge to home when medically stable. Thank you for this consultation, we will continue to follow along. Attending: Dewayne Chance
[2017-10-02] MEDS ORDERED: Warfarin TAB(*) 4 MG PO ONE (17:00)
[2017-10-02] MEDS: Nicotine Patch Removal NOTE PATCH OFF SCH (21:35)
[2017-10-02] MEDS: Gabapentin CAP(*) 300 MG PO PRN (23:01)
[2017-10-03] MEDS: Vancomycin(*) 1,000 MG in NS 0.9% 250 ML* 250 ML IVPB SCH ×2 (02:07→08:17)
[2017-10-03] MEDS: oxyCODONE TAB* 5 MG TAB PO PRN ×3 (06:09→12:55)
[2017-10-03 06:11] LABS: ABS Basophils 0 10^3/ul (0-0.2); ABS Eosinophils 0.4 10^3/ul (0-0.6); ABS Lymphocytes 1.7 10^3/ul (1.0-4.8); ABS Monocytes 0.6 10^3/ul (0-0.8); ABS Nucleated RBC 0 10^3/ul; Eosinophil % 7.1 % (0-6); Hematocrit 32 % (42-52); Hemoglobin 10.8 g/dl (14.0-18.0); Lymphocyte % 29.8 % (25-47); Mean Corpuscular HGB Conc 34 g/dl (31-36); Mean Corpuscular Hemoglobin 28 pg (27-31); Mean Corpuscular Volume 82 fL (80-94); Nucleated Red Blood Cells % 0.1; Platelet Count 340 10^3/ul (150-450); Red Blood Count 3.84 10^6/ul (4.00-5.40); Red Cell Distribution Width 15 % (10.5-15); White Blood Count 5.7 10^3/ul (3.5-10.8)
[2017-10-03 06:15] LABS: INR 1.45 (0.77-1.02)
[2017-10-03 06:29] LABS: EGFR Non-African American 105.5 (>60); Vancomycin Trough 19.5 mcg/mL
[2017-10-03] MEDS ORDERED: Vancomycin Trough Check NOTE FOLLOW UP ONE (08:00)
[2017-10-03] MEDS ORDERED: Morphine TAB Extended Release (*) 30 MG TAB.ER PO SCH ×2 (09:00)
[2017-10-03] MEDS ORDERED: Morphine TAB Extended Release (*) 15 MG TAB.ER PO SCH (09:08)
[2017-10-03] MEDS: Morphine TAB Extended Release (*) 15 MG TAB.ER PO SCH ×2 (09:15→21:26)
[2017-10-03] MEDS: Nicotine PATCH 14 MG/24 HR* PATCH TRANSDERM SCH (09:20)
[2017-10-03] MEDS: Gabapentin CAP(*) 300 MG PO PRN ×2 (09:33→17:47)
--- NOTE | 2017-10-03 10:11 | PN ---
Subjective Date of Service: 10/03/17 Interval History: Pt c/o pain in R knee ,no other complaints. Family History: Unchanged from Admission Social History: Unchanged from Admission Past Medical History: Unchanged from Admission - CAD with stent Objective Active Medications: Device (Nicotine Mouth Piece*) 1 each INH .USE WITH NICOTROL PRN PRN Reason: CRAVING Last Admin: 09/26/17 21:43 Dose: 1 each Diphenhydramine HCl (Benadryl Po*) 25 mg PO Q6H PRN PRN Reason: itching Docusate Sodium (Colace Cap*) 100 mg PO BID PRN PRN Reason: CONSTIPATION Last Admin: 10/02/17 14:49 Dose: 100 mg Enoxaparin Sodium (Lovenox(*)) 30 mg SUBCUT Q24H NADINE Last Admin: 10/02/17 12:02 Dose: 30 mg Gabapentin (Neurontin Cap(*)) 300 mg PO TID PRN PRN Reason: PAIN - MODERATE Last Admin: 10/03/17 09:33 Dose: 300 mg Heparin Sodium (Porcine) (Heparin Flush Picc/Ml/Cvc(*)) 1 ml FLUSH 0600,1800 NADINE; Protocol Last Admin: 10/03/17 04:12 Dose: 1 ml Vancomycin HCl 1,250 mg/ (Sodium Chloride) 250 mls @ 166.667 mls/hr IVPB Q8H NADINE Magnesium Hydroxide (Milk Of Magnesia Liq*) 30 ml PO Q6H PRN PRN Reason: constipation Last Admin: 10/02/17 14:49 Dose: 30 ml Morphine Sulfate (Ms Contin(*)) 15 mg PO BID@0900,2100 NADINE Last Admin: 10/03/17 09:15 Dose: 15 mg Multi-Ingredient Liniment/Rub (Yong Mix*) 1 applic TOPICAL BID PRN PRN Reason: SPASMS Last Admin: 10/02/17 07:53 Dose: 1 applic Nicotine (Nicotine Inhaler*) 10 mg INH Q2H PRN PRN Reason: CRAVING Last Admin: 10/01/17 09:05 Dose: 10 mg Nicotine (Nicotine Patch 14 Mg/24 Hr*) 1 patch TRANSDERM DAILY [facility] Last Admin: 10/03/17 09:20 Dose: 1 patch Ondansetron HCl (Zofran Inj*) 4 mg IV Q6H PRN PRN Reason: nausea Last Admin: 09/26/17 03:41 Dose: 4 mg Ondansetron HCl (Zofran Odt Tab*) 4 mg PO Q6H PRN PRN Reason: NAUSEA Oxycodone HCl (Roxycodone Tab*) 10 mg PO QID ACHS PRN PRN Reason: PAIN - SEVERE Last Admin: 10/03/17 09:20 Dose: 10 mg Oxycodone HCl (Roxycodone Tab*) 10 mg PO DAILY PRN PRN Reason: PAIN - BREAKTHROUGH Last Admin: 10/03/17 06:09 Dose: 5 mg Pharmacy Consult (Vancomycin Per Pharmacy*) 1 note FOLLOW UP .VANC PER PHARMACY [facility] Pharmacy Profile Note (Coumadin Daily Reminder*) 1 note FOLLOW UP 1700 [facility] Last Admin: 10/02/17 16:55 Dose: 1 note Pharmacy Profile Note (Nicotine Patch Removal Note*) 1 note PATCH OFF 2100 [facility] Last Admin: 10/02/17 21:35 Dose: 1 note Vital Signs - 8 hr 10/03/17 10/03/17 10/03/17 02:14 02:15 03:37 Temperature 98.6 F Pulse Rate 95 Respiratory 16 16 16 Rate Blood Pressure 127/64 (mmHg) O2 Sat by Pulse 100 Oximetry 10/03/17 10/03/17 10/03/17 06:09 07:35 08:00 Temperature 97.9 F Pulse Rate 88 Respiratory 16 12 18 Rate Blood Pressure 111/65 (mmHg) O2 Sat by Pulse 89 89 Oximetry 10/03/17 10/03/17 10/03/17 09:15 09:20 09:33 Temperature Pulse Rate Respiratory 18 18 18 Rate Blood Pressure (mmHg) O2 Sat by Pulse Oximetry Oxygen Devices in Use Now: None Appearance: 42 yo M in nAD, aAOx3 Eyes: No Scleral Icterus, PERRLA Ears/Nose/Mouth/Throat: NL Teeth, Lips, Gums, Mucous Membranes Moist Neck: NL Appearance and Movements; NL JVP, Trachea Midline Respiratory: Symmetrical Chest Expansion and Respiratory Effort, Clear to Auscultation Cardiovascular: NL Sounds; No Murmurs; No JVD, RRR Abdominal: NL Sounds; No Tenderness; No Distention Lymphatic: No Cervical Adenopathy Extremities: No Clubbing, Cyanosis, - - R knee in cryo unit, post op dressings not removed Skin: No Nodules or Sclerosis Neurological: Alert and Oriented x 3, NL Muscle Strength and Tone Result Diagrams: 10/03/17 05:47 10/03/17 05:45 Additional Lab and Data: . Microbiology and Other Data: Microbiology 09/24/17 15:15 Gram Stain - Final Joint Fluid(Synovial) Skin and Soft Tissue MRSA/MSSA (PCR - Final Mrsa Negative S.aureus Negative Diagnostic Imaging: . EKG Data: . Assess/Plan/Problems-Billing Assessment: Mr. Munoz is a 42 yo male with PMH significant for CAD s/p stent, osteoarthritis , tobacco abuse, pigmented villonodular synovitis who presented to the hospital with right knee pain. - Patient Problems (1) Infection of prosthetic right knee joint Comment: - Afebrile, leukocytosis resolved, CRP continues to be elevated - S/P I+D and polyethylene liner exchange on 09/25/17 - Pt with large right knee effusion on admission, consistent with septic arthritis of prosthetic joint - ID consult, input appreciated - Continue Vancomycin (will need 6 weeks of ABX) (2) Hx of drug abuse Comment: - No signs of withdrawal, but on Ms Contin and oxycodone at [facility]. Recommend to start weaning pt off narcotics. D/w ortho - Pt denies any illicit drug use past year (3) CAD (coronary artery disease) Comment: - Asymptomatic at this time, should be on ASA due to h/o stent- will d/w ortho - No outpatient F/U - Plans for outpatient F/U upon discharge (4) DVT prophylaxis Comment: - SQ Lovenox bridge to Warfarin per ortho Status and Disposition: Inpatient for IV antibiotics due to septic R knee, s/p open irrigation and debridement. Thank you for this consultation, we will continue to follow along.
[2017-10-03] MEDS: Enoxaparin(*) 30 MG/0.3 ML SYR SUBCUT SCH (11:57)
[2017-10-03] MEDS: Aspirin 81 mg CHEW TAB* 81 MG TAB.CHEW PO SCH (11:57)
--- NOTE | 2017-10-03 12:25 | PN ---
Progress Note - Progress Note Date of Service: 10/03/17 SOAP: Subjective: CC: right knee infection HPI: 42 year old man with prosthetic right knee infection s/p I&D; no fever, rash, or diarrhea. R knee pain and ROM is improving. No problems with midline. Objective: Vital Signs Temp 37.5 C 10/03/17 11:18 Pulse 106 10/03/17 11:18 Resp 20 10/03/17 11:18 BP 141/80 10/03/17 11:18 Pulse Ox 92 10/03/17 11:18 Intake & Output 10/02/17 10/03/17 10/03/17 18:59 06:59 18:59 Intake Total 3200 1210 960 Output Total 0 1025 0 Balance 3200 185 960 Intake: IV Fluids 530 vanco 530 Oral 3200 680 960 Output: Urine 0 1025 0 Other: Estimated Void Medium # Voids 1 Gen:awake, no distress HEENT: no thrush Heart:RRR no murmur Lungs:CTA BL Abd:+BS NTND soft Skin: no rash MSK: R knee incision intact; mild edema Laboratory Results - last 24 hr 09/30/17 10/03/17 10/03/17 10:37 05:45 05:47 WBC RBC Hgb Hct MCV MCH MCHC RDW Plt Count MPV Neut % (Auto) Lymph % (Auto) [place] % (Auto) Eos % (Auto) Baso % (Auto) Absolute Neuts (auto) Absolute Lymphs (auto) Absolute Monos (auto) Absolute Eos (auto) Absolute Basos (auto) Absolute Nucleated RBC Nucleated RBC % INR (Anticoag Therapy) 1.45 H BUN 12 Creatinine 0.80 Est GFR ( Amer) 127.7 Est GFR (Non-Af Amer) 105.5 C-Reactive Protein 59.97 H Vancomycin Trough 19.5 Lyme Disease Serology Negative 10/03/17 05:47 WBC 5.7 RBC 3.84 L Hgb 10.8 L Hct 32 L MCV 82 MCH 28 MCHC 34 RDW 15 Plt Count 340 MPV 8.0 Neut % (Auto) 52.6 Lymph % (Auto) 29.8 [place] % (Auto) 9.7 H Eos % (Auto) 7.1 H Baso % (Auto) 0.8 Absolute Neuts (auto) 3.0 Absolute Lymphs (auto) 1.7 Absolute Monos (auto) 0.6 Absolute Eos (auto) 0.4 Absolute Basos (auto) 0 Absolute Nucleated RBC 0 Nucleated RBC % 0.1 INR (Anticoag Therapy) BUN Creatinine Est GFR ( Amer) Est GFR (Non-Af Amer) C-Reactive Protein Vancomycin Trough Lyme Disease Serology Assessment: 1. prosthetic right knee infection s/p I&D and liner exchange; culture negative. Staph and strep most likely. 2. elevated CRP due to #1, improving 3. PCN allergy Plan: 1. continue vancomycin goal tr 15-20 day then 3-6 months of PO antibiotics 2. weekly cbc, cmp, crp, vancomycin trough 35 minutes floor time >50% face to face discussing antibiotic plans while here
--- NOTE | 2017-10-03 12:30 | PN ---
Progress Note - Progress Note Date of Service: 10/03/17 SOAP: Subjective: []Patient seen and examined at bedside. He feels well and is agreeable to tapering off of long acting morphine. He received 15 mg rather than the previous 30 mg PO this morning and feels he could completely discontinue the long acting morphine. Pain is well controlled today without any complaints. Denies feeling of fever or chills. Has been able to achieve improved ROM with PT. Objective: []General: Well appearing, NAD RLE: Incision CDI. No warmth or erythema of the knee. Calves supple and nontender without erythema, edema or palpable cords. Assessment: []SP Right knee I&D with poly exchange Plan: Continue vancomycin, appreciate ID consultation. Awaiting medicaid, then determination of location for IV abx WBAT RLE PT/OT Will plan for 15 mg PO MS contin q 12hr today and discontinue tomorrow as long as pain is controlled and no withdrawal sx. Vital Signs Temp 99.5 F 10/03/17 11:18 Pulse 106 10/03/17 11:18 Resp 20 10/03/17 11:18 BP 141/80 10/03/17 11:18 Pulse Ox 92 10/03/17 11:18 Intake & Output 10/02/17 10/03/17 10/03/17 18:59 06:59 18:59 Intake Total 3200 1210 960 Output Total 0 1025 0 Balance 3200 185 960 Intake: IV Fluids 530 vanco 530 Oral 3200 680 960 Output: Urine 0 1025 0 Other: Estimated Void Medium # Voids 1 Laboratory Last Values WBC 5.7 10^3/ul (3.5-10.8) 10/03/17 05:47 RBC 3.84 10^6/ul (4.00-5.40) L 10/03/17 05:47 Hgb 10.8 g/dl (14.0-18.0) L 10/03/17 05:47 Hct 32 % (42-52) L 10/03/17 05:47 MCV 82 fL (80-94) 10/03/17 05:47 MCH 28 pg (27-31) 10/03/17 05:47 MCHC 34 g/dl (31-36) 10/03/17 05:47 RDW 15 % (10.5-15) 10/03/17 05:47 Plt Count 340 10^3/ul (150-450) 10/03/17 05:47 MPV 8.0 um3 (7.4-10.4) 10/03/17 05:47 Neut % (Auto) 52.6 % (38-83) 10/03/17 05:47 Lymph % (Auto) 29.8 % (25-47) 10/03/17 05:47 Pierce % (Auto) 9.7 % (0-7) H 10/03/17 05:47 Eos % (Auto) 7.1 % (0-6) H 10/03/17 05:47 Baso % (Auto) 0.8 % (0-2) 10/03/17 05:47 Absolute Neuts (auto) 3.0 10^3/ul (1.5-7.7) 10/03/17 05:47 Absolute Lymphs (auto) 1.7 10^3/ul (1.0-4.8) 10/03/17 05:47 Absolute Monos (auto) 0.6 10^3/ul (0-0.8) 10/03/17 05:47 Absolute Eos (auto) 0.4 10^3/ul (0-0.6) 10/03/17 05:47 Absolute Basos (auto) 0 10^3/ul (0-0.2) 10/03/17 05:47 Absolute Nucleated RBC 0 10^3/ul 10/03/17 05:47 Nucleated RBC % 0.1 10/03/17 05:47 ESR 94 mm/Hr (0-14) H 09/29/17 06:52 INR (Anticoag Therapy) 1.45 (0.77-1.02) H 10/03/17 05:47 APTT 25.6 seconds (26.0-36.3) L 09/24/17 20:24 Sodium 136 mmol/L (135-145) 09/25/17 11:20 Potassium 4.3 mmol/L (3.5-5.0) 09/25/17 11:20 Chloride 103 mmol/L (101-111) 09/25/17 11:20 Carbon Dioxide 27 mmol/L (22-32) 09/25/17 11:20 Anion Gap 6 mmol/L (2-11) 09/25/17 11:20 BUN 12 mg/dL (6-24) 10/03/17 05:45 Creatinine 0.80 mg/dL (0.67-1.17) 10/03/17 05:45 Est GFR ( Amer) 127.7 (>60) 10/03/17 05:45 Est GFR (Non-Af Amer) 105.5 (>60) 10/03/17 05:45 BUN/Creatinine Ratio 13.4 (8-20) 09/25/17 11:20 Glucose 95 mg/dL (70-100) 09/25/17 11:20 Lactic Acid 1.3 mmol/L (0.5-2.0) 09/24/17 13:11 Uric Acid 4.6 mg/dL (4.4-7.6) 09/24/17 13:11 Calcium 9.0 mg/dL (8.6-10.3) 09/25/17 11:20 Total Bilirubin 0.70 mg/dL (0.2-1.0) 09/24/17 13:11 AST 15 U/L (13-39) 09/24/17 13:11 ALT 20 U/L (7-52) 09/24/17 13:11 Alkaline Phosphatase 82 U/L (34-104) 09/24/17 13:11 C-Reactive Protein 59.97 mg/L (<8.01) H 10/03/17 05:45 Total Protein 7.8 g/dL (6.4-8.9) 09/24/17 13:11 Albumin 4.3 g/dL (3.2-5.2) 09/24/17 13:11 Globulin 3.5 g/dL (2-4) 09/24/17 13:11 Albumin/Globulin Ratio 1.2 (1-3) 09/24/17 13:11 Urine Color Yellow 09/25/17 14:50 Urine Appearance Clear 09/25/17 14:50 Urine pH 7.0 (5-9) 09/25/17 14:50 Ur Specific [place] 1.015 (1.010-1.030) 09/25/17 14:50 Urine Protein Negative (Negative) 09/25/17 14:50 Urine Ketones Negative (Negative) 09/25/17 14:50 Urine Blood Negative (Negative) 09/25/17 14:50 Urine Nitrate Negative (Negative) 09/25/17 14:50 Urine Bilirubin Negative (Negative) 09/25/17 14:50 Urine Urobilinogen Negative (Negative) 09/25/17 14:50 Ur Leukocyte Esterase Negative (Negative) 09/25/17 14:50 Urine Glucose Negative (Negative) 09/25/17 14:50 Fluid Source Synovial 09/24/17 15:15 Fluid Volume 20 mL 09/24/17 15:15 Fluid Color Sadaf 09/24/17 15:15 Fluid Appearance Cloudy 09/24/17 15:15 Fluid WBC 07495 /mcL (0-632263) 09/24/17 15:15 Fluid RBC 100 /mcL 09/24/17 15:15 Fluid Tot Cell Count 100 09/24/17 15:15 Fluid Neutrophils 88 % 09/24/17 15:15 Fluid Lymphocytes 9 % 09/24/17 15:15 Fluid Monocytes 3 % 09/24/17 15:15 Fluid Cell Count Rvw By 09/24/17 15:15 Fluid Crystals None seen (None Seen) 09/24/17 15:15 Fluid Glucose 4 mg/dL 09/24/17 15:15 Fluid Total Protein 5.3 g/dL 09/24/17 15:15 Fluid LDH 5075 U/L 09/24/17 15:15 B. burgdorferi (PCR) Negative (Negative) 09/24/17 15:15 B. mayonii (PCR) Negative (Negative) 09/24/17 15:15 B.garinii/B.afzelii PCR Negative (Negative) 09/24/17 15:15 Vancomycin Trough 19.5 mcg/mL 10/03/17 05:45 Lyme Disease Serology Negative (Negative) 09/30/17 10:37 Lyme Specimen Source synovial fluid 09/24/17 15:15
[2017-10-03] MEDS: Analgesic BALM* 114 GM TOPICAL PRN (14:01)
[2017-10-03] MEDS: Vancomycin(*) 1,250 MG in NS 0.9% 250 ML* 250 ML IVPB SCH (15:30)
[2017-10-03] MEDS ORDERED: oxyCODONE TAB* 5 MG TAB ONE (17:45)
[2017-10-03] MEDS ORDERED: Warfarin TAB(*) 4 MG PO ONE (18:00)
[2017-10-03] MEDS: Nicotine Patch Removal NOTE PATCH OFF SCH (21:27)
[2017-10-04] MEDS: Vancomycin(*) 1,250 MG in NS 0.9% 250 ML* 250 ML IVPB SCH ×3 (00:02→15:51)
[2017-10-04] MEDS: oxyCODONE TAB* 5 MG TAB PO PRN ×5 (02:15→21:05)
[2017-10-04] MEDS: Nicotine Inhaler* 10 MG AMP INH PRN (04:00)
[2017-10-04 05:34] LABS: ABS Basophils 0.1 10^3/ul (0-0.2); ABS Eosinophils 0.5 10^3/ul (0-0.6); ABS Lymphocytes 1.9 10^3/ul (1.0-4.8); ABS Monocytes 0.9 10^3/ul (0-0.8); ABS Neutrophils 4.2 10^3/ul (1.5-7.7); ABS Nucleated RBC 0 10^3/ul; Eosinophil % 6.6 % (0-6); Hematocrit 34 % (42-52); Hemoglobin 11.7 g/dl (14.0-18.0); Lymphocyte % 24.6 % (25-47); Mean Corpuscular HGB Conc 34 g/dl (31-36); Mean Corpuscular Hemoglobin 28 pg (27-31); Mean Corpuscular Volume 81 fL (80-94); Mean Platelet Volume 7.8 um3 (7.4-10.4); Nucleated Red Blood Cells % 0.1; Platelet Count 401 10^3/ul (150-450); Red Blood Count 4.19 10^6/ul (4.00-5.40); Red Cell Distribution Width 15 % (10.5-15); White Blood Count 7.5 10^3/ul (3.5-10.8)
[2017-10-04 05:38] LABS: INR 1.45 (0.77-1.02)
[2017-10-04] MEDS: Nicotine PATCH 14 MG/24 HR* PATCH TRANSDERM SCH (08:32)
[2017-10-04] MEDS: Gabapentin CAP(*) 300 MG PO PRN ×2 (08:33→19:42)
[2017-10-04] MEDS: Aspirin 81 mg CHEW TAB* 81 MG TAB.CHEW PO SCH (08:34)
[2017-10-04] MEDS: Nicotine Patch Removal NOTE PATCH OFF SCH ×2 (09:19→21:10)
--- NOTE | 2017-10-04 10:12 | PN ---
Subjective Date of Service: 10/04/17 Interval History: Pt feels "bored". no c/o increased pain today Family History: Unchanged from Admission Social History: Unchanged from Admission Past Medical History: Unchanged from Admission - CAD with stent Objective Active Medications: Aspirin (Aspirin 81 Mg Chew Tab*) 81 mg PO DAILY COUNT INCLUDES THE [facility] Last Admin: 10/04/17 08:34 Dose: 81 mg Device (Nicotine Mouth Piece*) 1 each INH .USE WITH NICOTROL PRN PRN Reason: CRAVING Last Admin: 09/26/17 21:43 Dose: 1 each Diphenhydramine HCl (Benadryl Po*) 25 mg PO Q6H PRN PRN Reason: itching Docusate Sodium (Colace Cap*) 100 mg PO BID PRN PRN Reason: CONSTIPATION Last Admin: 10/02/17 14:49 Dose: 100 mg Enoxaparin Sodium (Lovenox(*)) 30 mg SUBCUT Q24H COUNT INCLUDES THE [facility] Last Admin: 10/03/17 11:57 Dose: 30 mg Gabapentin (Neurontin Cap(*)) 300 mg PO TID PRN PRN Reason: PAIN - MODERATE Last Admin: 10/04/17 08:33 Dose: 300 mg Heparin Sodium (Porcine) (Heparin Flush Picc/Ml/Cvc(*)) 1 ml FLUSH 0600,1800 COUNT INCLUDES THE [facility]; Protocol Last Admin: 10/04/17 02:17 Dose: 1 ml Vancomycin HCl 1,250 mg/ (Sodium Chloride) 250 mls @ 166.667 mls/hr IVPB Q8H COUNT INCLUDES THE [facility] Last Admin: 10/04/17 08:34 Dose: 166.667 mls/hr Magnesium Hydroxide (Milk Of Magnesia Liq*) 30 ml PO Q6H PRN PRN Reason: constipation Last Admin: 10/02/17 14:49 Dose: 30 ml Multi-Ingredient Liniment/Rub (Yong Mix*) 1 applic TOPICAL BID PRN PRN Reason: SPASMS Last Admin: 10/03/17 14:01 Dose: 1 applic Nicotine (Nicotine Inhaler*) 10 mg INH Q2H PRN PRN Reason: CRAVING Last Admin: 10/04/17 04:00 Dose: 10 mg Nicotine (Nicotine Patch 14 Mg/24 Hr*) 1 patch TRANSDERM DAILY COUNT INCLUDES THE [facility] Last Admin: 10/04/17 08:32 Dose: 1 patch Ondansetron HCl (Zofran Inj*) 4 mg IV Q6H PRN PRN Reason: nausea Last Admin: 09/26/17 03:41 Dose: 4 mg Ondansetron HCl (Zofran Odt Tab*) 4 mg PO Q6H PRN PRN Reason: NAUSEA Oxycodone HCl (Roxycodone Tab*) 10 mg PO DAILY PRN PRN Reason: PAIN - BREAKTHROUGH Last Admin: 10/03/17 06:09 Dose: 5 mg Oxycodone HCl (Roxycodone Tab*) 10 mg PO QID PRN PRN Reason: PAIN SEVERE Last Admin: 10/04/17 09:03 Dose: 10 mg Pharmacy Consult (Vancomycin Per Pharmacy*) 1 note FOLLOW UP .VANC PER PHARMACY COUNT INCLUDES THE [facility] Pharmacy Profile Note (Coumadin Daily Reminder*) 1 note FOLLOW UP 1700 COUNT INCLUDES THE [facility] Last Admin: 10/03/17 17:57 Dose: 1 note Pharmacy Profile Note (Nicotine Patch Removal Note*) 1 note PATCH OFF 2100 COUNT INCLUDES THE [facility] Last Admin: 10/04/17 09:19 Dose: 1 note Pharmacy Profile Note (Vancomycin Trough Check) 1 note FOLLOW UP ONCE ONE Stop: 10/05/17 08:01 Vital Signs - 8 hr 10/04/17 10/04/17 10/04/17 02:15 03:29 05:23 Temperature 99.2 F Pulse Rate 80 Respiratory 18 16 18 Rate Blood Pressure 111/73 (mmHg) O2 Sat by Pulse 98 Oximetry 10/04/17 10/04/17 10/04/17 05:30 07:37 08:00 Temperature 98.9 F Pulse Rate 98 Respiratory 16 18 Rate Blood Pressure 122/64 (mmHg) O2 Sat by Pulse 98 99 Oximetry 10/04/17 10/04/17 08:33 09:03 Temperature Pulse Rate Respiratory 16 18 Rate Blood Pressure (mmHg) O2 Sat by Pulse Oximetry Oxygen Devices in Use Now: None Appearance: 42 yo M in nAD, aAOx3 Eyes: No Scleral Icterus, PERRLA Ears/Nose/Mouth/Throat: NL Teeth, Lips, Gums, Mucous Membranes Moist Neck: NL Appearance and Movements; NL JVP, Trachea Midline Respiratory: Symmetrical Chest Expansion and Respiratory Effort, Clear to Auscultation Cardiovascular: NL Sounds; No Murmurs; No JVD, RRR Abdominal: NL Sounds; No Tenderness; No Distention Lymphatic: No Cervical Adenopathy Extremities: No Edema, No Clubbing, Cyanosis Skin: No Nodules or Sclerosis, - - R knee in cryo unit, post op dressings not removed Neurological: Alert and Oriented x 3, NL Muscle Strength and Tone Result Diagrams: 10/04/17 05:23 10/03/17 05:45 Additional Lab and Data: . Microbiology and Other Data: Microbiology 09/24/17 15:15 Gram Stain - Final Joint Fluid(Synovial) Skin and Soft Tissue MRSA/MSSA (PCR - Final Mrsa Negative S.aureus Negative Diagnostic Imaging: . EKG Data: . Assess/Plan/Problems-Billing Assessment: Mr. Munoz is a 42 yo male with PMH significant for CAD s/p stent, osteoarthritis , tobacco abuse, pigmented villonodular synovitis who presented to the hospital with right knee pain. - Patient Problems (1) Infection of prosthetic right knee joint Comment: - Afebrile, leukocytosis resolved, CRP decreasing - S/P I+D and polyethylene liner exchange on 09/25/17 - Pt with large right knee effusion on admission, consistent with septic arthritis of prosthetic joint - ID consult, input appreciated - Continue Vancomycin (will need 6 weeks of ABX) (2) Hx of drug abuse Comment: - cont oxycodone with dose tapering down slowly as per othro. - Pt denies any illicit drug use past year (3) CAD (coronary artery disease) Comment: - Asymptomatic at this time, should be on ASA due to h/o stent- will d/w ortho - No outpatient F/U - Plans for outpatient F/U upon discharge (4) DVT prophylaxis Comment: - SQ Lovenox bridge to Warfarin per ortho Status and Disposition: Inpatient for IV antibiotics due to septic R knee, s/p open irrigation and debridement. Thank you for this consultation, we will continue to follow along.
[2017-10-04] MEDS: Enoxaparin(*) 30 MG/0.3 ML SYR SUBCUT SCH (12:24)
--- NOTE | 2017-10-04 14:04 | PN ---
Progress Note - Progress Note Date of Service: 10/04/17 SOAP: Subjective: []Patient seen at bedside. He feels well without feeling of fever, chills, CP, SOB. Objective: [] General: Well appearing, NAD RLE: Incision CDI. No warmth or erythema of the knee. Calves supple and nontender without erythema, edema or palpable cords. Assessment: []SP Right knee I&D with poly exchange Plan: Continue vancomycin, appreciate ID consultation. Awaiting medicaid, then determination of location for IV abx WBAT RLE PT/OT Continue to taper off of narcotics as pain allows. Patient is tolerating this well so far. Vital Signs Temp 98.5 F 10/04/17 11:20 Pulse 107 10/04/17 11:20 Resp 18 10/04/17 13:12 BP 131/67 10/04/17 11:20 Pulse Ox 98 10/04/17 11:20 Intake & Output 10/03/17 10/04/17 10/04/17 18:59 06:59 18:59 Intake Total 1890 1400.2 2515 Output Total 275 575 Balance 1615 825.2 2515 Intake: IV Fluids 270 300.2 355 NS (0.9%) 30 vanco 270 270.2 355 Oral 1620 1100 2160 Output: Urine 275 575 Other: Estimated Void Medium # Voids 1 Laboratory Last Values WBC 7.5 10^3/ul (3.5-10.8) 10/04/17 05:23 RBC 4.19 10^6/ul (4.00-5.40) 10/04/17 05:23 Hgb 11.7 g/dl (14.0-18.0) L 10/04/17 05:23 Hct 34 % (42-52) L 10/04/17 05:23 MCV 81 fL (80-94) 10/04/17 05:23 MCH 28 pg (27-31) 10/04/17 05:23 MCHC 34 g/dl (31-36) 10/04/17 05:23 RDW 15 % (10.5-15) 10/04/17 05:23 Plt Count 401 10^3/ul (150-450) 10/04/17 05:23 MPV 7.8 um3 (7.4-10.4) 10/04/17 05:23 Neut % (Auto) 55.9 % (38-83) 10/04/17 05:23 Lymph % (Auto) 24.6 % (25-47) L 10/04/17 05:23 [place] % (Auto) 12.0 % (0-7) H 10/04/17 05:23 Eos % (Auto) 6.6 % (0-6) H 10/04/17 05:23 Baso % (Auto) 0.9 % (0-2) 10/04/17 05:23 Absolute Neuts (auto) 4.2 10^3/ul (1.5-7.7) 10/04/17 05:23 Absolute Lymphs (auto) 1.9 10^3/ul (1.0-4.8) 10/04/17 05:23 Absolute Monos (auto) 0.9 10^3/ul (0-0.8) H 10/04/17 05:23 Absolute Eos (auto) 0.5 10^3/ul (0-0.6) 10/04/17 05:23 Absolute Basos (auto) 0.1 10^3/ul (0-0.2) 10/04/17 05:23 Absolute Nucleated RBC 0 10^3/ul 10/04/17 05:23 Nucleated RBC % 0.1 10/04/17 05:23 ESR 94 mm/Hr (0-14) H 09/29/17 06:52 INR (Anticoag Therapy) 1.45 (0.77-1.02) H 10/04/17 05:23 APTT 25.6 seconds (26.0-36.3) L 09/24/17 20:24 Sodium 136 mmol/L (135-145) 09/25/17 11:20 Potassium 4.3 mmol/L (3.5-5.0) 09/25/17 11:20 Chloride 103 mmol/L (101-111) 09/25/17 11:20 Carbon Dioxide 27 mmol/L (22-32) 09/25/17 11:20 Anion Gap 6 mmol/L (2-11) 09/25/17 11:20 BUN 12 mg/dL (6-24) 10/03/17 05:45 Creatinine 0.80 mg/dL (0.67-1.17) 10/03/17 05:45 Est GFR ( Amer) 127.7 (>60) 10/03/17 05:45 Est GFR (Non-Af Amer) 105.5 (>60) 10/03/17 05:45 BUN/Creatinine Ratio 13.4 (8-20) 09/25/17 11:20 Glucose 95 mg/dL (70-100) 09/25/17 11:20 Lactic Acid 1.3 mmol/L (0.5-2.0) 09/24/17 13:11 Uric Acid 4.6 mg/dL (4.4-7.6) 09/24/17 13:11 Calcium 9.0 mg/dL (8.6-10.3) 09/25/17 11:20 Total Bilirubin 0.70 mg/dL (0.2-1.0) 09/24/17 13:11 AST 15 U/L (13-39) 09/24/17 13:11 ALT 20 U/L (7-52) 09/24/17 13:11 Alkaline Phosphatase 82 U/L (34-104) 09/24/17 13:11 C-Reactive Protein 59.97 mg/L (<8.01) H 10/03/17 05:45 Total Protein 7.8 g/dL (6.4-8.9) 09/24/17 13:11 Albumin 4.3 g/dL (3.2-5.2) 09/24/17 13:11 Globulin 3.5 g/dL (2-4) 09/24/17 13:11 Albumin/Globulin Ratio 1.2 (1-3) 09/24/17 13:11 Urine Color Yellow 09/25/17 14:50 Urine Appearance Clear 09/25/17 14:50 Urine pH 7.0 (5-9) 09/25/17 14:50 Ur Specific [place] 1.015 (1.010-1.030) 09/25/17 14:50 Urine Protein Negative (Negative) 09/25/17 14:50 Urine Ketones Negative (Negative) 09/25/17 14:50 Urine Blood Negative (Negative) 09/25/17 14:50 Urine Nitrate Negative (Negative) 09/25/17 14:50 Urine Bilirubin Negative (Negative) 09/25/17 14:50 Urine Urobilinogen Negative (Negative) 09/25/17 14:50 Ur Leukocyte Esterase Negative (Negative) 09/25/17 14:50 Urine Glucose Negative (Negative) 09/25/17 14:50 Fluid Source Synovial 09/24/17 15:15 Fluid Volume 20 mL 09/24/17 15:15 Fluid Color Sadaf 09/24/17 15:15 Fluid Appearance Cloudy 09/24/17 15:15 Fluid WBC 88750 /mcL (0-711131) 09/24/17 15:15 Fluid RBC 100 /mcL 09/24/17 15:15 Fluid Tot Cell Count 100 09/24/17 15:15 Fluid Neutrophils 88 % 09/24/17 15:15 Fluid Lymphocytes 9 % 09/24/17 15:15 Fluid Monocytes 3 % 09/24/17 15:15 Fluid Cell Count Rvw By 09/24/17 15:15 Fluid Crystals None seen (None Seen) 09/24/17 15:15 Fluid Glucose 4 mg/dL 09/24/17 15:15 Fluid Total Protein 5.3 g/dL 09/24/17 15:15 Fluid LDH 5075 U/L 09/24/17 15:15 B. burgdorferi (PCR) Negative (Negative) 09/24/17 15:15 B. mayonii (PCR) Negative (Negative) 09/24/17 15:15 B.garinii/B.afzelii PCR Negative (Negative) 09/24/17 15:15 Vancomycin Trough 19.5 mcg/mL 10/03/17 05:45 Lyme Disease Serology Negative (Negative) 09/30/17 10:37 Lyme Specimen Source synovial fluid 09/24/17 15:15
[2017-10-04] MEDS ORDERED: Warfarin TAB(*) 10 MG PO ONE (17:00)
[2017-10-04] MEDS: Ondansetron ODT TAB* 4 MG PO PRN (21:05)
[2017-10-04] MEDS ORDERED: HYDROmorphone INJ* 0.5 MG/0.5 ML SYRINGE IV SLOW PU ONE (21:10)
[2017-10-04] MEDS ORDERED: Carisoprodol TAB* 350 MG PO ONE (21:10)
[2017-10-05] MEDS: Vancomycin(*) 1,250 MG in NS 0.9% 250 ML* 250 ML IVPB SCH ×3 (00:29→16:14)
[2017-10-05] MEDS ORDERED: Vancomycin Trough Check NOTE FOLLOW UP ONE (08:00)
[2017-10-05] MEDS: oxyCODONE TAB* 5 MG TAB PO PRN ×4 (08:18→22:12)
[2017-10-05] MEDS: Aspirin 81 mg CHEW TAB* 81 MG TAB.CHEW PO SCH (08:19)
[2017-10-05 08:22] LABS: INR 1.52 (0.77-1.02)
[2017-10-05] MEDS: Nicotine PATCH 14 MG/24 HR* PATCH TRANSDERM SCH (08:24)
--- NOTE | 2017-10-05 11:00 | PN ---
Progress Note - Progress Note Date of Service: 10/05/17 SOAP: Subjective: [Patient seen sitting up in bed. He feels well without feeling of fever, chills , CP, SOB. Objective: [] General: Well appearing, NAD RLE: Dressing is c/d/i. +df/pf. Calves supple and nontender without erythema, edema or palpable cords. Vital Signs Temp 98.6 F 10/05/17 09:25 Pulse 84 10/05/17 09:25 Resp 16 10/05/17 09:25 BP 129/79 10/05/17 09:25 Pulse Ox 99 10/05/17 09:25 Intake & Output 10/04/17 10/05/17 10/05/17 18:59 06:59 18:59 Intake Total 4063 1420 Output Total 1325 Balance 4063 95 Intake: IV Fluids [phone] vanco 633 270 Oral 3430 1150 Output: Urine 1325 Assessment: []SP Right knee I&D with poly exchange Plan: Continue vancomycin, appreciate ID consultation. Awaiting medicaid, then determination of location for IV abx WBAT RLE PT/OT Continue to taper off of narcotics as pain allows. Patient is tolerating this well so far.
[2017-10-05] MEDS: Gabapentin CAP(*) 300 MG PO PRN ×2 (11:59→18:00)
[2017-10-05] MEDS: Nicotine Inhaler* 10 MG AMP INH PRN (12:00)
[2017-10-05] MEDS: Enoxaparin(*) 30 MG/0.3 ML SYR SUBCUT SCH (12:00)
--- NOTE | 2017-10-05 15:13 | PN ---
Subjective Date of Service: 10/05/17 Interval History: pt c/o pain at 6/10 and feels that his pain medications are "not working". Family History: Unchanged from Admission Social History: Unchanged from Admission Past Medical History: Unchanged from Admission - CAD with stent Objective Active Medications: Aspirin (Aspirin 81 Mg Chew Tab*) 81 mg PO DAILY [facility] Last Admin: 10/05/17 08:19 Dose: 81 mg Carisoprodol (Soma Tab*) 350 mg PO BEDTIME [facility] Device (Nicotine Mouth Piece*) 1 each INH .USE WITH NICOTROL PRN PRN Reason: CRAVING Last Admin: 09/26/17 21:43 Dose: 1 each Diphenhydramine HCl (Benadryl Po*) 25 mg PO Q6H PRN PRN Reason: itching Docusate Sodium (Colace Cap*) 100 mg PO BID PRN PRN Reason: CONSTIPATION Last Admin: 10/02/17 14:49 Dose: 100 mg Enoxaparin Sodium (Lovenox(*)) 30 mg SUBCUT Q24H [facility] Last Admin: 10/05/17 12:00 Dose: 30 mg Gabapentin (Neurontin Cap(*)) 300 mg PO TID PRN PRN Reason: PAIN - MODERATE Last Admin: 10/05/17 11:59 Dose: 300 mg Heparin Sodium (Porcine) (Heparin Flush Picc/Ml/Cvc(*)) 1 ml FLUSH 0600,1800 [facility]; Protocol Last Admin: 10/05/17 06:01 Dose: Not Given Vancomycin HCl 1,250 mg/ (Sodium Chloride) 250 mls @ 166.667 mls/hr IVPB Q8H [facility] Last Admin: 10/05/17 08:19 Dose: 166.667 mls/hr Magnesium Hydroxide (Milk Of Magnesia Liq*) 30 ml PO Q6H PRN PRN Reason: constipation Last Admin: 10/02/17 14:49 Dose: 30 ml Multi-Ingredient Liniment/Rub (Yong Mix*) 1 applic TOPICAL BID PRN PRN Reason: SPASMS Last Admin: 10/03/17 14:01 Dose: 1 applic Nicotine (Nicotine Inhaler*) 10 mg INH Q2H PRN PRN Reason: CRAVING Last Admin: 10/05/17 12:00 Dose: 10 mg Nicotine (Nicotine Patch 14 Mg/24 Hr*) 1 patch TRANSDERM DAILY [facility] Last Admin: 10/05/17 08:24 Dose: 1 patch Ondansetron HCl (Zofran Inj*) 4 mg IV Q6H PRN PRN Reason: nausea Last Admin: 09/26/17 03:41 Dose: 4 mg Ondansetron HCl (Zofran Odt Tab*) 4 mg PO Q6H PRN PRN Reason: NAUSEA Last Admin: 10/04/17 21:05 Dose: 4 mg Oxycodone HCl (Roxycodone Tab*) 10 mg PO DAILY PRN PRN Reason: PAIN - BREAKTHROUGH Last Admin: 10/03/17 06:09 Dose: 5 mg Oxycodone HCl (Roxycodone Tab*) 10 mg PO QID PRN PRN Reason: PAIN SEVERE Last Admin: 10/05/17 12:39 Dose: 10 mg Pharmacy Consult (Vancomycin Per Pharmacy*) 1 note FOLLOW UP .VANC PER PHARMACY [facility] Pharmacy Profile Note (Coumadin Daily Reminder*) 1 note FOLLOW UP 1700 [facility] Last Admin: 10/04/17 17:32 Dose: 1 note Pharmacy Profile Note (Nicotine Patch Removal Note*) 1 note PATCH OFF 2100 [facility] Last Admin: 10/04/17 21:10 Dose: Not Given Vital Signs - 8 hr 10/05/1718 10/05/17 08:18 09:25 11:59 Temperature 98.6 F Pulse Rate 84 Respiratory 16 16 16 Rate Blood Pressure 129/79 (mmHg) O2 Sat by Pulse 99 Oximetry 10/05/17 10/05/17 12:39 12:47 Temperature 99.2 F Pulse Rate 101 Respiratory 16 16 Rate Blood Pressure 127/84 (mmHg) O2 Sat by Pulse 97 Oximetry Oxygen Devices in Use Now: None Appearance: 42 yo M in nAD, AAOx3 Eyes: No Scleral Icterus, PERRLA Ears/Nose/Mouth/Throat: NL Teeth, Lips, Gums, Mucous Membranes Moist Neck: NL Appearance and Movements; NL JVP, Trachea Midline Respiratory: Symmetrical Chest Expansion and Respiratory Effort, Clear to Auscultation Cardiovascular: NL Sounds; No Murmurs; No JVD Abdominal: NL Sounds; No Tenderness; No Distention, No Hepatosplenomegaly Lymphatic: No Cervical Adenopathy Extremities: No Clubbing, Cyanosis, - - trace R ankle edema Skin: No Nodules or Sclerosis, - - R knee post op dressings not removed Neurological: Alert and Oriented x 3, NL Muscle Strength and Tone Result Diagrams: 10/04/17 05:23 10/03/17 05:45 Additional Lab and Data: . Microbiology and Other Data: Microbiology 09/24/17 15:15 Gram Stain - Final Joint Fluid(Synovial) Skin and Soft Tissue MRSA/MSSA (PCR - Final Mrsa Negative S.aureus Negative Diagnostic Imaging: . EKG Data: . Assess/Plan/Problems-Billing Assessment: Mr. Munoz is a 42 yo male with PMH significant for CAD s/p stent, osteoarthritis , tobacco abuse, pigmented villonodular synovitis who presented to the hospital with right knee pain. - Patient Problems (1) Infection of prosthetic right knee joint Comment: - Afebrile, leukocytosis resolved, CRP decreasing - S/P I+D and polyethylene liner exchange on 09/25/17 - Pt with large right knee effusion on admission, consistent with septic arthritis of prosthetic joint - ID consult, input appreciated - Continue Vancomycin (will need 6 weeks of ABX) (2) Hx of drug abuse Comment: - cont oxycodone with dose tapering down slowly as per othro. will d/c ortho servie that pt c/o inadequate pain control - Pt denies any illicit drug use past year (3) CAD (coronary artery disease) Comment: - Asymptomatic at this time, should be on ASA due to h/o stent- started - Plans for outpatient F/U upon discharge (4) DVT prophylaxis Comment: - SQ Lovenox bridge to Warfarin per ortho Status and Disposition: Inpatient for IV antibiotics due to septic R knee, s/p open irrigation and debridement. Thank you for this consultation, we will continue to follow along.
[2017-10-05] MEDS: Warfarin TAB(*) 4 MG PO SCH (17:03)
[2017-10-05] MEDS: Docusate CAP* 100 MG PO PRN (20:25)
[2017-10-05] MEDS: Magnesium Hydroxide LIQ* 30 ML UDC PO PRN (20:25)
[2017-10-05] MEDS: Nicotine Patch Removal NOTE PATCH OFF SCH (20:28)
[2017-10-05] MEDS ORDERED: Carisoprodol TAB* 350 MG PO SCH (21:00)
[2017-10-06] MEDS: oxyCODONE TAB* 5 MG TAB PO PRN ×5 (01:54→21:49)
[2017-10-06] MEDS: Gabapentin CAP(*) 300 MG PO PRN ×3 (05:12→20:21)
[2017-10-06 06:19] LABS: INR 1.61 (0.77-1.02)
[2017-10-06] MEDS: Vancomycin(*) 1,250 MG in NS 0.9% 250 ML* 250 ML IVPB SCH ×4 (08:15→16:23)
[2017-10-06] MEDS: Aspirin 81 mg CHEW TAB* 81 MG TAB.CHEW PO SCH (08:16)
[2017-10-06] MEDS: Nicotine PATCH 14 MG/24 HR* PATCH TRANSDERM SCH (08:45)
--- NOTE | 2017-10-06 10:13 | PN ---
Subjective Date of Service: 10/06/17 Interval History: Pt feels that the pain is better controlled. Denies diarrhea. no new complaints. Family History: Unchanged from Admission Social History: Unchanged from Admission Past Medical History: Unchanged from Admission - CAD with stent Objective Active Medications: Aspirin (Aspirin 81 Mg Chew Tab*) 81 mg PO DAILY [facility] Last Admin: 10/06/17 08:16 Dose: 81 mg Carisoprodol (Soma Tab*) 350 mg PO BEDTIME [facility] Last Admin: 10/05/17 20:25 Dose: 350 mg Device (Nicotine Mouth Piece*) 1 each INH .USE WITH NICOTROL PRN PRN Reason: CRAVING Last Admin: 09/26/17 21:43 Dose: 1 each Diphenhydramine HCl (Benadryl Po*) 25 mg PO Q6H PRN PRN Reason: itching Docusate Sodium (Colace Cap*) 100 mg PO BID PRN PRN Reason: CONSTIPATION Last Admin: 10/05/17 20:25 Dose: 100 mg Enoxaparin Sodium (Lovenox(*)) 30 mg SUBCUT Q24H [facility] Last Admin: 10/05/17 12:00 Dose: 30 mg Gabapentin (Neurontin Cap(*)) 300 mg PO TID PRN PRN Reason: PAIN - MODERATE Last Admin: 10/06/17 08:15 Dose: 300 mg Heparin Sodium (Porcine) (Heparin Flush Picc/Ml/Cvc(*)) 1 ml FLUSH 0600,1800 [facility]; Protocol Last Admin: 10/06/17 05:13 Dose: 1 ml Vancomycin HCl 1,250 mg/ (Sodium Chloride) 250 mls @ 166.667 mls/hr IVPB Q8H [facility] Last Admin: 10/06/17 08:15 Dose: 166.667 mls/hr Magnesium Hydroxide (Milk Of Magnesia Liq*) 30 ml PO Q6H PRN PRN Reason: constipation Last Admin: 10/05/17 20:25 Dose: 30 ml Multi-Ingredient Liniment/Rub (Yong Mix*) 1 applic TOPICAL BID PRN PRN Reason: SPASMS Last Admin: 10/03/17 14:01 Dose: 1 applic Nicotine (Nicotine Inhaler*) 10 mg INH Q2H PRN PRN Reason: CRAVING Last Admin: 10/05/17 12:00 Dose: 10 mg Nicotine (Nicotine Patch 14 Mg/24 Hr*) 1 patch TRANSDERM DAILY [facility] Last Admin: 10/06/17 08:45 Dose: 1 patch Ondansetron HCl (Zofran Inj*) 4 mg IV Q6H PRN PRN Reason: nausea Last Admin: 09/26/17 03:41 Dose: 4 mg Ondansetron HCl (Zofran Odt Tab*) 4 mg PO Q6H PRN PRN Reason: NAUSEA Last Admin: 10/04/17 21:05 Dose: 4 mg Oxycodone HCl (Roxycodone Tab*) 10 mg PO DAILY PRN PRN Reason: PAIN - BREAKTHROUGH Last Admin: 10/06/17 01:54 Dose: 10 mg Oxycodone HCl (Roxycodone Tab*) 10 mg PO QID PRN PRN Reason: PAIN SEVERE Last Admin: 10/06/17 08:15 Dose: 10 mg Pharmacy Consult (Vancomycin Per Pharmacy*) 1 note FOLLOW UP .VANC PER PHARMACY [facility] Pharmacy Profile Note (Coumadin Daily Reminder*) 1 note FOLLOW UP 1700 [facility] Last Admin: 10/05/17 17:03 Dose: 1 note Pharmacy Profile Note (Nicotine Patch Removal Note*) 1 note PATCH OFF 2100 [facility] Last Admin: 10/05/17 20:28 Dose: 1 note Warfarin Sodium (Coumadin Tab(*)) 8 mg PO DAILY@1700 [facility]; Protocol Last Admin: 10/05/17 17:03 Dose: 8 mg Vital Signs - 8 hr 10/06/17 10/06/17 10/06/17 03:50 04:01 05:12 Temperature 98.3 F Pulse Rate 87 Respiratory 16 16 16 Rate Blood Pressure 125/49 (mmHg) O2 Sat by Pulse 98 Oximetry 10/06/17 10/06/17 07:20 08:15 Temperature 97.2 F Pulse Rate 78 Respiratory 18 16 Rate Blood Pressure 116/67 (mmHg) O2 Sat by Pulse 98 Oximetry Oxygen Devices in Use Now: None Appearance: 42 yo m in nAD, aAOx3 Eyes: No Scleral Icterus, PERRLA Ears/Nose/Mouth/Throat: NL Teeth, Lips, Gums, Mucous Membranes Moist Neck: NL Appearance and Movements; NL JVP, Trachea Midline Respiratory: Symmetrical Chest Expansion and Respiratory Effort, Clear to Auscultation Cardiovascular: NL Sounds; No Murmurs; No JVD, RRR Abdominal: NL Sounds; No Tenderness; No Distention Lymphatic: No Cervical Adenopathy Extremities: No Clubbing, Cyanosis Skin: No Nodules or Sclerosis, - - mild R ankle edema . R knee post op -wound not inspected today Neurological: Alert and Oriented x 3, NL Muscle Strength and Tone Result Diagrams: 10/04/17 05:23 10/03/17 05:45 Additional Lab and Data: . Microbiology and Other Data: Microbiology 09/24/17 15:15 Gram Stain - Final Joint Fluid(Synovial) Skin and Soft Tissue MRSA/MSSA (PCR - Final Mrsa Negative S.aureus Negative Diagnostic Imaging: . EKG Data: . Assess/Plan/Problems-Billing Assessment: Mr. Munoz is a 42 yo male with PMH significant for CAD s/p stent, osteoarthritis , tobacco abuse, pigmented villonodular synovitis who presented to the hospital with right knee pain. - Patient Problems (1) Infection of prosthetic right knee joint Comment: - Afebrile, leukocytosis resolved, CRP decreasing - S/P I+D and polyethylene liner exchange on 09/25/17 - Pt with large right knee effusion on admission, consistent with septic arthritis of prosthetic joint - ID consult, input appreciated - Continue Vancomycin (will need 6 weeks of ABX) (2) Hx of drug abuse Comment: - cont oxycodone with dose tapering down slowly as per othro. - Pt denies any illicit drug use past year (3) CAD (coronary artery disease) Comment: - Asymptomatic at this time, should be on ASA due to h/o stent- started - Plans for outpatient F/U upon discharge (4) DVT prophylaxis Comment: - SQ Lovenox bridge to Warfarin per ortho Status and Disposition: Inpatient for IV antibiotics due to septic R knee, s/p open irrigation and debridement. Thank you for this consultation, we will continue to follow along.
--- NOTE | 2017-10-06 11:33 | PN ---
Progress Note - Progress Note Date of Service: 10/06/17 SOAP: Subjective: [Pt reports doing well. Pain well managed with cureent meds through day. C/O pain at [facility] that disrupts sleep. Taking Soma for this but it is not helpful. Has been up walking with walker quite a bit. Showered today.] Objective: [A and O x 3, NAD R knee incision benign. No drainage or erythema. Calves soft, NT. Distal gross motor and NV function intact. Vital Signs: Temp Pulse Resp BP Pulse Ox 97.2 F 78 16 116/67 98 10/06/17 07:20 10/06/17 07:20 10/06/17 08:15 10/06/17 07:20 10/06/17 07:20 Laboratory Results - last 24 hr 10/01/17 10/06/17 19:40 05:55 INR (Anticoag Therapy) 1.61 H HIV 1&2 Antibody Nonreactive ] Assessment: [s/p R knee I and D with poly exchange POD #11] Plan: [Con't Vanco Con't to taper off of narcotics as pain allows Medicine following - appreciate any input for nighttime pain]
[2017-10-06] MEDS: Enoxaparin(*) 30 MG/0.3 ML SYR SUBCUT SCH (12:11)
[2017-10-06] MEDS: Warfarin TAB(*) 4 MG PO SCH (16:23)
[2017-10-06] MEDS ORDERED: LORazepam TAB(*) 0.5 MG PO ONE (21:00)
[2017-10-06] MEDS: Nicotine Patch Removal NOTE PATCH OFF SCH (21:57)
[2017-10-07] MEDS: Vancomycin(*) 1,250 MG in NS 0.9% 250 ML* 250 ML IVPB SCH ×3 (00:14→16:08)
[2017-10-07] MEDS ORDERED: oxyCODONE TAB* 5 MG TAB PO ONE (02:59)
[2017-10-07] MEDS: Carisoprodol TAB* 350 MG PO SCH ×2 (04:38→21:23)
[2017-10-07 06:01] LABS: INR 1.53 (0.77-1.02)
[2017-10-07] MEDS: Nicotine PATCH 14 MG/24 HR* PATCH TRANSDERM SCH (08:00)
[2017-10-07] MEDS: Aspirin 81 mg CHEW TAB* 81 MG TAB.CHEW PO SCH (08:00)
[2017-10-07] MEDS: oxyCODONE TAB* 5 MG TAB PO PRN ×4 (09:51→21:23)
[2017-10-07] MEDS: Gabapentin CAP(*) 300 MG PO PRN ×2 (10:50→19:28)
--- NOTE | 2017-10-07 10:52 | PN ---
Subjective Date of Service: 10/07/17 Interval History: Pt seen and examined. Meds and labs reviewed. CC: N/A ROS: Denied MELENDEZ/dizziness, F/C, N/V, CP, SOB, increased cough, sputum production , abd pain, diarrhea, constipation, dysuria, myalgias, arthralgias, throat pain , and new skin lesions. The rest of the 14 point ROS are unremarkable. PHYSICAL EXAM: GEN APPEARANCE: Awake, not in acute distress HEENT: NC/AT, PERRLA, moist oral mucosa, (-) throat erythema NECK: Soft, supple, (-) cervical LAD, (-)JVD HEART: S1S2 WNL, RRR, No MRG CHEST: CTA, BL, GAE, No W/R/R ABD: Soft, ND/NT, NABS 4x Q EXT: No C/C/BLLE toe amputations, RLE foot stump, cdi SKIN: Warm to touch PSYCH: No active psychosis, hallucinations, depression, SI/HI Family History: Unchanged from Admission Social History: Unchanged from Admission Past Medical History: Unchanged from Admission - CAD with stent Objective Active Medications: Aspirin (Aspirin 81 Mg Chew Tab*) 81 mg PO DAILY [facility] Last Admin: 10/07/17 08:00 Dose: 81 mg Carisoprodol (Soma Tab*) 350 mg PO BEDTIME [facility] Last Admin: 10/07/17 04:38 Dose: 350 mg Device (Nicotine Mouth Piece*) 1 each INH .USE WITH NICOTROL PRN PRN Reason: CRAVING Last Admin: 09/26/17 21:43 Dose: 1 each Diphenhydramine HCl (Benadryl Po*) 25 mg PO Q6H PRN PRN Reason: itching Docusate Sodium (Colace Cap*) 100 mg PO BID PRN PRN Reason: CONSTIPATION Last Admin: 10/05/17 20:25 Dose: 100 mg Enoxaparin Sodium (Lovenox(*)) 30 mg SUBCUT Q24H [facility] Last Admin: 10/06/17 12:11 Dose: 30 mg Gabapentin (Neurontin Cap(*)) 300 mg PO TID PRN PRN Reason: PAIN - MODERATE Last Admin: 10/06/17 20:21 Dose: 300 mg Heparin Sodium (Porcine) (Heparin Flush Picc/Ml/Cvc(*)) 1 ml FLUSH 0600,1800 [facility]; Protocol Last Admin: 10/07/17 09:54 Dose: 1 ml Vancomycin HCl 1,250 mg/ (Sodium Chloride) 250 mls @ 166.667 mls/hr IVPB Q8H [facility] Last Admin: 10/07/17 07:49 Dose: 166.667 mls/hr Magnesium Hydroxide (Milk Of Magnesia Liq*) 30 ml PO Q6H PRN PRN Reason: constipation Last Admin: 10/05/17 20:25 Dose: 30 ml Multi-Ingredient Liniment/Rub (Yong Mix*) 1 applic TOPICAL BID PRN PRN Reason: SPASMS Last Admin: 10/03/17 14:01 Dose: 1 applic Nicotine (Nicotine Inhaler*) 10 mg INH Q2H PRN PRN Reason: CRAVING Last Admin: 10/05/17 12:00 Dose: 10 mg Nicotine (Nicotine Patch 14 Mg/24 Hr*) 1 patch TRANSDERM DAILY [facility] Last Admin: 10/07/17 08:00 Dose: 1 patch Ondansetron HCl (Zofran Inj*) 4 mg IV Q6H PRN PRN Reason: nausea Last Admin: 09/26/17 03:41 Dose: 4 mg Ondansetron HCl (Zofran Odt Tab*) 4 mg PO Q6H PRN PRN Reason: NAUSEA Last Admin: 10/04/17 21:05 Dose: 4 mg Oxycodone HCl (Roxycodone Tab*) 10 mg PO QID PRN PRN Reason: PAIN SEVERE Last Admin: 10/07/17 09:51 Dose: 10 mg Pharmacy Consult (Vancomycin Per Pharmacy*) 1 note FOLLOW UP .VANC PER PHARMACY [facility] Pharmacy Profile Note (Coumadin Daily Reminder*) 1 note FOLLOW UP 1700 [facility] Last Admin: 10/06/17 16:25 Dose: 1 note Pharmacy Profile Note (Nicotine Patch Removal Note*) 1 note PATCH OFF 2100 [facility] Last Admin: 10/06/17 21:57 Dose: 1 note Pharmacy Profile Note (Vancomycin Trough Check) 1 note FOLLOW UP 0730 ONE Stop: 10/08/17 07:31 Warfarin Sodium (Coumadin Tab(*)) 8 mg PO DAILY@1700 [facility]; Protocol Last Admin: 10/06/17 16:23 Dose: 8 mg Vital Signs - 8 hr 10/07/17 10/07/17 10/07/17 03:08 03:20 04:38 Temperature 98.7 F Pulse Rate 85 Respiratory 18 16 16 Rate Blood Pressure 124/69 (mmHg) O2 Sat by Pulse 100 Oximetry 10/07/17 10/07/17 10/07/17 05:25 06:36 07:50 Temperature 97.9 F Pulse Rate 84 Respiratory 16 16 16 Rate Blood Pressure 114/63 (mmHg) O2 Sat by Pulse 100 Oximetry 10/07/17 10/07/17 08:00 09:51 Temperature Pulse Rate Respiratory 20 18 Rate Blood Pressure (mmHg) O2 Sat by Pulse 100 Oximetry Oxygen Devices in Use Now: None Result Diagrams: 10/04/17 05:23 10/03/17 05:45 Additional Lab and Data: . Microbiology and Other Data: Microbiology 09/24/17 15:15 Gram Stain - Final Joint Fluid(Synovial) Skin and Soft Tissue MRSA/MSSA (PCR - Final Mrsa Negative S.aureus Negative Diagnostic Imaging: . EKG Data: . Assess/Plan/Problems-Billing Assessment: Mr. Munoz is a 42 yo male with PMH significant for CAD s/p stent, osteoarthritis , tobacco abuse, pigmented villonodular synovitis who presented to the hospital with right knee pain. - Patient Problems (1) Infection of prosthetic right knee joint Current Visit: Yes Status: Acute Code(s): T84.53XA - INFECT/INFLM REACTION DUE TO INTERNAL R KNEE PROSTH, INIT SNOMED Code(s): 587268135 Comment: - Afebrile, leukocytosis resolved, CRP decreasingwill re-check in AM - S/P I+D and polyethylene liner exchange on 09/25/17 - Pt with large right knee effusion on admission, consistent with septic arthritis of prosthetic joint - Vanco day #, then 3-6 weeks of PO abx per ID (2) Hx of drug abuse Current Visit: Yes Status: Chronic Code(s): Z87.898 - PERSONAL HISTORY OF OTHER SPECIFIED CONDITIONS SNOMED Code(s): 741267586 Comment: - cont oxycodone with dose tapering down slowly as per othro. - Pt denies any illicit drug use past year (3) CAD (coronary artery disease) Current Visit: No Status: Chronic Code(s): I25.10 - ATHSCL HEART DISEASE OF [place] CORONARY ARTERY W/O ANG PCTRS SNOMED Code(s): 12210525 Comment: - Asymptomatic at this time, continue ASA - Plans for outpatient F/U upon discharge (4) DVT prophylaxis Current Visit: Yes Status: Acute Code(s): RYG9513 - SNOMED Code(s): 046384825 Comment: - SQ Lovenox bridge to Warfarin per ortho Status and Disposition: Inpatient for IV antibiotics due to septic R knee, s/p open irrigation and debridement. Thank you for this consultation, we will continue to follow along.
--- NOTE | 2017-10-07 11:48 | PN ---
Progress Note - Progress Note Date of Service: 10/07/17 SOAP: Subjective: [Pt cont's to c/o pain that won't let him get through the night. Asked for additional narcotics last night (received an additional oxy 10) but says it wasn 't enough. Soma helped - but still not enough per patient report. Has been OOB often ambulating. Has incresed pain with this somewhat managed by oxy 10 mg.] Objective: [A and O x 3. Upon my initial visit earlier he was sound asleep snoring. Later when I went back he was awake. NAD. R knee dressing, immobilizer in place. Distal gross motor and NV function intact. Vital Signs: Temp Pulse Resp BP Pulse Ox 97.9 F 84 18 114/63 100 10/07/17 07:50 10/07/17 07:50 10/07/17 10:50 10/07/17 07:50 10/07/17 08:00 Laboratory Results - last 24 hr 10/07/17 05:19 INR (Anticoag Therapy) 1.53 H ] Assessment: [s/p R knee I and D with poly exchange POD # 12] Plan: [Con't PT/OT Soma ordered qhs Con't with current narcotic order, will [facility] Dr[facility]]
[2017-10-07] MEDS: Enoxaparin(*) 30 MG/0.3 ML SYR SUBCUT SCH (11:57)
[2017-10-07] MEDS: Analgesic BALM* 114 GM TOPICAL PRN (12:18)
[2017-10-07] MEDS: Ondansetron ODT TAB* 4 MG PO PRN (14:00)
[2017-10-07] MEDS ORDERED: HYDROmorphone INJ1* 1 MG/ML SYRINGE ONE (14:25)
[2017-10-07] MEDS ORDERED: HYDROmorphone INJ1* 1 MG/ML SYRINGE IV ONE (16:00)
[2017-10-07] MEDS: Warfarin TAB(*) 4 MG PO SCH (17:44)
[2017-10-07] MEDS ORDERED: HYDROmorphone INJ1* 1 MG/ML SYRINGE IV PRN (18:00)
[2017-10-07] MEDS: Nicotine Patch Removal NOTE PATCH OFF SCH (21:23)
[2017-10-07] MEDS ORDERED: Simethicone TAB* 80 MG TAB.CHEW PO PRN (22:36)
[2017-10-08] MEDS: Vancomycin(*) 1,250 MG in NS 0.9% 250 ML* 250 ML IVPB SCH ×2 (00:19→09:22)
[2017-10-08] MEDS ORDERED: Vancomycin Trough Check NOTE FOLLOW UP ONE (07:30)
[2017-10-08] MEDS: Nicotine PATCH 14 MG/24 HR* PATCH TRANSDERM SCH (08:20)
[2017-10-08] MEDS: Aspirin 81 mg CHEW TAB* 81 MG TAB.CHEW PO SCH (08:20)
[2017-10-08] MEDS: oxyCODONE TAB* 5 MG TAB PO PRN ×4 (08:20→21:23)
[2017-10-08 08:30] LABS: ABS Basophils 0 10^3/ul (0-0.2); ABS Eosinophils 0.4 10^3/ul (0-0.6); ABS Lymphocytes 1.6 10^3/ul (1.0-4.8); ABS Monocytes 0.7 10^3/ul (0-0.8); ABS Neutrophils 4.2 10^3/ul (1.5-7.7); ABS Nucleated RBC 0 10^3/ul; Eosinophil % 5.5 % (0-6); Hematocrit 36 % (42-52); Hemoglobin 12.1 g/dl (14.0-18.0); Lymphocyte % 23.1 % (25-47); Mean Corpuscular HGB Conc 34 g/dl (31-36); Mean Corpuscular Hemoglobin 27 pg (27-31); Mean Corpuscular Volume 82 fL (80-94); Mean Platelet Volume 7.6 um3 (7.4-10.4); Nucleated Red Blood Cells % 0; Platelet Count 408 10^3/ul (150-450); Red Blood Count 4.43 10^6/ul (4.00-5.40); Red Cell Distribution Width 15 % (10.5-15); White Blood Count 6.9 10^3/ul (3.5-10.8)
[2017-10-08 08:47] LABS: EGFR Non-African American 89.8 (>60)
[2017-10-08] MEDS: Magnesium Hydroxide LIQ* 30 ML UDC PO PRN (09:22)
[2017-10-08] MEDS: Docusate CAP* 100 MG PO PRN (09:22)
[2017-10-08] MEDS: Enoxaparin(*) 30 MG/0.3 ML SYR SUBCUT SCH (11:23)
[2017-10-08] MEDS ORDERED: Vancomycin(*) 1,500 MG in NS 0.9% 250 ML* 250 ML IVPB SCH (12:03)
[2017-10-08] MEDS: Gabapentin CAP(*) 300 MG PO PRN ×2 (12:33→17:26)
--- NOTE | 2017-10-08 13:39 | PN ---
Progress Note - Progress Note Date of Service: 10/08/17 SOAP: Subjective: [Pt cont's to c/o pain that won't let him get through the night. States that now he is on soma again and feels this may help him sleep through the night better. Has been OOB often ambulating. Has incresed pain with this somewhat managed by oxy 10 mg. He states that it is much better during the day. He states that he is still waiting on insurance. ] Objective: [A and O x 3. NAD. R knee dressing, immobilizer in place. Distal gross motor and NV function intact. + df/pf. Vital Signs Temp 97.1 F 10/08/17 11:12 Pulse 110 10/08/17 11:12 Resp 16 10/08/17 12:35 BP 131/75 10/08/17 11:12 Pulse Ox 100 10/08/17 11:12 Intake & Output 10/07/17 10/08/17 10/08/17 18:59 06:59 18:59 Intake Total 2340 1192 750 Output Total 1150 700 Balance 1190 492 750 Intake: IV Fluids 580 40 NS (0.9%) 40 40 vanco 540 IVPB 302 vanco 302 Oral 1760 850 750 Output: Urine 1150 700 Assessment: [s/p R knee I and D with poly exchange POD # 13] Plan: [Con't PT/OT Soma ordered qhs Con't with current narcotic order 10 mg coumadin tonight Medicine following Awaiting insurance for placement.]
--- NOTE | 2017-10-08 15:06 | PN ---
Subjective Date of Service: 10/08/17 Interval History: Pt seen and examined. Meds and labs reviewed. CC: N/A ROS: Denied MELENDEZ/dizziness, F/C, N/V, CP, SOB, increased cough, sputum production , abd pain, diarrhea, constipation, dysuria, myalgias, arthralgias, throat pain , and new skin lesions. The rest of the 14 point ROS are unremarkable. PHYSICAL EXAM: GEN APPEARANCE: Awake, not in acute distress HEENT: NC/AT, PERRLA, moist oral mucosa, (-) throat erythema NECK: Soft, supple, (-) cervical LAD, (-)JVD HEART: S1S2 WNL, RRR, No MRG CHEST: CTA, BL, GAE, No W/R/R ABD: Soft, ND/NT, NABS 4x Q EXT: No C/C/E SKIN: Warm to touch PSYCH: No active psychosis, hallucinations, depression, SI/HI Family History: Unchanged from Admission Social History: Unchanged from Admission Past Medical History: Unchanged from Admission - CAD with stent Objective Active Medications: Aspirin (Aspirin 81 Mg Chew Tab*) 81 mg PO DAILY NADINE Last Admin: 10/08/17 08:20 Dose: 81 mg Carisoprodol (Soma Tab*) 350 mg PO BEDTIME NADINE Last Admin: 10/07/17 21:23 Dose: 350 mg Device (Nicotine Mouth Piece*) 1 each INH .USE WITH NICOTROL PRN PRN Reason: CRAVING Last Admin: 09/26/17 21:43 Dose: 1 each Diphenhydramine HCl (Benadryl Po*) 25 mg PO Q6H PRN PRN Reason: itching Docusate Sodium (Colace Cap*) 100 mg PO BID PRN PRN Reason: CONSTIPATION Last Admin: 10/08/17 09:22 Dose: 100 mg Enoxaparin Sodium (Lovenox(*)) 30 mg SUBCUT Q24H NADINE Last Admin: 10/08/17 11:23 Dose: 30 mg Gabapentin (Neurontin Cap(*)) 300 mg PO TID PRN PRN Reason: PAIN - MODERATE Last Admin: 10/08/17 12:33 Dose: 300 mg Heparin Sodium (Porcine) (Heparin Flush Picc/Ml/Cvc(*)) 1 ml FLUSH 0600,1800 NADINE; Protocol Last Admin: 10/08/17 05:34 Dose: Not Given Vancomycin HCl 1,500 mg/ (Sodium Chloride) 250 mls @ 166.667 mls/hr IVPB 0100, 0900,1700 [facility] Magnesium Hydroxide (Milk Of Magnesia Liq*) 30 ml PO Q6H PRN PRN Reason: constipation Last Admin: 10/08/17 09:22 Dose: 30 ml Multi-Ingredient Liniment/Rub (Yong Mix*) 1 applic TOPICAL BID PRN PRN Reason: SPASMS Last Admin: 10/07/17 12:18 Dose: 1 applic Nicotine (Nicotine Inhaler*) 10 mg INH Q2H PRN PRN Reason: CRAVING Last Admin: 10/05/17 12:00 Dose: 10 mg Nicotine (Nicotine Patch 14 Mg/24 Hr*) 1 patch TRANSDERM DAILY [facility] Last Admin: 10/08/17 08:20 Dose: 1 patch Ondansetron HCl (Zofran Inj*) 4 mg IV Q6H PRN PRN Reason: nausea Last Admin: 09/26/17 03:41 Dose: 4 mg Ondansetron HCl (Zofran Odt Tab*) 4 mg PO Q6H PRN PRN Reason: NAUSEA Last Admin: 10/07/17 14:00 Dose: 4 mg Oxycodone HCl (Roxycodone Tab*) 10 mg PO QID PRN PRN Reason: PAIN SEVERE Last Admin: 10/08/17 12:35 Dose: 10 mg Pharmacy Consult (Vancomycin Per Pharmacy*) 1 note FOLLOW UP .VANC PER PHARMACY [facility] Pharmacy Profile Note (Coumadin Daily Reminder*) 1 note FOLLOW UP 1700 [facility] Last Admin: 10/07/17 17:45 Dose: 1 note Pharmacy Profile Note (Nicotine Patch Removal Note*) 1 note PATCH OFF 2100 [facility] Last Admin: 10/07/17 21:23 Dose: 1 note Pharmacy Profile Note (Vancomycin Trough Check) 1 note FOLLOW UP 0730 ONE Stop: 10/10/17 08:31 Simethicone (Mylicon Tab*) 80 mg PO Q6H PRN PRN Reason: INDIGESTION Last Admin: 10/07/17 23:08 Dose: 80 mg Warfarin Sodium (Coumadin Tab(*)) 10 mg PO ONCE@1700 [facility]; Protocol Stop: 10/08/17 17:01 Vital Signs - 8 hr 10/08/17 10/08/1710/08/18 07:33 08:20 10:20 Temperature 98.0 F Pulse Rate 81 Respiratory 16 17 16 Rate Blood Pressure 98/52 (mmHg) O2 Sat by Pulse 97 97 Oximetry 10/08/17 10/08/17 10/08/17 11:12 12:33 12:35 Temperature 97.1 F Pulse Rate 110 Respiratory 18 15 16 Rate Blood Pressure 131/75 (mmHg) O2 Sat by Pulse 100 Oximetry 10/08/17 14:43 Temperature Pulse Rate Respiratory 16 Rate Blood Pressure (mmHg) O2 Sat by Pulse Oximetry Oxygen Devices in Use Now: None Result Diagrams: 10/08/17 08:08 10/08/17 08:08 Additional Lab and Data: . Microbiology and Other Data: Microbiology 09/24/17 15:15 Gram Stain - Final Joint Fluid(Synovial) Skin and Soft Tissue MRSA/MSSA (PCR - Final Mrsa Negative S.aureus Negative Diagnostic Imaging: . EKG Data: . Assess/Plan/Problems-Billing Assessment: Mr. Munoz is a 42 yo male with PMH significant for CAD s/p stent, osteoarthritis , tobacco abuse, pigmented villonodular synovitis who presented to the hospital with right knee pain. - Patient Problems (1) Infection of prosthetic right knee joint Current Visit: Yes Status: Acute Code(s): T84.53XA - INFECT/INFLM REACTION DUE TO INTERNAL R KNEE PROSTH, INIT SNOMED Code(s): 119826374 Comment: - Afebrile, leukocytosis resolved, CRP decreasingwill re-check in AM - S/P I+D and polyethylene liner exchange on 09/25/17 - Pt with large right knee effusion on admission, consistent with septic arthritis of prosthetic joint - Vanco day #, then 3-6 weeks of PO abx per ID -Pain regimen adjusted by Orthopedics and will defer (2) Hx of drug abuse Current Visit: Yes Status: Chronic Code(s): Z87.898 - PERSONAL HISTORY OF OTHER SPECIFIED CONDITIONS SNOMED Code(s): 375566512 Comment: - cont oxycodone with dose tapering down slowly as per othro. - Pt denies any illicit drug use past year (3) CAD (coronary artery disease) Current Visit: No Status: Chronic Code(s): I25.10 - ATHSCL HEART DISEASE OF [place] CORONARY ARTERY W/O ANG PCTRS SNOMED Code(s): 13586382 Comment: - Asymptomatic at this time, continue ASA - Plans for outpatient F/U upon discharge (4) DVT prophylaxis Current Visit: Yes Status: Acute Code(s): GOE3537 - SNOMED Code(s): 128213191 Comment: - SQ Lovenox bridge to Warfarin per ortho Status and Disposition: -Inpatient for IV antibiotics due to septic R knee, s/p open irrigation and debridement -Awaiting on Medicaid for placement -Thank you for this consultation, we will continue to follow along.
[2017-10-08] MEDS ORDERED: Warfarin TAB(*) 10 MG PO ONE (17:00)
[2017-10-08] MEDS: Vancomycin(*) 1,500 MG in NS 0.9% 250 ML* 250 ML IVPB SCH (17:26)
[2017-10-08] MEDS: Nicotine Patch Removal NOTE PATCH OFF SCH (21:24)
[2017-10-08] MEDS: Carisoprodol TAB* 350 MG PO SCH (21:24)
[2017-10-09] MEDS: Vancomycin(*) 1,500 MG in NS 0.9% 250 ML* 250 ML IVPB SCH ×3 (00:47→17:16)
[2017-10-09 06:23] LABS: ABS Basophils 0 10^3/ul (0-0.2); ABS Eosinophils 0.3 10^3/ul (0-0.6); ABS Lymphocytes 1.6 10^3/ul (1.0-4.8); ABS Monocytes 0.8 10^3/ul (0-0.8); ABS Nucleated RBC 0 10^3/ul; Eosinophil % 4.3 % (0-6); Hematocrit 35 % (42-52); Lymphocyte % 21.1 % (25-47); Mean Corpuscular HGB Conc 34 g/dl (31-36); Mean Corpuscular Hemoglobin 28 pg (27-31); Mean Corpuscular Volume 81 fL (80-94); Nucleated Red Blood Cells % 0; Platelet Count 423 10^3/ul (150-450); Red Blood Count 4.36 10^6/ul (4.00-5.40); Red Cell Distribution Width 15 % (10.5-15); White Blood Count 7.8 10^3/ul (3.5-10.8)
[2017-10-09 06:41] LABS: EGFR Non-African American 88.7 (>60)
[2017-10-09] MEDS: Gabapentin CAP(*) 300 MG PO PRN ×3 (08:08→21:49)
[2017-10-09] MEDS: Nicotine PATCH 14 MG/24 HR* PATCH TRANSDERM SCH (08:09)
[2017-10-09] MEDS: Aspirin 81 mg CHEW TAB* 81 MG TAB.CHEW PO SCH (08:09)
[2017-10-09] MEDS: oxyCODONE TAB* 5 MG TAB PO PRN ×4 (08:09→21:52)
[2017-10-09] MEDS: Enoxaparin(*) 30 MG/0.3 ML SYR SUBCUT SCH (11:43)
[2017-10-09 12:04] LABS: INR 1.4 (0.77-1.02)
--- NOTE | 2017-10-09 16:13 | PN ---
Subjective Date of Service: 10/09/17 Interval History: Pt seen and examined. Meds and labs reviewed. CC: N/A ROS: Denied MELENDEZ/dizziness, F/C, N/V, CP, SOB, increased cough, sputum production , abd pain, diarrhea, constipation, dysuria, myalgias, arthralgias, throat pain , and new skin lesions. The rest of the 14 point ROS are unremarkable. PHYSICAL EXAM: GEN APPEARANCE: Awake, not in acute distress HEENT: NC/AT, PERRLA, moist oral mucosa, (-) throat erythema NECK: Soft, supple, (-) cervical LAD, (-)JVD HEART: S1S2 WNL, RRR, No MRG CHEST: CTA, BL, GAE, No W/R/R ABD: Soft, ND/NT, NABS 4x Q EXT: No C/C/E SKIN: Warm to touch PSYCH: No active psychosis, hallucinations, depression, SI/HI Family History: Unchanged from Admission Social History: Unchanged from Admission Past Medical History: Unchanged from Admission - CAD with stent Objective Active Medications: Aspirin (Aspirin 81 Mg Chew Tab*) 81 mg PO DAILY [facility] Last Admin: 10/09/17 08:09 Dose: 81 mg Carisoprodol (Soma Tab*) 350 mg PO BEDTIME NADINE Last Admin: 10/08/17 21:24 Dose: 350 mg Device (Nicotine Mouth Piece*) 1 each INH .USE WITH NICOTROL PRN PRN Reason: CRAVING Last Admin: 09/26/17 21:43 Dose: 1 each Diphenhydramine HCl (Benadryl Po*) 25 mg PO Q6H PRN PRN Reason: itching Docusate Sodium (Colace Cap*) 100 mg PO BID PRN PRN Reason: CONSTIPATION Last Admin: 10/08/17 09:22 Dose: 100 mg Enoxaparin Sodium (Lovenox(*)) 30 mg SUBCUT Q24H NADIEN Last Admin: 10/09/17 11:43 Dose: 30 mg Gabapentin (Neurontin Cap(*)) 300 mg PO TID PRN PRN Reason: PAIN - MODERATE Last Admin: 10/09/17 13:02 Dose: 300 mg Heparin Sodium (Porcine) (Heparin Flush Picc/Ml/Cvc(*)) 1 ml FLUSH 0600,1800 NADINE; Protocol Last Admin: 10/09/17 04:59 Dose: Not Given Vancomycin HCl 1,500 mg/ (Sodium Chloride) 250 mls @ 166.667 mls/hr IVPB 0100, 0900,1700 [facility] Last Admin: 10/09/17 08:11 Dose: 166.667 mls/hr Magnesium Hydroxide (Milk Of Magnesia Liq*) 30 ml PO Q6H PRN PRN Reason: constipation Last Admin: 10/08/17 09:22 Dose: 30 ml Multi-Ingredient Liniment/Rub (Yong Mix*) 1 applic TOPICAL BID PRN PRN Reason: SPASMS Last Admin: 10/07/17 12:18 Dose: 1 applic Nicotine (Nicotine Inhaler*) 10 mg INH Q2H PRN PRN Reason: CRAVING Last Admin: 10/05/17 12:00 Dose: 10 mg Nicotine (Nicotine Patch 14 Mg/24 Hr*) 1 patch TRANSDERM DAILY [facility] Last Admin: 10/09/17 08:09 Dose: 1 patch Ondansetron HCl (Zofran Inj*) 4 mg IV Q6H PRN PRN Reason: nausea Last Admin: 09/26/17 03:41 Dose: 4 mg Ondansetron HCl (Zofran Odt Tab*) 4 mg PO Q6H PRN PRN Reason: NAUSEA Last Admin: 10/07/17 14:00 Dose: 4 mg Oxycodone HCl (Roxycodone Tab*) 10 mg PO QID PRN PRN Reason: PAIN SEVERE Last Admin: 10/09/17 12:57 Dose: 10 mg Pharmacy Consult (Vancomycin Per Pharmacy*) 1 note FOLLOW UP .VANC PER PHARMACY [facility] Pharmacy Profile Note (Coumadin Daily Reminder*) 1 note FOLLOW UP 1700 [facility] Last Admin: 10/08/17 17:27 Dose: 1 note Pharmacy Profile Note (Nicotine Patch Removal Note*) 1 note PATCH OFF 2100 [facility] Last Admin: 10/08/17 21:24 Dose: 1 note Pharmacy Profile Note (Vancomycin Trough Check) 1 note FOLLOW UP 0730 ONE Stop: 10/10/17 08:31 Simethicone (Mylicon Tab*) 80 mg PO Q6H PRN PRN Reason: INDIGESTION Last Admin: 10/07/17 23:08 Dose: 80 mg Vital Signs - 8 hr 10/09/17 10/09/17 10/09/17 08:17 11:28 11:45 Temperature 99.6 F Pulse Rate 97 Respiratory 18 18 18 Rate Blood Pressure 130/78 (mmHg) O2 Sat by Pulse 99 98 Oximetry 10/09/17 10/09/17 10/09/17 12:57 13:02 14:36 Temperature Pulse Rate Respiratory 18 18 16 Rate Blood Pressure (mmHg) O2 Sat by Pulse Oximetry 10/09/17 15:25 Temperature 99.1 F Pulse Rate 95 Respiratory 16 Rate Blood Pressure 134/77 (mmHg) O2 Sat by Pulse 99 Oximetry Oxygen Devices in Use Now: None Result Diagrams: 10/09/17 05:52 10/09/17 05:52 Additional Lab and Data: . Microbiology and Other Data: Microbiology 09/24/17 15:15 Gram Stain - Final Joint Fluid(Synovial) Skin and Soft Tissue MRSA/MSSA (PCR - Final Mrsa Negative S.aureus Negative Diagnostic Imaging: . EKG Data: . Assess/Plan/Problems-Billing Assessment: Mr. Munoz is a 42 yo male with PMH significant for CAD s/p stent, osteoarthritis , tobacco abuse, pigmented villonodular synovitis who presented to the hospital with right knee pain. - Patient Problems (1) Infection of prosthetic right knee joint Current Visit: Yes Status: Acute Code(s): T84.53XA - INFECT/INFLM REACTION DUE TO INTERNAL R KNEE PROSTH, INIT SNOMED Code(s): 755392325 Comment: - Afebrile, leukocytosis resolved - S/P I+D and polyethylene liner exchange on 09/25/17 - Pt with large right knee effusion on admission, consistent with septic arthritis of prosthetic joint - Vanco day #, then 3-6 weeks of PO abx per ID -Pain regimen adjusted by Orthopedics and will defer (2) Hx of drug abuse Current Visit: Yes Status: Chronic Code(s): Z87.898 - PERSONAL HISTORY OF OTHER SPECIFIED CONDITIONS SNOMED Code(s): 243820635 Comment: - cont oxycodone with dose tapering down slowly as per othro. - Pt denies any illicit drug use past year (3) CAD (coronary artery disease) Current Visit: No Status: Chronic Code(s): I25.10 - ATHSCL HEART DISEASE OF [place] CORONARY ARTERY W/O ANG PCTRS SNOMED Code(s): 19598529 Comment: - Asymptomatic at this time, continue ASA - Plans for outpatient F/U upon discharge (4) DVT prophylaxis Current Visit: Yes Status: Acute Code(s): MGC8686 - SNOMED Code(s): 088531351 Comment: - SQ Lovenox bridge to Warfarin per ortho Status and Disposition: -D/W Orthopedics this AM given pt will be placed on a swing status. Will S/O at this time
[2017-10-09] MEDS ORDERED: Warfarin TAB(*) 10 MG PO ONE (18:00)
[2017-10-09] MEDS: Nicotine Inhaler* 10 MG AMP INH PRN (18:03)
[2017-10-09] MEDS: Carisoprodol TAB* 350 MG PO SCH (21:51)
[2017-10-09] MEDS: Nicotine Patch Removal NOTE PATCH OFF SCH (22:02)
[2017-10-10] MEDS: Vancomycin(*) 1,500 MG in NS 0.9% 250 ML* 250 ML IVPB SCH ×2 (00:42→10:16)
[2017-10-10] MEDS: Aspirin 81 mg CHEW TAB* 81 MG TAB.CHEW PO SCH (07:56)
[2017-10-10] MEDS: Gabapentin CAP(*) 300 MG PO PRN ×2 (07:56→12:27)
[2017-10-10] MEDS: oxyCODONE TAB* 5 MG TAB PO PRN ×2 (07:56→12:27)
[2017-10-10] MEDS: Nicotine PATCH 14 MG/24 HR* PATCH TRANSDERM SCH (07:57)
[2017-10-10] MEDS ORDERED: Vancomycin Trough Check NOTE FOLLOW UP ONE (08:30)
[2017-10-10 10:09] LABS: Vancomycin Trough 15.9 mcg/mL
[2017-10-10 10:24] LABS: EGFR Non-African American 82.5 (>60)
[2017-10-10] MEDS: Enoxaparin(*) 30 MG/0.3 ML SYR SUBCUT SCH (12:27)
[2017-10-10 12:39] VITALS: BP 143/80
--- NOTE | 2017-10-10 13:50 | PN ---
Progress Note - Progress Note Date of Service: 10/10/17 SOAP: Subjective: []Patient seen at bedside. He feels well and will be transferred to [facility] swing status today. His pain is well controlled with oxycodone and gabapentin, with soma at night. He feels comfortable to wean down on oxycodone and requests an extra soma tab available during the day should he have significant pain as he weans down. Denies any other concerns. Objective: []General: Well appearing, NAD RLE: Incision CDI without erythema or discharge. DF/ PF intact. Dp2+. Sensation intact distally. BL calves supple and nontender without erythema, edema or palpable cords. Assessment: []s/p R knee I and D with poly exchange Plan: Con't PT/OT lovenox for DVT prophylaxis, stop coumadin as patient has not become therapeutic and will be in house for duration of need of DVT prophylaxis Will DC now and admit to swing status Weekly cbc, cmp, crp, vanco trough Vanco day then 3-6 mo PO abx per ID Nursing to change dressing daily Vital Signs Temp 98.6 F 10/10/17 11:23 Pulse 92 10/10/17 11:23 Resp 16 10/10/17 12:27 BP 143/80 10/10/17 11:23 Pulse Ox 100 10/10/17 11:23 Intake & Output 10/09/17 10/10/17 10/10/17 18:59 06:59 18:59 Intake Total 2850 2152 650 Output Total 225 900 Balance 2625 1252 650 Intake: IV Fluids 30 622 290 NS (0.9%) 30 52 vanco 570 290 IVPB 280 vanco 280 Oral 2540 1530 360 Output: Urine 225 900 Laboratory Last Values WBC 7.8 10^3/ul (3.5-10.8) 10/09/17 05:52 RBC 4.36 10^6/ul (4.00-5.40) 10/09/17 05:52 Hgb 12.0 g/dl (14.0-18.0) L 10/09/17 05:52 Hct 35 % (42-52) L 10/09/17 05:52 MCV 81 fL (80-94) 10/09/17 05:52 MCH 28 pg (27-31) 10/09/17 05:52 MCHC 34 g/dl (31-36) 10/09/17 05:52 RDW 15 % (10.5-15) 10/09/17 05:52 Plt Count 423 10^3/ul (150-450) 10/09/17 05:52 MPV 8.0 um3 (7.4-10.4) 10/09/17 05:52 Neut % (Auto) 64.0 % (38-83) 10/09/17 05:52 Lymph % (Auto) 21.1 % (25-47) L 10/09/17 05:52 Ashley % (Auto) 10.0 % (0-7) H 10/09/17 05:52 Eos % (Auto) 4.3 % (0-6) 10/09/17 05:52 Baso % (Auto) 0.6 % (0-2) 10/09/17 05:52 Absolute Neuts (auto) 5.0 10^3/ul (1.5-7.7) 10/09/17 05:52 Absolute Lymphs (auto) 1.6 10^3/ul (1.0-4.8) 10/09/17 05:52 Absolute Monos (auto) 0.8 10^3/ul (0-0.8) 10/09/17 05:52 Absolute Eos (auto) 0.3 10^3/ul (0-0.6) 10/09/17 05:52 Absolute Basos (auto) 0 10^3/ul (0-0.2) 10/09/17 05:52 Absolute Nucleated RBC 0 10^3/ul 10/09/17 05:52 Nucleated RBC % 0 10/09/17 05:52 ESR 94 mm/Hr (0-14) H 09/29/17 06:52 INR (Anticoag Therapy) 1.40 (0.77-1.02) H 10/09/17 11:32 APTT 25.6 seconds (26.0-36.3) L 09/24/17 20:24 Sodium 135 mmol/L (135-145) 10/09/17 05:52 Potassium 4.5 mmol/L (3.5-5.0) 10/09/17 05:52 Chloride 102 mmol/L (101-111) 10/09/17 05:52 Carbon Dioxide 25 mmol/L (22-32) 10/09/17 05:52 Anion Gap 8 mmol/L (2-11) 10/09/17 05:52 BUN 15 mg/dL (6-24) 10/10/17 08:43 Creatinine 0.99 mg/dL (0.67-1.17) 10/10/17 08:43 Est GFR ( Amer) 99.8 (>60) 10/10/17 08:43 Est GFR (Non-Af Amer) 82.5 (>60) 10/10/17 08:43 BUN/Creatinine Ratio 18.3 (8-20) 10/09/17 05:52 Glucose 103 mg/dL (70-100) H 10/09/17 05:52 Lactic Acid 1.3 mmol/L (0.5-2.0) 09/24/17 13:11 Uric Acid 4.6 mg/dL (4.4-7.6) 09/24/17 13:11 Calcium 9.2 mg/dL (8.6-10.3) 10/09/17 05:52 Phosphorus 4.8 mg/dL (2.5-5.0) 10/08/17 08:08 Magnesium 2.0 mg/dL (1.9-2.7) 10/08/17 08:08 Total Bilirubin 0.30 mg/dL (0.2-1.0) 10/08/17 08:08 AST 14 U/L (13-39) 10/08/17 08:08 ALT 23 U/L (7-52) 10/08/17 08:08 Alkaline Phosphatase 99 U/L (34-104) 10/08/17 08:08 C-Reactive Protein 84.36 mg/L (<8.01) H 10/08/17 08:08 Total Protein 7.4 g/dL (6.4-8.9) 10/08/17 08:08 Albumin 3.5 g/dL (3.2-5.2) 10/08/17 08:08 Globulin 3.9 g/dL (2-4) 10/08/17 08:08 Albumin/Globulin Ratio 0.9 (1-3) L 10/08/17 08:08 Urine Color Yellow 09/25/17 14:50 Urine Appearance Clear 09/25/17 14:50 Urine pH 7.0 (5-9) 09/25/17 14:50 Ur Specific [place] 1.015 (1.010-1.030) 09/25/17 14:50 Urine Protein Negative (Negative) 09/25/17 14:50 Urine Ketones Negative (Negative) 09/25/17 14:50 Urine Blood Negative (Negative) 09/25/17 14:50 Urine Nitrate Negative (Negative) 09/25/17 14:50 Urine Bilirubin Negative (Negative) 09/25/17 14:50 Urine Urobilinogen Negative (Negative) 09/25/17 14:50 Ur Leukocyte Esterase Negative (Negative) 09/25/17 14:50 Urine Glucose Negative (Negative) 09/25/17 14:50 Fluid Source Synovial 09/24/17 15:15 Fluid Volume 20 mL 09/24/17 15:15 Fluid Color Sadaf 09/24/17 15:15 Fluid Appearance Cloudy 09/24/17 15:15 Fluid WBC 19708 /mcL (0-608165) 09/24/17 15:15 Fluid RBC 100 /mcL 09/24/17 15:15 Fluid Tot Cell Count 100 09/24/17 15:15 Fluid Neutrophils 88 % 09/24/17 15:15 Fluid Lymphocytes 9 % 09/24/17 15:15 Fluid Monocytes 3 % 09/24/17 15:15 Fluid Cell Count Rvw By 09/24/17 15:15 Fluid Crystals None seen (None Seen) 09/24/17 15:15 Fluid Glucose 4 mg/dL 09/24/17 15:15 Fluid Total Protein 5.3 g/dL 09/24/17 15:15 Fluid LDH 5075 U/L 09/24/17 15:15 B. burgdorferi (PCR) Negative (Negative) 09/24/17 15:15 B. mayonii (PCR) Negative (Negative) 09/24/17 15:15 B.garinii/B.afzelii PCR Negative (Negative) 09/24/17 15:15 Vancomycin Trough 15.9 mcg/mL 10/10/17 08:43 Lyme Disease Serology Negative (Negative) 09/30/17 10:37 Lyme Specimen Source synovial fluid 09/24/17 15:15 HIV 1&2 Antibody Nonreactive (Nonreactive) 10/01/17 19:40
[2017-10-10] MEDS ORDERED: Warfarin TAB(*) 10 MG PO ONE (17:00)
--- NOTE | 2017-10-10 21:17 | DS ---
DISCHARGE SUMMARY/ADMISSION HISTORY AND PHYSICAL: DATE OF ADMISSION: 09/24/17 DATE OF DISCHARGE: 10/10/17 DISPOSITION: The patient going to swing status at [facility]. ATTENDING PROVIDER: Dr. Karla Smith.* (DICTATED BY NEAL MARTÍNEZ) CHIEF COMPLAINT ON ADMISSION: Right knee pain. HISTORY: The patient is a 42-year-old. He has a past medical history of cardiac stent, coronary artery disease. He presented to [facility] ED on 09/24/17 with a 2-day history of a right swollen and painful knee. 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 Richardson in 2013. PAST MEDICAL HISTORY: The patient's past medical history includes: 1. PVNS. 2. History of recurrent right knee dislocation prior to knee replacement on the right side. 3. Cardiac stent. HOME MEDICATIONS: The patient does not take home medications. ALLERGIES: ERYTHROMYCIN, AMOXICILLIN, PENICILLIN, ACETAMINOPHEN. He has anaphylaxis to ACETAMINOPHEN. FAMILY HISTORY: The patient was adopted, unaware of family history. 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 He does smoke cigarettes. He does not drink alcohol. He uses cocaine occasionally. In the past 5 years, he has not used any IV drugs. The patient has several tattoos. REVIEW OF SYSTEMS: General: The patient denies any fever or chills. He denies any right knee pain at rest. He does have right knee pain with movement and with physical therapy. Denies any new rash or lesions. A 14-point review of systems was reviewed and is otherwise negative. PHYSICAL EXAMINATION: General: The patient is well appearing. He is in no acute distress. Head: Normocephalic, atraumatic. Pupils EOMI. Respiratory: Normal rate and effort of breathing. Musculoskeletal: The patient is walking with a normal gait. Right lower extremity incision clean, dry, and intact without erythema and without discharge. Vascular: Bilateral lower extremities , calves without erythema, edema, or palpable cords. DP 2+. Capillary refill less than 2 seconds distally. Neuro: Dorsiflexion and plantarflexion intact bilaterally. HOSPITAL COURSE: The patient was admitted to [facility] on 09/24/17 due to likely right septic knee with history of right total knee replacement. In the emergency room, aspiration was performed by the emergency room physician and cultures were sent. Right knee x-ray demonstrated status post right knee arthroplasty with a very large joint effusion. Venous Doppler study demonstrated no right lower extremity DVT and positive for right knee joint effusion. Electrocardiogram on 09/25/17, interpretation: Sinus rhythm, normal EKG. Transthoracic echocardiogram on 09/25/17, conclusions: Mild concentric LVH is observed. Left ventricular systolic function is at the lower limits of normal. The estimated ejection fraction is 50% to 55%. The right ventricular global systolic function is normal. The right ventricle is slightly dilated. Systolic excursion of the aortic valve is normal. There is no evidence of mitral regurgitation. There is no evidence of tricuspid valve regurgitation. There is no significant pericardial effusion. The patient was seen by our medical team during his stay. His RCRI calculation was 0.9%, but due to cardiomegaly on chest x-ray and history of drug use, echocardiogram was performed. On 09/25/17, the patient underwent an open irrigation and debridement of infected right total knee arthroplasty with polyethylene liner exchange by Dr. Karla Smith due to a septic right total knee arthroplasty. Special Education Educational Assistant was NEAL Damon. Indication for surgery was pain, swelling, erythema of the right knee, as well as aspiration showing cloudy purulent fluid with a white cell count from the joint aspiration of 12,000 indicating infection , as well as fevers and elevated ESR and CRP. Operation was performed without complication. The patient recovered briefly in the PACU and was transferred to the short-stay surgical unit. Postoperative x-ray demonstrated soft tissue swelling and air in the soft tissues consistent with the patient's recent surgery. The patient is status post total right knee replacement surgery. Bones and prosthesis are in normal alignment. Throughout the course of his stay , starting on postop day 2, dressing was changed daily. Incision was clean, dry , and intact without erythema surrounding and without any discharge. He progressed well with physical therapy. The patient remained inpatient for a length of time due to lack of insurance coverage. Medicaid was obtained for him. He was also seen by our infectious disease doctor during his stay with a recommendation of continuing vancomycin with a trough goal of 15 to 20 for 42 days of vancomycin in total and then 3 to 6 months of p.o. antibiotics. The patient will need weekly CBC, CMP, CRP and vancomycin trough. On day of discharge to [facility] ([place] [place]) status, the patient's vancomycin trough was 15.9. The patient is deemed to be medically and orthopedically stable for discharge to swing status. He has a history of IV drug use making it prudent to keep him in- house while he has central access. Vital Signs: On day of discharge, temperature 98.6, pulse rate 92, respiratory rate 16, oxygen saturation 100%, blood pressure 143/80. ASSESSMENT: The patient is status post I and D and poly exchange of right total knee. PLAN: The patient will remain on vancomycin 1500 mg q.8. He is currently on day 16 of 42. He will require weekly CBC, CRP, CMP and vanco trough levels. After day 42, he will be on 3 to 6 months of p.o. antibiotics scheduled by Infectious Disease. He will be discharged to swing status. He is on no home medications. For pain, he is using Soma 350 mg at bedtime scheduled, gabapentin 300 mg p.o. t.i.d., as well as oxycodone 10 mg p.o. four times daily p.r.n., which he would like to wean down on. For DVT prophylaxis, he is using Lovenox 30 mg subcu q.24 hours as well as Coumadin, which the Lovenox will be discontinued as soon as Coumadin has reached a therapeutic level. NEAL MARTÍNEZ [id number]/[facility] #: [id number] MTDD
== END 2017-10-10 14:09 | disposition swing bed (61) | DRG 302 ==
LOC: ED 10:22 → SSU 16:11
PROVIDERS: ADMIT Orthopaedic Surgery Adult Reconstructive Orthopaedic Surgery; ATTEND Orthopaedic Surgery Adult Reconstructive Orthopaedic Surgery
PROC: 0SPC09Z Removal of Liner from Right Knee Joint, Open Approach (ICD-10-PCS; principal; 2017-09-25 16:00)
PROC: 0SUV09Z Supplement Right Knee Joint, Tibial Surface with Liner, Open Approach (ICD-10-PCS; 2017-09-25 16:00)
DX: T84.53XA Infection and inflammatory reaction due to internal right knee prosthesis, initial encounter (principal); Y79.2 Prosthetic and other implants, materials and accessory orthopedic devices associated with adverse incidents; F17.210 Nicotine dependence, cigarettes, uncomplicated; I25.10 Atherosclerotic heart disease of native coronary artery without angina pectoris; I10 Essential (primary) hypertension; F14.90 Cocaine use, unspecified, uncomplicated; M25.461 Effusion, right knee; Y92.009 Unspecified place in unspecified non-institutional (private) residence as the place of occurrence of the external cause; Z88.1 Allergy status to other antibiotic agents; Z95.5 Presence of coronary angioplasty implant and graft; Z88.0 Allergy status to penicillin; Z88.8 Allergy status to other drugs, medicaments and biological substances
CPT/HCPCS: 36415; 71045; 80048; 80053; 80202; 81003; 82565; 82945; 83605; 83615; 83735; 84100; 84157; 84520; 84550; 85014; 85018; 85025; 85048; 85049; 85610; 85652; 85730; 86140; 86618; 86703; 87040; 87070; 87073; 87102; 87205; 87476; 87640; 87641; 87798; 89051; 89060; 93005; 93306; 99285; 99406; A9270-GY; C1776; J0360; J1170; J1644; J1650; J2250; J2270; J2405; J2704; J2795; J3010; J3370

== ENCOUNTER 2017-10-10 13:50 | Inpatient (IN) | payer MEDICAID ==
[2017-10-10] MEDS ORDERED: diPHENhydraMINE IV* 50 MG/ML 1 ml VIAL (BENADRYL) IV PRN (14:18)
[2017-10-10] MEDS ORDERED: diPHENhydraMINE PO* 25 MG PO PRN (14:18)
[2017-10-10] MEDS ORDERED: Ondansetron INJ* 2 MG/ML VIAL IV PRN (14:18)
[2017-10-10] MEDS ORDERED: Docusate CAP* 100 MG PO PRN (14:28)
[2017-10-10] MEDS ORDERED: Simethicone TAB* 80 MG TAB.CHEW PO PRN (14:28)
[2017-10-10] MEDS ORDERED: Magnesium Hydroxide LIQ* 30 ML UDC PO PRN (14:28)
[2017-10-10] MEDS ORDERED: Vancomycin per Pharmacy* NOTE FOLLOW UP SCH (15:00)
[2017-10-10] MEDS: oxyCODONE TAB* 5 MG TAB PO PRN (17:43)
[2017-10-10] MEDS: Vancomycin 1500 MG IV - Q8H IVPB SCH ×2 (17:52)
[2017-10-10] MEDS: Carisoprodol TAB* 350 MG PO PRN (21:34)
[2017-10-10] MEDS: Carisoprodol TAB* 350 MG PO SCH (21:34)
[2017-10-10] MEDS: Gabapentin CAP(*) 300 MG PO PRN (21:34)
[2017-10-11] MEDS: Vancomycin 1500 MG IV - Q8H IVPB SCH ×6 (02:27→17:44)
[2017-10-11] MEDS: Nicotine PATCH 14 MG/24 HR* PATCH TRANSDERM SCH (08:27)
[2017-10-11] MEDS: oxyCODONE TAB* 5 MG TAB PO PRN ×3 (08:27→17:38)
[2017-10-11] MEDS: Aspirin 81 mg CHEW TAB* 81 MG TAB.CHEW PO SCH (08:27)
[2017-10-11] MEDS: Gabapentin CAP(*) 300 MG PO PRN ×3 (08:32→22:50)
[2017-10-11] MEDS: Enoxaparin(*) 40 MG/0.4 ML SYR SUBCUT SCH (12:16)
[2017-10-11] MEDS: Carisoprodol TAB* 350 MG PO SCH (22:47)
[2017-10-11] MEDS: Carisoprodol TAB* 350 MG PO PRN (22:48)
[2017-10-11] MEDS: Nicotine Patch Removal NOTE PATCH OFF SCH (22:55)
[2017-10-12] MEDS: Vancomycin 1500 MG IV - Q8H IVPB SCH ×6 (02:44→18:05)
[2017-10-12] MEDS: oxyCODONE TAB* 5 MG TAB PO PRN ×4 (08:22→22:05)
[2017-10-12] MEDS: Gabapentin CAP(*) 300 MG PO PRN ×3 (08:23→22:06)
[2017-10-12] MEDS: Nicotine PATCH 14 MG/24 HR* PATCH TRANSDERM SCH (09:23)
[2017-10-12] MEDS: Aspirin 81 mg CHEW TAB* 81 MG TAB.CHEW PO SCH (09:25)
[2017-10-12] MEDS: Enoxaparin(*) 40 MG/0.4 ML SYR SUBCUT SCH (14:05)
[2017-10-12] MEDS: Carisoprodol TAB* 350 MG PO SCH (22:06)
[2017-10-12] MEDS: Nicotine Patch Removal NOTE PATCH OFF SCH (22:07)
[2017-10-12] MEDS: Carisoprodol TAB* 350 MG PO PRN (22:15)
[2017-10-13] MEDS: Vancomycin 1500 MG IV - Q8H IVPB SCH ×6 (02:54→17:48)
[2017-10-13] MEDS: oxyCODONE TAB* 5 MG TAB PO PRN ×3 (08:14→21:11)
[2017-10-13] MEDS: Aspirin 81 mg CHEW TAB* 81 MG TAB.CHEW PO SCH (08:15)
[2017-10-13] MEDS: Nicotine PATCH 14 MG/24 HR* PATCH TRANSDERM SCH (08:15)
[2017-10-13] MEDS: Gabapentin CAP(*) 300 MG PO PRN ×3 (08:15→21:11)
[2017-10-13] MEDS: Enoxaparin(*) 40 MG/0.4 ML SYR SUBCUT SCH (12:16)
[2017-10-13] MEDS: Carisoprodol TAB* 350 MG PO PRN (12:21)
[2017-10-13] MEDS: Carisoprodol TAB* 350 MG PO SCH (21:09)
[2017-10-13] MEDS: Nicotine Patch Removal NOTE PATCH OFF SCH (21:10)
[2017-10-14] MEDS: Vancomycin 1500 MG IV - Q8H IVPB SCH ×6 (02:39→18:39)
[2017-10-14] MEDS: oxyCODONE TAB* 5 MG TAB PO PRN ×4 (04:50→21:13)
[2017-10-14] MEDS: Carisoprodol TAB* 350 MG PO PRN (06:15)
[2017-10-14] MEDS: Gabapentin CAP(*) 300 MG PO PRN ×3 (09:02→21:11)
[2017-10-14] MEDS: Aspirin 81 mg CHEW TAB* 81 MG TAB.CHEW PO SCH (09:02)
[2017-10-14] MEDS: Nicotine PATCH 14 MG/24 HR* PATCH TRANSDERM SCH (09:43)
[2017-10-14] MEDS: Vancomycin Trough Check NOTE FOLLOW UP ONE ×2 (09:43→10:10)
[2017-10-14] MEDS: Enoxaparin(*) 40 MG/0.4 ML SYR SUBCUT SCH (12:06)
[2017-10-14] MEDS ORDERED: Vancomycin Trough Check NOTE FOLLOW UP ONE (17:30)
[2017-10-14] MEDS: Nicotine Patch Removal NOTE PATCH OFF SCH (21:10)
[2017-10-14] MEDS: Carisoprodol TAB* 350 MG PO SCH (21:12)
[2017-10-15] MEDS: Vancomycin 1500 MG IV - Q8H IVPB SCH ×6 (02:11→17:41)
[2017-10-15 06:06] LABS: ABS Basophils 0 10^3/ul (0-0.2); ABS Eosinophils 0.3 10^3/ul (0-0.6); ABS Lymphocytes 1.6 10^3/ul (1.0-4.8); ABS Monocytes 0.7 10^3/ul (0-0.8); ABS Neutrophils 3.1 10^3/ul (1.5-7.7); ABS Nucleated RBC 0 10^3/ul; Hematocrit 33 % (42-52); Hemoglobin 11.3 g/dl (14.0-18.0); Lymphocyte % 27.6 % (25-47); Mean Corpuscular HGB Conc 34 g/dl (31-36); Mean Corpuscular Hemoglobin 28 pg (27-31); Mean Corpuscular Volume 81 fL (80-94); Mean Platelet Volume 8.1 um3 (7.4-10.4); Nucleated Red Blood Cells % 0.1; Platelet Count 293 10^3/ul (150-450); Red Blood Count 4.05 10^6/ul (4.00-5.40); Red Cell Distribution Width 15 % (10.5-15); White Blood Count 5.7 10^3/ul (3.5-10.8)
[2017-10-15 06:21] LABS: EGFR Non-African American 93.3 (>60)
[2017-10-15] MEDS: Gabapentin CAP(*) 300 MG PO PRN ×3 (08:56→22:00)
[2017-10-15] MEDS: Carisoprodol TAB* 350 MG PO PRN (08:56)
[2017-10-15] MEDS: Aspirin 81 mg CHEW TAB* 81 MG TAB.CHEW PO SCH (08:56)
[2017-10-15] MEDS: oxyCODONE TAB* 5 MG TAB PO PRN ×4 (08:57→21:59)
[2017-10-15] MEDS: Nicotine Inhaler* 10 MG AMP INH PRN (08:58)
[2017-10-15] MEDS: Nicotine PATCH 14 MG/24 HR* PATCH TRANSDERM SCH (09:04)
[2017-10-15] MEDS: Enoxaparin(*) 40 MG/0.4 ML SYR SUBCUT SCH (13:17)
[2017-10-15] MEDS: Carisoprodol TAB* 350 MG PO SCH (22:01)
[2017-10-15] MEDS: Nicotine Patch Removal NOTE PATCH OFF SCH (22:02)
[2017-10-16] MEDS: Vancomycin 1500 MG IV - Q8H IVPB SCH ×8 (02:13→23:03)
[2017-10-16] MEDS: Aspirin 81 mg CHEW TAB* 81 MG TAB.CHEW PO SCH (08:16)
[2017-10-16] MEDS: Nicotine PATCH 14 MG/24 HR* PATCH TRANSDERM SCH (08:16)
[2017-10-16] MEDS: oxyCODONE TAB* 5 MG TAB PO PRN ×2 (08:16→20:01)
[2017-10-16] MEDS: Gabapentin CAP(*) 300 MG PO PRN ×2 (08:16→12:40)
--- NOTE | 2017-10-16 10:21 | RAD ---
HISTORY: pain at midline site r/o clot COMPARISONS: None relevant TECHNIQUE: Multiple transverse and longitudinal ultrasound images were obtained of the right upper extremity from the level of the internal jugular vein inferiorly through to the infra-cubital veins using grayscale, color Doppler, and spectral Doppler imaging with and without compression and with augmentation. Comparison images were obtained of the contralateral internal jugular vein and subclavian vein. FINDINGS: VEINS: There is occlusive thrombus of the basilic vein The remainder of the venous system of the right upper extremity is compressible throughout its course, with normal flow on color Doppler imaging and normal response to augmentation on spectral Doppler imaging. SOFT TISSUES: Unremarkable. OTHER FINDINGS: None. IMPRESSION: OCCLUSIVE THROMBUS OF THE RIGHT BASILIC VEIN.
[2017-10-16] MEDS: Enoxaparin(*) 40 MG/0.4 ML SYR SUBCUT SCH (12:42)
--- NOTE | 2017-10-16 13:52 | PN ---
Progress Note - Progress Note Date of Service: 10/16/17 SOAP: Subjective: []Patient seen at bedside. He feels well aside from the complaint of right arm pain above his midline. Denies chest pain, shortness of breath, dizziness, nausea. Right knee pain is well controlled and he has been improving on his range of motion. He desires to stop opioids and continue soma. He is having difficulty sleeping and desires a medication to assist with this. Objective: []General: Well appearing, NAD RLE: Right knee sutures removed, incision with well approximated wound edges and CDI. ROM 0-90 degrees. No erythema of the knee. DF/PF intact Calves supple and nontender without erythema, edema or palpable cords RUE: Midline in place, no erythema or edema. Assessment: []SP right knee washout Plan: []WBAT. Continue PT/OT On vanco day with weekly cbc, cmp, crp, vanco trough Dopplar right arm to rule out clot --- clot in right basilic vein discovered, hospitalist team contacted for assistance in treatment Midline not functioning, will have line removed and new line placed Trial benadryl at night to help sleep Pain control: stop oxycodone, order in place for severe breakthrough pain only Vital Signs Temp 98.1 F 10/16/17 07:46 Pulse 76 10/16/17 07:46 Resp 16 10/16/17 12:45 BP 113/69 10/16/17 07:46 Pulse Ox 100 10/16/17 07:46 Intake & Output 10/15/17 10/16/17 10/16/17 18:59 06:59 18:59 Intake Total 1410 565 Balance 1410 565 Intake: IV Fluids 30 565 NS (0.9%) 30 all fluids 565 IVPB 250 ABX - VANCOMYCIN 250 Oral 1130 0 Other: Estimated Void Medium # Voids 3 Laboratory Last Values WBC 5.7 10^3/ul (3.5-10.8) 10/15/17 05:37 RBC 4.05 10^6/ul (4.00-5.40) 10/15/17 05:37 Hgb 11.3 g/dl (14.0-18.0) L 10/15/17 05:37 Hct 33 % (42-52) L 10/15/17 05:37 MCV 81 fL (80-94) 10/15/17 05:37 MCH 28 pg (27-31) 10/15/17 05:37 MCHC 34 g/dl (31-36) 10/15/17 05:37 RDW 15 % (10.5-15) 10/15/17 05:37 Plt Count 293 10^3/ul (150-450) 10/15/17 05:37 MPV 8.1 um3 (7.4-10.4) 10/15/17 05:37 Neut % (Auto) 54.1 % (38-83) 10/15/17 05:37 Lymph % (Auto) 27.6 % (25-47) 10/15/17 05:37 [place] % (Auto) 11.6 % (0-7) H 10/15/17 05:37 Eos % (Auto) 6.0 % (0-6) 10/15/17 05:37 Baso % (Auto) 0.7 % (0-2) 10/15/17 05:37 Absolute Neuts (auto) 3.1 10^3/ul (1.5-7.7) 10/15/17 05:37 Absolute Lymphs (auto) 1.6 10^3/ul (1.0-4.8) 10/15/17 05:37 Absolute Monos (auto) 0.7 10^3/ul (0-0.8) 10/15/17 05:37 Absolute Eos (auto) 0.3 10^3/ul (0-0.6) 10/15/17 05:37 Absolute Basos (auto) 0 10^3/ul (0-0.2) 10/15/17 05:37 Absolute Nucleated RBC 0 10^3/ul 10/15/17 05:37 Nucleated RBC % 0.1 10/15/17 05:37 Sodium 140 mmol/L (135-145) 10/15/17 05:37 Potassium 4.2 mmol/L (3.5-5.0) 10/15/17 05:37 Chloride 106 mmol/L (101-111) 10/15/17 05:37 Carbon Dioxide 27 mmol/L (22-32) 10/15/17 05:37 Anion Gap 7 mmol/L (2-11) 10/15/17 05:37 BUN 16 mg/dL (6-24) 10/15/17 05:37 Creatinine 0.89 mg/dL (0.67-1.17) 10/15/17 05:37 Est GFR ( Amer) 112.9 (>60) 10/15/17 05:37 Est GFR (Non-Af Amer) 93.3 (>60) 10/15/17 05:37 BUN/Creatinine Ratio 18.0 (8-20) 10/15/17 05:37 Glucose 105 mg/dL (70-100) H 10/15/17 05:37 Calcium 8.8 mg/dL (8.6-10.3) 10/15/17 05:37 Total Bilirubin 0.20 mg/dL (0.2-1.0) 10/15/17 05:37 AST 13 U/L (13-39) 10/15/17 05:37 ALT 20 U/L (7-52) 10/15/17 05:37 Alkaline Phosphatase 87 U/L (34-104) 10/15/17 05:37 Total Creatine Kinase 37 U/L (10-223) 10/14/17 09:35 C-Reactive Protein 54.65 mg/L (<8.01) H 10/15/17 05:37 Total Protein 6.4 g/dL (6.4-8.9) 10/15/17 05:37 Albumin 3.3 g/dL (3.2-5.2) 10/15/17 05:37 Globulin 3.1 g/dL (2-4) 10/15/17 05:37 Albumin/Globulin Ratio 1.1 (1-3) 10/15/17 05:37 Vancomycin Trough 16.4 mcg/mL 10/14/17 17:53
[2017-10-16] MEDS ORDERED: Iohexol 350* (CONTRAST) 500 ML MDV IV ONE (15:01)
[2017-10-16] MEDS: Ondansetron ODT TAB* 4 MG PO PRN (16:33)
--- NOTE | 2017-10-16 17:21 | RAD ---
INDICATION: Shortness of breath in a patient with a thrombosed right basilic vein COMPARISON: Similar examination dated April 05, 2008. TECHNIQUE: Axial source images were acquired following the administration of intravenously and utilizing CT angiographic technique. Coronal and sagittal reconstructed images were constructed and reviewed. FINDINGS: There is a left upper extremity PICC line with the tip terminating at the cavoatrial junction. There there are no filling defects in the pulmonary arteries to indicate acute pulmonary embolic disease. There are no focal infiltrates or effusions. There are no pulmonary parenchymal masses. The heart is normal in size. There is no evidence of pericardial effusion. There is no evidence of aortic aneurysm or dissection. There is no mediastinal, hilar, or axillary lymphadenopathy. The visualized osseous structures appear normal. Limited views of the upper abdomen show no abnormalities. IMPRESSION: No CT of evidence of pulmonary embolism or other CT apparent acute abnormality that would account for the patient's current symptoms.
--- NOTE | 2017-10-16 18:21 | PN ---
Hospitalist Progress Note Date of Service: 10/16/17 Medication consultation requested by orthopedics. Patient has ruled in for basilic vein occlusive thrombosis 2/2 midline. Midline was pulled, will have PICC inserted. Patient was placed on lovenox, however, upon reviewing US results , would recommend Eliquis to manage DVT. Patient agreeable to starting Eliquis tonight. Lovenox DCd. First dose tonight at 9pm. Will require 10mg PO BID x7 days then 5mg PO BID thereafter. Also discussed SOMA with patient and CTA results. CTA negative for PE. Would recommend holding gabapentin tonight and just giving SOMA and monitoring for effect. Patient agreeable, primary RN aware. Discussed with NEAL Riggs/zeus.
[2017-10-16] MEDS: Carisoprodol TAB* 350 MG PO SCH (20:01)
[2017-10-16] MEDS: Apixaban* 5 MG TAB PO SCH (20:01)
[2017-10-16] MEDS: Nicotine Patch Removal NOTE PATCH OFF SCH (20:18)
[2017-10-16] MEDS: Carisoprodol TAB* 350 MG PO PRN (23:14)
[2017-10-17] MEDS: Aspirin 81 mg CHEW TAB* 81 MG TAB.CHEW PO SCH (08:40)
[2017-10-17] MEDS: Apixaban* 5 MG TAB PO SCH ×2 (08:41→21:51)
[2017-10-17] MEDS: Carisoprodol TAB* 350 MG PO PRN (08:41)
[2017-10-17] MEDS: Nicotine PATCH 14 MG/24 HR* PATCH TRANSDERM SCH (08:43)
[2017-10-17] MEDS: Vancomycin 1500 MG IV - Q8H IVPB SCH ×4 (08:44→17:41)
[2017-10-17] MEDS: Ondansetron ODT TAB* 4 MG PO PRN ×2 (10:36→19:26)
--- NOTE | 2017-10-17 12:05 | PN ---
Progress Note - Progress Note Date of Service: 10/17/17 SOAP: Subjective: []Patient seen at bedside for reported withdrawal symptoms of anxiety and sweats. Denies chest pain, shortness of breath, heart palpitations, dizziness, nausea. Right arm pain and tenderness have resolved. Patient reports he has had withdrawal in the past and chooses to tolerate it without reintroducing narcotics. He is agreeable to PRN valium to help control anxiety. Objective: []General: Well appearing, NAD. RUE without erythema, edema or palpable cord. LUE with PICC in place Radial pulse 2+ and regular Assessment: [] S/P right knee washout/ poly exchange Plan: []WBAT Continue to work ROM Valium 5 mg TID PRN Has an order for oxycodone 5 mg Q 6 hr PRN if needed to taper, though patient refuses a taper at this time
[2017-10-17] MEDS: Diazepam TAB(*) 5 MG PO PRN (12:59)
[2017-10-17] MEDS: oxyCODONE TAB* 5 MG TAB PO PRN (19:24)
[2017-10-17] MEDS: Nicotine Inhaler* 10 MG AMP INH PRN (19:36)
[2017-10-17] MEDS: Carisoprodol TAB* 350 MG PO SCH (21:50)
[2017-10-17] MEDS: Nicotine Patch Removal NOTE PATCH OFF SCH (22:35)
[2017-10-18] MEDS: Vancomycin 1500 MG IV - Q8H IVPB SCH ×8 (01:25→16:37)
[2017-10-18] MEDS: oxyCODONE TAB* 5 MG TAB PO PRN ×4 (01:59→22:50)
[2017-10-18] MEDS: Aspirin 81 mg CHEW TAB* 81 MG TAB.CHEW PO SCH (08:21)
[2017-10-18] MEDS: Nicotine PATCH 14 MG/24 HR* PATCH TRANSDERM SCH (08:22)
[2017-10-18] MEDS: Apixaban* 5 MG TAB PO SCH ×2 (08:30→21:06)
[2017-10-18] MEDS: Analgesic BALM* 114 GM TOPICAL PRN (19:36)
[2017-10-18] MEDS: Carisoprodol TAB* 350 MG PO SCH (21:05)
[2017-10-18] MEDS: Carisoprodol TAB* 350 MG PO PRN (21:06)
[2017-10-18] MEDS: Nicotine Patch Removal NOTE PATCH OFF SCH (21:07)
[2017-10-18] MEDS ORDERED: Calcium Carbonate CHEW TAB* 500 MG (TUMS) PO ONE (23:07)
[2017-10-19] MEDS: Vancomycin 1500 MG IV - Q8H IVPB SCH ×6 (00:48→17:31)
[2017-10-19] MEDS: oxyCODONE TAB* 5 MG TAB PO PRN ×3 (07:47→21:22)
[2017-10-19] MEDS: Carisoprodol TAB* 350 MG PO PRN ×2 (07:48→21:21)
[2017-10-19 08:26] LABS: EGFR Non-African American 102.5 (>60)
[2017-10-19 08:39] LABS: Vancomycin Trough 16.4 mcg/mL
[2017-10-19] MEDS ORDERED: Vancomycin Trough Check NOTE FOLLOW UP ONE (09:30)
[2017-10-19] MEDS: Aspirin 81 mg CHEW TAB* 81 MG TAB.CHEW PO SCH (09:31)
[2017-10-19] MEDS: Apixaban* 5 MG TAB PO SCH ×2 (09:31→21:22)
[2017-10-19] MEDS: Nicotine PATCH 14 MG/24 HR* PATCH TRANSDERM SCH (09:31)
[2017-10-19] MEDS: Cyclobenzaprine TAB* 10 MG PO PRN (19:00)
[2017-10-19] MEDS: Carisoprodol TAB* 350 MG PO SCH (21:21)
[2017-10-19] MEDS: Nicotine Patch Removal NOTE PATCH OFF SCH (21:23)
[2017-10-19] MEDS ORDERED: Morphine INJ* 2 MG/ML 1 ML SYRINGE (TWO MG - NEW SYRINGE VERSION) IV ONE (23:01)
[2017-10-20] MEDS: Vancomycin 1500 MG IV - Q8H IVPB SCH ×6 (00:44→15:54)
[2017-10-20] MEDS: Aspirin 81 mg CHEW TAB* 81 MG TAB.CHEW PO SCH (08:07)
[2017-10-20] MEDS: Apixaban* 5 MG TAB PO SCH ×2 (08:07→21:38)
[2017-10-20] MEDS: Nicotine PATCH 14 MG/24 HR* PATCH TRANSDERM SCH (08:07)
[2017-10-20] MEDS: oxyCODONE TAB* 5 MG TAB PO PRN ×3 (08:16→21:39)
[2017-10-20] MEDS: Carisoprodol TAB* 350 MG PO PRN (08:16)
[2017-10-20] MEDS: Carisoprodol TAB* 350 MG PO SCH (21:38)
[2017-10-20] MEDS: Nicotine Patch Removal NOTE PATCH OFF SCH (21:41)
[2017-10-20] MEDS: Nicotine Inhaler* 10 MG AMP INH PRN (22:35)
[2017-10-20] MEDS: Diazepam TAB(*) 5 MG PO PRN (22:35)
[2017-10-21] MEDS: Vancomycin 1500 MG IV - Q8H IVPB SCH ×6 (00:39→15:40)
[2017-10-21] MEDS: oxyCODONE TAB* 5 MG TAB PO PRN ×2 (08:18→17:36)
[2017-10-21] MEDS: Carisoprodol TAB* 350 MG PO PRN (08:19)
[2017-10-21] MEDS: Aspirin 81 mg CHEW TAB* 81 MG TAB.CHEW PO SCH (08:20)
[2017-10-21] MEDS: Apixaban* 5 MG TAB PO SCH ×2 (08:22→21:58)
[2017-10-21] MEDS: Nicotine PATCH 14 MG/24 HR* PATCH TRANSDERM SCH (08:23)
[2017-10-21] MEDS ORDERED: Al Hydrox/Mg Hydrox/Simet LIQ* 30 ML UDC PO PRN (18:10)
[2017-10-21] MEDS: Diazepam TAB(*) 5 MG PO PRN (20:14)
[2017-10-21] MEDS: Carisoprodol TAB* 350 MG PO SCH (21:58)
[2017-10-21] MEDS: Nicotine Patch Removal NOTE PATCH OFF SCH (21:59)
[2017-10-21] MEDS ORDERED: Ibuprofen TAB* 400 MG PO ONE (22:15)
[2017-10-22] MEDS ORDERED: Melatonin 3 MG TAB PO ONE (00:04)
[2017-10-22] MEDS: Vancomycin 1500 MG IV - Q8H IVPB SCH ×4 (00:07→08:22)
[2017-10-22] MEDS: oxyCODONE TAB* 5 MG TAB PO PRN ×4 (00:08→23:44)
[2017-10-22 05:57] LABS: ABS Basophils 0 10^3/ul (0-0.2); ABS Eosinophils 0.3 10^3/ul (0-0.6); ABS Lymphocytes 2.2 10^3/ul (1.0-4.8); ABS Monocytes 0.7 10^3/ul (0-0.8); ABS Neutrophils 3.6 10^3/ul (1.5-7.7); ABS Nucleated RBC 0 10^3/ul; Eosinophil % 4.4 % (0-6); Hematocrit 35 % (42-52); Hemoglobin 11.5 g/dl (14.0-18.0); Lymphocyte % 31.9 % (25-47); Mean Corpuscular HGB Conc 33 g/dl (31-36); Mean Corpuscular Hemoglobin 27 pg (27-31); Mean Corpuscular Volume 81 fL (80-94); Mean Platelet Volume 8.2 um3 (7.4-10.4); Nucleated Red Blood Cells % 0.1; Platelet Count 278 10^3/ul (150-450); Red Blood Count 4.26 10^6/ul (4.00-5.40); Red Cell Distribution Width 15 % (10.5-15); White Blood Count 6.9 10^3/ul (3.5-10.8)
[2017-10-22 06:18] LABS: EGFR Non-African American 82.5 (>60)
[2017-10-22 06:29] LABS: Vancomycin Trough 21.3 mcg/mL
[2017-10-22] MEDS: Carisoprodol TAB* 350 MG PO PRN (08:20)
[2017-10-22] MEDS: Apixaban* 5 MG TAB PO SCH ×2 (08:21→21:45)
[2017-10-22] MEDS: Aspirin 81 mg CHEW TAB* 81 MG TAB.CHEW PO SCH (08:21)
[2017-10-22] MEDS: Nicotine PATCH 14 MG/24 HR* PATCH TRANSDERM SCH (08:22)
--- NOTE | 2017-10-22 09:18 | PN ---
Progress Note - Progress Note Date of Service: 10/22/17 SOAP: Subjective: CC: knee infection HPI: 42 year old man with prosthetic right knee infection s/p I&D and liner exchange; on IV antibiotics, tolerating them well. No fever rash or diarrhea. Has a retro-orbital headache since last night, mild, hasn't tried anything for it. Objective: Vital Signs Temp 36.6 C 10/21/17 18:12 Pulse 102 10/21/17 18:12 Resp 18 10/22/17 08:20 BP 154/94 10/21/17 18:12 Pulse Ox 99 10/21/17 18:12 Intake & Output 10/21/17 10/22/17 10/22/17 18:59 06:59 18:59 Intake Total 280 325 Balance 280 325 Intake: IV Fluids 280 all fluids 280 IVPB 325 ABX - VANCOMYCIN 265 NS (0.9%) 60 Oral 0 Other: Estimated Void Medium # Voids 3 Gen:awake, no distress HEENT: no thrush Heart:RRR no murmur Lungs:CTA BL Abd:+BS NTND soft Skin: no rash MSK: R knee no erythema or tenderness Laboratory Results - last 24 hr 10/22/17 10/22/17 05:30 05:30 WBC 6.9 RBC 4.26 Hgb 11.5 L Hct 35 L MCV 81 MCH 27 MCHC 33 RDW 15 Plt Count 278 MPV 8.2 Neut % (Auto) 52.9 Lymph % (Auto) 31.9 [place] % (Auto) 10.2 H Eos % (Auto) 4.4 Baso % (Auto) 0.6 Absolute Neuts (auto) 3.6 Absolute Lymphs (auto) 2.2 Absolute Monos (auto) 0.7 Absolute Eos (auto) 0.3 Absolute Basos (auto) 0 Absolute Nucleated RBC 0 Nucleated RBC % 0.1 Sodium 139 Potassium 4.3 Chloride 108 Carbon Dioxide 25 Anion Gap 6 BUN 22 Creatinine 0.99 Est GFR ( Amer) 99.8 Est GFR (Non-Af Amer) 82.5 BUN/Creatinine Ratio 22.2 H Glucose 107 H Calcium 8.9 Total Bilirubin 0.30 AST 13 ALT 21 Alkaline Phosphatase 86 C-Reactive Protein 37.00 H Total Protein 6.7 Albumin 3.6 Globulin 3.1 Albumin/Globulin Ratio 1.2 Vancomycin Trough 21.3 Assessment: 1. 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 PCN allergy as a child 3. elevated CRP, improving 4. right basilic vein thrombus associated with midline; on anticoagulation Plan: 1. vancomycin goal tr 15-20, day 27/ w weekly cbc cmp crp 2. eliquis for DVT, will hold on rifampin as it decreases NOAC levels in unpredictable ways
--- NOTE | 2017-10-22 12:25 | PN ---
Progress Note - Progress Note Date of Service: 10/22/17 SOAP: Subjective: []Patient seen at bedside. He feels well with no complaints. Sensation of chest discomfort described previously has resolved with slowing the rate of vancomycin infusion. He has been doing his own PT guided by instructional paperwork but requests PT provider to his bedside. Objective: []General: Well appearing, NAD RUE: No erythema, edema or tenderness to palpation RLE: Incision well healed, CDI. No erythema, nontender to palption. Normal gait. 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 New order placed, will discuss options with PT Vital Signs Temp 97.9 F 10/21/17 18:12 Pulse 102 10/21/17 18:12 Resp 18 10/22/17 08:20 BP 154/94 10/21/17 18:12 Pulse Ox 99 10/21/17 18:12 Intake & Output 10/21/17 10/22/17 10/22/17 18:59 06:59 18:59 Intake Total 280 325 120 Balance 280 325 120 Intake: IV Fluids 280 all fluids 280 IVPB 325 ABX - VANCOMYCIN 265 NS (0.9%) 60 Oral 0 120 Other: Estimated Void Medium # Voids 3 Laboratory Last Values WBC 6.9 10^3/ul (3.5-10.8) 10/22/17 05:30 RBC 4.26 10^6/ul (4.00-5.40) 10/22/17 05:30 Hgb 11.5 g/dl (14.0-18.0) L 10/22/17 05:30 Hct 35 % (42-52) L 10/22/17 05:30 MCV 81 fL (80-94) 10/22/17 05:30 MCH 27 pg (27-31) 10/22/17 05:30 MCHC 33 g/dl (31-36) 10/22/17 05:30 RDW 15 % (10.5-15) 10/22/17 05:30 Plt Count 278 10^3/ul (150-450) 10/22/17 05:30 MPV 8.2 um3 (7.4-10.4) 10/22/17 05:30 Neut % (Auto) 52.9 % (38-83) 10/22/17 05:30 Lymph % (Auto) 31.9 % (25-47) 10/22/17 05:30 [place] % (Auto) 10.2 % (0-7) H 10/22/17 05:30 Eos % (Auto) 4.4 % (0-6) 10/22/17 05:30 Baso % (Auto) 0.6 % (0-2) 10/22/17 05:30 Absolute Neuts (auto) 3.6 10^3/ul (1.5-7.7) 10/22/17 05:30 Absolute Lymphs (auto) 2.2 10^3/ul (1.0-4.8) 10/22/17 05:30 Absolute Monos (auto) 0.7 10^3/ul (0-0.8) 10/22/17 05:30 Absolute Eos (auto) 0.3 10^3/ul (0-0.6) 10/22/17 05:30 Absolute Basos (auto) 0 10^3/ul (0-0.2) 10/22/17 05:30 Absolute Nucleated RBC 0 10^3/ul 10/22/17 05:30 Nucleated RBC % 0.1 10/22/17 05:30 Sodium 139 mmol/L (135-145) 10/22/17 05:30 Potassium 4.3 mmol/L (3.5-5.0) 10/22/17 05:30 Chloride 108 mmol/L (101-111) 10/22/17 05:30 Carbon Dioxide 25 mmol/L (22-32) 10/22/17 05:30 Anion Gap 6 mmol/L (2-11) 10/22/17 05:30 BUN 22 mg/dL (6-24) 10/22/17 05:30 Creatinine 0.99 mg/dL (0.67-1.17) 10/22/17 05:30 Est GFR ( Amer) 99.8 (>60) 10/22/17 05:30 Est GFR (Non-Af Amer) 82.5 (>60) 10/22/17 05:30 BUN/Creatinine Ratio 22.2 (8-20) H 10/22/17 05:30 Glucose 107 mg/dL (70-100) H 10/22/17 05:30 Calcium 8.9 mg/dL (8.6-10.3) 10/22/17 05:30 Total Bilirubin 0.30 mg/dL (0.2-1.0) 10/22/17 05:30 AST 13 U/L (13-39) 10/22/17 05:30 ALT 21 U/L (7-52) 10/22/17 05:30 Alkaline Phosphatase 86 U/L (34-104) 10/22/17 05:30 Total Creatine Kinase 37 U/L (10-223) 10/14/17 09:35 C-Reactive Protein 37.00 mg/L (<8.01) H 10/22/17 05:30 Total Protein 6.7 g/dL (6.4-8.9) 10/22/17 05:30 Albumin 3.6 g/dL (3.2-5.2) 10/22/17 05:30 Globulin 3.1 g/dL (2-4) 10/22/17 05:30 Albumin/Globulin Ratio 1.2 (1-3) 10/22/17 05:30 Vancomycin Trough 21.3 mcg/mL 10/22/17 05:30
[2017-10-22] MEDS: Nicotine Patch Removal NOTE PATCH OFF SCH (21:45)
[2017-10-22] MEDS: Vancomycin(*) 1,000 MG in NS 0.9% 250 ML* 250 ML IVPB SCH (23:32)
[2017-10-22] MEDS: Carisoprodol TAB* 350 MG PO SCH (23:32)
[2017-10-22] MEDS: Melatonin 3 MG TAB PO SCH (23:33)
[2017-10-23] MEDS: Apixaban* 5 MG TAB PO SCH ×2 (07:38→21:19)
[2017-10-23] MEDS: Aspirin 81 mg CHEW TAB* 81 MG TAB.CHEW PO SCH (07:38)
[2017-10-23] MEDS: oxyCODONE TAB* 5 MG TAB PO PRN ×3 (07:39→21:30)
[2017-10-23] MEDS: Carisoprodol TAB* 350 MG PO PRN (07:40)
[2017-10-23] MEDS: Nicotine PATCH 14 MG/24 HR* PATCH TRANSDERM SCH (07:52)
[2017-10-23 08:17] LABS: EGFR Non-African American 92.1 (>60)
[2017-10-23 09:02] LABS: Vancomycin Trough 8.3 mcg/mL
[2017-10-23] MEDS: Vancomycin(*) 1,000 MG in NS 0.9% 250 ML* 250 ML IVPB SCH ×2 (09:38→15:32)
[2017-10-23] MEDS: Nicotine Inhaler* 10 MG AMP INH PRN (09:40)
[2017-10-23] MEDS ORDERED: Ibuprofen TAB* 600 MG PO ONE (20:11)
[2017-10-23] MEDS: Carisoprodol TAB* 350 MG PO SCH (21:19)
[2017-10-23] MEDS: Diazepam TAB(*) 5 MG PO PRN (21:31)
[2017-10-23] MEDS: Nicotine Patch Removal NOTE PATCH OFF SCH (21:33)
[2017-10-24] MEDS: Melatonin 3 MG TAB PO SCH ×2 (01:09→21:46)
[2017-10-24] MEDS: Vancomycin(*) 1,000 MG in NS 0.9% 250 ML* 250 ML IVPB SCH ×2 (01:10→09:57)
[2017-10-24] MEDS ORDERED: Vancomycin Trough Check NOTE FOLLOW UP ONE (08:00)
[2017-10-24] MEDS: oxyCODONE TAB* 5 MG TAB PO PRN ×3 (09:52→22:22)
[2017-10-24] MEDS: Carisoprodol TAB* 350 MG PO PRN (09:55)
[2017-10-24] MEDS: Apixaban* 5 MG TAB PO SCH ×2 (09:56→21:46)
[2017-10-24] MEDS: Nicotine PATCH 14 MG/24 HR* PATCH TRANSDERM SCH (09:56)
[2017-10-24] MEDS: Aspirin 81 mg CHEW TAB* 81 MG TAB.CHEW PO SCH (09:56)
[2017-10-24] MEDS: Diazepam TAB(*) 5 MG PO PRN (15:11)
[2017-10-24] MEDS: Vancomycin(*) 1,250 MG in NS 0.9% 250 ML* 250 ML IVPB SCH (16:06)
[2017-10-24] MEDS: Carisoprodol TAB* 350 MG PO SCH (21:46)
[2017-10-24] MEDS: Nicotine Patch Removal NOTE PATCH OFF SCH (21:47)
[2017-10-25] MEDS: Vancomycin(*) 1,250 MG in NS 0.9% 250 ML* 250 ML IVPB SCH ×3 (00:15→16:35)
[2017-10-25] MEDS: oxyCODONE TAB* 5 MG TAB PO PRN ×3 (08:09→22:38)
[2017-10-25] MEDS: Nicotine PATCH 14 MG/24 HR* PATCH TRANSDERM SCH (08:09)
[2017-10-25] MEDS: Apixaban* 5 MG TAB PO SCH ×2 (08:10→20:49)
[2017-10-25] MEDS: Aspirin 81 mg CHEW TAB* 81 MG TAB.CHEW PO SCH (08:11)
[2017-10-25] MEDS: Diazepam TAB(*) 5 MG PO PRN (08:12)
[2017-10-25] MEDS: Nicotine Inhaler* 10 MG AMP INH PRN (11:48)
[2017-10-25] MEDS: Carisoprodol TAB* 350 MG PO SCH (20:49)
[2017-10-25] MEDS: Nicotine Patch Removal NOTE PATCH OFF SCH (20:54)
[2017-10-25] MEDS ORDERED: traZODone TAB* 50 MG TAB PO ONE (21:00)
[2017-10-26] MEDS: Vancomycin(*) 1,250 MG in NS 0.9% 250 ML* 250 ML IVPB SCH ×2 (00:35→09:15)
[2017-10-26] MEDS: Melatonin 3 MG TAB PO SCH ×2 (04:38→20:48)
[2017-10-26] MEDS ORDERED: Vancomycin Trough Check NOTE FOLLOW UP ONE (07:30)
--- NOTE | 2017-10-26 07:32 | PN ---
Progress Note - Progress Note Date of Service: 10/26/17 SOAP: Subjective: Pt. is alert, reports R knee pain with stairs. Objective: Vital Signs: Temp Pulse Resp BP Pulse Ox 97.7 F 99 20 142/86 98 10/25/17 08:04 10/25/17 15:59 10/26/17 01:00 10/25/17 15:59 10/25/17 15:59 RLE - incision is healed, no erythema, mild effusion, 0-110 degrees of motion. distally nvi. Assessment: 42 yo M admitted for RTKA infection - s/p I and D with continued hospitalization for IV Abx Plan: IV vanco wbat aat plan for po abx and discharge next week coumadin po for dvt proph
[2017-10-26 07:46] LABS: EGFR Non-African American 95.8 (>60)
[2017-10-26 07:53] LABS: Vancomycin Trough 13.4 mcg/mL
[2017-10-26] MEDS: Nicotine PATCH 14 MG/24 HR* PATCH TRANSDERM SCH (09:16)
[2017-10-26] MEDS: Apixaban* 5 MG TAB PO SCH ×2 (09:16→20:48)
[2017-10-26] MEDS: Aspirin 81 mg CHEW TAB* 81 MG TAB.CHEW PO SCH (09:16)
[2017-10-26] MEDS: oxyCODONE TAB* 5 MG TAB PO PRN ×3 (09:16→22:33)
[2017-10-26] MEDS ORDERED: Vancomycin(*) 1,500 MG in NS 0.9% 250 ML* 250 ML IVPB SCH (09:31)
[2017-10-26] MEDS: LORazepam TAB(*) 0.5 MG PO PRN ×2 (16:39→21:41)
[2017-10-26] MEDS: Vancomycin(*) 1,500 MG in NS 0.9% 250 ML* 250 ML IVPB SCH (16:39)
[2017-10-26] MEDS: Nicotine Inhaler* 10 MG AMP INH PRN (17:44)
[2017-10-26] MEDS: Carisoprodol TAB* 350 MG PO SCH (20:47)
[2017-10-26] MEDS: Nicotine Patch Removal NOTE PATCH OFF SCH (20:52)
[2017-10-27] MEDS: Vancomycin(*) 1,500 MG in NS 0.9% 250 ML* 250 ML IVPB SCH ×3 (00:57→17:21)
[2017-10-27] MEDS: Apixaban* 5 MG TAB PO SCH ×2 (09:12→23:01)
[2017-10-27] MEDS: Aspirin 81 mg CHEW TAB* 81 MG TAB.CHEW PO SCH (09:12)
[2017-10-27] MEDS: Nicotine PATCH 14 MG/24 HR* PATCH TRANSDERM SCH (09:12)
[2017-10-27] MEDS: Carisoprodol TAB* 350 MG PO PRN (09:16)
[2017-10-27] MEDS: oxyCODONE TAB* 5 MG TAB PO PRN ×3 (09:17→23:02)
[2017-10-27] MEDS ORDERED: Alteplase (CATHFLO)* 2 MG VIAL IV ONE (09:30)
[2017-10-27] MEDS: Nicotine Inhaler* 10 MG AMP INH PRN ×3 (09:37→23:03)
[2017-10-27] MEDS: LORazepam TAB(*) 0.5 MG PO PRN ×2 (15:52→23:02)
[2017-10-27] MEDS: traZODone TAB* 50 MG TAB PO PRN (23:01)
[2017-10-27] MEDS: Carisoprodol TAB* 350 MG PO SCH (23:01)
[2017-10-27] MEDS: Melatonin 3 MG TAB PO SCH (23:29)
[2017-10-27] MEDS: Nicotine Patch Removal NOTE PATCH OFF SCH (23:30)
[2017-10-28] MEDS: Vancomycin(*) 1,500 MG in NS 0.9% 250 ML* 250 ML IVPB SCH ×3 (00:46→17:17)
[2017-10-28] MEDS ORDERED: Vancomycin Trough Check NOTE FOLLOW UP ONE (08:30)
[2017-10-28] MEDS: LORazepam TAB(*) 0.5 MG PO PRN ×2 (08:54→15:23)
[2017-10-28] MEDS: Apixaban* 5 MG TAB PO SCH ×2 (08:54→21:57)
[2017-10-28] MEDS: Gabapentin CAP(*) 300 MG PO PRN (08:54)
[2017-10-28] MEDS: oxyCODONE TAB* 5 MG TAB PO PRN ×2 (08:55→17:16)
[2017-10-28] MEDS: Nicotine Inhaler* 10 MG AMP INH PRN ×3 (08:55→18:48)
[2017-10-28] MEDS: Aspirin 81 mg CHEW TAB* 81 MG TAB.CHEW PO SCH (08:55)
[2017-10-28] MEDS: Nicotine PATCH 14 MG/24 HR* PATCH TRANSDERM SCH (08:55)
[2017-10-28] MEDS: Carisoprodol TAB* 350 MG PO PRN (09:49)
[2017-10-28] MEDS: Nicotine Patch Removal NOTE PATCH OFF SCH (19:47)
[2017-10-28] MEDS: Carisoprodol TAB* 350 MG PO SCH (21:58)
[2017-10-28] MEDS: Melatonin 3 MG TAB PO SCH (21:59)
[2017-10-28] MEDS: traZODone TAB* 50 MG TAB PO PRN (21:59)
[2017-10-29] MEDS: Vancomycin(*) 1,500 MG in NS 0.9% 250 ML* 250 ML IVPB SCH ×3 (01:19→17:49)
[2017-10-29] MEDS: oxyCODONE TAB* 5 MG TAB PO PRN ×3 (04:27→20:03)
[2017-10-29 04:47] LABS: ABS Basophils 0 10^3/ul (0-0.2); ABS Eosinophils 0.3 10^3/ul (0-0.6); ABS Monocytes 0.7 10^3/ul (0-0.8); ABS Neutrophils 3.6 10^3/ul (1.5-7.7); ABS Nucleated RBC 0 10^3/ul; Eosinophil % 4.6 % (0-6); Hematocrit 35 % (42-52); Hemoglobin 11.5 g/dl (14.0-18.0); Lymphocyte % 29.9 % (25-47); Mean Corpuscular HGB Conc 33 g/dl (31-36); Mean Corpuscular Hemoglobin 27 pg (27-31); Mean Corpuscular Volume 81 fL (80-94); Mean Platelet Volume 8.5 um3 (7.4-10.4); Nucleated Red Blood Cells % 0; Platelet Count 249 10^3/ul (150-450); Red Blood Count 4.31 10^6/ul (4.00-5.40); Red Cell Distribution Width 16 % (10.5-15); White Blood Count 6.6 10^3/ul (3.5-10.8)
[2017-10-29 04:59] LABS: Vancomycin Trough 24.5 mcg/mL
[2017-10-29 05:00] LABS: EGFR Non-African American 79.7 (>60)
[2017-10-29] MEDS: Apixaban* 5 MG TAB PO SCH ×2 (09:23→20:04)
[2017-10-29] MEDS: Nicotine PATCH 14 MG/24 HR* PATCH TRANSDERM SCH (09:23)
[2017-10-29] MEDS: Aspirin 81 mg CHEW TAB* 81 MG TAB.CHEW PO SCH (09:23)
--- NOTE | 2017-10-29 09:23 | PN ---
Progress Note - Progress Note Date of Service: 10/29/17 SOAP: Subjective: CC: knee infection HPI: 42 year old man with prosthetic right knee infection s/p I&D and liner exchange; on IV antibiotics, tolerating them well. No fever rash or diarrhea. Right knee gave out last week and since then more knee swelling and pain over the weekend, worse with weight bearing. Using oxycodone with slight improvement. Objective: Vital Signs Temp 36.2 C 10/28/17 07:50 Pulse 70 10/28/17 07:50 Resp 18 10/29/17 06:39 BP 118/64 10/28/17 07:50 Pulse Ox 98 10/28/17 07:50 Intake & Output 10/28/17 10/29/17 10/29/17 18:59 06:59 18:59 Intake Total 960 310 Balance 960 310 Intake: IV Fluids 310 all fluids 310 Oral 960 0 Gen:awake, no distress HEENT: no thrush Heart:RRR no murmur Lungs:CTA BL Abd:+BS NTND soft Skin: no rash MSK: R knee no erythema, incision healed; small effusion and medial tenderness Laboratory Results - last 24 hr 10/29/17 10/29/17 04:30 04:30 WBC 6.6 RBC 4.31 Hgb 11.5 L Hct 35 L MCV 81 MCH 27 MCHC 33 RDW 16 H Plt Count 249 MPV 8.5 Neut % (Auto) 55.1 Lymph % (Auto) 29.9 [place] % (Auto) 9.9 H Eos % (Auto) 4.6 Baso % (Auto) 0.5 Absolute Neuts (auto) 3.6 Absolute Lymphs (auto) 2.0 Absolute Monos (auto) 0.7 Absolute Eos (auto) 0.3 Absolute Basos (auto) 0 Absolute Nucleated RBC 0 Nucleated RBC % 0 Sodium 139 Potassium 4.0 Chloride 108 Carbon Dioxide 26 Anion Gap 5 BUN 18 Creatinine 1.02 Est GFR ( Amer) 96.5 Est GFR (Non-Af Amer) 79.7 BUN/Creatinine Ratio 17.6 Glucose 120 H Calcium 8.8 Total Bilirubin 0.20 AST 11 L ALT 18 Alkaline Phosphatase 89 C-Reactive Protein 29.75 H Total Protein 6.6 Albumin 3.5 Globulin 3.1 Albumin/Globulin Ratio 1.1 Vancomycin Trough 24.5 Assessment: 1. right knee pain with slight incr in effusion, crp continues to improve 2. 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 PCN allergy as a child 4. elevated CRP, continues to improve 5. right basilic vein thrombus associated with midline; on anticoagulation Plan: 1. vancomycin goal tr 15-20, day 34/42 w weekly cbc cmp crp 2. eliquis for DVT, will hold on rifampin as it decreases NOAC levels in unpredictable ways 3. will check w ortho on incr pain which I think is less likely related to infection; he is anticoag ?hematoma
[2017-10-29] MEDS: Carisoprodol TAB* 350 MG PO PRN (09:31)
[2017-10-29] MEDS: Nicotine Inhaler* 10 MG AMP INH PRN ×3 (09:31→17:55)
[2017-10-29] MEDS: LORazepam TAB(*) 0.5 MG PO PRN ×2 (09:32→20:04)
[2017-10-29] MEDS: Cyclobenzaprine TAB* 10 MG PO PRN (12:05)
--- NOTE | 2017-10-29 12:40 | PN ---
Progress Note - Progress Note Date of Service: 10/29/17 SOAP: Subjective: []Patient seen at bedside. He reports increased right knee pain with the feeling of instability after knee buckled while walking last week. Denies CP, SOB, Dizziness, headache, nausea, fever, chills or knee redness. Objective: []General: Appears calm and comfortable in bed, no acute distress RLE: Incision well healed, CDI. Knee is without erythema, + mild effusion. He is tender over the medial jointline. AROM and PROM 5-90 degrees endpoints limited by pain but no pain within this ROM. Antalgic gait favoring the right knee. Calves supple and nontender without erythema, edema or palpable cords Assessment: []prosthetic right knee infection s/p I&D and liner exchange right basilic vein thrombus Plan: vancomycin goal tr 15-20, day 34/42 w/ weekly cbc cmp crp, vanco trough. Conitnue eliquis for basilic vein thrombus WBAT PT/OT Xray ordered Vital Signs Temp 97.8 F 10/29/17 10:48 Pulse 91 10/29/17 10:48 Resp 18 10/29/17 12:05 BP 153/84 10/29/17 10:48 Pulse Ox 98 10/29/17 10:48 Intake & Output 10/28/17 10/29/17 10/29/17 18:59 06:59 18:59 Intake Total 960 310 200 Balance 960 310 200 Intake: IV Fluids 310 all fluids 310 Oral 960 0 200 Laboratory Last Values WBC 6.6 10^3/ul (3.5-10.8) 10/29/17 04:30 RBC 4.31 10^6/ul (4.00-5.40) 10/29/17 04:30 Hgb 11.5 g/dl (14.0-18.0) L 10/29/17 04:30 Hct 35 % (42-52) L 10/29/17 04:30 MCV 81 fL (80-94) 10/29/17 04:30 MCH 27 pg (27-31) 10/29/17 04:30 MCHC 33 g/dl (31-36) 10/29/17 04:30 RDW 16 % (10.5-15) H 10/29/17 04:30 Plt Count 249 10^3/ul (150-450) 10/29/17 04:30 MPV 8.5 um3 (7.4-10.4) 10/29/17 04:30 Neut % (Auto) 55.1 % (38-83) 10/29/17 04:30 Lymph % (Auto) 29.9 % (25-47) 10/29/17 04:30 [place] % (Auto) 9.9 % (0-7) H 10/29/17 04:30 Eos % (Auto) 4.6 % (0-6) 10/29/17 04:30 Baso % (Auto) 0.5 % (0-2) 10/29/17 04:30 Absolute Neuts (auto) 3.6 10^3/ul (1.5-7.7) 10/29/17 04:30 Absolute Lymphs (auto) 2.0 10^3/ul (1.0-4.8) 10/29/17 04:30 Absolute Monos (auto) 0.7 10^3/ul (0-0.8) 10/29/17 04:30 Absolute Eos (auto) 0.3 10^3/ul (0-0.6) 10/29/17 04:30 Absolute Basos (auto) 0 10^3/ul (0-0.2) 10/29/17 04:30 Absolute Nucleated RBC 0 10^3/ul 10/29/17 04:30 Nucleated RBC % 0 10/29/17 04:30 Sodium 139 mmol/L (135-145) 10/29/17 04:30 Potassium 4.0 mmol/L (3.5-5.0) 10/29/17 04:30 Chloride 108 mmol/L (101-111) 10/29/17 04:30 Carbon Dioxide 26 mmol/L (22-32) 10/29/17 04:30 Anion Gap 5 mmol/L (2-11) 10/29/17 04:30 BUN 18 mg/dL (6-24) 10/29/17 04:30 Creatinine 1.02 mg/dL (0.67-1.17) 10/29/17 04:30 Est GFR ( Amer) 96.5 (>60) 10/29/17 04:30 Est GFR (Non-Af Amer) 79.7 (>60) 10/29/17 04:30 BUN/Creatinine Ratio 17.6 (8-20) 10/29/17 04:30 Glucose 120 mg/dL (70-100) H 10/29/17 04:30 Calcium 8.8 mg/dL (8.6-10.3) 10/29/17 04:30 Total Bilirubin 0.20 mg/dL (0.2-1.0) 10/29/17 04:30 AST 11 U/L (13-39) L 10/29/17 04:30 ALT 18 U/L (7-52) 10/29/17 04:30 Alkaline Phosphatase 89 U/L (34-104) 10/29/17 04:30 Total Creatine Kinase 37 U/L (10-223) 10/14/17 09:35 C-Reactive Protein 29.75 mg/L (<8.01) H 10/29/17 04:30 Total Protein 6.6 g/dL (6.4-8.9) 10/29/17 04:30 Albumin 3.5 g/dL (3.2-5.2) 10/29/17 04:30 Globulin 3.1 g/dL (2-4) 10/29/17 04:30 Albumin/Globulin Ratio 1.1 (1-3) 10/29/17 04:30 Vancomycin Trough 24.5 mcg/mL 10/29/17 04:30
--- NOTE | 2017-10-29 14:18 | RAD ---
HISTORY: sp right knee poly exchange COMPARISONS: September 25, 2017 VIEWS: 2 , Frontal and lateral views of the right knee FINDINGS: BONE DENSITY: Normal. BONES: The patient is status post right knee arthroplasty. There is no hardware failure or osteolysis. JOINTS: The patient is status post right knee arthroplasty. ALIGNMENT: There is no dislocation. SOFT TISSUES: Unremarkable. OTHER FINDINGS: None. IMPRESSION: STATUS POST RIGHT KNEE ARTHROPLASTY.
[2017-10-29] MEDS ORDERED: Mouth Piece, Nicotine* 1 EACH CARTRIDGE ONE (17:54)
[2017-10-29] MEDS: Carisoprodol TAB* 350 MG PO SCH (20:04)
[2017-10-29] MEDS: Melatonin 3 MG TAB PO SCH (23:08)
[2017-10-29] MEDS: traZODone TAB* 50 MG TAB PO PRN (23:08)
[2017-10-29] MEDS: Nicotine Patch Removal NOTE PATCH OFF SCH (23:09)
[2017-10-30] MEDS: Vancomycin(*) 1,500 MG in NS 0.9% 250 ML* 250 ML IVPB SCH ×3 (01:55→17:42)
[2017-10-30] MEDS: Nicotine Inhaler* 10 MG AMP INH PRN ×2 (09:20→16:40)
[2017-10-30] MEDS: Carisoprodol TAB* 350 MG PO PRN (09:20)
[2017-10-30] MEDS: Apixaban* 5 MG TAB PO SCH ×2 (09:20→23:14)
[2017-10-30] MEDS: Nicotine PATCH 14 MG/24 HR* PATCH TRANSDERM SCH (09:20)
[2017-10-30] MEDS: oxyCODONE TAB* 5 MG TAB PO PRN ×3 (09:21→23:15)
[2017-10-30] MEDS: Aspirin 81 mg CHEW TAB* 81 MG TAB.CHEW PO SCH (09:21)
[2017-10-30] MEDS: LORazepam TAB(*) 0.5 MG PO PRN ×3 (09:21→23:15)
[2017-10-30] MEDS: Nicotine Patch Removal NOTE PATCH OFF SCH (22:13)
[2017-10-30] MEDS: Melatonin 3 MG TAB PO SCH (23:14)
[2017-10-30] MEDS: Carisoprodol TAB* 350 MG PO SCH (23:14)
[2017-10-30] MEDS: Cyclobenzaprine TAB* 10 MG PO PRN (23:15)
[2017-10-30] MEDS: traZODone TAB* 50 MG TAB PO PRN (23:17)
[2017-10-31] MEDS: Vancomycin(*) 1,500 MG in NS 0.9% 250 ML* 250 ML IVPB SCH ×4 (01:17→16:55)
[2017-10-31] MEDS ORDERED: oxyCODONE TAB* 5 MG TAB PO PRN (08:20)
[2017-10-31] MEDS ORDERED: Vancomycin Trough Check NOTE FOLLOW UP ONE (08:30)
[2017-10-31] MEDS ORDERED: NS 0.9% 250 ML* 250 ML ONE (09:41)
[2017-10-31] MEDS: Nicotine PATCH 14 MG/24 HR* PATCH TRANSDERM SCH (09:43)
[2017-10-31] MEDS: Apixaban* 5 MG TAB PO SCH ×2 (09:43→19:59)
[2017-10-31] MEDS: Aspirin 81 mg CHEW TAB* 81 MG TAB.CHEW PO SCH (09:44)
[2017-10-31] MEDS: LORazepam TAB(*) 0.5 MG PO PRN (09:54)
[2017-10-31] MEDS: Nicotine Inhaler* 10 MG AMP INH PRN ×2 (13:10→20:58)
[2017-10-31] MEDS: Carisoprodol TAB* 350 MG PO PRN (13:10)
[2017-10-31] MEDS: Nicotine Patch Removal NOTE PATCH OFF SCH (20:01)
[2017-10-31] MEDS: Melatonin 3 MG TAB PO SCH (22:09)
[2017-10-31] MEDS: Carisoprodol TAB* 350 MG PO SCH (22:10)
[2017-10-31] MEDS: traZODone TAB* 50 MG TAB PO PRN (22:10)
[2017-10-31] MEDS: oxyCODONE TAB* 5 MG TAB PO PRN (22:13)
[2017-11-01] MEDS: Vancomycin(*) 1,500 MG in NS 0.9% 250 ML* 250 ML IVPB SCH ×3 (00:55→17:07)
[2017-11-01] MEDS ORDERED: NS 0.9% 250 ML* 250 ML ONE (08:45)
[2017-11-01] MEDS: oxyCODONE TAB* 5 MG TAB PO PRN ×2 (09:06→23:49)
[2017-11-01] MEDS: Aspirin 81 mg CHEW TAB* 81 MG TAB.CHEW PO SCH (09:08)
[2017-11-01] MEDS: Apixaban* 5 MG TAB PO SCH ×2 (09:08→19:37)
[2017-11-01] MEDS: LORazepam TAB(*) 0.5 MG PO PRN ×2 (09:09→19:37)
[2017-11-01] MEDS: Nicotine PATCH 14 MG/24 HR* PATCH TRANSDERM SCH (09:10)
[2017-11-01] MEDS: Nicotine Inhaler* 10 MG AMP INH PRN ×3 (12:23→19:37)
[2017-11-01] MEDS: Carisoprodol TAB* 350 MG PO PRN (12:24)
[2017-11-01] MEDS: Analgesic BALM* 114 GM TOPICAL PRN (20:05)
[2017-11-01] MEDS: Melatonin 3 MG TAB PO SCH (23:50)
[2017-11-01] MEDS: traZODone TAB* 50 MG TAB PO PRN (23:50)
[2017-11-01] MEDS: Carisoprodol TAB* 350 MG PO SCH (23:50)
[2017-11-01] MEDS: Nicotine Patch Removal NOTE PATCH OFF SCH (23:55)
[2017-11-02] MEDS: Vancomycin(*) 1,500 MG in NS 0.9% 250 ML* 250 ML IVPB SCH ×3 (01:07→17:40)
[2017-11-02] MEDS: Nicotine PATCH 14 MG/24 HR* PATCH TRANSDERM SCH (10:50)
[2017-11-02] MEDS: Aspirin 81 mg CHEW TAB* 81 MG TAB.CHEW PO SCH (10:52)
[2017-11-02] MEDS: Apixaban* 5 MG TAB PO SCH ×2 (10:52→21:17)
[2017-11-02] MEDS: Cyclobenzaprine TAB* 10 MG PO PRN ×2 (11:07→21:53)
[2017-11-02] MEDS: LORazepam TAB(*) 0.5 MG PO PRN (11:09)
[2017-11-02] MEDS: Carisoprodol TAB* 350 MG PO PRN (11:10)
[2017-11-02] MEDS: oxyCODONE TAB* 5 MG TAB PO PRN (17:41)
[2017-11-02] MEDS ORDERED: Mouth Piece, Nicotine* 1 EACH CARTRIDGE ONE (19:31)
[2017-11-02] MEDS: Nicotine Inhaler* 10 MG AMP INH PRN (19:37)
[2017-11-02] MEDS: Carisoprodol TAB* 350 MG PO SCH (21:17)
[2017-11-02] MEDS: traZODone TAB* 50 MG TAB PO PRN (21:18)
[2017-11-02] MEDS: Melatonin 3 MG TAB PO SCH (21:18)
[2017-11-02] MEDS: Nicotine Patch Removal NOTE PATCH OFF SCH (21:55)
[2017-11-03] MEDS: Vancomycin(*) 1,500 MG in NS 0.9% 250 ML* 250 ML IVPB SCH ×3 (02:18→17:05)
[2017-11-03] MEDS: Apixaban* 5 MG TAB PO SCH ×2 (09:22→20:16)
[2017-11-03] MEDS: Carisoprodol TAB* 350 MG PO PRN (09:23)
[2017-11-03] MEDS: Aspirin 81 mg CHEW TAB* 81 MG TAB.CHEW PO SCH (09:23)
[2017-11-03] MEDS: Nicotine PATCH 14 MG/24 HR* PATCH TRANSDERM SCH (09:24)
[2017-11-03] MEDS: Cyclobenzaprine TAB* 10 MG PO PRN (13:15)
[2017-11-03] MEDS: Nicotine Inhaler* 10 MG AMP INH PRN (13:17)
[2017-11-03] MEDS ORDERED: oxyCODONE TAB* 5 MG TAB PO ONE (20:00)
[2017-11-03] MEDS: Melatonin 3 MG TAB PO SCH (20:17)
[2017-11-03] MEDS: traZODone TAB* 50 MG TAB PO PRN (20:18)
[2017-11-03] MEDS: Carisoprodol TAB* 350 MG PO SCH (20:18)
[2017-11-03] MEDS: Nicotine Patch Removal NOTE PATCH OFF SCH (20:19)
[2017-11-03] MEDS: oxyCODONE TAB* 5 MG TAB PO PRN (22:06)
[2017-11-03] MEDS: Gabapentin CAP(*) 300 MG PO PRN (22:08)
[2017-11-04] MEDS: Vancomycin(*) 1,500 MG in NS 0.9% 250 ML* 250 ML IVPB SCH ×3 (01:17→16:51)
[2017-11-04] MEDS: Carisoprodol TAB* 350 MG PO PRN (09:29)
[2017-11-04] MEDS: Apixaban* 5 MG TAB PO SCH ×2 (09:29→21:53)
[2017-11-04] MEDS: Aspirin 81 mg CHEW TAB* 81 MG TAB.CHEW PO SCH (09:30)
[2017-11-04] MEDS: Nicotine PATCH 14 MG/24 HR* PATCH TRANSDERM SCH (09:30)
[2017-11-04] MEDS: oxyCODONE TAB* 5 MG TAB PO PRN (16:50)
[2017-11-04] MEDS: Gabapentin CAP(*) 300 MG PO PRN (16:51)
[2017-11-04] MEDS: Nicotine Inhaler* 10 MG AMP INH PRN (16:59)
[2017-11-04] MEDS: Melatonin 3 MG TAB PO SCH (21:53)
[2017-11-04] MEDS: Carisoprodol TAB* 350 MG PO SCH (21:53)
[2017-11-04] MEDS: Cyclobenzaprine TAB* 10 MG PO PRN (21:57)
[2017-11-05] MEDS: Vancomycin(*) 1,500 MG in NS 0.9% 250 ML* 250 ML IVPB SCH (01:54)
[2017-11-05 06:15] LABS: ABS Basophils 0 10^3/ul (0-0.2); ABS Eosinophils 0.4 10^3/ul (0-0.6); ABS Lymphocytes 1.9 10^3/ul (1.0-4.8); ABS Monocytes 0.5 10^3/ul (0-0.8); ABS Nucleated RBC 0 10^3/ul; Eosinophil % 6.4 % (0-6); Hematocrit 38 % (42-52); Hemoglobin 12.5 g/dl (14.0-18.0); Lymphocyte % 33.1 % (25-47); Mean Corpuscular HGB Conc 33 g/dl (31-36); Mean Corpuscular Hemoglobin 27 pg (27-31); Mean Corpuscular Volume 82 fL (80-94); Mean Platelet Volume 8.2 um3 (7.4-10.4); Nucleated Red Blood Cells % 0.2; Platelet Count 257 10^3/ul (150-450); Red Blood Count 4.62 10^6/ul (4.00-5.40); Red Cell Distribution Width 16 % (10.5-15); White Blood Count 5.7 10^3/ul (3.5-10.8)
[2017-11-05 06:31] LABS: EGFR Non-African American 79.7 (>60)
[2017-11-05 06:43] LABS: Vancomycin Trough 22.1 mcg/mL
[2017-11-05] MEDS: Nicotine Patch Removal NOTE PATCH OFF SCH (07:40)
[2017-11-05] MEDS ORDERED: Vancomycin Trough Check NOTE FOLLOW UP ONE (08:30)
[2017-11-05] MEDS: Vancomycin(*) 1,250 MG in NS 0.9% 250 ML* 250 ML IVPB SCH ×2 (09:15→15:59)
[2017-11-05] MEDS: Apixaban* 5 MG TAB PO SCH (09:26)
[2017-11-05] MEDS: Nicotine PATCH 14 MG/24 HR* PATCH TRANSDERM SCH (09:26)
[2017-11-05] MEDS: Aspirin 81 mg CHEW TAB* 81 MG TAB.CHEW PO SCH (09:26)
[2017-11-05 09:30] VITALS: BP 130/91
[2017-11-05] MEDS: oxyCODONE TAB* 5 MG TAB PO PRN (11:46)
[2017-11-05] MEDS: Gabapentin CAP(*) 300 MG PO PRN (11:48)
--- NOTE | 2017-11-05 16:21 | PN ---
Progress Note - Progress Note Date of Service: 11/05/17 SOAP: Subjective: []Patient seen and examined at bedside. He feels well and confirms well controlled right knee pain. He would like to leave with minimal oxycodone and confirms he will not abuse the medication he is given. Denies CP, SOB, fever or chills. Objective: []General: NAD RLE: Incision well healed, CDI. Knee is without erythema or effusion. PROM 0- 110 without pain. Calves supple and nontender without erythema, edema or palpable cords Assessment: []prosthetic right knee infection s/p I&D and liner exchange right basilic vein thrombus Plan: Doxycycline 100 mg PO BID x 6 months per discussion with Dr Myron Lugo eliquis 5 mg PO BID for basilic vein thrombus x a total of 3 months, start date 10/16/17 WBAT PT/OT Fu Dr Smith within 2 weeks REACH called to discuss pain management with opioids vs medical marijuana. Patient given information to contact this facility for pain management options. He is in agreement and does not feel at risk to abuse opioids Vital Signs Temp 97.6 F 11/05/17 07:42 Pulse 76 11/05/17 07:42 Resp 17 11/05/17 13:46 BP 130/91 11/05/17 07:42 Pulse Ox 100 11/05/17 07:42 Intake & Output 11/04/17 11/05/17 11/05/17 18:59 06:59 18:59 Intake Total 580 285 470 Balance 580 285 470 Intake: IV Fluids 580 25 all fluids 580 25 IVPB 260 all fluids 260 Oral 0 0 470 Other: Date of Last Bowel 11/04/17 Movement Laboratory Last Values WBC 5.7 10^3/ul (3.5-10.8) 11/05/17 06:05 RBC 4.62 10^6/ul (4.00-5.40) 11/05/17 06:05 Hgb 12.5 g/dl (14.0-18.0) L 11/05/17 06:05 Hct 38 % (42-52) L 11/05/17 06:05 MCV 82 fL (80-94) 11/05/17 06:05 MCH 27 pg (27-31) 11/05/17 06:05 MCHC 33 g/dl (31-36) 11/05/17 06:05 RDW 16 % (10.5-15) H 11/05/17 06:05 Plt Count 257 10^3/ul (150-450) 11/05/17 06:05 MPV 8.2 um3 (7.4-10.4) 11/05/17 06:05 Neut % (Auto) 51.9 % (38-83) 11/05/17 06:05 Lymph % (Auto) 33.1 % (25-47) 11/05/17 06:05 [place] % (Auto) 8.0 % (0-7) H 11/05/17 06:05 Eos % (Auto) 6.4 % (0-6) H 11/05/17 06:05 Baso % (Auto) 0.6 % (0-2) 11/05/17 06:05 Absolute Neuts (auto) 3.0 10^3/ul (1.5-7.7) 11/05/17 06:05 Absolute Lymphs (auto) 1.9 10^3/ul (1.0-4.8) 11/05/17 06:05 Absolute Monos (auto) 0.5 10^3/ul (0-0.8) 11/05/17 06:05 Absolute Eos (auto) 0.4 10^3/ul (0-0.6) 11/05/17 06:05 Absolute Basos (auto) 0 10^3/ul (0-0.2) 11/05/17 06:05 Absolute Nucleated RBC 0 10^3/ul 11/05/17 06:05 Nucleated RBC % 0.2 11/05/17 06:05 Sodium 139 mmol/L (135-145) 11/05/17 06:05 Potassium 4.4 mmol/L (3.5-5.0) 11/05/17 06:05 Chloride 106 mmol/L (101-111) 11/05/17 06:05 Carbon Dioxide 26 mmol/L (22-32) 11/05/17 06:05 Anion Gap 7 mmol/L (2-11) 11/05/17 06:05 BUN 18 mg/dL (6-24) 11/05/17 06:05 Creatinine 1.02 mg/dL (0.67-1.17) 11/05/17 06:05 Est GFR ( Amer) 96.5 (>60) 11/05/17 06:05 Est GFR (Non-Af Amer) 79.7 (>60) 11/05/17 06:05 BUN/Creatinine Ratio 17.6 (8-20) 11/05/17 06:05 Glucose 104 mg/dL (70-100) H 11/05/17 06:05 Calcium 9.1 mg/dL (8.6-10.3) 11/05/17 06:05 Total Bilirubin 0.30 mg/dL (0.2-1.0) 11/05/17 06:05 AST 13 U/L (13-39) 11/05/17 06:05 ALT 20 U/L (7-52) 11/05/17 06:05 Alkaline Phosphatase 87 U/L (34-104) 11/05/17 06:05 Total Creatine Kinase 37 U/L (10-223) 10/14/17 09:35 C-Reactive Protein 14.28 mg/L (<8.01) H 11/05/17 06:05 Total Protein 6.6 g/dL (6.4-8.9) 11/05/17 06:05 Albumin 3.7 g/dL (3.2-5.2) 11/05/17 06:05 Globulin 2.9 g/dL (2-4) 11/05/17 06:05 Albumin/Globulin Ratio 1.3 (1-3) 11/05/17 06:05 Vancomycin Trough 22.1 mcg/mL 11/05/17 06:05
[2017-11-06] MEDS ORDERED: Vancomycin Trough Check NOTE FOLLOW UP ONE (16:30)
--- NOTE | 2017-11-07 11:59 | DS ---
DISCHARGE SUMMARY: DATE OF ADMISSION: For swing status was 10/10/17. DATE OF DISCHARGE: ATTENDING PROVIDER: Dr. Karla Smith. HISTORY: Mr. Munoz is a 42-year-old male with past medical history of cardiac stent, coronary artery disease, PVNS of the right knee, history of I and D and poly exchange of the right knee, who was admitted to [facility] for swing status on 10/10/17 for the remainder of his IV antibiotics. HOSPITAL COURSE: The patient was admitted to [facility] Swing Status on 10/10/17 and placed on Swing Status for the remainder of his IV vancomycin treatment, which is the duration of 42 days. During his stay, he had weekly CBCs, CMP, CRP and vanco troughs. On 05/21/17, he underwent a Doppler of his right arm due to pain proximal to the site of his mid line, which revealed a clot in the right basilic vein. Hospitalists team was contacted for assistance and treatment. He was placed on Eliquis 10 mg p.o. b.i.d. for 7 days and then transitioned to 5 mg p.o. b.i.d. thereafter for duration of 3 months. A CTA of his chest was done, which negative for pulmonary embolism. During his stay, the patient was weaned down on his dose of oxycodone and narcotics were avoided as much as possible. He utilized muscle relaxants including Soma, cyclobenzaprine and Valium for pain control. He also utilized gabapentin for pain control. He was seen by infectious disease service during his stay. The majority of the patient's stay was uneventful aside from the clot in the right basilic vein as well as on 10/29/17 , he reported pain of his right knee after buckling of the knee. At this time, a knee x-ray was done, which showed no failure of hardware and no fracture. Exam showed active and passive range of motion of 5 to 90 degrees with end points limited by pain. He had an antalgic gait favoring the right knee. These symptoms resolved entirely. On 11/05, he was deemed to be medically and orthopedically stable for discharge home. Incision is well healed, cleaned, dry and intact. Knee is without erythema or effusion. Passive range of motion is 0 to 110 degrees without pain. Calves are supple and nontender without erythema , edema, or palpable cords. His right arm remains without erythema, edema, or palpable cord. It is no longer painful. The patient, per recommendation of infectious disease, will go home on doxycycline 100 mg p.o. b.i.d. for 6 months. He will continue Eliquis 5 mg p.o. b.i.d. for basilic vein thrombus for a total of 3 months starting 10/16/17. He will be weightbearing as tolerated on the right lower extremity. He will follow up with Dr. Smith within 2 weeks. [facility] program was called to discuss pain management with opiates versus medical marijuana. The patient prefers medical marijuana for pain management as a longer-term possibility rather than being on opiates long- term at home. He notes that he needs to wean off of all substances for pain and that he will not abuse any opiates he is given and we will call [facility] right away to discuss the possibility of use of medical marijuana for pain management. The discharge vital signs, 97.6 is his temperature, pulse 76, respiratory rate 17, blood pressure 130/91, pulse ox 100. White blood cell count 5.7, red blood cell count 4.62, hemoglobin 12.5, hematocrit 38, platelet count 257. CRP 14.28, vanco trough 22.1. DISCHARGE MEDICATIONS: 1. Eliquis 5 mg p.o. b.i.d., a 30-day supply is given. The patient understands he will need to be on this for a total duration of 3 months. 2. Doxycycline 100 mg p.o. b.i.d., 30-day supply was given. The patient understands he needs to be on this for 6 months. 3. Oxycodone 2.5 mg p.o. q.8 hours p.r.n. max daily dose of 5 mg daily. 4. Aspirin 81 mg p.o. daily. 5. Gabapentin 300 mg p.o. t.i.d. p.r.n. The patient has a followup with Dr. Cannon later this week or early next week, as he does not have a current primary care doctor. DISCHARGE PLAN: Weightbearing as tolerated, okay to shower. Continue physical therapy and occupational therapy. Exercises as shown. Go to outpatient physical therapy. Pain control with oxycodone 2.5 mg one tablet as often as every 8 hours, but no more than 5 mg total in a day. Wean off completely as soon as pain allows. Gabapentin 300 mg every 8 hours as needed for pain, Eliquis 5 mg p.o. b.i.d. for the remainder of 3 months, start date 10/16/17, stop date 01/15/18. We will then need to repeat Doppler study of the right arm. Doxycycline 100 mg by mouth every 12 hours for 6 months starting . Please follow [facility] program to discuss medical marijuana for pain control. Follow up with Dr. Smith within 14 days. Call for an appointment. Follow up with Dr Cannon for a PCP appt this coming week. NEAL MARTÍNEZ [id number]/NOE #: [id number]
== END 2017-11-05 18:50 | disposition home or self-care (01) | DRG 349 ==
LOC: SSU 14:07 → MED 10-11 13:51
PROVIDERS: ADMIT Orthopaedic Surgery Adult Reconstructive Orthopaedic Surgery; ATTEND Orthopaedic Surgery Adult Reconstructive Orthopaedic Surgery
PROC: 02HV33Z Insertion of Infusion Device into Superior Vena Cava, Percutaneous Approach (ICD-10-PCS; principal; 2017-10-16)
DX: T84.53XA Infection and inflammatory reaction due to internal right knee prosthesis, initial encounter (principal); I82.611 Acute embolism and thrombosis of superficial veins of right upper extremity; F17.210 Nicotine dependence, cigarettes, uncomplicated; F41.9 Anxiety disorder, unspecified; Y79.2 Prosthetic and other implants, materials and accessory orthopedic devices associated with adverse incidents; R51 Headache; Y92.009 Unspecified place in unspecified non-institutional (private) residence as the place of occurrence of the external cause; Z95.5 Presence of coronary angioplasty implant and graft; Z88.1 Allergy status to other antibiotic agents; Z88.0 Allergy status to penicillin
CPT/HCPCS: 36415; 71275; 80053; 80202; 82550; 82565; 84520; 85025; 86140; 93005; 99406; A9270-GY; C1751; J1200; J1650; J2270; J2997; J3370; Q9967

== ENCOUNTER 2018-01-07 07:27 | Observation (INO) | payer OTHER ==
[2018-01-07] MEDS ORDERED: NS 0.9% 1000 ML*IV.FLUID IV ONE (07:36)
[2018-01-07] MEDS ORDERED: Ketorolac INJ* 30 MG/ML 1 ML VIAL IV PUSH ONE (07:36)
[2018-01-07] MEDS ORDERED: Vancomycin(*) 1,750 MG in NS 0.9% 250 ML* 250 ML IVPB ONE (07:50)
--- NOTE | 2018-01-07 07:56 | ED ---
HPI Febrile Illness - HPI Summary HPI Summary: Patient is a 42-year-old male with a history of hypertension and CAD as well as septic joint with recent septic total knee arthroplasty as of [address] Smith presenting to the ED with 4 day history of fevers, sweats, chills, sore throat, mild cough without production, headache and neck stiffness. Decreased by mouth intake over the past 4 days, however continues to endorse good fluid intake. Medications currently include aspirin, Eliquis and doxycycline for his recent septic joint. He states he was admitted to the [facility] service 43 days for IV antibiotics related to the septic joint. He was then discharged 2 months ago with a one-year prescription for daily doxycycline. States he is otherwise healthy, non-smoker. Endorses sick contacts. 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 Endorses dysphagia and odynophagia. Pulses and worsening blood tinged sputum. Endorses some mild chest pain with cough only associated to his sore throat. Denies any photophobia or phonophobia. Denies drug use. Taking ibuprofen at home without relief of symptoms. Endorses darkened cloudy urine without back pain or other UTI symptoms. - History of Current Complaint Chief Complaint: EDFluSymptoms Time Seen by Provider: 01/07/18 07:34 Hx Obtained From: Patient Onset/Duration: Started Hours Ago Timing: Constant Initial Severity: Severe Current Severity: Severe Pain Intensity: 6 Pain Scale Used: 0-10 Numeric Aggravating Factors: Nothing Alleviating Factors: Nothing Associated Signs and Symptoms: Chills, Cough, Diaphoresis, Sore Throat, Stiff Neck - Risk Factors Pseudomonas Risk Factors: Negative Serious Bacterial Infection Risk Factors: Negative - Additional Pertinent History Primary Care Physician: [id number] Diagnosis From Previous Visit: septic knee joint arthroplasty Current Antibiotics: Yes - 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 daily 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 Taken: Ibuprofen: - Allergy/Home Medications Allergies/Adverse Reactions: Allergies Allergy/AdvReac Type Severity Reaction Status Date / Time acetaminophen Allergy Severe Anaphylatic Verified 01/07/18 07:34 Shock amoxicillin Allergy Severe Anaphylatic Verified 01/07/18 07:34 Shock Penicillins Allergy Severe Anaphylatic Verified 01/07/18 07:34 Shock erythromycin base AdvReac Severe GI Upset Verified 01/07/18 07:34 PMH/Surg Hx/FS Hx/Imm Hx Previously Healthy: Yes Endocrine/Hematology History: Denies: Hx Anticoagulant Therapy, Hx Diabetes, Hx Thyroid Disease Cardiovascular History: Reports: Hx Coronary Artery Disease - CARDIAC CATHERIZATION WITH STENT PLACEMENT Denies: Hx Hypertension, Hx Peripheral Vascular Disease Respiratory History: Reports: Other Respiratory Problems/Disorders - SMOKING HISTORY UNTIL 01/29/2013 Denies: Hx Asthma, Hx Chronic Obstructive Pulmonary Disease (COPD) History: Denies: Hx Dialysis Musculoskeletal History: Reports: Other Musculoskeletal History - RIGHT KNEE PIGMENTED VILLONODULAR SYNOVITIS Sensory History: Denies: Hx Cataracts, Hx Contacts or Glasses, Hx Eye Injury, Hx Eye Prosthesis, Hx Glaucoma, Hx Legally Blind, Hx Macular Degeneration, Hx Vision Problem, Hx Deafness, Hx Hearing Aid, Hx Hearing Problem, Other Sensory Impairments Opthamlomology History: Denies: Hx Cataracts, Hx Contacts or Glasses, Hx Eye Injury, Hx Eye Prosthesis, Hx Glaucoma, Hx Legally Blind, Hx Macular Degeneration, Hx Vision Problem, Other Sensory Impairments Neurological History: Denies: Hx Dementia, Hx Headaches, Hx Seizures, Hx Transient Ischemic Attacks (TIA) - Surgical History Surgery Procedure, Year, and Place: 06/2011 CARDIAC CATHERIZATION WITH CARDIAC STENT PLACEMENT, [facility]. 2011 RIGHT KNEE ARTHROSCOPY WITH BIOPSY, and partial replacement [facility]. 2012 PILIDIONAL CYSTECTOMY, [facility]. RT TOTAL KNEE 09/25/17 Hx Anesthesia Reactions: No - Immunization History Hx Pertussis Vaccination: No Immunizations Up to Date: Yes Infectious Disease History: No Infectious Disease History: Denies: Traveled Outside the [place] in Last 30 Days - Family History Known Family History: Positive: Unknown - Adopted - Social History Occupation: Employed Full-time Lives: With Family Alcohol Use: None Hx Substance Use: No Substance Use Type: Reports: Marijuana Substance Use Comment - Amount & Last Used: Last used 5 days ago Hx Tobacco Use: Yes Smoking Status (MU): Heavy Every Day Tobacco Smoker Type: Cigarettes Amount Used/How Often: 1 PPD Length of Time of Smoking/Using Tobacco: 20 YEARS Have You Smoked in the Last Year: Yes Review of Systems Positive: Fever, Chills, Fatigue, Skin Diaphoresis Negative: Blurred Vision, Diplopia, Drainage, Erythema Positive: Sore Throat. Negative: Ear Ache Positive: Chest Pain. Negative: Palpitations Positive: Shortness Of Breath. Negative: Cough Negative: Abdominal Pain, Vomiting, Diarrhea, Nausea Positive: other - darkened urine without other UTI symptoms Negative: Arthralgia, Myalgia Skin: Negative Neurological: Negative All Other Systems Reviewed And Are Negative: Yes Physical Exam Triage Information Reviewed: Yes Vital Signs On Initial Exam: Initial Vitals Temp Pulse Resp BP Pulse Ox 105.2 F 114 18 131/105 97 01/07/18 07:31 01/07/18 07:31 01/07/18 07:31 01/07/18 07:31 01/07/18 07:31 Vital Signs Reviewed: Yes Appearance: Positive: Ill-Appearing Skin: Positive: Diaphoretic Head/Face: Positive: Normal Head/Face Inspection Eyes: Positive: EOMI, REBECCA, Conjunctiva Clear ENT: Positive: Pharyngeal erythema, Nasal congestion, TMs normal, Uvula midline. Negative: Tonsillar swelling, Tonsillar exudate Neck: Positive: Supple, Nontender, No Lymphadenopathy Respiratory/Lung Sounds: Positive: Clear to Auscultation, Breath Sounds Present Cardiovascular: Positive: Tachycardia. Negative: Leg Edema Left, Leg Edema Right Abdomen Description: Positive: Nontender, No Organomegaly, Soft Bowel Sounds: Positive: Present Musculoskeletal: Positive: Normal, Strength/ROM Intact Neurological: Positive: Sensory/Motor Intact, Alert, Oriented to Person Place, Time, Normal Gait, Facial Symmetry Psychiatric: Positive: Normal, Affect/Mood Appropriate AVPU Assessment: Alert Diagnostics - Vital Signs Vital Signs Temp Pulse Resp BP Pulse Ox 01/07/18 07:31 105.2 F 114 18 131/105 97 - Laboratory Result Diagrams: 01/07/18 07:54 01/07/18 07:54 Lab Statement: Any lab studies that have been ordered have been reviewed, and results considered in the medical decision making process. Course/Dx - Course Course Of Treatment: During the course of treatment, septic protocol was placed using 3500 mL normal saline we based dosing. Vancomycin 1750ml IV given. EKG obtained on patients arrival which shows sinus tachycardia with a rate of 106, otherwise normal with no ST elevations. Patient is toxic appearing and ill. Very diaphoretic and physical examination. He appears in mild distress. Temperature on arrival temporal 105.4, rechecked at 103.8. Pharyngeal erythema with bilateral enlarged tonsils without tonsillar exudates. TMs without erythema, positive cone of light without pus pocket or drainage. Stiffness to the posterior cervical spine, however patient remains able to flex, extend and rotate with mild amount of pain. No sinus tenderness or pressure on palpation. No rhinorrhea or other drainage. EOMI/REBECCA without conjunctival injection. Lungs CTA, regular rhythm, tachycardic. No abdominal tenderness throughout light palpation. Bilateral lower extremities without erythema, swelling. Right knee without erythema, tenderness or swelling to suggest infection. Chest x-ray obtained. Labs obtained including blood cultures. UA obtained. Labs unremarkable. Blood cultures pending. UA pending. Patient is failing outpatient abx d/t fever. Discussed case with Dr. Shirley who agrees to admit patient. [place] 30mg in the ED with good effect. Temp decreased to 99.4. - Febrile Illness Differential Diagnoses: Fever of Unknown Origin, Sepsis, Viremia - Diagnoses Provider Diagnoses: Fever, unknown origin - Provider Notifications Discussed Care Of Patient With: Miranda Shirley Instructed by Provider To: Admit As Inpatient - Critical Care Time Critical Care Time: 30-74 min - sepsis Discharge - Sign-Out/Discharge Documenting (check all that apply): Patient Departure - Discharge Plan Condition: Fair Disposition: ADMITTED TO [facility] Referrals: No Primary Care Phys,NOPCP [Medical Doctor] - - Billing Disposition and Condition Condition: FAIR Disposition: Admitted to [facility]
[2018-01-07 08:14] LABS: ABS Basophils 0 10^3/ul (0-0.2); ABS Eosinophils 0 10^3/ul (0-0.6); ABS Lymphocytes 1.2 10^3/ul (1.0-4.8); ABS Monocytes 1.3 10^3/ul (0-0.8); ABS Neutrophils 6.2 10^3/ul (1.5-7.7); ABS Nucleated RBC 0 10^3/ul; Eosinophil % 0.1 % (0-6); Hematocrit 42 % (42-52); Hemoglobin 14.1 g/dl (14.0-18.0); Lymphocyte % 13.5 % (25-47); Mean Corpuscular HGB Conc 34 g/dl (31-36); Mean Corpuscular Hemoglobin 27 pg (27-31); Mean Corpuscular Volume 79 fL (80-94); Mean Platelet Volume 9.4 fL (7.4-10.4); Nucleated Red Blood Cells % 0.1; Platelet Count 162 10^3/ul (150-450); Red Blood Count 5.22 10^6/ul (4.00-5.40); Red Cell Distribution Width 17 % (10.5-15); White Blood Count 8.8 10^3/ul (3.5-10.8)
[2018-01-07 08:22] LABS: EGFR Non-African American 77.1 (>60)
--- OUTSIDE RECORDS SUMMARY | 2018-01-07 08:45 | XMS REPORT ---
:1975 External Reference #:[id number] Author Organization [facility] Address [address] [place] [address] [place] [address] Phone [phone] Care Team Providers Name Role Phone Liam Silva MD Primary Care Physician Unavailable Payers Type Date Identification Numbers Payment Provider Subscriber Medicaid Expires: 2017 Policy Number: [id number] Medicaid Estevan J Amici Group Name: 1 1 [address] PayID: [id number] [place] [address] Commercial Effective: 2017 Policy Number: [id number] Naren Estevan J Amici PayID: [id number] [address] [place] [address] Medigap Part B Expires: 2013 Policy Number: [id number] Medicaid Estevan J Amici PayID: [id number] [address] [place] [address] Commercial Effective: Policy Number: [employer] Medicaid Estevan J Amici 2013 [id number] Expires: 2017 PayID: [id number] [address] [address] [place] [address] Problems Date Description Provider Status Onset: 06/01/2011 Villonodular synovitis of the Abeba Gamez M.D. Active lower leg Onset: 06/01/2011 Tobacco user Abeba Gamez M.D. Active Onset: 08/23/2011 Postsurgical Status Other Alda Romero D.O. 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, implant AND/OR graft Onset: 11/09/2017 Long-term current use of Jerrell Cannon MD Active anticoagulant Family History Date Family Member(s) Problem(s) Comments Children 1 Social History Type Date Description Comments Marital Status Single Marital Status Significant Other Lives With Alone 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 Cigarette Use current cigarette smoker Cigarette Use Patient is a current cigarette smoker, smokes every day Cigarette Use Currently smokes 1-5 trying to quit with help of Cigarettes Daily e cig in a decreasing dose Cigarette Use for past 20 yrs ETOH Use Denies alcohol use last alcoholic drink June 12, 2009 Recreational Drug Use Formerly used Crack Cocaine regularly Smoking Heavy tobacco smoker (more than 10 cigarettes/day) Recreational Drug Use Formerly used Heroin regularly Recreational Drug Use quit 2 yrs ago attended drug rehab /[facility] Daily Caffeine Consumes on average 1 cup of regular coffee per day Exercise Type/Frequency Exercises regularly Currently Active Patient is currently sexually active Currently Active had 16 partners since being last STD check was 1 yrs active ago General Hx Text Allergies, Adverse Reactions, Alerts Date Description Reaction Status Severity Comments 04/30/2008 Penicillins active rash 03/02/2011 Erythromycin active 03/02/2011 Amoxicillin active 11/19/2017 Acetaminophen active Medications Medication Date Status Form Strength Qnty SIG Indications Ordering Provider Doxycycline 12/11/ Active Capsules 100mg 60caps one tablet Nate Mike Hyclate 2018 twice [place], daily M.D. Doxycycline 11/09/ Active Tablets 100mg 60tabs 1 tab by Jerrell Cannon Monohydrate 2018 mouth twice a day Eliquis 00/ Active Tablets 5mg 60tabs 1 by mouth Nate Mike 0000 twice a [place], day M.D. Aspir-81 00/ Active Tablets DR 81mg 1 by mouth Unknown 0000 every day Nicotine 11/09/ Hx Patches 14mg/24HR 42unit Take 1 F17.210 Jerrell Cannon, 2018 - 24HR s patch 11/19/ daily. 2018 Ibuprofen 06/04/ Hx Tablets 800mg 90tabs 1 by mouth Navarro 2013 - three Debra, 11/18/ times a M.D. 2017 day as needed Coumadin 03/21/ Hx Tablets 5mg 90tabs Navarro 2013 - Debra, 04/14/ M.D. 2013 Percocet 03/21/ Hx Tablets 5-325mg 60tabs 1-2 po Navarro 2013 - q4-6h prn Debra, 04/21/ pain M.D. 2013 Celebrex 03/21/ Hx Capsules 200mg 60caps 1 po bid Navarro 2013 - prn Debra, 04/21/ M.D. 2013 [place] 01/29/ Hx Tablets 5-325mg 60tabs 1 tid prn Navarro 2012 - Debra, 04/21/ M.D. 2013 Tinactin 12/20/ Hx Powder 1% 1units apply to 110.4 Abeba 2012 - affected Gamez, 03/06/ area of M.D. 2014 foot every day Nicotine 12/20/ Hx Lozenges 2mg 60unit as needed 305.1 Abeba Polacrilex 2012 - s for Gamez, 04/14/ cravings M.D. 2014 Fluconazole 12/20/ Hx Tablets 100mg 7tabs 1 tab po 110.4 Abeba 2011 - daily x 7 Gamez, 03/06/ days M.D. 2013 Ultram 11/20/ Hx Tablets 50mg 60tabs 1-2 po qhs Navarro 2011 - prn, take Debra, 01/29/ with 2 ES M.D. 2012 tylenol Carafate 10/24/ Hx Tablets 1gm 30tabs 1 po qd Navarro 2011 - Debra, 12/20/ M.D. 2011 Vicodin 10/24/ Hx Tablets 5-500mg 60tabs 1-2 Navarro 2011 - tablets Debra, 12/20/ bid as M.D. 2011 needed Clindamycin 10/18/ Hx Capsules 300mg 40caps 1 po qid 525.9 Derek LOVETT 2011 - Leena, 12/20/ M.D. 2012 Ultram 10/03/ Hx Tablets 50mg 80tabs 1-2 po bid Navarro 2011 - prn Debra, 10/24/ M.D. 2011 Norvasc 08/16/ Hx Tablets 2.5mg 30tabs 1 po qd Alda 2011 - Romero, 12/20/ D.O. 2012 Chantix 07/23/ Hx Tablets 0.5mg X 11 1pack as Abeba 2011 - & 1 mg X directed Franco, 10/18/ on the cassandra M.D. 2011 Wellbutrin 07/05/ Hx Tablets 100mg 30tabs 1 po qd 305.1 Abeba 2011 - Franco, 07/23/ M.D. 2011 Imitrex 06/05/ Hx Tablets 50mg 10tabs 1 tab po 346.00 Abeba 2011 - at onset Franco, 07/05/ of bermudez and M.D. 2011 repeat in 2 hours, max 2 tab /24 hrs Omeprazole 05/31/ Hx Tablets 20mg 90tabs 1 po daily 535.00 Abeba 2011 - am in Gamez, 07/05/ empty M.D. 2011 stomach Nicotine 05/31/ Hx Lozenges 2mg 30unit as needed 305.1 [facility] Polacrilex 2011 - s for Franco, 07/05/ cravings M.D. 2011 Celebrex 04/11/ Hx Capsules 200mg 60caps 1 po bid Navarro 2011 - Debra, 05/31/ M.D. 2011 Carafate 04/11/ Hx Tablets 1gm 30tabs 1 po qd Navarro 2011 - Debra, 05/31/ M.D. 2011 Naprosyn 03/15/ Hx Tablets 500mg 60tabs 1 tab po Navarro 2011 - bid with Debra, 05/31/ food prn M.D. 2011 Oxycodone HCL 03/10/ Hx Tablets 5mg 20tabs one tab po Navarro 2011 - q6h prn Debra, 03/15/ M.D. 2012 Soma 02/08/ Hx Tablets 250mg 20tabs 1 tab po Navarro 2010 - Bid prn Debra, 02/08/ M.D. 2010 Robaxin 02/08/ Hx Tablets 500mg 30tabs 1 tab po Navarro 2010 - Tid prn Debra, 03/15/ M.D. 2011 Vicoprofen 12/13/ Hx Tablets 7.5-200mg 30tabs one to two Navarro 2010 - tabs po Debra, 02/08/ daily M.D. 2010 Codeine 12/05/ Hx Tablets 30mg 48tabs 1-2 tabs Navarro Sulfate 2010 - po q 4-6 Debra, 12/13/ prn pain M.D. 2010 Daypro 10/15/ Hx Tablets 600mg 60tabs 1 tab po 719.46 Thananart, 2008 - bid prn Rina, 03/15/ M.D. 2011 Clonazepam 05/27/ Hx Tablets 1mg 32tabs 1 tab po 719.46 anart, 2008 - tid x8 Rina, 03/15/ days, if M.D. 2011 needed increase to 2 tabs bid Celebrex 05/08/ Hx Capsules 200mg 30caps 1 po qd Thanana, 2008 - Rina, 10/15/ M.D. 2008 Voltaren 04/30/ Hx Gel 1% 5Tubes apply 4g 719.46 Navarro 2008 - to knee Debra, 07/05/ qid prn M.D. 2011 Clonazepam 04/30/ Hx Tablets 0.5mg 60tabs 1 po bid 719.46 anart, 2008 - Rina, 05/27/ M.D. 2008 Ultram / Hx Tablets 50mg 60tabs 2 po q bid Unknown - 2011 Naproxen / Hx Tablets 500mg 40tabs 1 po tid Unknown - 2011 Tramadol HCL / Hx Tablets 50mg 100tab 2 po qd Unknown 0000 - s prn 2011 Aspirin / Hx Chewtabs 81mg 30unit Unknown Childrens 0000 - s 2011 Ibuprofen / Hx Capsules 200mg as needed Navarro 0000 - Debra, 06/04/ M.D. 2013 Gabapentin / Hx Capsules 300mg does not Unknown 0000 - take-he 11/18/ not 2018 find effective- ---1 by mouth three times a day Medications Administered in Office Medication Date Status Form Strength Qnty SIG Indications Ordering Provider Wilmeromednathan Administered Injection Navarro 80MG Wen Richardson M.D. Immunizations CPT Code Status Date Vaccine Lot # [id number] Given 03/06/2012 Flu Vaccine Split Virus Preservative Free For Indiv 3Yr Older [id number] Given 12/21/2011 Influenza Virus 3Yrs & Over [id number] Given 08/02/2008 Tdap - Tetanus/Diptheria/Acellular Pertussis [id number] Given 08/02/2006 Hepatitis B Vaccine Adult Dosage Vital Signs Date Vital Result Comment 12/14/2017 Height 72 inches 6'0" Weight 268.00 lb Heart Rate 72 /min BP Systolic Sitting 112 mmHg BP Diastolic Sitting 80 mmHg Respiratory Rate 14 /min Body Temperature 98.2 F BMI (Body Mass Index) 36.3 kg/m2 11/19/2017 Height 72 inches 6'0" Weight 268.00 lb BP Systolic 124 mmHg BP Diastolic 64 mmHg Body Temperature 97.5 F BMI (Body Mass Index) 36.3 kg/m2 11/09/2017 Height 72 inches 6'0" Weight 271.00 lb Heart Rate 86 /min BP Systolic 128 mmHg BP Diastolic 84 mmHg BP Systolic Sitting 126 mmHg BP Diastolic Sitting 84 mmHg Respiratory Rate 16 /min Body Temperature 98.2 F Pain Level 8 O2 % BldC Oximetry 98 % BMI (Body Mass Index) 36.8 kg/m2 06/04/2013 Height 72 inches 6'0" Heart Rate 83 /min BP Systolic 133 mmHg BP Diastolic 95 mmHg 04/30/2013 Height 72 inches 6'0" Heart Rate 107 /min BP Systolic 138 mmHg BP Diastolic 109 mmHg 04/21/2013 Height 72 inches 6'0" Weight 270.00 lb Heart Rate 91 /min BP Systolic 146 mmHg BP Diastolic 99 mmHg BMI (Body Mass Index) 36.6 kg/m2 04/14/2013 Weight 274.00 lb Heart Rate 84 /min BP Systolic Sitting 116 mmHg BP Diastolic Sitting 92 mmHg Body Temperature 98.5 F 03/06/2013 Height 72 inches 6'0" Weight 281.00 lb Heart Rate 79 /min BP Systolic Sitting 132 mmHg BP Diastolic Sitting 80 mmHg O2 % BldC Oximetry 97 % BMI (Body Mass Index) 38.1 kg/m2 03/05/2013 Height 72 inches 6'0" Weight 280.00 lb Heart Rate 85 /min BP Systolic 130 mmHg BP Diastolic 82 mmHg BMI (Body Mass Index) 38.0 kg/m2 12/21/2011 Height 71.50 inches 5'11.50" Weight 244.00 lb Heart Rate 80 /min BP Systolic Sitting 120 mmHg BP Diastolic Sitting 82 mmHg BMI (Body Mass Index) 33.6 kg/m2 10/19/2011 Height 71.50 inches 5'11.50" Weight 245.38 lb Heart Rate 80 /min BP Systolic Sitting 124 mmHg BP Diastolic Sitting 94 mmHg BMI (Body Mass Index) 33.7 kg/m2 09/13/2011 Height 71.75 inches 5'11.75" Weight 240.00 lb Heart Rate 71 /min BP Systolic Sitting 119 mmHg BP Diastolic Sitting 78 mmHg BMI (Body Mass Index) 32.8 kg/m2 08/23/2011 Height 71.75 inches 5'11.75" Heart Rate 72 /min BP Systolic Sitting 120 mmHg BP Diastolic Sitting 90 mmHg 08/15/2011 Height 71.75 inches 5'11.75" Weight 252.00 lb Heart Rate 63 /min BP Systolic Sitting 114 mmHg left arm, right arm 118/84 BP Diastolic Sitting 80 mmHg left arm, right arm 118/84 BMI (Body Mass Index) 34.4 kg/m2 08/03/2011 Height 71.75 inches 5'11.75" Weight 252.00 lb Heart Rate 68 /min BP Systolic Sitting 118 mmHg BP Diastolic Sitting 68 mmHg BMI (Body Mass Index) 34.4 kg/m2 07/06/2011 Height 71.75 inches 5'11.75" Weight 267.00 lb Heart Rate 84 /min BP Systolic Sitting 124 mmHg lg cuff BP Diastolic Sitting 70 mmHg lg cuff BMI (Body Mass Index) 36.5 kg/m2 06/06/2011 Height 71.75 inches 5'11.75" Weight 276.00 lb Heart Rate 68 /min BP Systolic Sitting 120 mmHg BP Diastolic Sitting 82 mmHg BMI (Body Mass Index) 37.7 kg/m2 06/01/2011 Height 71.75 inches 5'11.75" Weight 276.00 lb Heart Rate 68 /min BP Systolic Sitting 110 mmHg BP Diastolic Sitting 72 mmHg BMI (Body Mass Index) 37.7 kg/m2 10/15/2008 Weight 236.00 lb Heart Rate 76 /min BP Systolic Sitting 138 mmHg BP Diastolic Sitting 90 mmHg 05/27/2008 Weight 238.00 lb Heart Rate 60 /min BP Systolic Sitting 114 mmHg BP Diastolic Sitting 60 mmHg 04/30/2008 Height 70 inches 5'10" Weight 235.00 lb Heart Rate 78 /min BP Systolic Sitting 132 mmHg BP Diastolic Sitting 80 mmHg BMI (Body Mass Index) 33.7 kg/m2 Results Test Date Test Result H/L Range Note Laboratory test finding 04/03/2013 Inr 1.61 High 0.85-1.06 Lipid Profile (Trig/Chol/HDL) 03/11/2013 Triglycerides 118 mg/dL 40-200 Cholesterol 230 mg/dL High Less than 200 HDL Cholesterol 39 mg/dL Low 40-60 1 Cholesterol/HDL Ratio 5.9 Average High 1-4.44 LDL Cholesterol 167.4 High Less Than 100 2 Laboratory test finding 03/11/2013 Glucose 97 mg/dL 70-100 3 Urinalysis 03/05/2013 Urine Color Yellow Urine Appearance Clear Urine Specific [place] 1.034 High 1.010-1.030 Urine Esterase Negative Negative Urine Nitrate Negative Negative Urine Urobilinogen Negative E.U./dL Negative Urine Protein Trace mg/dL Negative Urine pH 5.0 5-9 Urine Blood Negative Negative Urine Ketones Negative mg/dL Negative Urine Bilirubin Negative Negative Urine Glucose Negative mg/dL Negative CBC No Diff 03/05/2013 White Blood Count 7.0 10^3/uL 4.8-10.8 Red Blood Count 5.23 10^6/uL 4.0-5.4 Hemoglobin 15.2 g/dL 14.0-18.0 Hematocrit 46 % 42-52 Mean Corpuscular Volume 87 fL 80-94 Mean Corpuscular Hemoglobin 29 pg 27-31 Mean Corpuscular HGB Conc 33 g/dL 31-36 Red Cell Distribution Width 14 % 10.5-15 Platelet Count 205 10^3/uL 150-450 Mean Platelet Volume 10 um3 7.4-10.4 Basic Metabolic Panel 03/05/2013 Sodium 136 mmol/L 133-145 Potassium 4.2 mmol/L 3.5-5.0 Chloride 105 mmol/L 101-111 Co2 Carbon Dioxide 23.0 mmol/L 22-32 Anion Gap 8.0 mmol/L 2-11 Glucose 107 mg/dL High 70-100 Blood Urea Nitrogen 18 mg/dL 6-24 Creatinine 1.00 mg/dL 0.50-1.40 BUN/Creatinine Ratio 18.0 8-20 Calcium 9.4 mg/dL 8.1-9.9 Egfr Non- 83.6 >60 Egfr 107.5 >60 4 Type & Screen 03/05/2013 Patient Blood Type A Positive Antibody Screen NEGATIVE Fungal Culture Bottles 05/24/2012 Fungal Culture (Bottles) (SEE NOTE) 5 Body Fluid Cell Count 05/24/2012 Body Fluid Source Synovial Fluid Body Fluid Appearance Bloody Body Fluid Color [place] Body Fluid Volume 3.5 mL Body Fluid WBC 225 Body Fluid RBC [id number] Body Fluid Polys 12 Body Fluid Lymph 75 Body Fluid [place] 7 Body Fluid Basophils 1 Body Fluid Other Cells 5 Body Fluid Total Cells Counted 100 Fluid Reviewed By MD (SEE NOTE) 6 Cytology Non-Work 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 Engineer 05/24/2012 Yue RUN DATE: <SEE NOTE> Laboratory test finding 05/24/2012 Fungal Culture (SEE NOTE) 8 (Bottles) Body Fluid Culture 05/24/2012 Body Fluid Culture (SEE NOTE) 9 Bottles (Bottles) Laboratory test finding 05/24/2012 Fluid Crystals None Seen 10 Laboratory test finding 05/24/2012 Anaerobic Culture (SEE NOTE) 11 Wound Culture/Sensi 05/24/2012 Wound/Misc Culture-Gram (SEE NOTE) 12 Stain Laboratory test finding 05/24/2012 Anaerobic Culture (SEE NOTE) 13 Gram Stain Smear 05/24/2012 Gram Stain (SEE NOTE) 14 Laboratory test finding 05/24/2012 Body Fluid Glucose 65 mg/dL 15 Body Fluid Total Protein 4.6 g/dL 16 Cath Panel 08/15/2011 PTT (Aptt) 29.1 SEC 25.1-38.5 CBC With Manual Diff 08/15/2011 White Blood Count 5.7 CUMM 4.8-10.8 Red Cell Count 5.08 CUMM 4.6-6.2 Hemoglobin 15.0 g/dL 14.0-18.0 Hematocrit 44 % 42-52 Mean Corpuscular Volume 87 um3 80-94 Mean Corpuscular Hemoglob 30 pg 27-31 Mean Corpuscular HGB Cone 34 g/dL 32-36 Redcell Distribution WDTH 14 % 10.5-15 Platelet Count 183 CUMM 150-450 Mean Platelet Volume 11.1 um3 High 7.4-10.4 Absolute Neutrophil Count 3.5 1.5-7.7 Polysegmented Neutrophil 69 % 38-83 Band Neutrophil 1 % 0-8 Lymphocyte 23 % Low 25-47 Monocyte 6 % 0-13 Atypical Lymph 1 % 0-6 Anisocytosis SLIGHT Platelet Evaluation LARGE Basic Metabolic Panel 08/15/2011 Sodium 136 mmol/L 135-145 Potassium 4.1 mmol/L 3.5-5.0 Chloride 103 mmol/L 101-111 Co2 (Carbon Dioxide) 24.0 mmol/L 22-32 Anion Gap 9.0 mmol/L 2-11 17 Glucose 98 mg/dL 70-100 BUN 14 mg/dL 6-24 Creatinine 0.8 mg/dL 0.50-1.40 One Over Creatinine 1.25 BUN/Creatinine Ratio 17.5 8-20 Calcium 9.3 mg/dL 8.1-9.9 eGFR Non- 108.8 > 60 eGFR 139.9 > 60 18 Protime 08/15/2011 Inr 0.96 0.88-1.13 19 Protime 11.4 SEC 10.3-13.5 20 Laboratory test finding 08/15/2011 Erythrocyte Sed Rate 3 MM/HR 0-15 D Dimer Quantitative 237 NG/ML High Less Than 230 21 C Reactive Protein < 0.5 mg/dL Less Than 0.5 GC/Chlamydia 08/10/2011 M 22, 23 Aptima <SEE NOTE> Vad 08/10/2011 Vad Final Nonreactive Nonreactive 22, 24 Laboratory test 08/10/2011 Hepatitis B Nonreactive Nonreactive 22 finding Surface Ag Lipid Profile 08/10/2011 Triglyceride 95 mg/dL 40-200 22 (Trig/Chol/HDL) Cholesterol 169 mg/dL Less Than 200 22, 25 High Density Lipoprotein 25 mg/dL Low 40-60 22, 26 Cholesterol/HDL Ratio 6.76 AVERAGE High 1-4.97 22 Low Density Lipoprotein 125 mg/dL High Less Than 100 22, 27 Laboratory test 08/10/2011 Hepatitis C High Reactive Nonreactive 22, 28 finding Antibody Hepatitis C Rna Quant Undetected IU/mL Undetected 22, 29 Hepatitis C Genotype 08/10/2011 Hepatitis C SEE BELOW Negative 22, 30 Amplification Hepatitis C Genotype SEE BELOW () 22, 31 Comp Metabolic Panel 06/01/2011 Sodium 138 mmol/L 135-145 Potassium 4.3 mmol/L 3.5-5.0 Chloride 107 mmol/L 101-111 Co2 (Carbon Dioxide) 24.0 mmol/L 22-32 Anion Gap 7.0 mmol/L 2-11 32 Glucose 107 mg/dL High 70-100 BUN 18 mg/dL 6-24 Creatinine 0.9 mg/dL 0.50-1.40 One Over Creatinine 1.11 BUN/Creatinine Ratio 20.0 8-20 Calcium 9.9 mg/dL 8.1-9.9 Total Protein 7.1 GM/DL 6.2-8.1 Albumin 4.3 GM/DL 3.6-5.4 Globulin 2.8 GM/DL 2-4 Albumin/Globulin Ratio 1.5 1-3 Bilirubin Total 0.5 mg/dL 0.4-1.5 33 Alkaline Phosphatase 77 U/L 39-117 Alt (SGPT) 48 U/L 17-63 Ast (Sgot) 33 U/L 12-42 eGFR Non- 95.5 > 60 eGFR 122.8 > 60 34 CBC Auto Diff 06/01/2011 White Blood Count 6.5 CUMM 4.8-10.8 Red Cell Count 5.34 CUMM 4.6-6.2 Hemoglobin 16.1 g/dL 14.0-18.0 Hematocrit 46 % 42-52 Mean Corpuscular Volume 86 um3 80-94 Mean Corpuscular Hemoglob 30 pg 27-31 Mean Corpuscular HGB Cone 35 g/dL 32-36 Redcell Distribution WDTH 13 % 10.5-15 Platelet Count 202 CUMM 150-450 Mean Platelet Volume 11.0 um3 High 7.4-10.4 Gran % 51.8 % 38-83 Lymph % 35.6 % 25-47 Mononuclear % 8.4 % 1-9 Eosinophil % 4.1 % 0-6 Basophil % 0.1 % 0-2 Abs Lymphs 2.3 1.0-4.8 Abs Mononuclear 0.5 0-0.8 Absolute Neutrophil Count 3.4 1.5-7.7 Abs Eosinophils 0.3 0-0.6 Abs Basophils 0 0-0.2 THC Confirmation 10/15/2008 Urine THC Screen Positive Cutoff: 20 THC Carboxylic Acid By GC/MS 72 ng/mL Cutoff: 3 Urine THC Interpretation Positive () 35 Urine Opiates 10/15/2008 Urine Opiates Screen Positive () 36 Urine Codeine By GC/MS Negative ng/mL () 37 Urine Hydrocodone By GC/MS Negative ng/mL () 38 Urine Hydromophone By GC/MS Negative ng/mL () 39 Urine Morphine By GC/MS 5420 ng/mL () 40 Urine Oxycodone By GC/MS Negative ng/mL () 41 Urine Opiates Interpretation Positive () 42 Urine Drug Screen M-20 10/15/2008 Urine Alcohol Negative mg/dL Cutoff: 30 Urine Ampetamines Negative ng/mL () 43 Urine Barbiturates Negative ng/mL () 44 Urine Benzodiazepines Negative ng/mL () 45 Urine Cocaine Negative ng/mL () 46 Ur Lysergic Acid Diethylamide Negative ng/mL () 47 Urine Methadone Negative ng/mL () 48 Urine Methaqualone Negative ng/mL () 49 Urine Opiates Reflex* ng/mL () 50 Urine Phencyclidine Negative ng/mL Cutoff: 25 Urine Propoxyphene Negative ng/mL () 51 Urine Tetrahydrocannabinol Reflex* ng/mL Cutoff: 20 52 Urinalysis W/Microscopic Stat 06/01/2008 Ua Color YELLOW Appearance-Urine CLEAR Specific [place]-Ur 1.018 1.010-1.030 Esterase-Urine TRACE Negative Nitrite NEGATIVE Negative [id number] NEGATIVE Negative Protein-Urine NEGATIVE Negative PH-Urine 6.5 5-9 Blood-Urine NEGATIVE Negative Ketones-Urine NEGATIVE Negative Bilirubin-Ur NEGATIVE Negative Glucose-Urine NEGATIVE Negative WBC-Urine 3-5 0-5 RBC-Urine 0-2 0-2 Epith Cells-Ur FEW Bacteria-Urine TRACE DS3 06/01/2008 Amphetamines Urine Screen NONE DETECTED None Detect Barbituates Urine Screen NONE DETECTED None Detect Benzodiazepine Ur Screen POSITIVE None Detect Cannabinoid Urine Screen POSITIVE None Detect Cocaine Metabolites Urine POSITIVE None Detect Opiates Urine Screen POSITIVE None Detect PCP Urine Screen NONE DETECTED None Detect 53 CBC With Electronic Diff Stat 06/01/2008 White Blood Count 8.6 CUMM 4.8- 10.8 Red Cell Count 4.76 CUMM 4.6-6.2 Hemoglobin 14.1 g/dL 14.0-18.0 Hematocrit 41 % Low 42-52 Mean Corpuscular Volume 85 um3 80-94 Mean Corpuscular Hemoglob 30 pg 27-31 Mean Corpuscular HGB Cone 35 g/dL 32-36 Redcell Distribution WDTH 14 % 10.5-15 Platelet Count 224 CUMM 150-450 Mean Platelet Volume 9.1 um3 7.4-10.4 Gran % 58.8 % 38-83 Lymph % 30.2 % 25-47 Mononuclear % 7.2 % 1-9 Eosinophil % 3.5 % 0-6 Basophil % 0.3 % 0-2 Abs Lymphs 2.6 1.0-4.8 Abs Mononuclear 0.6 0-0.8 Absolute Neutrophil Count 5.1 1.5-7.7 Abs Eosinophils 0.3 0-0.6 Abs Basophils 0 0-0.2 Ua Stat 06/01/2008 Ua Color YELLOW Appearance-Urine CLEAR Specific [place]-Ur 1.018 1.010-1.030 Esterase-Urine TRACE Negative Nitrite NEGATIVE Negative [id number] NEGATIVE Negative Protein-Urine NEGATIVE Negative PH-Urine 6.5 5-9 Blood-Urine NEGATIVE Negative Ketones-Urine NEGATIVE Negative Bilirubin-Ur NEGATIVE Negative Glucose-Urine NEGATIVE Negative Basic Metabolic Panel Stat 06/01/2008 Sodium 137 mmol/L 135-145 Potassium 4.0 mmol/L 3.5-5.0 Chloride 106 mmol/L 101-111 Co2 (Carbon Dioxide) 25.0 mmol/L 22-32 Anion Gap 6.0 mmol/L 2-11 54 Glucose 91 mg/dL 70-100 55 BUN 10 mg/dL 6-24 Creatinine 0.80 mg/dL 0.50-1.40 One Over Creatinine 1.20 BUN/Creatinine Ratio 12.5 8-20 Calcium 8.8 mg/dL 8.1-9.9 56 1 HDL Interpretation: Undesirable: High Risk: Less than 40 mg/dL Desirable: Low Risk: Greater than 60 mg/dL 2 LDL Interpretation: Low Risk Optimal Level: LDL Less than 100 mg/dL Near or Above Optimal: LDL 100-129 mg/dL Borderline High Risk: LDL 130-159 mg/dL High Risk: LDL 160-189 mg/dL Very High Risk: LDL Greater than 189 mg/dL 3 FASTING 4 Because ethnic data is not always readily available, this report includes an eGFR for both -Americans and non- Americans. The National Kidney Disease Education Program (NKDEP) does not endorse the use of the MDRD equation for patients that are not between the ages of 18 and 70, are , have extremes of body size, muscle mass, or nutritional status, or are non- or non-. According to the National Kidney Foundation, irrespective of diagnosis, the stage of the disease is based on the level of kidney function: Stage Description GFR(mL/min/1.73 m(2)) 1 Kidney damage with normal or decreased GFR 90 2 Kidney damage with mild decrease in GFR 60-89 3 Moderate decrease in GFR 30-59 4 Severe decrease in GFR 15-29 5 Kidney failure <15 (or dialysis) 5 RUN DATE: 06/17/12 [facility] LAB LIVE PAGE 1 RUN TIME: [address] [place], [place] [address] Specimen Inquiry Name: ESTEVAN MUNOZ : [address]: Navarro Richardson MD Acct: [id number] Unit: [id number] AGE: 36 Location: [facility] Re05/24/12 SEX: M Status: REG SDC SPEC: [id number] BERTO: 05/24/12-[address] [facility] [address]: Navarro Richardson MD REQ: [id number] RECD: 05/24/12160 STATUS: COMP BRIANHR DR: Abeba Gamez MD _ SOURCE: JOINT FLUI SPDESC:KNEE RIGHT ORDERED: BF Cult Bottles, Fungal BF Procedure Result Verified Site BF Aerobic Culture Bottle Final 05/29/12- 1608 ML No Growth Day 5 BF Anaerobic Culture Bottle Final 05/29/12- 1608 ML No Growth Day 5 Fungal Culture (Bottles) Final 06/17/12- 1411 ML No growth END OF REPORT * ML=Testing performed at Main Lab DEPARTMENT OF PATHOLOGY, [facility] [place] [address] Casey Gonzalez M.D. Director [facility] Permit #[id number] REVIEWED BY CASEY GONZALEZ MD Slide and differential reviewed. No bacteria, blasts or other malignant cells seen. OTHER CELLS ARE SYNOVIAL CELLS 7 RUN DATE: 05/27/12 [facility] LAB LIVE PAGE 1 RUN TIME: 1636 [facility] [employer] [place] [address] Specimen Inquiry Name: ESTEVAN MUNOZ : [address]: Navarro Richardson MD Acct: [id number] Unit: [id number] AGE: 36 Location: [facility] Re05/24/12 SEX: M Status: REG SDC SPEC: [id number] BERTO: 05/24/12-[address] [facility] [address]: Navarro Richardson MD REQ: [id number] RECD: 05/24/12 STATUS: SOUT _ ORDERED: FN ASP SUPERFIC FINAL DIAGNOSIS KNEE, RIGHT, fine needle aspirate: Blood, chronic and some acute inflammatory cells and few synovial cells. Negative for malignant cells. 1. Synovium - RIGHT KNEE FINE NEEDLE ASPIRATION GROSS DESCRIPTION 50 mls of bloody fluid. Signed (signature on file) Casey Gonzalez MD [id number] END OF REPORT * ML=Testing performed at Main Lab DEPARTMENT OF PATHOLOGY, [facility] [place], [place] [address] Casey Gonzalez M.D. Director [facility] Permit #[id number] RUN DATE: 05/31/12 [facility] LAB LIVE PAGE 1 RUN TIME: 3742 [facility] [employer] [place], [place] [address] Specimen Inquiry Name: ESTEVAN MUNOZ : [address]: Navarro Richardson MD Acct: [id number] Unit: [id number] AGE: 36 [facility]: [facility] [facility] Re05/24/12 SEX: M Status: REG SDC SPEC: [id number] BERTO: 05/24/12-[address]: Navarro Richardson MD REQ: [id number] RECD: 05/24/12 STATUS: RES OTHR DR: Abeba Gamez MD _ SOURCE: JOINT FLUI SPDESC:KNEE RIGHT ORDERED: BF Cult Bottles, Fungal BF Procedure Result Verified Site BF Aerobic Culture Bottle Final 05/29/12- 1608 ML No Growth Day 5 BF Anaerobic Culture Bottle Final 05/29/12- 1608 ML No Growth Day 5 Fungal Culture (Bottles) Preliminary 05/31/12- 1608 ML No Growth Week 1 END OF REPORT * ML=Testing performed at Main Lab DEPARTMENT OF PATHOLOGY, [facility] [place], [place] [address] Casey Gonzalez M.D. Director [facility] Permit #[id number] RUN DATE: 05/29/12 [facility] LAB LIVE PAGE 1 RUN TIME: 1608 [facility] [employer] [place], [place] [address] Specimen Inquiry Name: ESTEVAN MUNOZ : [address]: Navarro Richardson MD Acct: [id number] Unit: [id number] AGE: 36 Location: [facility] Re05/24/12 SEX: M Status: REG [facility] SPEC: [id number] BERTO: 05/24/12-[address]: Navarro Richardson MD REQ: [id number] RECD: 05/24/12 STATUS: RES OTHR DR: Abeba Gamez MD _ SOURCE: JOINT FLUI SPDESC:KNEE RIGHT ORDERED: BF Cult Bottles, Fungal BF Procedure Result Verified Site BF Aerobic Culture Bottle Final 05/29/12- 1608 ML No Growth Day 5 BF Anaerobic Culture Bottle Final 05/29/12- 1608 ML No Growth Day 5 Fungal Culture (Bottles) PENDING END OF REPORT * ML=Testing performed at Main Lab DEPARTMENT OF PATHOLOGY, [facility] [place], [place] [address] Casey Gonzalez M.D. Director [facility] Permit #[id number] Synovial (Joint) Fluid 11 RUN DATE: 05/28/12 [facility] LAB LIVE PAGE 1 RUN TIME: 7365 [facility] [employer] [place], [place] [address] Specimen Inquiry Name: ESTEVAN MUNOZ : [address]: Navarro Richardson MD Acct: [id number] Unit: [id number] AGE: 36 Location: [facility] Re05/24/12 SEX: M Status: REG SDC SPEC: [id number] BERTO: 05/24/12-[address] [facility] [address]: Navarro Richardson MD REQ: [id number] RECD: 05/24/12 STATUS: MADELEINE BOCANEGRA DR: Abeba Gamez MD _ SOURCE: WOUND SPDESC:KNEE RIGHT ORDERED: Anaerobic Cult, Culture Stain Procedure Result Verified Site Anaerobic Culture Final 05/28/12- 0840 ML No Growth Day 4 Wound/Misc Gram Stain Final 05/24/12- 1717 ML 1+ Nucleated Cells No Organisms Seen Wound/Misc Culture Final 05/28/12- 0840 ML No Growth Day 4 END OF REPORT * ML=Testing performed at Main Lab DEPARTMENT OF PATHOLOGY, [facility] [place], [place] [address] Casey Gonzalez M.D. Director [facility] Permit #[id number] 12 RUN DATE: 05/26/12 [facility] LAB LIVE PAGE 1 RUN TIME: 918 [facility] [employer] [place], [place] [address] Specimen Inquiry Name: ESTEVAN MUNOZ : [address]: Navraro Richardson MD Acct: [id number] Unit: [id number] AGE: 36 Location: [facility] Re05/24/12 SEX: M Status: REG MOC SPEC: [id number] BERTO: 05/24/12-[address] [facility] [address]: Navarro Richardson MD REQ: [id number] RECD: 05/24/12 STATUS: RES OTHR DR: Abeba Gamez MD _ SOURCE: WOUND SPDESC:KNEE RIGHT ORDERED: Anaerobic Cult, Culture Stain Procedure Result Verified Site Anaerobic Culture Preliminary 05/25/12- 1137 ML No Growth Day 1 Wound/Misc Gram Stain Final 05/24/12- 1717 ML 1+ Nucleated Cells No Organisms Seen Wound/Misc Culture Preliminary 05/26/12- 0919 ML No Growth Day 2 END OF REPORT * ML=Testing performed at Main Lab DEPARTMENT OF PATHOLOGY, [facility] [place], [place] [address] Casey Gonzalez M.D. Director [facility] Permit #[id number] RUN DATE: 05/28/12 [facility] LAB LIVE PAGE 1 RUN TIME: 08 [facility] [employer] [place], [place] [address] Specimen Inquiry Name: ESTEVAN MUNOZ Sanjana : [address]: Navarro Richardson MD Acct: [id number] Unit: [id number] AGE: 36 Location: [facility] Re05/24/12 SEX: M Status: REG SDC SPEC: [id number] BERTO: 05/24/12-[address] [facility] [address]: Navarro Richardson MD REQ: [id number] RECD: 05/24/12 STATUS: MADELEINE BOCAENGRA DR: Abeba Gamez MD _ SOURCE: BODY FLUID SPDESC:KNEE RIGHT ORDERED: Gram Stain, Anaerobic Cult Procedure Result Verified Site Gram Stain Final 04/12/13- 1714 ML 3+ Nucleated Cells No Organisms Seen Anaerobic Culture Final 05/28/12- 0839 ML No Growth Day 4 END OF REPORT * ML=Testing performed at Main Lab DEPARTMENT OF PATHOLOGY, [facility] [place], [place] [address] Casey Gonzalez M.D. Director [facility] Permit #[id number] RUN DATE: 05/24/12 [facility] LAB LIVE PAGE 1 RUN TIME: 1713 [facility] [employer] [place], [place] [address] Specimen Inquiry Name: ESTEVAN MUNOZ : [address]: Navarro Richardson MD Acct: [id number] Unit: [id number] AGE: 36 Location: [facility] Re05/24/12 SEX: M Status: REG SDC SPEC: [id number] BERTO: 05/24/12-[address]: Navarro Richardson MD REQ: [id number] RECD: 05/24/12 STATUS: RES [facility] DR: Abeba Gamez MD _ SOURCE: BODY FLUID SPDESC:KNEE RIGHT ORDERED: Gram Stain, Anaerobic Cult Procedure Result Verified Site Gram Stain Final 05/24/12- 1714 ML 3+ Nucleated Cells No Organisms Seen Anaerobic Culture PENDING END OF REPORT * ML=Testing performed at Main Lab DEPARTMENT OF PATHOLOGY, [address] [place] [address] Casey Gonzalez M.D. Director [facility] Permit #[id number] Synovial Fluid 16 Synovial Fluid 17 Anion gap measurement may be of limited value in the presence of any alkalosis, especially in a combined acid base disorder. . 18 Because ethnic data is not always readily available, this report includes an eGFR for both -Americans and non- Americans. The National Kidney Disease Education Program (NKDEP) does not endorse the use of the MDRD equation for patients that are not between the ages of 18 and 70, are , have extremes of body size, muscle mass, or nutritional status, or are non- or non-. According to the National Kidney Foundation, irrespective of diagnosis, the stage of the disease is based on the level of kidney function: Stage Description GFR(mL/min/1.73 m(2)) 1 Kidney damage with normal or decreased GFR 90 2 Kidney damage with mild decrease in GFR 60-89 3 Moderate decrease in GFR 30-59 4 Severe decrease in GFR 15-29 5 Kidney failure <15 (or dialysis) 19 Recommended INR for Patients on Oral Anticoagulants Prophylaxis 2.0 - 3.0 Treatment of thrombosis 2.0 - 3.0 Prevention of embolism 2.0 - 3.0 Prevention of embolism from prosthetic heart valves 2.5 - 3.5 20 DIAGNOSIS,TREATMENT,AND THERAPY MUST BE BASED ON THE INR VALUE ALONE. 21 Please note: The following may produce a false positive D Dimer test: - Rheumatoid factor greater than 1400 IU/ml - Plasma hemoglobin greater than 0.5 gm/dl - Bilirubin greater than 18 mg/dl - Triglycerides greater than 1327 mg/dl - FDP greater than 10 ug/ml . 22 FASTING 23 RUN DATE: 08/11/11 [facility] NMI LIVE PAGE 1 RUN TIME: 0 Specimen Inquiry RUN USER: INTERFACE Name: ESTEVAN MUNOZ Status: REG REF Re08/10/11 Age/Sex: 36/M Unit#: [id number] Location: [facility]. : [birth year] SPEC #: [id number] BERTO: 08/10/11 STATUS: COMP REQ #: [id number] RECD: 08/10/[address] [facility] [address]: Franco DALY,[facility] SOURCE: URINE ENTR: 08/10/11-[address]: [facility] ORDERED: GC/CHL APTIMA QUERIES: MEDENT REQUISITION # [id number] ACT WKST: GCCHL 08/10/11 #1 Procedure Result Verified Site > CHLAMYDIA TRACHOMATIS RNA Final 08/11/11- 0010 ML NEGATIVE FOR CHLAMYDIA TRACHOMATIS rRNA A negative result does not preclude the presence of a C.trachomatis or N.gonorrhoeae infection because results are dependent on adequate specimen collection, absence of inhibitors, and sufficient rRNA to be detected. Test results may be affected by improper specimen collection, improper specimen storage, technical error, or specimen mixup. Limitations of the Procedure: The Aptima Combo 2 Assay is not intended for the evaluation of suspected sexual abuse or for other medico-legal indications. For those patients for whom a false positive result may have adverse psychosocial impact, the [facility] recommends retesting by a method using an alternate technology. Therapeutic failure or success cannot be determined with the Aptima Combo 2 Assay since nucleic acid may persist following appropriate antimicrobial therapy. Results from the APTIMA Combo 2 Assay should be interpreted in conjunction with other laboraotry and clinical data available to the clinician. Performance characteristics for detecting C. trachomatis and N. gonorrhoeae are derived from high prevalence populations. Positive results in low prevalence populations should be interpreted carefully with the understanding that the likelihood of a false positive may be higher than a true positive. DEPARTMENT OF PATHOLOGY, [address] [place] [address] [facility] Permit #[id number] Casey Gonzalez M.D. Director El Richards M.D. Government Relations Analyst RUN DATE: 08/11/11 [facility] NMI LIVE PAGE 2 RUN TIME: 0010 Specimen Inquiry RUN USER: INTERFACE Name: ARTUROESTEVAN Sanjana Status: REG REF Re08/10/11 Age/Sex: 36/M Unit#: [id number] Location: [facility] : [birth year] -- -- CONTINU ED Procedure Result Verified Site > GC (N. GONORRHOEAE) RNA Final 08/11/11- 0010 ML NEGATIVE FOR NEISSERIA GONORRHOEAE rRNA A negative result does not preclude the presence of a C.trachomatis or N.gonorrhoeae infection because results are dependent on adequate specimen collection, absence of inhibitors, and sufficient rRNA to be detected. Test results may be affected by improper specimen collection, improper specimen storage, technical error, or specimen mixup. Limitations of the Procedure: The Aptima Combo 2 Assay is not intended for the evaluation of suspected sexual abuse or for other medico-legal indications. For those patients for whom a false positive result may have adverse psychosocial impact, the CDC recommends retesting by a method using an alternate technology. Therapeutic failure or success cannot be determined with the Aptima Combo 2 Assay since nucleic acid may persist following appropriate antimicrobial therapy. Results from the APTIMA Combo 2 Assay should be interpreted in conjunction with other laboraotry and clinical data available to the clinician. Performance characteristics for detecting C. trachomatis and N. gonorrhoeae are derived from high prevalence populations. Positive results in low prevalence populations should be interpreted carefully with the understanding that the likelihood of a false positive may be higher than a true positive. - [facility] Permit #[id number] [address] [place] [address] DEPARTMENT OF PATHOLOGY, [address] [place] [address] [facility] Permit #[id number] Casey Gonzalez M.D. Director El Richards M.D. Government Relations Analyst 24 It is recognized that currently available assays for the detection of antibodies to HIV-1 and/or HIV-2 may not detect all infected individuals. HIV antibodies may be undetectable in some stages of the infection and in some clinical conditions. The performance of this assay has not been established for populations of infants or children. Assayed by Chemiluminescence Microparticle Immunoassay on the Maria E [employer]ia Centaur CP. Values obtained with different methods or kits cannot be used interchangeably.The diagnostic specificity of the ADVIA Centaur 1/O/2 Enhanced assay in the low risk population was 99.90% (6052/6058) with a 95% confidence interval of 99.78 to 99.96%. 25 CHOLESTEROL INTERPRETATION: Desirable: Less than 200 MG/DL Borderline-High Risk: 200-239 MG/DL High-Risk: 240 MG/DL and over 26 HDL INTERPRETATION: Undesirable: High Risk: Less than 40 MG/DL Desirable: Low Risk: Greater than 60 MG/DL 27 LDL INTERPRETATION: Low Risk Optimal Level: LDL Less than 100 MG/DL Near or Above Optimal: LDL 100-129 MG/DL Borderline High Risk: LDL 130-159 MG/DL High Risk: LDL 160-189 MG/DL Very High Risk: LDL Greater than 189 MG/DL 28 CONSISTENT WITH PREVIOUS RESULTS 08/11/11 1057: HEPATITIS C AB previously reported as: High Reactive H High reactive sample are considered positive for HCV. 29 Result in log IU/mL is Undetected. The quantification range of this assay is 43 IU/mL to 69,000,000 IU/mL (1.63 log IU/mL to 7.84 log IU/mL). Testing was performed by the TROY AmpliPrep/TROY TaqMan HCV Test ([employer] Test Performed by: [place] [address] Blade Groover: Moses Solis III, M.D. 30 HCV Genotype After Amplification, S was cancelled on 08/15/2011 at 15:04; Genotyping not performed due to inability to generate sufficient target sequence for genotype analysis. 31 HCV Genotype After Amplification, S was cancelled on 08/15/2011 at 15:04; Genotyping not performed due to inability to generate sufficient target sequence for genotype analysis. -- REFERENCE VALUE -- Not applicable Testing was done by DNA sequencing assay using the [employer] HCV 5'NC Genotyping Kit. For research use only. Test Performed by: [address] [address] Blade Groover: Moses Solis III, M.D. 32 Anion gap measurement may be of limited value in the presence of any alkalosis, especially in a combined acid base disorder. . 33 A metabolite of Naproxen, O-desmethylnaproxen, has been shown to interfere with the Jendrassik-Quinlan method for measuring total bilirubin. Samples from patients who have taken Naproxen have shown spurious elevation in total bilirubin levels. 34 Because ethnic data is not always readily available, this report includes an eGFR for both -Americans and non- Americans. The National Kidney Disease Education Program (NKDEP) does not endorse the use of the MDRD equation for patients that are not between the ages of 18 and 70, are , have extremes of body size, muscle mass, or nutritional status, or are non- or non-. According to the National Kidney Foundation, irrespective of diagnosis, the stage of the disease is based on the level of kidney function: Stage Description GFR(mL/min/1.73 m(2)) 1 Kidney damage with normal or decreased GFR 90 2 Kidney damage with mild decrease in GFR 60-89 3 Moderate decrease in GFR 30-59 4 Severe decrease in GFR 15-29 5 Kidney failure <15 (or dialysis) 35 This report is intended for use in clinical monitoring and management of patients. It is not intended for use in employment-related drug testing. Test Performed by: [facility] Dpt of Lab Med and Pathology [address] [place] [address] Blade Groover: Moses Solis III, M.D. 36 -- REFERENCE VALUE -- Cutoff: 300 37 -- REFERENCE VALUE -- Cutoff: 100 38 -- REFERENCE VALUE -- Cutoff: 100 39 -- REFERENCE VALUE -- Cutoff: 100 40 If heroin use suspected, test 66894, 8-yled-bomvmr-morphine (6-MITCH) heroin metabolite, can be added at an additional charge. -- REFERENCE VALUE -- Cutoff: 100 41 -- REFERENCE VALUE -- Cutoff: 100 42 This report is intended for use in clinical monitoring and management of patients. It is not intended for use in employment-related drug testing. Test Performed by: [facility] Dpt of Lab Med and Pathology [address] [place] [address] Blade Groover: Moses Solis III, M.D. 43 -- REFERENCE VALUE -- Cutoff: 1000 44 -- REFERENCE VALUE -- Cutoff: 200 45 -- REFERENCE VALUE -- Cutoff: 200 46 -- REFERENCE VALUE -- Cutoff: 300 47 -- REFERENCE VALUE -- Cutoff: 0.5 48 -- REFERENCE VALUE -- Cutoff: 300 49 -- REFERENCE VALUE -- Cutoff: 300 50 *Drug confirmation ordered by reflex. Refer to confirmation result to follow for the definitive result. -- REFERENCE VALUE -- Cutoff: 300 51 -- REFERENCE VALUE -- Cutoff: 300 52 *Drug confirmation ordered by reflex. Refer to confirmation result to follow for the definitive result. This report is intended for use in clinical monitoring or management of patients. It is not intended for use in employment-related testing. Test Performed by: [facility] Dpt of Lab Med and Pathology [address] [place] [address] Blade Groover: Moses Solis III, M.D. 53 THE URINE SPECIMEN WAS TESTED AT THE LISTED CUTOFFS: DRUG CLASS TEST LEVEL (NG/ML) AMPHETAMINES 300 BARBITUATES 200 BENZODIAZEPINE METABOLITES 200 COCAINE METABOLITES 300 CANNABINOIDS 25 OPIATES 200 PCP 25 THIS IS A SCREENING PROCEDURE. POSITIVE RESULTS ARE NOT CONFIRMED. SPECIMEN WAS RECEIVED WITHOUT CHAIN OF CUSTODY. RESULTS SHOULD BE USED FOR MEDICAL PURPOSES ONLY. . 54 Anion gap measurement may be of limited value in the presence of any alkalosis, especially in a combined acid base disorder. . 55 Note change in reference range as of 10/03/07. The change was based on recommendations from the [place] [employer]. 56 Please note change in reference range effective 07 . Procedures Date CPT Code Description Status 09/25/2017 23273 ECHO Transthorasic Realtime 2D W Doppler & Color Flow Completed Hosp 09/25/2017 71541 Arthrotomy Knee W/Explore/Drain/Remove Foreign Body Completed 09/25/2017 71932 Arthrotomy Knee W/Explore/Drain/Remove Foreign Body Completed 04/21/2013 00127 Xray Knee 3 Views Completed 04/21/2013 03017 Rad Exam; Knee, Ap&L Completed 03/17/2013 41772 TKR Total Knee Replacement Completed 03/17/2013 75651 TKR Total Knee Replacement Completed 03/05/2013 04081 EKG, Interpretation Only Completed 05/24/2012 13633 Inject/Drain Joint/Bursa Major W/O US Completed 08/17/2011 02501 Left Heart Cath. Incl S/I Coronaries, Angio S/I V Gram Completed If Done 08/15/2011 89506 EKG Tracing & Interpretation Completed 08/10/2011 48454 Treadmill Interp/Report Only Completed 08/10/2011 48294 Stress Test Supervsn W/Out I/R Completed 08/03/2011 10219 EKG Tracing & Interpretation Completed 07/05/2011 27014 Xray Knee 3 Views Completed 03/06/2011 41964 Arthroscopy,Knee,Meniscectomy Medial Or Lateral Completed 03/06/2011 58095 Abrasion Arthroplasty Multiple Drilling Or Completed Microfracture 01/18/2011 30669 Inject/Drain Joint/Bursa Major W/O US Completed Encounters Type Date Location Provider CPT E/M Dx Office Visit 11/09/2017 2:30p [facility] [place] [address] Z79.01 Of [facility] T84.53xD M12.261 F17.210 Office Visit 10/29/2017 9:54a [facility] Gris Mike 28447 M25.561 Infectious Diseases Lit Baum M25.461 T84.53xA Z79.01 Office Visit 10/22/2017 1:18p [facility] Gris Mike 41653 T84.53xA Infectious Diseases Lit Baum R79.82 Office Visit 10/09/2017 3:22p [facility] Obdulio Marie 94703 T84.53xA Assoc, Hospitalists MD Raya I25.10 Z72.0 M25.461 Office Visit 10/08/2017 3:22p [facility] Obdulio Marie 32006 T84.53xA Assoc, Hospitalists MD Raya I25.10 Z72.0 Office Visit 10/07/2017 3:21p [facility] Obdulio Marie 50050 T84.53xA Assoc, Hospitalists MD Raya I25.10 Z72.0 Office Visit 10/06/2017 3:21p [facility] Obdulio Shirley 54141 T84.53xA Assoc, Hospitalists Lit I25.10 Z72.0 Office Visit 10/05/2017 3:21p [facility] Miranda Shirley 46101 T84.53xA Assoc, Hospitalists Lit I25.10 Z72.0 Office Visit 10/04/2017 3:21p [facility] Obdulio Shirley 19464 T84.53xA Assoc, Hospitalists Lit M12.261 M25.461 I25.10 Office Visit 10/03/2017 3:20p [facility] Obdulio Shirley 49126 T84.53xA Assoc, Hospitalists Lit M12.261 I25.10 Z72.0 Office Visit 10/03/2017 10:20a [facility] Gris Mike 53629 T84.53xA Infectious Diseases Lit Baum R79.82 Office Visit 10/02/2017 Rowena Obdulio JoshuakatieGreer, 13388 T84.53xA 3:20p Assoc, IT [employer]ISK AND ASSURANCE 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 MANAGER Hospitalists M25.561 I10 Z72.0 Office Visit 10/01/2017 [facility]ena Obdulio Elliott Kanwal, 31[address] M25.561 3:19p Assoc, IT RISK AND ASSURANCE SENIOR MANAGER Hospitalists I10 M25.461 Z72.0 Office Visit 10/01/2017 10:09a [facility] Gris Mike 45559 T84.53xA Infectious Diseases Lit Baum K02.9 Z79.01 Office Visit 09/30/2017 3:18p [facility], NEAL Carreno 70209 I10 Hospitalists I25.10 T84.53xA Z72.0 Office Visit 09/29/2017 3:18p [facility], NEAL Carreno 05265 I10 Hospitalists I25.10 T84.53xA Z72.0 Office Visit 09/28/2017 3:18p [facility], NEAL Carreno 00695 I10 Hospitalists I25.10 Z72.0 Office Visit 09/27/2017 3:17p [facility] Michelle Calvert 54458 T84.53xA Assoc, Hospitalists NEAL M25.461 I10 I25.10 Office Visit 09/26/2017 [facility] [address]323 M25.461 Assoc, Hospitalists NEAL I25.10 Z72.0 Office Visit 09/25/2017 3[facility]p [facility] [address]18[address] M25.461 Assoc,pc Hospitalists KIERA Ayon M25.561 I10 Office Visit 09/24/2017 9:39a [facility] NEAL Laird 07957 M25.561 C.MMaria EstherAMaria Esther M25.461 Z96.651 Office Visit 09/24/2017 9:34a [facility] Karla Smith M.D. 19817 M25.561 Endy Z96.651 Office Visit 04/14/2013 2:10p [facility] Internal Medicine Abeba Gamez M.D. 02008 272.4 - Elkin 305.1 338.18 Office Visit 03/06/2013 2:50p [facility] Medicine Abeba Gamez 43398 V72.84 - Martin Murrieta 719.26 272.4 305.1 V02.62 414.01 278.00 Office Visit 12/13/2012 4:00p [facility] Navarro Richardson M.D. 33444 719.26 Of CDerrick Office Visit 05/23/2012 1:15p [facility] Navarro Richardson M.D. 37301 719.06 Of Endy Office Visit 04/26/2012 11:00a [facility] Alexander Charles 51408 719.06 Of Endy Andrew R.P.A.-Neil 844.1 Office Visit 12/22/2011 8:45a [facility] Of Navarro Richardson 90570 719.26 Endy Murrieta Office Visit 12/21/2011 3:30p [facility] Internal Medicine Abeba Gamez 64468 V04.81 - Martin Murrieta 272.4 305.1 110.4 V04.81 Office Visit 10/25/2011 3:15p [facility] Navarro Richardson 15475 719.26 Endy Murrieta Office Visit 10/19/2011 10:20a [facility] Internal Medicine Derek Stern 50638 525.9 - Martin Murri[place] Office Visit 10/04/2011 9:00a [facility] Navarro Richardson 18600 719.06 Endy Murrieta Office Visit 09/13/2011 8:30a [facility] Medicine Abeba Gamez 81544 272.4 - Martin Murrieta 305.1 V02.62 214.8 Office Visit 08/23/2011 11:20a [facility] Alda Romero D.O. 73380 V45.89 414.01 425.9 Office Visit 08/23/2011 9:00a [facility] Navarro Richardson, 01936 726.60 C.Roula Murrieta Office Visit 08/15/2011 8:40a [facility] Jann Olson, 57885 786.50 [facility] M.DMaria Esther 425.9 Office Visit 08/10/2011 11:30a [facility] Windy Baez, 01473 786.50 M.DMaria Esther 794.31 Office Visit 08/03/2011 10:00a [facility] Medicine Abeba Gamez M.D. 86370 V70.0 - [place] 786.50 V02.62 V74.5 V77.91 305.1 Office Visit 07/06/2011 9:00a [facility] Medicine Abeba Gamez 71119 346.00 - Martin Murrieta 305.1 Office Visit 07/05/2011 9:15a [facility] Navarro Richardson, 61421 719.06 Endy Murrieta Office Visit 06/06/2011 2:15p [facility] Medicine Abeba Gamez 45081 346.00 - Martin Murrieta Office Visit 06/01/2011 9:45a [facility] Medicine Abeba Gamez 98764 784.0 - Martin Murrieta 535.00 305.1 Office Visit 02/14/2011 11:30a [facility] Navarro Richardson M.D. 38998 717.9 Of C.M.A. Office Visit 02/08/2011 2:00p [facility] Navarro Richardson M.D. 69861 719.06 Of C.M.A. Office Visit 01/18/2011 3:30p [facility] Navarro Richardson M.D. 43327 719.06 Of C.M.A. Office Visit 12/05/2010 10:15a [facility] Alexander Charles 86826 836.3 Of C.M.AJovana Leroy Office Visit 11/25/2010 10:30a [facility] KENY Lopez 16225 836.3 Of C.M.A. 719.06 Office Visit 10/15/2008 2:20p DO Not Use [employer] AT [facility], 18894 719.46 [facility] Malia.DMaria Esther 300.02 Office Visit 05/27/2008 2:40p DO Not Use [employer] AT [facility], [id number] 300.02 [facility] Malia.DMaria Esther [phone] Office Visit 04/30/2008 3:20p DO Not Use [employer] AT [facility], [id number] [phone] [facility] M.DMaria Esther 300.02 300.01 [phone] Plan of Care Future Appointment(s):12/18/2017 2:00 pm - Liam Silva M.D. at [facility] - [address]01/25/2018 10:30 am - Nate Baum M.D. at [facility]05/09/2019 9:00 am - Karla Smith M.D. at [facility]12/14/2017 - Nate Baum M.D.T84.53xA Infect/inflm reaction due to internal r knee prosth, initNew Labs:C Reactive ProteinFollow up:6 zwulbU15.82 Elevated C-reactive protein (CRP)Z79.01 ocean transportation intermediary (current) use of anticoagulantsFollow up:est care with [facility] PCPZ79.2 [employer] transportation intermediary (current) use of [id number] Acute embolism and thrombosis of deep veins of r up extremComments:month 3/6 of kat
[2018-01-07] MEDS ORDERED: Lidocaine 2% VISCOUS* 15 ML UDC PO ONE (09:27)
[2018-01-07 10:36] LABS: Urine Appearance Clear; Urine Blood Negative (Negative); Urine Color Yellow; Urine Ketones Negative (Negative); Urine Protein Negative (Negative); Urine Specific Gravity 1.009 (1.010-1.030); Urine Urobilinogen Negative (Negative)
[2018-01-07] MEDS ORDERED: Ondansetron INJ* 2 MG/ML VIAL IV PRN (11:29)
[2018-01-07] MEDS ORDERED: Magnesium Hydroxide LIQ* 30 ML UDC PO PRN (11:29)
[2018-01-07] MEDS ORDERED: Al Hydrox/Mg Hydrox/Simet LIQ* 30 ML UDC PO PRN (11:29)
[2018-01-07] MEDS ORDERED: Acetaminophen TAB* 325 MG PO PRN (11:29)
[2018-01-07] MEDS: NS 0.9% 1000 ML* 1,000 ML IV SCH ×2 (12:57→23:10)
[2018-01-07] MEDS: Ibuprofen TAB* 600 MG PO PRN ×2 (12:58→21:25)
[2018-01-07] MEDS ORDERED: Heparin VIAL(*) 5000 UNITS/ML VIAL (FIVE THOUSAND) SUBCUT SCH (14:00)
--- NOTE | 2018-01-07 15:55 | HP ---
CC: Dr. Smith; Dr. Jerrell Cannon; Dr. Sanches * HISTORY AND PHYSICAL: DATE OF ADMISSION: 01/07/18 PRIMARY CARE PROVIDER: Dr. Jerrell Cannon. CHIEF COMPLAINT: "Flu symptoms." HISTORY OF PRESENT ILLNESS: Honorio Munoz is a 42-year-old male with history of recent multiple hospitalizations for septic arthritis of the right knee, status post knee replacement in the past, who presents today complaining of flu symptoms with a fever of 105 degrees. The patient stated that he had been having problems with occasional dry heaving, feeling unwell, sore throat, pain with swallowing and rigors. He denies any sick contact. He lives alone. The symptoms developed 4 days ago and have been ongoing ever since. His appetite had been poor, but he has no problems with p.o. intake, otherwise. He received a dose of vancomycin in the emergency department and he is going to place on overnight observation with diagnoses of SIRS, likely viral syndrome. PAST MEDICAL HISTORY: 1. 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 History of right basilic vein thrombosis, likely after an IV or PICC line placement in the past that developed in October of 2017, and the patient had been on anticoagulation with Eliquis for that and plan to be on anticoagulation with Eliquis for 3 months. 3. History of coronary artery disease, status post stent and cardiac characterization in 2011, which showed marked coronary artery disease with catheter- induced spasm of the right coronary artery ostium and mild cardiomyopathy. 4. History of obesity. ALLERGIES: Include ACETAMINOPHEN, AMOXICILLIN, PENICILLINS, ERYTHROMYCIN. The patient reports anaphylaxis to ACETAMINOPHEN. FAMILY HISTORY: Unknown. The patient is adopted. SOCIAL HISTORY: The patient has a history of half pack per day smoking for the past 30 years. He denies any alcohol use. He has a history of cocaine use, the last one several months ago. He lives alone and his surrogate is his mother , Marli Munoz. REVIEW OF SYSTEMS: Please see history and physical. In addition to the above- mentioned, the patient stated that he has had no problems with right knee. He denies edema. He denies any new rashes. He denies any problems with pain or with ambulation. The remaining 12 systems were reviewed with the patient and otherwise negative. PHYSICAL EXAMINATION GENERAL: The patient is a very pleasant 42-year-old male whose BMI is 35.3. The patient is in no acute distress. He is awake and oriented x3. VITAL SIGNS: Blood pressure 110/62, temperature of 98.5, respiratory rate 16, oxygen saturation 94% on room air. HEENT: Head: Atraumatic, normocephalic. Eyes: Pupils are equal, reactive to light and accommodation. Oropharynx with slightly enlarged tonsils that are injected and hyperemic, but no evidence of exudates. NECK: Supple. No JVD. No bruits bilaterally. No tenderness on palpation. RESPIRATORY: Clear to auscultation bilaterally. CARDIOVASCULAR: Regular rate and rhythm. No murmurs. ABDOMEN: Soft, nontender. Bowel sounds present in all 4 quadrants. EXTREMITIES: There is no edema. Pulses +2 bilaterally. There is no clubbing or cyanosis. Specifically on elevation of the right knee, there is no tenderness to palpation, no erythema and no edema. He has good range of motion. NEURO: Speech clear. Cranial nerves II through XII grossly intact. Motor strength is 5/5 bilaterally. SKIN: Diaphoretic with no cellulitis and no rashes noted. DIAGNOSTIC STUDIES/LAB DATA: White blood cell count of 8.8, hemoglobin of 14.1 , hematocrit of 22, and platelets of 162. Sodium is 133, potassium 3.9, chloride 103, carbon dioxide 23, BUN 13, creatinine 1.05. Liver function is unremarkable. C-reactive protein of 100.4. Troponin of 0, lactic acid of 0.8, procalcitonin of 0.1. Urinalysis is grossly unremarkable. Serologies were negative for rapid strep as well as rapid flu. Portable chest x-ray, impression, "no active cardiopulmonary disease." The patient's EKG shows sinus tachycardia with a heart rate of 106 beats per minute with no significant ST changes. ASSESSMENT AND PLAN: 1. The patient is septic, likely due to viral syndrome. He has symptoms of upper respiratory infection. So far, nothing indicates bacterial infection. Nevertheless, the patient did receive a dose of vancomycin in the emergency department. His blood cultures were obtained in the emergency department. At this point, the plan is for the patient to continue on his doxycycline for suppression of his chronic right knee infection. Dr. Sanches will see patient in the morning. We will continue resuscitating with intravenous fluids. I elected not to proceed with further antibiotic treatments, but to monitor the patient and await blood cultures. At this point, the patient had been hemodynamically stable. His lactic acid had not been elevated and procalcitonin has been negative. 2. In regards to the patient's chronic right knee infection, once again doxycycline is going to be continued. 3. History of right basilic vein thrombosis. Eliquis is going to be continued. 4. For DVT prophylaxis, the patient is going to be continued on Eliquis as mentioned above. 5. The patient's code status is full. His surrogate decision maker is his mother as mentioned above. TIME SPENT: Approximately 65 minutes was spent on the admission of this patient , more than half of that time was spent [id number] with the patient during the interview and physical exam. [id number]/CPS #: [id number] VIVEK
[2018-01-07] MEDS: DOXYcycline CAP(*) 100 MG PO SCH (21:26)
[2018-01-07] MEDS: Apixaban* 5 MG TAB PO SCH (21:26)
[2018-01-07] MEDS ORDERED: Nicotine Inhaler* 10 MG AMP INH PRN (21:55)
[2018-01-07] MEDS ORDERED: Mouth Piece, Nicotine* 1 EACH CARTRIDGE INH ONE (22:00)
[2018-01-07] MEDS: Benzocaine/Menthol LOZ* 1 LOZENGE MT PRN (22:21)
[2018-01-07] MEDS: Temazepam CAP* 15 MG PO PRN (23:10)
[2018-01-08] MEDS: Benzocaine/Menthol LOZ* 1 LOZENGE MT PRN ×3 (04:18→20:01)
[2018-01-08] MEDS: Ibuprofen TAB* 600 MG PO PRN ×2 (05:25→14:47)
[2018-01-08 06:59] LABS: ABS Basophils 0 10^3/ul (0-0.2); ABS Eosinophils 0 10^3/ul (0-0.6); ABS Lymphocytes 1.3 10^3/ul (1.0-4.8); ABS Neutrophils 5.3 10^3/ul (1.5-7.7); ABS Nucleated RBC 0 10^3/ul; Eosinophil % 0.4 %; Hematocrit 37 % (42-52); Hemoglobin 12.1 g/dl (14.0-18.0); Lymphocyte % 16.6 %; Mean Corpuscular HGB Conc 33 g/dl (31-36); Mean Corpuscular Hemoglobin 26 pg (27-31); Mean Corpuscular Volume 80 fL (80-94); Mean Platelet Volume 8.6 fL (7.4-10.4); Nucleated Red Blood Cells % 0.1; Platelet Count 135 10^3/ul (150-450); Red Blood Count 4.61 10^6/ul (4.00-5.40); Red Cell Distribution Width 17 % (10.5-15); White Blood Count 7.6 10^3/ul (3.5-10.8)
[2018-01-08 07:15] LABS: EGFR Non-African American 93.3 (>60)
[2018-01-08] MEDS: Apixaban* 5 MG TAB PO SCH ×2 (10:15→20:01)
[2018-01-08] MEDS: Aspirin 81 mg CHEW TAB* 81 MG TAB.CHEW PO SCH (10:15)
[2018-01-08] MEDS: DOXYcycline CAP(*) 100 MG PO SCH ×2 (10:16→20:01)
[2018-01-08] MEDS: NS 0.9% 1000 ML* 1,000 ML IV SCH ×2 (11:10→21:08)
--- NOTE | 2018-01-08 17:05 | PN ---
Subjective Date of Service: 01/08/18 Interval History: Patient seen and examined, still feels "terrible", feels feverish with sore throat. No further overnight events. VS stable. Objective Active Medications: Al Hydrox/Mg Hydrox/Simethicone (Maalox Plus*) 30 ml PO Q6H PRN PRN Reason: INDIGESTION Apixaban (Eliquis*) 5 mg PO BID [facility] Stop: 01/15/18 21:00 Last Admin: 01/08/18 10:15 Dose: 5 mg Aspirin (Aspirin 81 Mg Chew Tab*) 81 mg PO DAILY [facility] Last Admin: 01/08/18 10:15 Dose: 81 mg Doxycycline Hyclate (Vibramycin Cap(*)) 100 mg PO BID [facility] Last Admin: 01/08/18 10:16 Dose: 100 mg Sodium Chloride (Ns 0.9% 1000 Ml*) 1,000 mls @ 100 mls/hr IV PER RATE [facility] Last Admin: 01/08/18 11:10 Dose: 100 mls/hr Ibuprofen (Motrin Tab*) 600 mg PO Q8H PRN PRN Reason: PAIN Last Admin: 01/08/18 14:47 Dose: 600 mg Magnesium Hydroxide (Milk Of Magnesia Liq*) 30 ml PO Q4H PRN PRN Reason: CONSTIPATION Nicotine (Nicotine Inhaler*) 10 mg INH Q2H PRN PRN Reason: CRAVING Last Admin: 01/07/18 22:20 Dose: 10 mg Ondansetron HCl (Zofran Inj*) 4 mg IV Q4H PRN PRN Reason: NAUSEA/VOMITING Temazepam (Restoril Cap*) 15 mg PO BEDTIME PRN PRN Reason: INSOMNIA Last Admin: 01/07/18 23:10 Dose: 15 mg Throat Lozenges (Chloraseptic Austyn*) 1 austyn MT Q6H PRN PRN Reason: SORE THROAT Last Admin: 01/08/18 13:43 Dose: 1 austyn Vital Signs - 8 hr 01/08/18 15:18 Temperature 98.9 F Pulse Rate 87 Respiratory 16 Rate Blood Pressure 146/84 (mmHg) O2 Sat by Pulse 100 Oximetry Oxygen Devices in Use Now: None Appearance: Alert, NAD Eyes: No Scleral Icterus, PERRLA Ears/Nose/Mouth/Throat: NL Teeth, Lips, Gums, Mucous Membranes Moist, - - erythema to oropharynx Neck: NL Appearance and Movements; NL JVP, Trachea Midline Respiratory: Symmetrical Chest Expansion and Respiratory Effort, Clear to Auscultation Cardiovascular: NL Sounds; No Murmurs; No JVD, RRR, No Edema Abdominal: NL Sounds; No Tenderness; No Distention Lymphatic: No Cervical Adenopathy Skin: No Nodules or Sclerosis Neurological: Alert and Oriented x 3, NL Sensation Nutrition: Taking PO's Result Diagrams: 01/08/18 06:45 01/08/18 06:45 Microbiology and Other Data: Microbiology 01/07/18 07:50 Aerobic Blood Culture - Preliminary Blood Venous No Growth Day 1 Anaerobic Blood Culture - Preliminary No Growth Day 1 01/07/18 07:54 Aerobic Blood Culture - Preliminary Blood Venous No Growth Day 1 Anaerobic Blood Culture - Preliminary No Growth Day 1 01/07/18 08:18 Group A Streptococcus Rapid Screen - Final Throat Specimen received for Rapid Strep A Molecular testing 01/07/18 08:18 Influenza Types A,B Antigen - Final Nasal Specimen received for Influenza A/B Molecular testing Assess/Plan/Problems-Billing Assessment: This is a 42 year old male with complex medical history, including chronic infection that presented to ER with high fever and chills, meeting SIRS criteria , with what is likely viral illness. - Patient Problems (1) Fever Code(s): R50.9 - FEVER, UNSPECIFIED SNOMED Code(s): 567404030 Comment: - No white count, cultures negative, flu negative - Received IVF bolus in ED, will decrease maintenance, as fever is down and patient has adequate urine output (2) Sore throat (viral) Code(s): J02.9 - ACUTE PHARYNGITIS, UNSPECIFIED SNOMED Code(s): 8741820 Comment: - Strep negative, flu negative, HIV negative - supportive care, lozenges PRN (3) Infection of prosthetic right knee joint Code(s): T84.53XA - INFECT/INFLM REACTION DUE TO INTERNAL R KNEE PROSTH, INIT SNOMED Code(s): 997480592 Comment: - Had one dose vancomycin in ED - Continue doxy per outpatient orders (4) CAD (coronary artery disease) Code(s): I25.10 - ATHSCL HEART DISEASE OF [place] CORONARY ARTERY W/O ANG PCTRS SNOMED Code(s): 29072174 Comment: - Asymptomatic continue ASA (5) Hx of drug abuse Code(s): Z87.898 - PERSONAL HISTORY OF OTHER SPECIFIED CONDITIONS SNOMED Code( s): 785071656 Comment: - Remains sober (6) DVT prophylaxis Current Visit: No Status: Acute Code(s): GNQ0004 - SNOMED Code(s): 061394539 Comment: - on eliquis (has hx of DVT in UE) (7) Full code status Code(s): Z78.9 - OTHER SPECIFIED HEALTH STATUS SNOMED Code(s): 285329974 Status and Disposition: Remain in obs, continue supportive care, DC in AM if remains afebrile.
[2018-01-08] MEDS: Temazepam CAP* 15 MG PO PRN (21:16)
[2018-01-09] MEDS: Ibuprofen TAB* 600 MG PO PRN (01:35)
[2018-01-09 08:06] VITALS: BP 130/80
[2018-01-09] MEDS: NS 0.9% 1000 ML* 1,000 ML IV SCH (08:56)
[2018-01-09] MEDS: DOXYcycline CAP(*) 100 MG PO SCH (08:57)
[2018-01-09] MEDS: Apixaban* 5 MG TAB PO SCH (08:57)
[2018-01-09] MEDS: Aspirin 81 mg CHEW TAB* 81 MG TAB.CHEW PO SCH (08:57)
--- NOTE | 2018-01-10 11:40 | DS ---
DISCHARGE SUMMARY: DATE OF ADMISSION: 01/07/18 DATE OF DISCHARGE: 01/09/18 MY ATTENDING FOR TODAY: Dr. Miranda Shirley.* (DICTATED BY GABRIELA KAMARA NP) HOSPITAL COURSE: Please refer to admission H and P dated 01/07/18 for details, but in short, this is a 42-year-old male, well known to our service, who presented to the emergency department with complaint of fever and malaise and sore throat. The patient does have a history of chronically infected knee prosthesis, so he was concerned, even though he is still on doxycycline for extended period to time that he was having another active infection. He was david cultured, all studies were negative. It did appear that the patient was meeting SIRS criteria. He had fluid resuscitation, but again, no white count, no positive cultures and no further evidence of active infection. His sore throat persisted. His fever resolved with fluids and Tylenol. So, he was essentially treated for viral pharyngitis. The patient felt better early this morning and was ready for discharge. DISCHARGE DIAGNOSES: 1. Fever, likely viral in origin. 2. Pharyngitis, likely viral in origin. 3. History of chronically infected knee prosthesis. 4. History of opioid abuse. 5. Tobacco abuse. 6. History of deep venous thrombosis. DISCHARGE MEDICATIONS: Include: 1. Doxycycline 100 mg p.o. b.i.d. 2. Aspirin 81 mg daily. 3. Eliquis 5 mg p.o. b.i.d. 4. Ibuprofen 600 mg q.8 hours as needed. REVIEW OF SYSTEMS: A 10-point review of systems was negative, except as noted in course above. PHYSICAL EXAM: The patient is alert, well appearing, in no acute distress. Vital Signs: Blood pressure 130/80, heart rate 56, O2 saturation 98% on room air, respiratory rate 18, temperature of 97.3. HEENT: The patient is atraumatic, normocephalic. PERRLA with nonicteric sclerae. Oral mucosa is moist. Tongue is midline. Neck: Supple, nontender. No JVD noted, no carotid bruit auscultated. Cardiovascular: S1, S2 present. No murmurs, gallops, or rubs noted. Rate and rhythm are regular. Lungs are clear bilaterally to auscultation with no wheezing, rhonchi, or rales. Abdomen is soft, nontender, nondistended. Positive bowel sounds in all 4 quadrants. was deferred. Musculoskeletal: There is no clubbing, no cyanosis, no edema. He has a study gait. Gross motor and sensation are intact. Neurologic: Grossly intact with no focal deficits. Psychiatric: He is cooperative and appropriate. LABORATORY DATA: WBC is 7.6, RBC 4.61, hemoglobin 12.1, hematocrit 37, platelets 135. Sodium 135, potassium 3.6, chloride 106, CO2 of 23, BUN 10, creatinine 0.89, GFR 93.3, glucose 118, calcium 8.7, procalcitonin was 0.1. Urinalysis was negative. HIV-1 and 2 nonreactive. Influenza A and B negative and group A strep was also negative. IMAGING: Chest x-ray showed no acute cardiopulmonary process. DISPOSITION: The patient was discharged to home in stable condition. All questions were answered. The patient was instructed to follow up with Dr. Jerrell Cannon at [facility] as needed and continue his normal followup with Infectious Disease and Orthopedics also on an as needed basis. DIET: Regular as tolerated. ACTIVITY: As tolerated. TIME SPENT: Thirty five minutes coordinating discharge with the patient. GABRIELA KAMARA NP [id number]/CPS #: [id number] VIVEK
== END 2018-01-09 11:30 | disposition home or self-care (01) ==
LOC: ED 07:27 → MED 11:29
PROVIDERS: ADMIT Internal Medicine; ATTEND Internal Medicine
DX: R50.9 Fever, unspecified (principal); J02.9 Acute pharyngitis, unspecified; T84.53XA Infection and inflammatory reaction due to internal right knee prosthesis, initial encounter; F11.10 Opioid abuse, uncomplicated; F17.210 Nicotine dependence, cigarettes, uncomplicated; Z86.718 Personal history of other venous thrombosis and embolism; Z79.82 Long term (current) use of aspirin; Z96.651 Presence of right artificial knee joint; I25.10 Atherosclerotic heart disease of native coronary artery without angina pectoris; Z86.39 Personal history of other endocrine, nutritional and metabolic disease
CPT/HCPCS: 36415; 71046; 80048; 80053; 81003; 83605; 84145; 84484; 85025; 85652; 86140; 86703; 87040; 87651; 93005; 96361; 96365; 96366; 96375; 96376; 99285; A9270-GY; G0378; J1885; J3370

== ENCOUNTER 2018-04-16 09:44 | Emergency (ER) | payer OTHER ==
--- NOTE | 2018-04-16 10:11 | ED ---
Complex/Multi-Sys Presentation - HPI Summary HPI Summary: A 42 y/o male presents to [facility] with a chief complaint of swelling to the left side of his face since the night of 04/15/18, worsening since about 08:30 . The patient also reports a new onset cough since 09:30, difficulty swallowing, left eye double vision, intermittent headaches that he claims travels from the area of swelling on the left side of his face through the left ear towards his gnosticism. He also reports that he feels tooth pressure in his left upper mouth, but denies abscess. At triage the patient rated his pain as a 6/10 in severity. The patient is a smoker and reports a smokers cough, but claims that this cough is different and worse. - History Of Current Complaint Chief Complaint: EDFacialInjury Time Seen by Provider: 04/16/18 09:55 Hx Obtained From: Patient Onset/Duration: Sudden Onset, Lasting Hours, Still Present Timing: Constant, Hours Severity Currently: Moderate Severity Initially: Mild Location: Pain At: - left side of face Character: Unable To Describe Aggravating Factor(s): nothing Alleviating Factor(s): nothing Associated Signs And Symptoms: Positive: Cough, Other - positive: double vision left eye, difficulty swallowing. Negative: Fever - Allergies/Home Medications Allergies/Adverse Reactions: Allergies Allergy/AdvReac Type Severity Reaction Status Date / Time acetaminophen Allergy Severe Anaphylatic Verified 04/16/18 09:52 Shock amoxicillin Allergy Severe Anaphylatic Verified 04/16/18 09:52 Shock Penicillins Allergy Severe Anaphylatic Verified 04/16/18 09:52 Shock erythromycin base AdvReac Severe GI Upset Verified 04/16/18 09:52 PMH/Surg Hx/FS Hx/Imm Hx Endocrine/Hematology History: Denies: Hx Anticoagulant Therapy, Hx Diabetes, Hx Thyroid Disease Cardiovascular History: Reports: Hx Coronary Artery Disease - CARDIAC CATHERIZATION WITH STENT PLACEMENT Denies: Hx Hypertension, Hx Peripheral Vascular Disease Respiratory History: Reports: Other Respiratory Problems/Disorders - SMOKING HISTORY UNTIL 01/29/2013 Denies: Hx Asthma, Hx Chronic Obstructive Pulmonary Disease (COPD) History: Denies: Hx Dialysis Musculoskeletal History: Reports: Other Musculoskeletal History - RIGHT KNEE PIGMENTED VILLONODULAR SYNOVITIS Sensory History: Reports: Hx Contacts or Glasses Denies: Hx Cataracts, Hx Eye Injury, Hx Eye Prosthesis, Hx Glaucoma, Hx Legally Blind, Hx Macular Degeneration, Hx Vision Problem, Hx Deafness, Hx Hearing Aid, Hx Hearing Problem, Other Sensory Impairments Opthamlomology History: Reports: Hx Contacts or Glasses Denies: Hx Cataracts, Hx Eye Injury, Hx Eye Prosthesis, Hx Glaucoma, Hx Legally Blind, Hx Macular Degeneration, Hx Vision Problem, Other Sensory Impairments Neurological History: Denies: Hx Dementia, Hx Headaches, Hx Seizures, Hx Transient Ischemic Attacks (TIA) - Surgical History Surgery Procedure, Year, and Place: 06/2011 CARDIAC CATHERIZATION WITH CARDIAC STENT PLACEMENT, [facility] [place]. 2011 RIGHT KNEE ARTHROSCOPY WITH BIOPSY, and partial replacement [facility] [place]. 2012 PILIDIONAL CYSTECTOMY, [facility] [place]. RT TOTAL KNEE 09/25/17 Hx Anesthesia Reactions: No Infectious Disease History: No Infectious Disease History: Denies: Traveled Outside the [place] in Last 30 Days - Family History Known Family History: Positive: Unknown - Adopted - Social History Alcohol Use: None Hx Substance Use: No Substance Use Type: Reports: Other Substance Use Comment - Amount & Last Used: Pt states he occassional takes "pills" Hx Tobacco Use: Yes Smoking Status (MU): Heavy Every Day Tobacco Smoker Type: Cigarettes Amount Used/How Often: 1 PPD Length of Time of Smoking/Using Tobacco: 20 YEARS Have You Smoked in the Last Year: Yes Review of Systems Negative: Fever Positive: Other - Positive: double vision left eye Positive: Dental Pain, Ear Ache Positive: Cough Positive: Headache All Other Systems Reviewed And Are Negative: Yes Physical Exam - Summary Physical Exam Summary: Appearance: The patient is well-nourished in no acute distress and in no acute pain. Skin: Swelling left upper face, no cellulitis or abscess. HEENT: Swelling left upper face. Extraocular movements intact. The pupils are equal and reactive. The conjunctivae are clear and without drainage. Nares are patent and without drainage. Mouth reveals moist mucous membranes and the throat is without erythema and exudate. Carried upper left premolar no cellulitis or abscess. Posterior pharynx appears normal. The external ears are intact. The ear canals are patent and without drainage. The tympanic membranes are intact. Neck: The neck is supple with full range of motion and non-tender. There are no carotid bruits. There is no neck vein distension. Respiratory: Chest is non-tender. Lungs are clear to auscultation and breath sounds are symmetrical and equal. Cardiovascular: Heart is regular rate and rhythm. There is no murmur or rub auscultated. There is no peripheral edema and pulses are symmetrical and equal. Abdomen: The abdomen is soft and non-tender. There are normal bowel sounds heard in all four quadrants and there is no organomegaly palpated. Musculoskeletal: There is no back tenderness noted. Extremities are non-tender with full range of motion. There is good capillary refill. There is no peripheral edema or calf tenderness elicited. Neurological: Patient is alert and oriented to person, place and time. The patient has symmetrical motor strength in all four extremities. Cranial nerves are grossly intact. Deep tendon reflexes are symmetrical and equal in all four extremities. Psychiatric: The patient has an appropriate affect and does not exhibit any anxiety or depression. Triage Information Reviewed: Yes Vital Signs On Initial Exam: Initial Vitals Temp Pulse Resp BP Pulse Ox 98.9 F 87 20 140/95 97 04/16/18 09:49 04/16/18 09:49 04/16/18 09:49 04/16/18 09:49 04/16/18 09:49 Vital Signs Reviewed: Yes Diagnostics - Vital Signs Vital Signs Temp Pulse Resp BP Pulse Ox 04/16/18 09:49 98.9 F 87 20 140/95 97 - Laboratory Result Diagrams: 04/16/18 10:13 Lab Statement: Any lab studies that have been ordered have been reviewed, and results considered in the medical decision making process. - CT maxillofacial CT Interpretation Completed By: Radiologist Summary of CT Findings: Extensive soft tissue inflammatory change involving the superficial soft tissues of the. LEFT face from the level of the mandible inferiorly through the oral labia, buccal region,. malar eminence, nasolabial fold, and preseptal region on the LEFT eye. No loculated. abscess collection evident. The inflammatory change involves the subcutaneous fat as well. as the muscles of facial expression. Negative for subcutaneous emphysema. Fluid level at the LEFT maxillary sinus concerning for potential acute sinusitis. Lucency around the root of the LEFT maxillary canine tooth which may reflect presence. of dental disease and represent the origin of the inflammatory process. Suggestion of hypertrophy of the palatine tonsils. Negative for thickening of the. epiglottis. ED physician has reviewed this imaging report. Re-Evaluation - Re-Evaluation First Eval Re-Evaluation Time: 11:51 Change: Unchanged Comment: Patient reports that he feels tired. Second Eval Re-Evaluation Time: 13:30 Change: Improved Comment: patient is feeling better and will be discharged Complex Multi-Symp Course/Dx Course Of Treatment: Mr. Munoz presented complaining of the fairly acute onset of left facial swelling today. He also describes a sharp pain in the left posterior auricular area. He denies toothache. On exam he had left-sided facial swelling which we see often with a toothache. His left maxillary premolar was quite carried consistent with this finding although he complained of no pain. He did complain of fullness in his left maxillary sinus and thought he might have sinusitis. I can't transilluminated with all the swelling. He complained of a vision problem but his extraocular muscles were intact and did not exacerbate it. He was given Benadryl for the swelling and IV Toradol for the pain. CT was obtained which was read as left maxillary sinusitis and also noted that tooth and attributed the swelling to that tooth. Center exactly the etiology I am going to cover both with clindamycin as he is allergic to penicillin. - Diagnoses Provider Diagnoses: Sinusitis, Toothache Discharge - Sign-Out/Discharge Documenting (check all that apply): Patient Departure - DC Patient Received Moderate/Deep Sedation with Procedure: No - Discharge Plan Condition: Stable Disposition: HOME Prescriptions: Clindamycin HCl 300 mg PO Q6HR #40 capsule Patient Education Materials: Sinusitis (ED), Toothache (ED) Referrals: Jerrell Cannon MD [Primary Care Provider] - (2-3 days) Additional Instructions: Return to the ED if you experience any new or worsening pain. - Billing Disposition and Condition Condition: STABLE Disposition: Home - Attestation Statements Document Initiated by Gracee: Yes Documenting Scribe: Ori Hooper Provider For Whom Rashad is Documenting (Include Credential): Ajay Enriquez MD Scribe Attestation: I, Ori Hooper, scribed for Ajay Enriquez MD on 04/16/18 at 1336. Scribe Documentation Reviewed: Yes Provider Attestation: The documentation as recorded by the Ori lucas accurately reflects the service I personally performed and the decisions made by me, Ajay Enriquez MD Status of Scribe Document: Viewed
[2018-04-16] MEDS ORDERED: diPHENhydraMINE IV* 50 MG/ML 1 ml VIAL (BENADRYL) IV ONE (10:13)
[2018-04-16 10:41] LABS: ABS Basophils 0 10^3/ul (0-0.2); ABS Eosinophils 0.6 10^3/ul (0-0.6); ABS Lymphocytes 2.6 10^3/ul (1.0-4.8); ABS Monocytes 0.7 10^3/ul (0-0.8); ABS Neutrophils 4.5 10^3/ul (1.5-7.7); ABS Nucleated RBC 0 10^3/ul; Eosinophil % 6.9 %; Hematocrit 40 % (42-52); Hemoglobin 13.4 g/dl (14.0-18.0); Lymphocyte % 31.1 %; Mean Corpuscular HGB Conc 33 g/dl (31-36); Mean Corpuscular Hemoglobin 27 pg (27-31); Mean Corpuscular Volume 82 fL (80-94); Mean Platelet Volume 9.6 fL (7.4-10.4); Nucleated Red Blood Cells % 0; Platelet Count 185 10^3/ul (150-450); Red Cell Distribution Width 16 % (10.5-15); White Blood Count 8.4 10^3/ul (3.5-10.8)
[2018-04-16] MEDS ORDERED: Ketorolac INJ* 30 MG/ML 1 ML VIAL IV PUSH ONE (11:52)
[2018-04-16 13:35] VITALS: BP 124/93
== END 2018-04-16 13:36 | disposition home or self-care (01) ==
LOC: ED 09:44
DX: J32.9 Chronic sinusitis, unspecified (principal); K08.89 Other specified disorders of teeth and supporting structures; R05 Cough; H53.2 Diplopia; R13.10 Dysphagia, unspecified; I25.10 Atherosclerotic heart disease of native coronary artery without angina pectoris; Z95.5 Presence of coronary angioplasty implant and graft; Z96.651 Presence of right artificial knee joint; Z88.6 Allergy status to analgesic agent; Z88.1 Allergy status to other antibiotic agents; Z88.0 Allergy status to penicillin; F17.210 Nicotine dependence, cigarettes, uncomplicated
CPT/HCPCS: 36415; 70486; 85025; 86140; 96374; 96375; 99281; J1200; J1885